=== PATIENT | female | born 1975 | race Caucasian/White ===

== ENCOUNTER 2024-01-26 15:46 | Emergency (ER) | payer SELFPAY ==
[2024-01-26 15:49] VITALS: BP 121/74; PULSE 97; RESP 16; O2SAT 100
--- NOTE | 2024-01-26 15:52 | ECG_ITS ---
Test Date: 2024-01-26 16:02:14 Measurements Intervals [place] Rate: 94 P: 58 MA: 160 QRS: 0 QRSD: 81 T: 58 QT: 331 QTc: 416 Interpretive Statements SINUS RHYTHM DELAYED PRECORDIAL R/S TRANSITION LOW QRS VOLTAGE IN PRECORDIAL LEADS BASELINE ARTIFACT- I, II, III, AVR, AVL, AVF, V1-V2 BORDERLINE ECG No previous ECG available for comparison Electronically Signed On 01-26-2024 18:39:07 MYSQL DATABASE ADMINISTRATOR by Iker Ramirez D.O.
== END 2024-01-26 18:56 | disposition left against medical advice (07) ==
LOC: ANHED 18:55
PROVIDERS: Emergency Provider Emergency Medicine
DX: M54.2 Cervicalgia (principal)
CPT/HCPCS: 93005; 99199

== ENCOUNTER 2024-09-03 21:12 | Emergency (ER) | payer MEDICAID, SELFPAY ==
[2024-09-03] VITALS (9 sets, daily range): BP systolic 121–142; BP diastolic 72–97; PULSE 82–90; RESP 14–23; TEMP 36.8; O2SAT 94–100
--- NOTE | ~2024-09-03 | CT_ITS ---
CT of the Abdomen and Pelvis: Indication: Abdominal pain Technique: 2.5 mm axial scans were obtained through the abdomen and pelvis following intravenous adm inistration of 100 cc of Omnipaque 350. Dose reduction technique was used on this scan by utilizing a utomated exposure control and iterative reconstruction technique. The dose-length product (DLP) was 1 455.21 mGy-cm. Findings: Scans through the lung bases are unremarkable. There is diffuse hepatic steatosis, with hepatomegaly, with liver measuring 27.4 cm in length. Cholec ystectomy clips are present. The spleen, pancreas, adrenals and kidneys are within normal limits. No evidence of aortic aneurysm. No lymphadenopathy. No bowel obstruction or bowel wall thickening. There is no evidence to suggest acute appendicitis. Images through the pelvis were performed. Urinary bladder unremarkable. No adnexal mass seen. No asci daniel. Impression: Diffuse hepatic steatosis with associated hepatomegaly. Reviewed, dictated and finalized at [facility]. Impression: Diffuse hepatic steatosis with associated hepatomegaly.
[2024-09-03 21:25] LABS: BEDSIDEPREGUCG Negative (Negative)
[2024-09-03 21:31] LABS: Basophils Percent Auto 0.4 % (0.2-1.2); Eosinophils Absolute Auto 0.3 K/mm3 (0-0.3); Eosinophils Percent Auto 3.5 % (0-4.4); Hematocrit 35.9 % (37.0-47.0); Hemoglobin 12.4 g/dL (12.0-15.0); Immature Granulocyte Absolute 0.04 K/mm3 (0.00-0.031); Immature Granulocyte Percent A 0.5 % (0-0.5); Lymphocytes Absolute Auto 1.79 K/mm3 (0.9-3.2); Lymphocytes Percent Auto 23.3 % (18.3-44.2); Mean Corpuscular HGB Conc 34.5 g/dl (32-36); Mean Corpuscular Hemoglobin 29.3 pg (26-34); Mean Corpuscular Volume 84.9 fl (80-100); Mean Platelet Volume 8.3 fl (7.4-10.4); Monocytes Absolute Auto 0.6 K/mm3 (0.1-0.6); Monocytes Percent Auto 7.3 % (2.6-8.5); Platelet Count Result 275 k/mm3 (150-375); Red Blood Count 4.23 M/mm3 (4.2-5.4); Red Cell Distribution Width 13.6 % (11.5-14.5); White Blood Count 7.7 K/mm3 (4.5-10.0)
[2024-09-03 21:39] LABS: Add Urine Microscopic? YES; Appearance Urine Clear (Clear); Bacteria Urine Rare /hpf; Bilirubin Urine Negative (Negative); Blood Urine Negative (Negative); Color Urine Yellow (Yellow); Glucose Urine UA Trace mg/dL (Negative); Ketones Urine Trace mg/dL (Negative); Leukocyte Esterase Ur 1+ LEU/UL (Negative); Need Manual Microscopic Reviewed; Nitrate Urine Negative (Negative); Non Pathogenic Casts 0-2; Protein Urine Negative (Negative); RBC Urine 0-2 /hpf (0-2); Specific Grav Ur 1.026 (1.001-1.035); Squamous Epithelial Cell Urine Occasional /hpf (Few); Urobilinogen Urine 0.2 mg/dL (<2.0); WBC Urine 0-5 /hpf (0-3); pH Urine 5.5 (5.0-9.0)
[2024-09-03 21:40] LABS: Alanine Aminotransferase 21 U/L (6-35); Albumin Level 4.1 g/dL (3.5-5.1); Alkaline Phosphatase 50 U/L (38-126); Anion Gap 10 mmol/L (4-12); Aspartate Amino Transferase 21 U/L (14-36); Bilirubin,Total 0.5 mg/dL (0.2-1.3); Blood Urea Nitrogen 10 mg/dL (7-17); Calcium 9.3 mg/dL (8.4-10.2); Carbon Dioxide 24 mmol/L (22-30); Chloride 105 mmol/L (98-107); Estimated CRCL calculation 145 ml/min; Estimated Glomerular Filt Rate > 60; Glucose 244 mg/dL (65-110); Lipase 187 U/L (23-300); Potassium 3.8 mmol/L (3.4-5.0); Sodium 139 mmol/L (137-145); Total Protein 7.4 g/dL (6.3-8.2)
[2024-09-03] MEDS: MORPHINE SULFATE (*CRX) 4 MG/ML INJ IV PUSH ×2 (21:57→22:41)
[2024-09-03] MEDS: ONDANSETRON INJ 4 MG/2 ML VIAL IV PUSH ×2 (21:57→23:11)
[2024-09-03 22:11] LABS: INR 1.1; Partial Thromboplastin Time 25.8 Seconds (22.3-36.8); Prothrombin Time 13.7 Seconds (11.1-14.7)
[2024-09-03 22:27] LABS: NT Pro B Type Natriuretic Pept 120 pg/mL (19.9-100)
--- NOTE | 2024-09-03 22:38 | ED_ITS ---
HPI - Abdominal Pain General Chief Complaint: Abdominal Pain <JOSIE Zuniga Last Filed: 09/04/24 01:48> Stated Complaint: ABD PAIN XTD <JOSIE Zuniga Last Filed: 09/04/24 01:48> Time Seen by Provider: 09/03/24 21:13 <JOSIE Zuniga Last Filed: 09/04/24 01:48> Source: patient <JOSIE Zuniga Last Filed: 09/04/24 01:48> Mode of arrival: ambulatory <JOSIE Zuniga Filed: 09/04/24 01:48> Limitations: no limitations <JOSIE Zuniga Last Filed: 09/04/24 01:48> History of Present Illness HPI narrative: Patient is a 49-year-old female, with PMH of fibromyalgia, HTN, DM, hypothyroidism, who presents the ED with report of right lower quadrant abdominal pain. Patient reports pain began earlier today and has been constant throughout the day today. Worse with certain positions. Has not taken anything for pain. Reports nausea, diarrhea, decreased appetite. Denies vomiting, fevers, urinary complaints. Denies history of ovarian cyst. History of previous cholecystectomy. Patient was noted to have swelling throughout bilateral lower extremities. She reports this has been ongoing for the past 1 week. Denies pain. <JOSIE Zuniga Last Filed: 09/04/24 01:48> Related Data Home Medications: Home Medications ?Medication ?Instructions ?Recorded ?Confirmed ?Last Taken ?Type pregabalin 150 mg capsule (Lyrica) 150 mg PO TID 05/11/19 03/28/24 03/28/24 History aspirin 325 mg tablet 325 mg PO DAILY 10/25/19 03/28/24 03/28/24 History atorvastatin 80 mg tablet 80 mg PO DAILY 10/25/19 03/28/24 03/27/24 History empagliflozin 10 mg tablet 10 mg PO DAILY 10/25/19 03/28/24 03/28/24 History (Jardiance) levothyroxine 125 mcg tablet 125 mcg PO BID 08/03/28/24 03/28/24 History metformin 500 mg tablet,extended 500 mg PO BID 10/25/19 03/28/24 Unknown History release 24 hr topiramate 50 mg tablet 50 mg PO BID 10/25/19 03/28/24 Unknown History trazodone 100 mg tablet 100 mg PO HS 10/25/19 03/28/24 03/27/24 History venlafaxine 75 mg tablet 75 mg PO TID 10/25/19 04/07/24 Unknown History mzemecxsiz-gprkpbrzokyrq-buzcduxz 1 tablet PO PRN headache 03/28/24 03/28/24 Unknown History 50 mg-325 mg-40 mg tablet flecainide 100 mg tablet 100 mg PO Q12H 03/28/24 03/28/24 03/28/24 History levothyroxine 75 mcg tablet 75 mcg PO DAILY 03/28/24 03/28/24 03/28/24 History <Rosetta White PA-C - Last Filed: 09/04/24 01:48> Allergies/Adverse Reactions: Allergies Allergy/AdvReac Type Severity Reaction Status Date / Time hydroxyzine Allergy Intermediate SWELLS Verified 09/03/24 21:13 buspirone AdvReac Intermediate Nausea and Verified 09/03/24 21:13 Vomiting <Rosetta White PA-C - Last Filed: 09/04/24 01:48> Review of Systems 2 Review of Systems: All systems reviewed & are unremarkable except as noted in HPI. <Rosetta White PA-C - Last Filed: 09/04/24 01:48> All systems reviewed & are unremarkable except as noted in HPI and below < Rosetta White PA-C - Last Filed: 09/04/24 01:48> [facility] Past Medical History Medical History: Medical History Hypothyroid Diabetes Fibromyalgia Anxiety and depression Migraines <Rosetta White PA-C - Last Filed: 09/04/24 01:48> Surgical History Surgical History: Surgical History Hx of cholecystectomy H/O cervical spine surgery <Rosetta White PA-C - Last Filed: 09/04/24 01:48> Social History Social History: Social History Smoking status: Former smoker Tobacco type: cigarettes Alcohol intake: current Alcohol use details: rarely Substance use: never Substance use type: does not use Living arrangements: with family Gender identity (if verbalized by the patient): Female Spiritual care concerns: No <Rosetta White PA-C - Last Filed: 09/04/24 01:48> Exam 2 Narrative: GENERAL: Well appearing, obese with BMI of 35.1, non-toxic, in no acute distress. HEAD: Normocephalic, atraumatic. RESPIRATORY: Airway patent, respirations nonlabored. Clear to auscultation bilaterally, no rales, rhonchi, wheezing. CARDIOVASCULAR: Regular rate and rhythm without murmurs, rubs, or gallops. ABDOMINAL: Soft, mild diffuse tenderness throughout lower abdomen, worse in right quadrant, nondistended. Normoactive BS. MUSCULOSKELETAL: Moves all extremities. No gross deformities. Diffuse nonpitting edema throughout bilateral lower extremities, appears symmetric. No warmth or erythema. No calf tenderness. SKIN: Warm, dry, normal color. NEURO: A&O X3. Speech clear. No ataxic movements. PSYCHIATRIC: Appropriate mood and affect. Normal interaction. <Rosetta White PA-C - Last Filed: 09/04/24 01:48> Course Course Emergency Course: Patient signed out to me pending interpretation of CT study. RENU discussed patient with me including the presence of lower extremity swelling that had been noted though with a normal dimer and a BNP that was not elevated to a degree to suggest acute heart failure. RENU had discussed with patient dependent edema and the need to follow-up. Given the significant delay in interpretation of her CT scan, I had called safety relief valve technician and was informed they were aware of the delay. I was notified that patient was desiring to leave. I indicated that I would come to speak to her after evaluating a new arrival in the ED but patient decided to leave. I did not have the opportunity to discuss with her in regards to her work up so far and the AMA process. She also did not have the opportunity to receive discharge paperwork/instructions. Shortly after patient left, her CT abdomen pelvis with contrast resulted from stat rad with the following interpretation: Nonspecific marked hepatomegaly. The remaining solid organs are within normal limits. No bowel obstruction. Normal appendix. No fracture. Moderate pelvic floor prolapse. <Krysten Powell MD - Last Filed: 09/04/24 02:39> Vital Signs Vital signs: Vital Signs Temperature 98.3 F 09/03/24 21:18 Pulse Rate 90 09/03/24 21:18 Respiratory Rate 16 09/03/24 21:18 Blood Pressure 142/91 H 09/03/24 21:18 Pulse Oximetry 96 09/03/24 21:18 Oxygen Delivery Room Air 09/03/24 21:18 Temperature 98.3 F 09/03/24 21:18 Pulse Rate 79 09/04/24 02:00 Respiratory Rate 12 09/04/24 02:00 Blood Pressure 123/78 09/04/24 02:00 Pulse Oximetry 96 09/04/24 02:00 Oxygen Delivery Room Air 09/03/24 21:18 <Rosetta White PA-C - Last Filed: 09/04/24 01:48> Vital Signs Temperature 98.3 F 09/03/24 21:18 Pulse Rate 90 09/03/24 21:18 Respiratory Rate 16 09/03/24 21:18 Blood Pressure 142/91 H 09/03/24 21:18 Pulse Oximetry 96 09/03/24 21:18 Oxygen Delivery Room Air 09/03/24 21:18 Temperature 98.3 F 09/03/24 21:18 Pulse Rate 79 09/04/24 02:00 Respiratory Rate 12 09/04/24 02:00 Blood Pressure 123/78 09/04/24 02:00 Pulse Oximetry 96 09/04/24 02:00 Oxygen Delivery Room Air 09/03/24 21:18 <Krysten Powell MD - Last Filed: 09/04/24 02:39> MDM - Abdominal Pain MDM Narrative Medical decision making narrative: Patient presented to ED with right lower quadrant abdominal pain that began today. Associated with nausea, diarrhea. Vital signs are stable upon arrival. Patient is afebrile. Mildly uncomfortable appearing. Laboratory studies are fairly unremarkable. No leukocytosis or anemia. Stable electrolytes. Stable kidney function. Blood sugar is elevated to 44. No evidence of DKA. Normal LFTs and lipase. UA with trace ketones, no signs of infection. Urine is negative. CT abd/pelvis ordered. Patient did have swelling throughout bilateral lower extremities which she reports has been ongoing for the last 1 week. She is not very forthcoming with information regarding the swelling. D-dimer was obtained and within normal limits. BNP also within normal limits. Suspect lymphedema/dependent edema picture. Care signed out to Dr. Powell at shift change pending STAT RAD imaging. <Rosetta White PA-C - Last Filed: 09/04/24 01:48> Medical Records Attestation: I reviewed the patient's medical records. <Rosetta White PA-C - Last Filed: 09/04/24 01:48> Lab Data Attestation: I reviewed the patient's lab results. <Rosetta White PA-C - Last Filed: 09/04/24 01:48> Result diagrams: 09/03/24 21:23 09/03/24 21:23 <Rosetta White PA-C - Last Filed: 09/04/24 01:48> Labs: Lab Results 09/03/24 Range/Units 21:23 WBC 7.7 (4.5-10.0) K/mm3 RBC 4.23 (4.2-5.4) M/mm3 Hgb 12.4 (12.0-15.0) g/dL Hct 35.9 L (37.0-47.0) % MCV 84.9 (80-100) fl MCH 29.3 (26-34) pg MCHC 34.5 (32-36) g/dl RDW 13.6 (11.5-14.5) % Plt Count 275 (150-375) k/mm3 MPV 8.3 (7.4-10.4) fl Immature Gran % (Auto) 0.5 (0-0.5) % Neut % (Auto) 65.0 (45.5-73.1) % Lymph % (Auto) 23.3 (18.3-44.2) % Sabine % (Auto) 7.3 (2.6-8.5) % Eos % (Auto) 3.5 (0-4.4) % Baso % (Auto) 0.4 (0.2-1.2) % Lymph # (Auto) 1.79 (0.9-3.2) K/mm3 Sabine # (Auto) 0.6 (0.1-0.6) K/mm3 Eos # (Auto) 0.3 (0-0.3) K/mm3 Baso # (Auto) 0.0 (0.0-0.1) K/mm3 Abs Immat Gran (auto) 0.04 H (0.00-0.031) K/mm3 Absolute Neuts (auto) 5.0 (1.3-6.7) K/mm3 Absolute Nucleated RBC 0.000 (0.0-0.012) K/mm3 Nucleated RBC % 0.0 (0.0-0.2) % PT 13.7 (11.1-14.7) Seconds INR 1.1 APTT 25.8 (22.3-36.8) Seconds D-Dimer 0.30 (<0.48) ug/mL Sodium 139 (137-145) mmol/L Potassium 3.8 (3.4-5.0) mmol/L Chloride 105 (98-107) mmol/L Carbon Dioxide 24 (22-30) mmol/L Anion Gap 10 (4-12) mmol/L BUN 10 (7-17) mg/dL Creatinine 0.62 L (0.7-1.0) mg/dL Estim Creat Clear Calc 145 ml/min Estimated GFR > 60 (59 - ) Glucose 244 H (65-110) mg/dL Calcium 9.3 (8.4-10.2) mg/dL Total Bilirubin 0.5 (0.2-1.3) mg/dL AST 21 (14-36) U/L ALT 21 (6-35) U/L Alkaline Phosphatase 50 (38-126) U/L NT-Pro-B Natriuret Pep 120 H (19.9-100) pg/mL Total Protein 7.4 (6.3-8.2) g/dL Albumin 4.1 (3.5-5.1) g/dL Lipase 187 (23-300) U/L Urine Color Yellow (Yellow) Urine Appearance Clear (Clear) Urine pH 5.5 (5.0-9.0) Ur Specific Floral 1.026 (1.001-1.035) Urine Protein Negative (Negative) mg/dL Urine Glucose (UA) Trace H (Negative) mg/dL Urine Ketones Trace H (Negative) mg/dL Ur Blood (Man) Negative (Negative) Urine Nitrate Negative (Negative) Urine Bilirubin Negative (Negative) Urine Urobilinogen 0.2 (<2.0) mg/dL Add Ur Microanalysis Reviewed Leukocyte Esterase Rfl 1+ H (Negative) ANAID/UL Urine RBC 0-2 (0-2) /hpf Urine WBC 0-5 (0-3) /hpf Ur Squamous Epith Cells Occasional (Few) /hpf Urine Bacteria Rare /hpf Urine Casts 0-2 POC Urine HCG, Qual Negative (Negative) <Rosetta White PA-C - Last Filed: 09/04/24 01:48> Lab Results 09/03/24 Range/Units 21:23 WBC 7.7 (4.5-10.0) K/mm3 RBC 4.23 (4.2-5.4) M/mm3 Hgb 12.4 (12.0-15.0) g/dL Hct 35.9 L (37.0-47.0) % MCV 84.9 (80-100) fl MCH 29.3 (26-34) pg MCHC 34.5 (32-36) g/dl RDW 13.6 (11.5-14.5) % Plt Count 275 (150-375) k/mm3 MPV 8.3 (7.4-10.4) fl Immature Gran % (Auto) 0.5 (0-0.5) % Neut % (Auto) 65.0 (45.5-73.1) % Lymph % (Auto) 23.3 (18.3-44.2) % Sabine % (Auto) 7.3 (2.6-8.5) % Eos % (Auto) 3.5 (0-4.4) % Baso % (Auto) 0.4 (0.2-1.2) % Lymph # (Auto) 1.79 (0.9-3.2) K/mm3 Sab[place] # (Auto) 0.6 (0.1-0.6) K/mm3 Eos # (Auto) 0.3 (0-0.3) K/mm3 Baso # (Auto) 0.0 (0.0-0.1) K/mm3 Abs Immat Gran (auto) 0.04 H (0.00-0.031) K/mm3 Absolute Neuts (auto) 5.0 (1.3-6.7) K/mm3 Absolute Nucleated RBC 0.000 (0.0-0.012) K/mm3 Nucleated RBC % 0.0 (0.0-0.2) % PT 13.7 (11.1-14.7) Seconds INR 1.1 APTT 25.8 (22.3-36.8) Seconds D-Dimer 0.30 (<0.48) ug/mL Sodium 139 (137-145) mmol/L Potassium 3.8 (3.4-5.0) mmol/L Chloride 105 (98-107) mmol/L Carbon Dioxide 24 (22-30) mmol/L Anion Gap 10 (4-12) mmol/L BUN 10 (7-17) mg/dL Creatinine 0.62 L (0.7-1.0) mg/dL Estim Creat Clear Calc 145 ml/min Estimated GFR > 60 (59 - ) Glucose 244 H (65-110) mg/dL Calcium 9.3 (8.4-10.2) mg/dL Total Bilirubin 0.5 (0.2-1.3) mg/dL AST 21 (14-36) U/L ALT 21 (6-35) U/L Alkaline Phosphatase 50 (38-126) U/L NT-Pro-B Natriuret Pep 120 H (19.9-100) pg/mL Total Protein 7.4 (6.3-8.2) g/dL Albumin 4.1 (3.5-5.1) g/dL Lipase 187 (23-300) U/L Urine Color Yellow (Yellow) Urine Appearance Clear (Clear) Urine pH 5.5 (5.0-9.0) Ur Specific Floral 1.026 (1.001-1.035) Urine Protein Negative (Negative) mg/dL Urine Glucose (UA) Trace H (Negative) mg/dL Urine Ketones Trace H (Negative) mg/dL Ur Blood (Man) Negative (Negative) Urine Nitrate Negative (Negative) Urine Bilirubin Negative (Negative) Urine Urobilinogen 0.2 (<2.0) mg/dL Add Ur Microanalysis Reviewed Leukocyte Esterase Rfl 1+ H (Negative) ANAID/UL Urine RBC 0-2 (0-2) /hpf Urine WBC 0-5 (0-3) /hpf Ur Squamous Epith Cells Occasional (Few) /hpf Urine Bacteria Rare /hpf Urine Casts 0-2 POC Urine HCG, Qual Negative (Negative) <Krysten Powell MD - Last Filed: 09/04/24 02:39> Imaging Data Attestation: I personally reviewed and interpreted this imaging study as follows: < Rosetta White PA-C - Last Filed: 09/04/24 01:48> Discharge Plan Discharge Clinical Impression: Right lower quadrant abdominal pain, Nausea, Swelling of both lower extremities, Hepatomegaly, Pelvic prolapse <JOSIE Zuniga Last Filed: 09/04/24 01:48> Patient Disposition: Elopement After Seen by Prov <JOSIE Zuniga Last Filed: 09/04/24 01:48> Condition: Stable <Rosetta White PA-C - Last Filed: 09/04/24 01:48> Instructions: Antibiotic Form, Gastroenteritis (ED), Abdominal Pain (ED), Edema (ED) <JOSIE Zuniga Last Filed: 09/04/24 01:48> Additional Instructions: Recommend elevation of legs whenever able. You may try compression stockings to assist with swelling. Limit salt intake. Follow up with your primary care doctor for this. <Rosetta White PA-C - Last Filed: 09/04/24 01:48> Patient Language: Belizean <JOSIE Zuniga Last Filed: 09/04/24 01:48> Prescriptions: No Action atorvastatin 80 mg Tablet 80 mg PO DAILY aspirin 325 mg Tablet 325 mg PO DAILY levothyroxine 125 mcg Tablet 125 mcg PO BID metformin 500 mg Tablet Extended Release 24 Hr 500 mg PO BID Jardiance 10 mg Tablet 10 mg PO DAILY topiramate 50 mg Tablet 50 mg PO BID trazodone 100 mg Tablet 100 mg PO HS venlafaxine 75 mg Tablet 75 mg PO TID pregabalin [Lyrica] 150 mg Capsule 150 mg PO TID arsfdhpgoi-ojygluxxkxnfy-nias 50-325-40 mg tablet 1 tablet PO PRN levothyroxine 75 mcg tablet 75 mcg PO DAILY flecainide 100 mg tablet 100 mg PO Q12H peg 3350-electrolytes [Golytely] 236-22.74-6.74 -5.86 gram recon soln 240 ml PO .Q15MIN Qty: 4000 0RF Rx Instructions: FOLLOW INSTRUCTIONS FROM PROVIDER <Rosetta White PA-C - Last Filed: 09/04/24 01:48> Follow-up/Referrals: Dotty Charles RN [Primary Care Provider] - <Rosetta White PA-C - Last Filed: 09/04/24 01:48>
[2024-09-04 00:01] VITALS: BP 120/83; PULSE 77; RESP 19; O2SAT 95
[2024-09-04] MEDS: diphenhydrAMINE HCl INJ 50 MG/ML VIAL 25 MG IV PUSH (00:32)
[2024-09-04] MEDS: METOCLOPRAMIDE HCL INJ 10 MG/2 ML VIAL IV PUSH (00:36)
[2024-09-04 01:01] VITALS: BP 117/75; PULSE 77; RESP 12; O2SAT 96
[2024-09-04 01:31] VITALS: BP 136/75; PULSE 76; RESP 12; O2SAT 96
[2024-09-04 02:00] VITALS: BP 123/78; PULSE 79; RESP 12; O2SAT 96
== END 2024-09-04 02:10 | disposition left against medical advice (07) ==
PROVIDERS: Physician Assistant; Emergency Provider Student in an Organized Health Care Education/Training Program
DX: N81.89 Other female genital prolapse (principal); R10.31 Right lower quadrant pain; R11.0 Nausea; R22.43 Localized swelling, mass and lump, lower limb, bilateral; R16.0 Hepatomegaly, not elsewhere classified; I10 Essential (primary) hypertension; E03.9 Hypothyroidism, unspecified; E11.9 Type 2 diabetes mellitus without complications; M79.7 Fibromyalgia; F41.9 Anxiety disorder, unspecified; F32.A Depression, unspecified; Z87.891 Personal history of nicotine dependence; Z90.49 Acquired absence of other specified parts of digestive tract; Z79.899 Other long term (current) drug therapy; Z79.84 Long term (current) use of oral hypoglycemic drugs
CPT/HCPCS: 36415; 74177; 80053; 81001; 81025; 83690; 83880; 85025; 85380; 85610; 85730; 87086; 96374; 96375; 96376; 99284; J1200; J2270; J2405; J2765; Q9967

== ENCOUNTER 2024-09-24 13:11 | Emergency (ER) | payer MEDICAID, SELFPAY ==
--- NOTE | ~2024-09-24 | CT_ITS ---
EXAMINATION: CTA chest PE protocol DATE: 09/24/2024 17:02 INDICATION: recent surg R shoulder surg; cp/sob; dimer elev TECHNIQUE: Computed tomography angiography (CTA) of the chest was performed with 100 mL Omnipaque-350 intravenous contrast timed to evaluate the pulmonary arteries. Coronal maximum intensity projection 3D-reconstructions were created by the technologist. The dose-length product (DLP) was 754.81 mGy-cm. Automated exposure control and iterative reconstruction technique were employed. COMPARISON: X-ray chest, same date. FINDINGS: Lung parenchyma and airways: Patchy areas of groundglass opacities throughout the lungs. Minimal biba silar scar/atelectasis. Patent airways. Pleura: Unremarkable. Thoracic inlet, axillae and chest wall: Unremarkable. Thoracic aorta: No significant dilation. No dissection. Mediastinum: Dilated central pulmonary arteries as can be seen with pulmonary hypertension. Heart and pericardium: Cardiomegaly. Coronary artery calcifications: Mild. Upper abdomen: No significant finding. Bones: No acute osseous finding. Uncomplicated ACDF hardware. Fluid collections in the glenohumeral j oint, adjacent to the subscapularis muscle, and running anteriorly along the proximal biceps muscle. Pulmonary arteries: Study quality: Adequate. No pulmonary emboli detected. IMPRESSION: No CT evidence of acute pulmonary embolus. Patchy bilateral ground glass opacities may represent edema, atelectasis, or infection. Right glenohumeral joint and adjacent subscapularis and biceps fluid collections, in the absence of s igns of infection these likely represent normal postoperative fluid collections. Reviewed, dictated and finalized at location K. IMPRESSION: No CT evidence of acute pulmonary embolus. Patchy bilateral ground glass opacities may represent edema, atelectasis, or in fection. Right glenohumeral joint and adjacent subscapularis and biceps fluid collection s, in the absence of signs of infection these likely represent normal postopera tive fluid collections.
--- NOTE | ~2024-09-24 | XR_ITS ---
EXAMINATION: XR chest 2V Exam Date/Time: 09/24/2024 14:10 CDT HISTORY: CHEST PAIN Comparison: 04/15/2021. RESULT: Lines, tubes, and devices: ACDF hardware, interbody device in good position. Loop recorder. Lungs and pleura: Clear. Cardiomediastinal silhouette: Stable. Other: No acute osseous or upper abdominal finding. IMPRESSION: No acute cardiopulmonary process. Reviewed, dictated and finalized at location K.
--- NOTE | 2024-09-24 13:14 | ECG_ITS ---
Test Date: 2024-09-24 13:19:29 Measurements Intervals [place] Rate: 92 P: 55 GA: 176 QRS: 2 QRSD: 87 T: 58 QT: 350 QTc: 435 Interpretive Statements SINUS RHYTHM WITH FREQUENT SUPRAVENTRICULAR PREMATURE COMPLEXES LOW QRS VOLTAGE IN PRECORDIAL LEADS [QRS DEFLECTION < 1.0 mV IN CHEST LEADS] POSSIBLE ANTERIOR MYOCARDIAL INFARCTION , OF INDETERMINATE AGE [30 ms Q WAVE IN V3/V4, OR R < 0.2 mV IN V4] Compared to ECG 01/26/2024 16:02:14 Myocardial infarct finding now present Electronically Signed On 09-25-2024 10:45:48 CDT by Noble Hubbard M.D.
--- OUTSIDE RECORDS SUMMARY | 2024-09-24 13:14 | XMS_ITS | Encounter Summary ---
Author Organization [facility] Healthcare Address [address] [place] [address] Care Team Providers Care Data Report Analyst Name Role Phone Gio Asif MD Primary Care Provider No, Physician Primary Care Provider Alvin Franco MD Primary Care Provider No, Physician Primary Care Provider Alvin Franco MD Unavailable [phone] Miscellaneous, Not In File Unavailable Unava ilable Coco Bernal BRICK CARRIER Unavailable Silvino Lopez MD Primary Care Provider + Daryn Bui MD Unavailable Trevon Benson MD Unavailable [phone] Shauna Hicks MD Primary Care Provider Dotty Charles BRICK CARRIER Primary Care Provider Encounter Details Date Type Department Care Team (Latest Contact Info) Description 09/09/2019 Ophth Exam Ophthalmology Priscila Yarbrough MD [address] [place] [address] Social History Tobacco Use Types Packs/Day Years Used Date Smoking Tobacco: Former Smokeless Tobacco: Current Alcohol Use Standard Drinks/Week Comments No 0 (1 standard drink = 0.6 oz pur e alcohol) PHQ-2 Answer Date Recorded PHQ-2 Total Score (If total score is 3 or more points, staff should administer the PHQ-9) 0 09/09/2019 Comments No Sex and Gender Information Value Date Recorded Sex Assigned at Not on file Legal Sex Female 8:03 AM CAKE FROSTER Gender Identity Not on file Sexual Orientation Straight 05/01/2021 9: 39 PM CAKE FROSTER documented as of this encounter Plan of Treatment Upcoming Encounters Date Type Department Care Team (Late st Contact Info) Description 01/23/2025 11:00 AM CAKE FROSTER Hospital Encounter [address] [address] Shannon Mccarty MD [address] [place] [address] DR JOHANSEN [address] [place] [id number] 01/23/2025 11:00 AM CAKE FROSTER - 01/23/2025 11:30 AM CAKE FROSTER Surgery [address] [address] Shannon Mccarty MD [address] [facility] [address] JOHANSEN [address] [place] [id number] COLONOSCOPY Scheduled Procedures Name Priority Associated Diagnoses Date/Ti nj COLONOSCOPY Screening for colon cancer 01/23/2025 11:00 AM CAKE FROSTER documented as of this encounter Visit Diagnoses Not on filedocumented in this encounter Additional Health Concerns Infection Onset Date Last Indicated Resolved Time COVID: Suspected 10/26/2019 10/26/2019 10/27/2019 5:51 AM CDT Respiratory Infection (TRISTA), contact + droplet Comment:Automatically added due to negative COVID-19 result. 10/27/2019 10/27/2019 11/10/2019 3:0 6 AM CDT COVID: Suspected 12/14/2021 12/14/2021 12/14/2021 1:31 AM CDT COVID: Suspected 06/01/2022 06/01/2022 06/01/2022 10:34 AM CDT COVID: Suspected 05/31/2023 05/31/2023 06/01/2023 12:27 AM CDT COVID: Suspected 06/13/2023 06/13/2023 06/13/2023 1:32 PM CDT COVID: Suspected 06/20/2023 06/20/2023 06/20/2023 9:58 AM CDT COVID: Suspected 01/16/2024 01/16/2024 01/16/2024 5:20 PM CAKE FROSTER COVID: Suspected 04/21/2024 04/21/2024 04/21/2024 4:15 PM CAKE FROSTER documented as of this encounter Eye Exam Visual Acuity Right eye Left eye Near sc 20/20 20/25 Tonometry (Tonopen, 3:33 AM) Right eye Left eye Pressure 20 17 Pupils Dark Light Shape React APD Right eye 4 2 Round Brisk None Left eye 4 2 Round Brisk None Visual Grubbs Right eye Left eye Full Full Extraocular Movement Right eye Left eye Full, Ortho Full, Ortho Neuro/Psych Oriented x3: Yes Mood/Affect: Normal Dilation Both eyes: 1% Tropicamide, 2 .5% Phenylephrine @ 3:34 AM External Exam Right eye Left eye External Normal Normal Slit Lamp Exam Right eye Left eye Lids/Lashes Normal Normal Conjunctiva/Sclera White and quiet White and shannan et Cornea Clear Clear Anterior Chamber Deep and quiet Deep and quiet Iris Round and reactive Round and sophie ctive Lens Clear Clear Vitreous Normal Normal Fundus Exam Right eye Left eye Disc crisp margins, no pa llor, healthy rim, no edema crisp margins, no pallor, healthy rim, no edema C/D Ratio 0.3 0.3 Macula flat, no edema flat, no edema Vessels Normal Normal Periphery Normal, no plaques Normal, no pl aques Care Teams Data Report Analyst Relationship Specialty Start Date End Date Gio Asif MD [address] [place] [address] PCP - General 11/24/16 07/23/20 No, Physician PCP - General 07/24/20 12/10/20 [place] [address] [address] [facility] [address] [place] [address] PCP - General 12/11/20 02/07/21 No, Physician PCP - General 02/08/21 03/11/21 Silvino Lopez MD [address] [place] [address] DR [address] [facility] [place] [address] PCP - General Family Medicine 03/12/21 12/19/22 Shauna Hicks MD [address] [place] [id number] PCP - General Family Medicine 01/03/23 04/20/24 Dotty Charles, ODNG [address] [place] [address] DR ANDREW Tao [facility] [address] [place] [address] PCP - General Nurse Practitioner 04/21/24 [place] [id number] [address] Consulting Physician Internal Medicine 02/09/21 Miscellaneous, Not In File 02/21/21 Coco Bernal NP [address] [place] [address] DR JOH[address]EN [address] [place] [id number] Nurse Practitioner Cardiovascular Disease 02/21/21 Daryn Bui MD [address] [address] Consulting Physician Cardiology 05/21/21 Trevon Benson MD [address] [address] Surgeon Orthopedic Surgery 11/05/21 documented as of this encounter
--- OUTSIDE RECORDS SUMMARY | 2024-09-24 13:14 | XMS_ITS | Clinical Summary ---
Author Organization [facility] [employer] Address [address] [place] [address] Care Team Providers Care Substation Wireman Name Role Phone Gio Asif MD Primary Care Provider [phone] Source Comments [facility],non-owned Affiliates and Associated Physician Practices is amultiple site organization consisting of ambulatory clinics and hospital sitesin [place], [place], [place]. This disclosure is being madepursuant to the Care Everywhere program and may not contain all information available regarding this patient. Last updated 17.[facility] Allergies Active Allergy Reactions Criticality Noted Date Comments Bee Venom Swelling Medium 11/20/2016 Buspirone Other High 11/20/2016 Hydroxyzine Other Hydroxyzine Hcl Swelling High 11/20/2016 Hydroxyzine Pamoate Other Medications * Be aware that medications may not be up to date on this document. Alwaysverify current medications with the patient. levothyroxine (SYNTHROID) 25 MCG tablet Active levothyroxine (SYNTHROID) 200 MCG tablet Take 200 mcg by mouth once daily Active mirtazapine (REMERON) 30 MG tablet Take 45 mg by mouth at bedtime 8 Active pregabalin (LYRICA) 150 MG capsule Take 150 mg by mouth 3 times daily Active raNITIdine (ZANTAC) 300 MG tablet 300 mg 2 times daily 9 Active sodium chloride (OCEAN; BABY AYR) 0.65 % nasal spray 3 sprays in each nostril at least four times a day and if needed increase to every 1-2 hours while awake 9 Active topiramate (TOPAMAX) 50 MG tablet Take 50 mg by mouth 2 times daily 9 Active venlafaxine XR 24hr (EFFEXOR XR) 150 MG capsule venlafaxine ER 150 mg capsule,extended release 24 hr Active traZODone (DESYREL) 100 MG tablet Take 100 mg by mouth at bedtime Active metFORMIN (GLUCOPHAGE) 500 MG tablet Take 500 mg by mouth 2 times daily with morning and evening meal Active propranolol (INDERAL) 20 MG tablet Take 20 mg by mouth 2 times daily Active furosemide (LASIX) 40 MG tablet Take 40 mg by mouth once daily Active potassium chloride ER (KLOR-CON) 20 MEQ tablet Take 20 mEq by mouth once daily Active pravastatin (PRAVACHOL) 20 MG tablet Take 20 mg by mouth at bedtime Active diphenhydrAMINE (BENADRYL) 25 MG capsule Take 25 mg by mouth at bedtime Active ascorbic acid (VITAMIN C) 500 MG tablet Take 500 mg by mouth once daily Active Melatonin 10 MG Take 10 mg by mouth at bedtime Active Garlic Oil 1000 MG Take by mouth once daily Active Biotin 74914 MCG TBDP Take by mouth once daily Active oxyCODONE-aceta minophen (PERCOCET) 5-325 MG tabletIndicatio ns:Pre-op evaluation Take 1-2 tablets by mouth every 8 hours as needed for Pain 40 tablet 9 Active cyclobenzaprine (FLEXERIL) 10 MG tabletIndicatio ns:Pre-op evaluation Take 1 tablet by mouth 3 times daily as needed for Muscle Spasms 30 tablet 9 Active Active Problems Problem Noted Date Diagnosed Date Pre-op evaluation 08/12/2018 Cervical spinal stenosis Social History Tobacco Use Types Packs/Day Years Used Date Smoking Tobacco: Former Smokeless Tobacco: Current Comments:vapes Alcohol Use Standard Drinks/Week Comments No 0 (1 standard drink = 0.6 oz pur e alcohol) Comments No Sex and Gender Information Value Date Recorded Sex Assigned at Not on file Legal Sex Female 10:31 AM CDT Gender Identity Not on file Sexual Orientation Not on file Last Filed Vital Signs Vital Sign Reading Time Taken Comments Blood Pressure 111/66 08/24/2018 2:37 PM CDT Pulse 74 08/24/2018 2:37 PM CDT Temperature 36.5 C (97.7 F) 08/24/2018 2:37 PM CDT Respiratory Rate 20 08/15/2018 12:04 PM CDT Oxygen Saturation 96% 08/24/2018 2:37 PM CDT Inhaled Oxygen Concentration - - Weight 135.2 kg (298 lb) 08/24/2018 2:37 PM CDT Height 182.9 cm (6') 08/24/2018 2:37 PM CDT Body Mass Index 40.42 08/24/2018 2:37 PM CDT Plan of Treatment Health Maintenance Due Date Last Done Comments COLOGUARD (AGES 45-75) - COLON CA SCREENING 1977 COLON MONITORING 1977 COLONOSCOPY - COLON CA SCREENING 1977 CT COLONOGRAPHY - COLON CA SCREENING 1977 Colorectal Cancer Screening 1977 FIT - COLON CA SCREENING 1977 FLEX SIG - COLON CA SCREENING 1977 MAMMOGRAM 1977 HIV SCREENING 1992 HEPATITIS C SCREENING 06/14/1995 DTAP/TDAP/TD VACCINES (1 - Tdap) 1996 HEPATITIS B VACCINE (1 of 3 - 19+ 3-dose series) 1996 SCREENING FOR DIABETES 08/15/2021 9, 08/15/2018, 08/15/2018, Additional history exists COVID-19 VACCINE ( - 2023- season) 2023 DEPRESSION SCREENING 03/08/2024 INFLUENZA VACCINE (#1) 2024 11/19/2016, 2014 ZOSTER VACCINE (1 of 2) 06/19/2027 HIB VACCINE Aged Out No longer eligi ble based on patient's age to complete this topic HPV VACCINE Aged Out No longer eligi ble based on patient's age to complete this topic MENINGOCOCCAL (Group B) VACCINE SHARED DECISION-MAKING Aged Out No longer eligible based on patient's age to complete this topic MENINGOCOCCAL GROUPS A/C/Y/W VACCINE Aged Out No longer eligible based on patient's age to complete this topic PNEUMOCOCCAL VACCINE Aged Out No long er eligible based on patient's age to complete this topic Medical Devices Implanted Type Area Porcelain Enamel Laborer Device Identifier Shelf Expiration Date Model / Serial / Lot Graft Bone Grftn Dbm Aspt 5x2.5cm Post Implanted:Qty: 1 on 08/12/2018 by Celso Guerra MD at [facility] N/A: Spine Cervical [employer] 07/30/2019 [id number] / / [id number] [place] Pin Implanted:Qty: 2 on 08/12/2018 by Celso Guerra MD at [facility] N/A: Spine Cervical [employer] [id number] / / 4.2 Variable Screws Implanted:Qty: 4 on 08/12/2018 by Celso Guerra MD at [facility] N/A: Spine Cervical [employer] 161.014 / / Xtend Plate Implanted:Qty: 1 on 08/12/2018 by Celso Guerra MD at [facility] N/A: Spine Cervical [employer] 161.230 / / Fortify 12mm Core 19-25mm Implanted:Qty: 1 on 08/12/2018 by Celso Guerra MD at [facility] N/A: Spine Cervical [employer] 151.051 / / Fortify 12mm Upper Endplate Implanted:Qty: 1 on 08/12/2018 by Celso Guerra MD at [facility] N/A: Spine Cervical [employer] 151.321 / / Fortify 12mm Lower Endplate Implanted:Qty: 1 on 08/12/2018 by Celso Guerra MD at [facility] N/A: Spine Cervical [employer] 151.371 / / Procedures Procedure Name Priority Date/Time Associated Diagnosis Comments BASIC METABOLIC PANEL (CALCIUM TOTAL) Routine 08/15/2018 4:17 AM CDT Pre-op evaluation from Last 3 Months or Most Recently Relevant to Health Maintenance Results * (ABNORMAL) BASIC METABOLIC PANEL (CALCIUM TOTAL) (08/15/2018 4:17 AM CDT) [facility] BUN 7 7 - 26 mg/dL 08/15/2018 4:51 AM CDT [facility] Creatinine 0.8 0.6 - 1.2 mg/dL 08/15/2018 4:51 AM [facility] Sodium 138 136 - 145 mmol/L 08/15/2018 4:51 AM [facility] Potassium 3.4(L) 3.5 - 4.5 mmol/L 08/15/2018 4:51 AM [facility] Chloride 101 98 - 107 mmol/L 08/15/2018 4:51 AM [facility] CO2 29 22 - 29 mmol/L 08/15/2018 4:51 AM [facility] Glucose 146(H) 70 - 115 mg/dL 08/15/2018 4:51 AM [facility] Calcium 8.5 8.4 - 10.2 mg/dL 08/15/2018 4:51 AM [facility] Anion Gap 11 8 - 18 08/15/2018 4:51 AM [facility] BUN/Creatinine Ratio 9 7 - 23 08/15/2018 4:51 AM [facility] Osmolality Calculated 287 270 - 300 mOsm/kg 08/15/2018 4:51 AM [facility] eGFR >60 >60 mL/min/1.7 3 m2 08/15/2018 4:51 AM [facility] Blood BLOOD SPECIMEN / Unknown Lab Venipuncture / Unknown 08/15/2018 4:17 AM CDT 08/15/2018 4:28 AM [facility] Marlo Corea MD LAB - CHEMISTRY ORDERABLES Final Result [facility] [address] [phone] from Last 3 Months or Most Recently Relevant to Health Maintenance Insurance [facility] ANTH MEDICAID - OUT OF STATE [facility] Advance Directives * Full Code (Latest Code Status on File) Date Activated Date Inactivated Comments 08/12/2018 8:00 PM 08/15/2018 4:03 PM Care Teams Substation Wireman Relationship Specialty Start Date End Date Gio Asif MD [address] [place] [address] PCP - General Internal Medicine 08/12/18
--- OUTSIDE RECORDS SUMMARY | 2024-09-24 13:14 | XMS_ITS | Referral Summary ---
Author Organization [facility] al Address [address] [place] [address] Care Team Providers Care Machine Rebuilder Name Role Phone Alvin Franco MD Unavailable [phone] Miscellaneous, Not In File Unavailable Unava ilable Coco Bernal NP Unavailable [phone] Daryn Bui MD Unavailable [phone] Trevon Benson MD Unavailable [phone] Dotty Charles COOK HELPER PASTRY Primary Care Provider Encounters Date Type Department Care Team Description 08/24/2024 Telephone [facility] [address] [address] Khushi Serrano PA Dexcom G7 Sensors PA Request 08/08/2024 Telephone [facility] [address] [address] Khushi Serrano PA 07/17/2024 Telephone [facility] [address] [place] [id number] Khushi Serrano PA Prior Auth ([facility] [place]) 06/29/2024 2:31 PM CDT - 06/29/2024 11:59 PM CDT Hospital Encounter [facility] Emergency, Room R Discharge Disposition: Discharge to home or self care 06/29/2024 2:55 PM CDT - 06/29/2024 4:54 PM CDT Emergency [facility] Emergency Department [address] [place] [address] Cherri Cleveland MD Discharge Disposition: Left Against Medical Advice from Last 3 Months Allergies Active Allergy Reactions Criticality Noted Date Comments Buspirone Hallucinations High 11/20/2016 Cinnamon Other (See comments) Low 12/22/2022 Nose bleed Metformin Stomach upset Medium 12/29/2023 Pumpkin Diarrhea Low 06/09/2023 Shellfish Rash Medium 11/25/2023 Venom-Honey Bee Swelling Medium 11/20/2016 Hydroxyzine Swelling,Other (See comments) High 11/20/2016 Swelling at injeciton site Medications acetaminophen (TYLENOL) 325 mg tabletIndications:Pa in Take 2 tablets (650 mg total) by mouth every 4 (four) hours as needed for pain, headaches or fever 30 tablet 12/18/19 22 Active metoprolol tartrate (LOPRESSOR) 50 mg immediate release tabletIndications:Ve ntricular Arrhythmias Take 1 tablet (50 mg total) by mouth 2 (two) times a day Active flecainide (TAMBOCOR) 100 mg tabletIndications:Pa roxysmal Supraventricular Tachycardia Take 1 tablet (100 mg total) by mouth 2 (two) times a day Active aspirin 81 mg chewable tabletIndications:pr evention of thrombosis Take 1 tablet (81 mg total) by mouth daily 30 tablet 03/23/19 23 Active venlafaxine XR (EFFEXOR-XR) 75 mg 24 hr capsule Take 1 capsule (75 mg total) by mouth daily 01/08/20 23 Active ramelteon (ROZEREM) 8 mg tablet Take 1 tablet (8 mg total) by mouth daily 01/08/20 23 Active diphenhydrAMINE 25 mg capsule Take 1 tablet/capsule (25 mg total) by mouth every 6 (six) hours as needed for itching 20 capsule 08/07/19 24 Active EPINEPHrine 0.3 mg/0.3 mL auto-injection syringeIndications:A naphylaxis Inject 0.3 mL (0.3 mg total) into the muscle as instructed as needed for anaphylaxis 1 each 08/07/19 24 Active hydroCHLOROthiazide (HYDRODIURIL) 25 mg tablet Take 1 tablet (25 mg total) by mouth daily 12/10/19 23 Active ergocalciferol (VITAMIN D) 50,000 unit capsule Take 1.25 mg by mouth once a week 06/11/19 24 Active dicyclomine (BENTYL) 20 mg tablet Take 1 tablet (20 mg total) by mouth every 6 (six) hours 02/10/20 23 Active cholecalciferol (VITAMIN D-3) 25 mcg (1,000 unit) tablet Take 1 tablet (1,000 Units total) by mouth daily 09/27/19 24 Active cyanocobalamin (Vitamin B-12) 500 mcg tablet Take 1 tablet (500 mcg total) by mouth daily 09/27/19 24 Active HYDROcodone-acetamin ophen (NORCO) 5-325 mg per tabletIndications:Pa in Take 1 tablet by mouth every 6 (six) hours as needed for pain 20 tablet 11/21/19 24 Active ibuprofen (ADVIL,MOTRIN) 600 mg tabletIndications:Pa in Take 1 tablet (600 mg total) by mouth 3 (three) times a day Take with food. 30 tablet 11/21/19 24 Active promethazine (PHENERGAN) 25 mg tablet Take 1 tablet (25 mg total) by mouth every 6 (six) hours as needed for nausea or vomiting 30 tablet 11/21/19 24 Active glimepiride (AMARYL) 2 mg tabletIndications:ty pe 2 diabetes mellitus Take 1 tablet (2 mg total) by mouth daily before breakfast 90 tablet 2 12/29/19 24 025 Active empagliflozin (JARDIANCE) 25 mg tablet Take 1 tablet (25 mg total) by mouth daily 30 tablet 6 12/29/19 24 Active butalbital-acetamino phen-caffeine (ESGIC) 50-325-40 mg per tabletIndications:Te nsion-Type Headache Take 1 tablet by mouth every 6 (six) hours as needed for headaches for up to 10 days 20 tablet 01/16/20 24 Active ondansetron ODT (ZOFRAN-ODT) 4 mg disintegrating tablet Take 1 tablet (4 mg total) by mouth every 8 (eight) hours as needed for nausea or vomiting 20 tablet 04/21/19 25 Active insulin lispro (HumaLOG) 100 unit/mL pen for injection Inject up to 20 units 3 times a day 18 mL 5 05/03/19 25 Active insulin glargine 100 unit/mL (3 mL) pen for injection Inject 30 Units under the skin daily 15 mL 5 05/03/19 25 Active blood-glucose sensor (Dexcom G7 Sensor) device Use for BG monitoring 3 each 05/03/19 25 Active pen needle, diabetic (TRUEplus Pen Needle) 32 gauge x 5/32 needleIndications:Ty pe 2 diabetes mellitus with hyperglycemia, with long-term current use of insulin (HCC) Use to inject insulin 4x/day 400 each 3 07/19/19 25 Active atorvastatin (LIPITOR) 40 mg tabletIndications:Ty pe 2 diabetes mellitus with hyperglycemia, with long-term current use of insulin (HCC) Take 1 tablet by mouth once daily 90 tablet 07/27/19 25 Active levothyroxine (SYNTHROID) 100 mcg tabletIndications:Ty pe 2 diabetes mellitus with hyperglycemia, with long-term current use of insulin (HCC) TAKE 7 TABLETS BY MOUTH ALL AT ONE TIME ON MONDAYS OR ANY CHOSEN DAY OF THE WEEK 90 tablet 07/27/19 25 Active Hospital, Clinic, or Other Facility Administered Medication Ordered Dose Route Frequency Start Date End Date Status artificial tears (ISOPTO TEARS) 0.5 % ophthalmic solution 2 drop 2 drop each eye 4 times daily PRN 02/27/2024 Active Active Problems Problem Noted Date Diagnosed Date Screening for colon cancer 05/05/2024 Mouth pain 10/13/2023 Anxiety and depression 10/12/2023 Urinary tract infection in female 06/21/2023 Acute febrile illness 06/20/2023 Cerebrovascular accident (CVA), unspecified mech anism 12/20/2022 Acute chest pain 10/26/2022 Assessment & Plan (10/26/2022 11:00 PM CDT): - Prior multiple presentations for similar complaint of chest pain radiating to left arm and neck, was admitted on March 2022 for evaluation of chest pain and syncope, echo and stress testing at that time revealed left normal left ejection fraction with no evidence of ischemia, mild tricuspid regurg and moderate pulmonary hypertension. - currently with chest pain for 2 days, with lower extremity swelling - ECG X 2 and trop negative in ED - admitted for observation multiple risk factors for CAD - follow-up repeat troponin - telemetry - aspirin load then aspirin 81 mg daily. Monitor for epistaxis. - obtain echocardiogram - if chest pain persist, consider discussing repeat stress testing with cardiology. - lipid panel, TSH, A1c ordered. - Tylenol 1 g q.6 hours for pain. Patient would like to avoid any opioids (family history of substance abuse). - Nitroglycerin p.r.n. for severe chest pain. A-fib 10/26/2022 Assessment & Plan (10/26/2022 11:05 PM CDT): History of AFib s/p loop recorder, history of previous PT On flecainide, metoprolol ECG normal sinus rhythm this admission Not on anticoagulation for concerns of previous epistaxis Follows up with Cardiology Moderate pulmonary hypertension 03/23/2022 Elevated troponin 03/22/2022 Mixed hyperlipidemia 03/21/2022 Assessment & Plan (05/03/2024 2:44 PM EXERCISER HORSE): Chronic problem. On statin therapy, she misses atorvastatin often. Will work on taking this consistently. Assessment & Plan (10/26/2022 11:06 PM CDT): Resume home atorvastatin high dose in the setting of hyperlipidemia, DM, history of TIA Not compliant with atorvastatin at home Follow-up lipid panel Chest pain, unspecified type 03/20/2022 Cervical radiculopathy 01/01/2022 Gastrointestinal hemorrhage with melena 12/15/19 22 Assessment & Plan (12/16/2021 9:36 AM CDT): Pt presented for blood in the stool and black stool. No h/o colon cancer, UC, IBD, or IBS. She is currently stable, no fluctuations in her VS or in her labs. - GI consulted, will take pt for colonoscopy today at 1500 - daily CBC, BMP, and mag - transfuse if Hb <7 Essential hypertension 12/14/2021 Assessment & Plan (05/03/2024 1:36 PM EXERCISER HORSE): Chronic problem, Controlled on HCTZ, metoprolol. No changes. Assessment & Plan (10/26/2022 11:02 PM CDT): Metoprolol 50 mg twice daily Assessment & Plan (12/14/2021 4:29 PM CDT): Has been elevated here. - continue home metoprolol tartrate Hyponatremia 12/14/2021 Assessment & Plan (12/14/2021 4:31 PM CDT): Present on admission. Likely dilutional. Will stop IV fluids and bolus if necessary for unstable VS, or s/s of shock. - continue to monitor Other specified anemias 12/14/2021 Assessment & Plan (12/14/2021 4:31 PM CDT): Could very well be from blood loss vrs chronic disease. Will continue to monitor. Seasonal allergic rhinitis due to pollen 022 Assessment & Plan (09/10/2021 10:31 AM CDT): Hearing test Start Cetirizine 10 mg daily Stop Flonase Nasal saline spray (Simply saline, Little Remedies, Estelline, Hurricane) 2 second sprays or 2 squeezes into each nostril while looking down over the sink, do not need to sniff in 2-3 times per day Humidifier at bedtime Aquaphor apply pea-size amount into each nostril with a cotton tipped applicator, being carefully just to tuck it into each nostril, then massage soft portion of the outer nose to massage the ointment around inside the nose. Sensorineural hearing loss (SNHL) of both ears 0 09/10/2021 Assessment & Plan (09/10/2021 10:32 AM CDT): Hearing test Consider referred otalgia contributing the fullness in the left ear today Epistaxis 09/10/2021 Assessment & Plan (09/10/2021 10:31 AM CDT): Start Cetirizine 10 mg daily Stop Flonase Nasal saline spray (Simply saline, Little Remedies, Estelline, Hurricane) 2 second sprays or 2 squeezes into each nostril while looking down over the sink, do not need to sniff in 2-3 times per day Humidifier at bedtime Aquaphor apply pea-size amount into each nostril with a cotton tipped applicator, being carefully just to tuck it into each nostril, then massage soft portion of the outer nose to massage the ointment around inside the nose. Obstructive sleep apnea syndrome 05/23/2021 Transient ischemic attack 05/23/2021 History of medication noncompliance 05/02/2021 Assessment & Plan (05/02/2021 11:53 AM EXERCISER HORSE): Patient reports to discontinuing her home medication. She had concern that she was over medicated. She also had concern that her medications can cause side effect. -Counseled patient about the importance of medication compliance to treat her chronic conditions. Patient states she will restart her home medications if it can keep her out of the hospital. SVT (supraventricular tachycardia) 05/01/2021 Assessment & Plan (12/14/2021 4:29 PM CDT): Controlled. Will continue home flecainide Assessment & Plan (05/02/2021 6:23 AM EXERCISER HORSE): Noted on Holter monitor. Cardiology has been consulted. Continue beta-mary grace. Syncope and collapse 02/20/2021 Assessment & Plan (02/20/2021 6:35 PM EXERCISER HORSE): Patient with syncopal episode today. CT head negative. Concern related to possible cardiac issues. No neurological deficit present time. Will continue to monitor. Primary hypertension 02/20/2021 Assessment & Plan (05/02/2021 6:23 AM EXERCISER HORSE): Continue metoprolol with hold parameters Assessment & Plan (02/20/2021 6:37 PM EXERCISER HORSE): Blood pressure with some mild elevation on presentation. Metoprolol currently on hold for stress test in a.m.. IV hydralazine as needed. Will monitor. Type 2 diabetes mellitus wit h hyperglycemia, with long-term current use of insulin 02/09/2021 Assessment & Plan (05/03/2024 2:51 PM EXERCISER HORSE): Chronic problem, not at goal. We discussed her medications. She needs to get back to work per pt, but unable to until she has shoulder surgery. And her A1c needs to be <7.5% for surgery so she asks about bring blood sugars down quickly. She had significant constipation on Ozempic and at this time does not want to try another GLP1a. She also was unable to get CGM since not on MDI and this was very helpful for her. Will continue glimepiride and Jardiance. Increase Lantus to 30 units daily. Start HL sliding scale at meals: If blood sugar is under 150, take 8 units. If blood sugar is between 150-200, take 9 units. If blood sugar is between 200-250, take 10 units. If blood sugar is between 250-300, take 11 units. If blood sugar is between 300-350, take 12 units. If blood sugar is >350, take 14 units. If you are not going to eat but your blood sugar is over 200, take 4 units of Humalog to bring it down. I also resent dexcom G7 to see if now covered since she's on MDI. She'll let me know if any issues getting it. I connected her dexcom estephania to the office so we can view reports between visits and try to normalize her sugars quickly for surgery. Update MA/cr. Assessment & Plan (12/29/2023 10:31 AM CDT): Chronic, uncontrolled Hemoglobin A1c target under 7 and glucoses in the 120 to 160 range were discussed. Advised the patient on making better choices with her meals, going for salads instead of sandwiches. Also to drink water instead of soft, sweetened drinks. Start blood glucose monitoring with Dexcom G7. Lantus, 20 units in the morning. Jardiance 25 mg daily Add glimepiride 2 mg daily Assessment & Plan (10/26/2022 11:02 PM CDT): Home medications include Jardiance and Ozempic. Patient reports only taking Ozempic. A1c 7.7 09/02/2022. Insulin sliding scale Assessment & Plan (12/15/2021 5:05 PM CDT): Last HbA1c: 8.7; BG 194 - Pt placed on SSI - Lantus dose: none - DM educator consulted - diet and nutrition discused w/ pt. Stressed importance of exercise - DM complications present on admission: neuropathy Assessment & Plan (05/02/2021 12:03 PM EXERCISER HORSE): Sugars uncontrolled on presentation to 470. Patient prescribed glimepiride 2mg but has not been compliant. She was previously taking metformin but was concerned for medication side effects and discontinued. -Placed on Lantus 20 units every day meal time bolus lispro 7 units and sliding scale lispro. -Plan to D/C on metformin 500 mg bid and GLP1 Assessment & Plan (05/02/2021 6:22 AM EXERCISER HORSE): Sugars uncontrolled on presentation. She is on Amaryl. She was given insulin. Sugars are improving. Monitor on sliding scale. Assessment & Plan (02/20/2021 6:36 PM EXERCISER HORSE): Patient reports glucose levels were still not as well controlled as she would like at home. Has been taking her glimepiride. Will place on sliding scale insulin here but may need adjustment in medication depending on her levels. Consistent carbohydrate diet. Assessment & Plan (02/09/2021 6:22 AM EXERCISER HORSE): Patient stop taking her p.o. pills over a year ago. Will monitor on sliding scale and adjust as needed. Had a long discussion with patient regarding the importance of taking her medications to prevent future complications such as retinopathy, nephropathy and neuropathy. Patient also advised with diabetes she is at increased risk for heart attacks and strokes. Obesity (BMI 30-39.9) 02/09/2021 Assessment & Plan (12/14/2021 4:28 PM CDT): BMI:38 - discussed risks of obesity and association with chronic medical problems including HTN, DM, and CRISTIAN - advised patient on importance of maintaining a diet and exercise regimen including cardiovascular and weight-bearing exercises - nutrition consultation Assessment & Plan (02/20/2021 6:38 PM EXERCISER HORSE): Healthy lifestyle encouraged. Personal history of transien t ischemic attack (TIA), and cerebral infarction without residual deficits 02/08/2021 Assessment & Plan (05/02/2021 6:23 AM EXERCISER HORSE): Continue aspirin and statin Assessment & Plan (02/20/2021 6:38 PM EXERCISER HORSE): Previous history. Patient will continue ASA and atorvastatin. Assessment & Plan (02/09/2021 6:32 AM EXERCISER HORSE): Continue aspirin and Lipitor Supraventricular tachycardia 02/08/2021 Chest pain 02/08/2021 Assessment & Plan (02/20/2021 6:35 PM EXERCISER HORSE): Patient presented with episode of chest pain along with syncope. Had chest pain approximately 2 weeks ago and ruled out for [place] but did not wish to stay for cardiac evaluation with plan to do as outpatient. Patient with more symptoms on this occasion. Has already been seen by Cardiology with plan for Lexiscan stress test tomorrow. Patient is agreeable to evaluation at this time. Troponin levels are negative. Does have history of possible [place] in the past but not confirmed. Assessment & Plan (02/09/2021 6:26 AM EXERCISER HORSE): Patient was at work doing heavy lifting when her chest pain occurred. Patient only had 2 troponins. Will check a troponin this morning. Chest pain has since resolved. Patient denies ever having any stents placed. She states it occurred at [facility] when she was 37 years old. EKG shows no ST changes. Will continue with metoprolol with hold parameters. Mey patient is on aspirin 325 mg daily due to CVA in September 2019. Continue Lipitor 80 mg daily. Cardiology was consulted by the ED. Patient states she needs to be discharged today so that she can go to work on Wednesday and Wednesday so she does not get fired from her job. She states she will follow up on Wednesday for outpatient stress test if ordered as she has the day off. She states in Medical note will not save her from being fired. Hypothyroidism 11/06/2020 Assessment & Plan (05/03/2024 2:48 PM EXERCISER HORSE): Chronic problem, not at goal. Lately missing her levothyroxine, does feel the once weekly dosing works better for her. She'll resume taking it weekly and can update labs with next bloodwork. Assessment & Plan (12/29/2023 10:33 AM CDT): Chronic, uncontrolled I explained to the patient that she can take the levothyroxine, 7 tablets altogether once a week, in any choose day the week Assessment & Plan (10/26/2022 11:03 PM CDT): Noncompliant with levothyroxine 75 mcg daily TSH 07/31/2022 49.02 Free T4 03/21/2022 0.44 Will resume levothyroxine 75 daily Obtain TSH repeat. Assessment & Plan (12/14/2021 4:29 PM CDT): Controlled as an OP. Will continue home levothyroxine Assessment & Plan (05/02/2021 12:03 PM EXERCISER HORSE): Restart levothyroxine. TSH was over 323 months ago. Will check now. -levothyroxine 25 mg every day Assessment & Plan (05/02/2021 6:23 AM EXERCISER HORSE): Continue levothyroxine. TSH was over 323 months ago. Will check now. Assessment & Plan (02/20/2021 6:37 PM EXERCISER HORSE): TSH was elevated on 02/08/2021. Patient reports has faithfully been taking levothyroxine. Per patient request, will recheck current TSH. Adjust levothyroxine as needed. Assessment & Plan (02/09/2021 6:31 AM EXERCISER HORSE): Patient stop taking her medications over a year ago. As patient may have CAD, will start patient on levothyroxine 25 mcg and have patient follow-up with PCP for adjustments in medications. Patient counseled on the importance of taking her medications as she is at risk for myxedema coma for untreated hypothyroidism. Patient also counseled on not taking any dairy or calcium products within 3 hours of taking this medicine as it can affect absorption. Patient already aware that she is supposed to take this medication on empty stomach and wait prior to eating. Cervical strain, acute, initial encounter 2020 Acute right otitis media 07/24/2020 Acute infective otitis externa of right ear 07/06 Sacroiliac joint dysfunction of both sides 04/28 Laryngopharyngeal reflux 03/22/2018 Lane's reflex positive 01/19/2018 Pyogenic granuloma 07/27/2017 Bilateral carpal tunnel syndrome 05/31/2017 Neuropathy 04/05/2017 Assessment & Plan (02/20/2021 6:38 PM EXERCISER HORSE): No complaint at this time. Will monitor. Lumbar facet arthropathy 04/05/2017 Medically noncompliant Bloody stools Colon polyps Ventricular tachycardia Resolved Problems Problem Noted Date Diagnosed Date Resolved Date Type 2 diabetes mellitus wit hout complication, with long-term current use of insulin 06/21/2023 08/17/2024 Immunizations Immunization Administration Dates Next Due Influenza, Quadrivalent, Spl it, Intramuscular 11/15/2018,11/19/2016,12/18/2014 Influenza, Quadrivalent, Spl it, Preservative Free, Intramuscular 12/17/2021(Deferred: Other),11/07/2019,12/10/2017 Tdap 04/16/2022,11/02/2014,03/08/2014 Social History Tobacco Use Types Packs/Day Years Used Date Smoking Tobacco: Former Cigarettes 2 32 1 990 - 03/08/2018 Smokeless Tobacco: Never Tobacco Cessation:Counseling Given: Not Answered Alcohol Use Standard Drinks/Week Comments No 0 (1 standard drink = 0.6 oz pur e alcohol) [facility] Utilities Answer Date Recorded In the past 12 months has [employer], gas, oil, or water [employer] threatened to shut off services in your home? Yes 10/13/2023 Social Connection and Isolat ion Panel [NHANES] Answer Date Recorded In a typical week, how many times do you talk on the phone with family, friends, or neighbors? More than three times a week 10/13/2023 How often do you get togethe r with friends or relatives? More than three times a week 10/13/2023 How often do you attend chur ch or latter day services? More than 4 times per year 10/13/2023 Do you belong to any clubs o r organizations such as amish groups, unions, fraternal or athletic groups, or school groups? No 10/13/2023 How often do you attend meet ings of the clubs or organizations you belong to? Never 10/13/2023 Are you , , di vorced, , never , or living with a partner? 10/13/2023 AUDIT-C Answer Date Recorded Q1: How often do you have a drink containing alcohol? Never 12/29/2023 Q2: How many drinks containi ng alcohol do you have on a typical day when you are drinking? Patient does not drink Q3: How often do you have si x or more drinks on one occasion? Never 12/29/2023 Overall Financial Resource Strain (CARDIA) Answe r Date Recorded How hard is it for you to pa y for the very basics like food, housing, medical care, and heating? Very hard 10/13/2023 PHQ-2 Answer Date Recorded PHQ-2 Total Score (If total score is 3 or more points, staff should administer the PHQ-9) 0 12/29/2023 Hunger Vital Sign Answer Date Recorded Within the past 12 months, y ou worried that your food would run out before you got the money to buy more. Never true 10/13/19 24 Within the past 12 months, t he food you bought just didn't last and you didn't have money to get more. Never true 10/13/2023 PRAPARE - Transportation Answer Date Re corded In the past 12 months, has l ack of transportation kept you from medical appointments or from getting medications? No 09/2023 In the past 12 months, has l ack of transportation kept you from meetings, work, or from getting things needed for daily living? No 10/13/2023 Housing Stability Vital Sign Answer Sergey e Recorded In the last 12 months, was t here a time when you were not able to pay the mortgage or rent on time? No 12/22/2022 In the last 12 months, how many places have you lived? 1 12/22/2022 In the last 12 months, was t here a time when you did not have a steady place to sleep or slept in a chcf (including now)? No 12/22/2022 PHQ-9 Answer Date Recorded PHQ-9 Total Score 0 12/29/2023 Housing Stability Vital Sign Answer Sergey e Recorded In the last 12 months, was t here a time when you were not able to pay the mortgage or rent on time? No 10/13/2023 In the past 12 months, how m any times have you moved where you were living? 1 10/13/2023 At any time in the past 12 m [place], were you homeless or living in a chcf (including now)? No 10/13/2023 Personal Safety Answer Date Recorded Have you ever been in or are you currently in a harmful physical or emotional relationship or is someone making you feel afraid or unsafe? Denies 06/29/2024 Education Answer Date Recorded What is the highest level of school you have completed or the highest degree you have received? Some college, no degree 10/13/2023 Comments No Sex and Gender Information Value Date Recorded Sex Assigned at Not on file Legal Sex Female 8:03 AM EXERCISER HORSE Gender Identity Not on file Sexual Orientation Straight 05/01/2021 9: 39 PM EXERCISER HORSE Last Filed Vital Signs Vital Sign Reading Time Taken Comments Blood Pressure 129/102 06/29/2024 4:35 PM CDT Pulse 92 06/29/2024 4:35 PM CDT Temperature 36.8 C (98.3 F) 06/29/2024 3:06 PM CDT Respiratory Rate 17 06/29/2024 4:35 PM CDT Oxygen Saturation 93% 06/29/2024 4:35 PM CDT Inhaled Oxygen Concentration - - Weight 117.9 kg (260 lb) 06/29/2024 3:06 PM CDT Height 188 cm (6' 2) 06/29/2024 3:06 PM CDT Body Mass Index 33.38 06/29/2024 3:06 PM CDT Plan of Treatment Upcoming Encounters Date Type Department Care Team (Late st Contact Info) Description 01/23/2025 11:00 AM EXERCISER HORSE Hospital Encounter [facility] [address] [place] [id number] Shannon Mccarty MD [address] [facility] [address] [place] [address] 01/23/2025 11:00 AM EXERCISER HORSE - 01/23/2025 11:30 AM EXERCISER HORSE Surgery [facility] [address] [place] [address] Shannon Mccarty MD [address] [facility] [address] [place] [address] COLONOSCOPY Scheduled Procedures Name Priority Associated Diagnoses Date/Ti me COLONOSCOPY Screening for colon cancer 01/23/2025 11:00 AM EXERCISER HORSE Medical Devices Implanted Type Area Rrt Device Identifier Shelf Expiration Date Model / Serial / Lot Tapit Angio-Seal Vip 6fr Closere Device [id number] - [id number] Implanted:Qty : 1 on 10/13/2023 by Yifan Kunz MD at [facility] Vascular Closure Device Tapit 06/20/2024 [id number] / / [id number] Loop Recorder N/A: Chest Wall Loop Recorder Left: Chest Procedures Procedure Name Priority Date/Time Associated Diagnosis Comments XR CHEST 1 VIEW ED 06/29/2024 3:24 PM CDT EGFR STAT 06/29/2024 3:15 PM CDT DIFFERENTIAL AUTO STAT 06/29/2024 3:1 5 PM CDT PRO B-TYPE NATRIURETIC PEPTIDE STAT 06/29/2024 3:15 PM CDT TROPONIN T HIGH-SENSITIVITY SERIES (BASELINE, 2HR, 4HR, 6HR) STAT 06/29/2024 3:15 PM CDT CBC WITH AUTO DIFFERENTIAL STAT 06/29/2024 3:15 PM CDT COMPREHENSIVE METABOLIC PANEL STAT 06/29/2024 3:15 PM CDT ECG 12-LEAD STAT 06/29/2024 3:07 PM CDT ALBUMIN CREATININE RATIO, URINE Routine 05/03/2024 1:57 PM EXERCISER HORSE Type 2 diabetes mellitus with hyperglycemia, with long-term current use of insulin (HCC) POCT HEMOGLOBIN A1C Routine 05/03/2024 1 :07 PM EXERCISER HORSE Type 2 diabetes mellitus with hyperglycemia, with long-term current use of insulin (HCC) POCT LIPID PANEL Routine 05/03/2024 1:07 AM EXERCISER HORSE Type 2 diabetes mellitus with hyperglycemia, with long-term current use of insulin (HCC) DIAGNOSTIC MAMMOGRAM BILATERAL W ARJUN Schedule Routine, Read Routine (OP Routine) 10/29/2022 10:59 AM CDT Breast nodule COLONOSCOPY 12/16/2021 2:26 PM CDT from Last 3 Months or Most Recently Relevant to Health Maintenance Results * XR Chest 1 Vw Portable (if patient condition/safety warrant portable) (06/29/2024 3:24 PM CDT) Anatomical Region Laterality Modality Body, Chest N/A Computed Radiogr aphy 06/29/2024 3:41 PM CDT Impressions 06/29/2024 3:41 PM CDT No active disease. Electronically signed by: Ravin Medellin M.D. Narrative 06/29/2024 3:41 PM CDT EXAMINATION: XR CHEST 1 VIEW HISTORY: The patient is a 49-year-old female who presents with shortness of breath. Comparison made with the previous study dated 12/25/2024. TECHNIQUE: AP portable view of the chest. FINDINGS: Lungs clear. Cardiovascular structures unremarkable. Procedure Note Ravin Medellin MD - 06/29/2024 EXAMINATION: XR CHEST 1 VIEW HISTORY: The patient is a 49-year-old female who presents with shortness of breath. Comparison made with the previous study dated 12/25/2024. TECHNIQUE: AP portable view of the chest. FINDINGS: Lungs clear. Cardiovascular structures unremarkable. IMPRESSION: No active disease. Electronically signed by: Ravin Medellin M.D. Miller Yan MD IMG XR PROCEDURES Final Result * Troponin T high-sensitivity series (baseline, 2hr, 4hr, 6hr) (06/29/2024 3:15 PM CDT) Trop T hs 13 <=14 ng/L Comment: Interpretive Data For further hscTnT resources including the diagnostic algorithm and an aid in interpretation, copy and paste this link: [email or web address].testcatalog.org/show/[email or web address] Current Interpretive Data last revised 2020. Blood 06/29/2024 3:15 PM CDT 06/29/2024 3:15 PM CDT Miller Yan MD LAB BLOOD ORDERABLES Fi nal Result [facility] [address] Department [place] [address] * eGFR (06/29/2024 3:15 PM CDT) eGFR >90 >=60 mL/min/1. 73 m2 Comment: Interpretive Data Reference Interval Normal >/= 90 mL/min/1.73m2 Mildly decreased* 60 - 89 mL/min/1.73m2 Mildly to moderately decreased 45 - 59 mL/min/1.73m2 Moderately to severely decreased 30 - 44 mL/min/1.73m2 Severely decreased 15 - 29 mL/min/1.73m2 Kidney Failure < 15 mL/min/1.73m2 *Relative to young adult level Estimated glomerular filtration rate is determined by the 2020 CKD-EPI equation recommended by the National Kidney Foundation (A Unifying Approach to GFR Estimation: Recommendations of the NKF-ASK Task Force on Reassessing the Inclusion of Race in Diagnosing Kidney Disease, JASN 2020). The CKD-EPI equation should not be used for patients with unstable renal function and has not been validated in children and those over 70. Current interpretive data was last reviewed 2021. Blood 06/29/2024 3:15 PM CDT 06/29/2024 3:15 PM CDT Miller Yan MD LAB BLOOD ORDERABLES Fi nal Result [facility] [address] Department [place] [address] * Differential, auto (06/29/2024 3:15 PM CDT) Neutrophil abs 4.12 1.50 - 6.50 K/cumm Imm gran abs 0.03 0.00 - 0.10 K/cumm [facility] Lymphocyte abs 1.30 0.80 - 3.30 K/cumm [facility] Monocyte abs 0.50 0.20 - 0.80 K/cumm [facility] Eosinophil abs 0.22 0.00 - 0.50 K/cumm [facility] Basophil abs 0.03 0.00 - 0.10 K/cumm [facility] Neutrophil pct 66.4 % [facility] Comment: Interpretive Data Percent cell count reference ranges are not reported, since discordance with absolute values may lead to misinterpretation of CBC data. Current Interpretive Data was last revised on 2017. Imm gran pct 0.5 % [facility] Comment: Interpretive Data Percent cell count reference ranges are not reported, since discordance with absolute values may lead to misinterpretation of CBC data. Current Interpretive Data was last revised on 2017. Lymphocyte pct 21.0 % [facility] Comment: Interpretive Data Percent cell count reference ranges are not reported, since discordance with absolute values may lead to misinterpretation of CBC data. Current Interpretive Data was last revised on 2017. Monocyte pct 8.1 % [facility] Comment: Interpretive Data Percent cell count reference ranges are not reported, since discordance with absolute values may lead to misinterpretation of CBC data. Current Interpretive Data was last revised on 2017. Eosinophil pct 3.5 % [facility] Comment: Interpretive Data Percent cell count reference ranges are not reported, since discordance with absolute values may lead to misinterpretation of CBC data. Current Interpretive Data was last revised on 2017. Basophil pct 0.5 % [facility] Comment: Interpretive Data Percent cell count reference ranges are not reported, since discordance with absolute values may lead to misinterpretation of CBC data. Current Interpretive Data was last revised on 2017. Blood 06/29/2024 3:15 PM CDT 06/29/2024 3:15 PM CDT us Miller Yan MD LAB BLOOD ORDERABLES Fi nal Result [facility] [address] Department [place] [address] * Pro B-type natriuretic peptide (06/29/2024 3:15 PM CDT) NT-proBNP 118 <=300 pg/mL Comment: Interpretive Comments: A. Dyspnea in Acute Care Setting All Ages: < 300 pg/ml, acute heart failure unlikely. < 50 yrs: 300 - 450 pg/ml, further investigation warranted. > 450 pg/ml, acute heart failure likely. 50 - 74 yrs: 300 - 900 pg/ml, further investigation warranted. > 900 pg/ml, acute heart failure likely . > or = 75 yrs: 450 - 1800 pg/ml, further investigation warranted. > 1800 pg/ml, acute heart failure likely. B. Non-acute Setting < 75 yrs < 125 pg/ml, rules out heart failure. > or = 125 pg/ml, further investigation warranted. > or = 75 yrs < 450 pg/ml, rules out heart failure. > or = 450 pg/ml, further investigation warranted. - Knowledge of each individual patient's NT-proBNP range may be more useful than using similar cut-points for every patient. Please note that marked elevations in NT-proBNP levels may be observed in state other than Left Ventricular Congestive Failure, including: acute coronary syndromes, right heart strain/failure (including pulmonary embolism and cor pulmonale), critical illness, renal failure, as well as advanced age. - References: 1. Renetta PIERSON et.al. Eur Heart J. 2006:27:330-337. 2. Yessenia RW, Arcenio AM. J. AM Moiz Cardiol: Cardiovasc Imag. 2009;2: 216- 225. Interpretive Data Last Revised Date: 2017. Blood 06/29/2024 3:15 PM CDT 06/29/2024 3:15 PM CDT Miller Yan MD LAB BLOOD ORDERABLES Fi nal Result Performing Organization Address City/[facility]/ZIP Co de Phone Number [facility] [address] [place] [address] * (ABNORMAL) CBC with auto differential (06/29/2024 3:15 PM CDT) WBC 6.20 3.80 - 9.90 K/cumm Hgb 12.9 11.9 - 15.5 g/dL [facility] Hct 39.6 35.6 - 45.5 % [facility] Plt 277 150 - 400 K/cumm [facility] MPV 8.3(L) 9.1 - 12.3 fL [facility] RBC 4.51 3.90 - 5.20 M/cumm [facility] MCV 87.8 81.3 - 96.4 fL [facility] MCH 28.6 27.1 - 33.3 pg [facility] MCHC 32.6 32.3 - 35.7 g/dL [facility] RDW CV 13.0 11.1 - 14.9 % [facility] RDW SD 41.2 35.7 - 48.1 fL [facility] NRBC abs 0.00 0.00 - 0.01 K/cumm [facility] Blood 06/29/2024 3:15 PM CDT 06/29/2024 3:15 PM CDT Miller Yan MD LAB BLOOD ORDERABLES Fi nal Result Performing Organization Address City/[facility]/ZIP Co de Phone Number [facility] [address] Department [employer] [address] * (ABNORMAL) Comprehensive metabolic panel (06/29/2024 3:15 PM CDT) Sodium 139 135 - 145 mmol/L Potassium, pl 3.4 3.3 - 4.9 mmol/L [facility] Chloride 104 97 - 110 mmol/L [facility] CO2 23 22 - 32 mmol/L [facility] Anion gap 12 2 - 15 mmol/L [facility] BUN 9 6 - 25 mg/dL [facility] Creatinine 0.68 0.60 - 1.10 mg/dL [facility] Glucose 204(H) 70 - 199 mg/dL [facility] Comment: Interpretive Data Fasting glucose >/= 126 mg/dl is diagnostic for diabetes. Fasting is defined as no caloric intake for at least 8 hours. Fasting glucose between 100 mg/dl to 125 mg/dl is diagnostic of prediabetes. In a patient with classic symptoms of hyperglycemia or hyperglycemic crisis, a random glucose >/= 200 mg/dl is diagnostic for diabetes. In the absence of unequivocal hyperglycemia, results should be confirmed by repeat testing. The classification and Diagnosis of Diabetes Diabetes Care 2021; 46: S19-S40. Current interpretive data was last revised 2022. Calcium 9.0 8.5 - 10.3 mg/dL [facility] Bilirubin, total 0.4 0.1 - 1.2 mg/dL [facility] Protein, pl 7.1 6.5 - 8.5 g/dL [facility] Albumin 3.9 3.5 - 5.0 g/dL [facility] Alk phos 55 40 - 130 Units/L [facility] ALT 17 7 - 45 Units/L [facility] AST 13 10 - 45 Units/L [facility] Blood 06/29/2024 3:15 PM CDT 06/29/2024 3:15 PM CDT us Miller Yan MD LAB BLOOD ORDERABLES Fi nal Result [facility] [address] Department [place] [address] * ECG 12 lead (06/29/2024 3:07 PM CDT) 06/29/2024 3:07 PM CDT Narrative [facility] - 06/30/2024 8:08 AM CDT Vent Rate: 109 bpm RR Interval: 550 msec NH Interval: 157 msec QRS Duration: 88 msec QT Interval: 336 msec QTC Interval: 400 msec P-R-T Ray: 46 - 18 - 55 degrees IMPRESSION: SINUS TACHYCARDIA Electronically Signed By: Rigoberto Stewart MD, [facility] Miller Yan MD ECG ORDERABLES Final R esult Performing Organization Address City/[facility]/ZIP Co de Phone Number [facility] * Albumin Creatinine Ratio, Urine (05/03/2024 1:57 PM EXERCISER HORSE) Albumin Ur <12.0 mg/L Comment: Interpretive Data No reference range established. Current interpretive data was last revised 2018. Creatinine Ur 147.1 mg/dL [facility] Comment: Interpretive Data No reference range established. Current interpretive data was last revised 2018. Albumin Creatinine Ratio, Ur <8 1 - 29 mg/g [facility] Urine 05/03/2024 1:57 PM EXERCISER HORSE 05/03/2024 5:42 PM EXERCISER HORSE Khushi SEARS LAB URINE ORDERABLES Fi nal Result Performing Organization Address [facility] Co de Phone Number [facility] [address] Department [place] [address] * (ABNORMAL) POCT hemoglobin A1c (05/03/2024 1:07 PM EXERCISER HORSE) Hemoglobin A1C, POC 8.4 4.0 - 5.6 % Capillary blood 05/03/2024 1 :07 PM EXERCISER HORSE Khushi SEARS POINT OF CARE TEST ORDE RABLES Final Result * (ABNORMAL) POCT lipid panel (05/03/2024 1:07 AM EXERCISER HORSE) Cholesterol, POC 197 mg/dL HDL, POC 41 mg/dL Triglycerides, POC 167 mg/dL LDL Cholesterol POC 123 mg/dL Chol/HDL Ratio, POC 4.8 Non-HDL Cholesterol, POC 156 mg/dL Cholesterol Total, POC 197 mg/dL Capillary blood 05/03/2024 1 :07 AM EXERCISER HORSE Khushi SEARS POINT OF CARE TEST ORDLeslee RAMOS Final Result * Diagnostic Mammogram Bilateral W Arjun (10/29/2022 10:59 AM CDT) Anatomical Region Laterality Modality Breast Bilateral Mammography 10/29/2022 12:0 1 PM CDT Impressions 10/29/2022 12:01 PM CDT 1. No mammographic or sonographic suspicious finding in the outer left breast are correlate with the questioned left breast mass on the CT. Dense fibroglandular breast tissue is noted within this region and likely represents the questioned CT finding. 2. No mammographic evidence of malignancy within either breast. OVERALL FINAL ASSESSMENT: BI-RADS Category 2: Benign. RECOMMENDATION: 1. Annual screening mammography is recommended. 2. Clinical follow-up is recommended. Electronically signed by: Eveline Cedillo M.D. Narrative 10/29/2022 12:01 PM CDT EXAMINATION: BILATERAL DIGITAL DIAGNOSTIC MAMMOGRAM INCLUDING CAD AND BILATERAL DIGITAL BREAST TOMOSYNTHESIS; LEFT BREAST SONOGRAM HISTORY: 47-year-old woman with CT abdomen and pelvis completed at outside facility on 09/27/2022 which demonstrated a questionable 1.7 cm mass in the outer left breast. COMPARISON: 12/11/2020 and 11/20/2020 TECHNIQUE: Full field digital mammographic views of BOTH breasts were performed, including computer aided detection (CAD) and BILATERAL digital breast tomosynthesis (DBT). Directed ultrasound evaluation of the LEFT breast was performed. BREAST PARENCHYMAL COMPOSITION: The breasts are heterogenously dense, which may obscure small masses. MAMMOGRAM FINDINGS: There is no new suspicious abnormality within EITHER breast; the appearance of BOTH breasts is stable compared to prior exams. There is an island of dense fibroglandular breast tissue noted within the upper outer left breast without obvious underlying suspicious mass. SONOGRAM FINDINGS: Targeted sonographic images in the left breast the 2 o'clock position 6 cm from the nipple demonstrates dense fibroglandular breast tissue without suspicious cystic or solid mass identified. There is an incidental cluster of simple anechoic cysts noted within the left breast at the 1 o'clock position 3 cm from the nipple measuring 0.5 x 0.4 x 0.4 cm. Procedure Note Eveline Cedillo MD - 10/29/2022 EXAMINATION: BILATERAL DIGITAL DIAGNOSTIC MAMMOGRAM INCLUDING CAD AND BILATERAL DIGITAL BREAST TOMOSYNTHESIS; LEFT BREAST SONOGRAM HISTORY: 47-year-old woman with CT abdomen and pelvis completed at outside facility on 09/27/2022 which demonstrated a questionable 1.7 cm mass in the outer left breast. COMPARISON: 12/11/2020 and 11/20/2020 TECHNIQUE: Full field digital mammographic views of BOTH breasts were performed, including computer aided detection (CAD) and BILATERAL digital breast tomosynthesis (DBT). Directed ultrasound evaluation of the LEFT breast was performed. BREAST PARENCHYMAL COMPOSITION: The breasts are heterogenously dense, which may obscure small masses. MAMMOGRAM FINDINGS: There is no new suspicious abnormality within EITHER breast; the appearance of BOTH breasts is stable compared to prior exams. There is an island of dense fibroglandular breast tissue noted within the upper outer left breast without obvious underlying suspicious mass. SONOGRAM FINDINGS: Targeted sonographic images in the left breast the 2 o'clock position 6 cm from the nipple demonstrates dense fibroglandular breast tissue without suspicious cystic or solid mass identified. There is an incidental cluster of simple anechoic cysts noted within the left breast at the 1 o'clock position 3 cm from the nipple measuring 0.5 x 0.4 x 0.4 cm. IMPRESSION: 1. No mammographic or sonographic suspicious finding in the outer left breast are correlate with the questioned left breast mass on the CT. Dense fibroglandular breast tissue is noted within this region and likely represents the questioned CT finding. 2. No mammographic evidence of malignancy within either breast. OVERALL FINAL ASSESSMENT: BI-RADS Category 2: Benign. RECOMMENDATION: 1. Annual screening mammography is recommended. 2. Clinical follow-up is recommended. Electronically signed by: Eveline Cedillo M.D. Shauna Hicks MD IMG MAMMO PROCEDURES F inal Result * COLONOSCOPY (12/16/2021 2:26 PM CDT) Anatomical Region Laterality Modality Other Narrative Procedure Note Shannon Mccarty MD - 12/16/2021 2:26 PM CDT [facility] Patient Name: Josseline Main Procedure Date: 12/16/2021 2:26 PM Date of : 1975 Admit Type: Inpatient Age: 46 Gender: Female Attending MD: Shannon Mccarty M.D. Room: [facility] ENDOSCOPY ROOM 1 Note Status: Finalized Patient Profile: This is a 46 year old female. Patient admitted with hematochezia. Colonoscopy for evaluation. Procedure: Colonoscopy Indications: This is the patient's first colonoscopy,Hematochezia, Heme positive stool Referring MD: Silvino Lopez M.D. Providers: Shannon Mccarty M.D. Impression: - Three 6 to 7 mm polyps in the proximal ascending colon, removed with a cold snare. Resected and retrieved. - Two 15 to 18 mm polyps in the distal ascending colon, removed using injection-lift and a hotsnare. Resected and retrieved. - One 5 mm polyp in the proximal descending colon, removed with a jumbo cold forceps. Resected and retrieved. - Two 8 to 9 mm polyps in the mid descending colon, removed with a cold snare. Resected andretrieved. - One 18 mm polyp in the proximal sigmoid colon, removed with a hot snare. Resected and retrieved.Clip (MR conditional) was placed. 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 - Internal and external hemorrhoids. Recommendation: - Await pathology results. - Advance diet. Likely home tomorrow. No further GI workup at this time. - Repeat colonoscopy in 1 year for surveillance. - No aspirin, ibuprofen, naproxen, or other non-steroidal anti-inflammatory drugs for 1 weekafter polyp removal. - No blood thinners for 1 week. Medicines: Monitored Anesthesia Care Complications: No immediate complications. Estimated Blood Loss: Estimated blood loss: none. Procedure: Pre-Anesthesia Assessment: - Prior to the procedure, a History and Physicalwas performed, and patient medications and allergieswere reviewed. The patient's tolerance of previous anesthesia was also reviewed. The risks andbenefits of the procedure and the sedation options and risks were discussed with the patient. All questions were answered, and informed consent was obtained. Prior Anticoagulants: The patient has taken noanticoagulant or antiplatelet agents. ASA Grade Assessment: III -A patient with severe systemic disease. Afterreviewing the risks and benefits, the patient was deemed in satisfactory condition to undergo the procedure. The benefits, risks and alternatives of theprocedure and sedation were discussed and informed consentwas obtained. All questions were answered. Please referto the signed informed consent document in the medical record. The bowel preparation used was Miralax and bisacodyl tablets via split dose instruction. The scope was passed under direct vision. The Pediatric Colonoscope PCF-H190L [id number] was introducedthrough the anus and advanced to the the cecum, identifiedby appendiceal orifice and ileocecal valve. Thequality of the bowel preparation was good. Bowel prep was administered using a split dose. Findings: Hemorrhoids were found on perianal exam. The cecum appeared normal. Three sessile polyps were found in the proximal ascending colon. The polyps were 6 to 7 mm in size. These polyps were removed with a cold snare. Resection and retrieval were complete. Two sessile polyps were found in the distal ascending colon. Thepolyps were 15 to 18 mm in size. These polyps were removed with a saline injection-lift technique using a hot snare. Resection and retrievalwere complete. A 5 mm polyp was found in the proximal descending colon. The polypwas sessile. The polyp was removed with a jumbo cold forceps. Resectionand retrieval were complete. Two sessile polyps were found in the mid descending colon. The polyps were 8 to 9 mm in size. These polyps were removed with a cold snare. Resection and retrieval were complete. An 18 mm polyp was found in the proximal sigmoid colon. The polyp was semi-pedunculated. The polyp was removed with a hot snare. Resectionand retrieval were complete. To prevent bleeding after the polypectomy,one hemostatic clip was successfully placed (MR conditional). 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 There was no bleeding at the end ofthe procedure. Internal hemorrhoids were found during retroflexion. The hemorrhoids were medium-sized. Electronically signed by Shannon Mccarty M.D. Shannon Mccarty M.D. 12/16/2021 4:29:06 PM Number of Addenda: 0 Note Initiated On: 12/16/2021 2:26 PM Procedure Code(s): --- Professional --- 09329, Colonoscopy, flexible; with removal of tumor(s), polyp(s), or other lesion(s) by snare technique 47788, Colonoscopy, flexible; with directed submucosal injection(s),any substance 85153, 59, Colonoscopy, flexible; with biopsy, single or multiple Diagnosis Code(s): --- Professional --- K64.8, Other hemorrhoids D12.2, Benign neoplasm of ascending colon D12.4, Benign neoplasm of descending colon D12.5, Benign neoplasm of sigmoid colon K92.1, Melena (includes Hematochezia) R19.5, Other fecal abnormalities CPT copyright 2020 [employer]. All rights reserved. The codes documented in this report are preliminary and upon research aide reviewmay be revised to meet current compliance requirements. Recognized by the [employer] for promoting quality in endoscopy us Shannon Mccarty MD ENDOSCOPY PROCEDURES Final Result from Last 3 Months or Most Recently Relevant to Health Maintenance Insurance [employer] [facility] IDPA [employer] GENERIC * Guarantor: OTHER Account Type Relation to Patient Date of Phone Billing Address Workers Comp Employer Advance Directives For more information, please contact: [phone] * Full Code (Latest Code Status on File) Date Activated Date Inactivated Comments 10/12/2023 5:56 PM 10/13/2023 10:07 PM * Full Code Date Activated Date Inactivated Comments 06/20/2023 10:22 PM 06/21/2023 7:46 PM * Full Code Date Activated Date Inactivated Comments 12/21/2022 10:48 AM 12/22/2022 10:05 PM * Full Code Date Activated Date Inactivated Comments 03/20/2022 11:42 PM 03/23/2022 9:44 PM * Full Code Date Activated Date Inactivated Comments 12/16/2021 2:19 PM 12/17/2021 6:28 PM Healthcare Agents on File Name Relationship Healthcare Agent [facility] Care Agent Care Teams Machine Rebuilder Relationship Specialty Start Date End Date Dotty Charles NP [address] [facility] [address] [facility] [address] [place] [address] PCP - General Nurse Practitioner 04/21/24 Alvin [place] [address] [facility] [address] [place] [address] Consulting Physician Internal Medicine 02/09/21 Miscellaneous, Not In File 02/21/21 Coco Bernal NP [address] [facility] [address] [place] [address] Nurse Practitioner Cardiovascular Disease 02/21/21 Daryn Bui MD [address] [place] [address] Consulting Physician Cardiology 05/21/21 Trevon Benson MD [address] [place] [address] Surgeon Orthopedic Surgery 11/05/21
--- OUTSIDE RECORDS SUMMARY | 2024-09-24 13:14 | XMS_ITS ---
Author Organization [facility] Address [address] [place] [address] Phone Care Team Providers Care Supervisor Particleboard Name Role Phone Dotty Charles APRN, [employer] Primary Care Provider OnCall Chronic Condition Monitoring Status:Enrolled (Active) Start date:04/05/2024 Enrollment date:04/05/2024 Related social drivers of health:Intimate Partner Violence, Social Connections, Alcohol Use, Tobacco Use, Depression, Stress Continued Care and Services Coordination
--- OUTSIDE RECORDS SUMMARY | 2024-09-24 13:14 | XMS_ITS | Clinical Summary ---
Author Organization [facility] Address [address] [place] [address] Phone Care Team Providers Care Lube Man Name Role Phone Dotty Charles APRN, TELECOMMUNICATION TOWER TECHNICIAN Primary Care Provider Allergies Active Allergy Reactions Criticality Noted Date Comments Bee Venom Swelling Medium 11/20/2016 Buspirone Hallucinations High 11/20/2016 Cinnamon Other (see Comments) 02/09/2023 Pumpkin Flavoring Agent (Non-Screening) Swelling 02/09/2023 Shellfish Allergy Rash 11/25/2023 Hydroxyzine Hcl Swelling High 11/20/2016 Medications sodium chloride (OCEAN) 0.65 % SolutionIndicat ions:Epistaxis 3 sprays in each nostril at least four times a day and if needed increase to every 1-2 hours while awake 60 mL 03/22/19 19 Active Additional Information Patient not taking.Reported on 07/08/2023 aspirin 81 MG Chewable Tablet Take 81 mg by mouth. 02/10/20 21 Active atorvastatin (LIPITOR) 80 MG Tablet atorvastatin 80 mg tablet TAKE 1 TABLET BY MOUTH ONCE DAILY 02/10/20 21 Active levothyroxine (SYNTHROID) 75 MCG Tablet Take 75 mcg by mouth daily. 03/23/19 23 Active Ozempic, 1 MG/DOSE, 4 MG/3ML Solution Pen-injector INJECT 1 MG SUBCUTANEOUSLY ONCE A WEEK 03/23/19 23 Active flecainide (TAMBOCOR) 100 MG Tablet Take 100 mg by mouth. 03/08/18 70 Active cetirizine (ZyrTEC) 10 MG Tablet Take 10 mg by mouth daily. 02/25/20 22 Active albuterol (ProAir HFA) 108 (90 Base) MCG/ACT Aerosol SolutionIndicat ions:Dyspnea on exertion take 2 Puffs by inhalation every 4 hours as needed for Wheezing or Cough. 18 g 03/31/19 23 Active metoprolol tartrate (LOPRESSOR) 50 MG Tablet Take 50 mg by mouth 2 times daily. 05/17/19 23 Active dicyclomine (BENTYL) 20 MG Tablet Take 1 Tablet by mouth every 6 hours. 30 Tablet 02/10/20 23 Active Additional Information Patient not taking.Reported on 05/22/2023 ondansetron (ZOFRAN) 4 MG Tablet Take 1 Tablet by mouth every 8 hours as needed for Nausea - 1st line. 10 Tablet 02/10/20 23 Active EPINEPHrine (EPIPEN) 0.3 MG/0.3ML Solution Auto-injector 0.3 mg by Intramuscular route. 12/12/19 23 Active insulin glargine (LANTUS, BASAGLAR) 100 UNIT/ML Solution Pen-injector 20 Units by Subcutaneous route. 06/02/19 24 Active cyclobenzaprine (FLEXERIL) 10 MG Tablet Take 1 Tablet by mouth 3 times daily as needed. 08/16/19 19 Active diphenhydrAMINE (BENADRYL) 25 MG Capsule Take 25 mg by mouth every 6 hours as needed for Itching. 08/07/19 24 Active ergocalciferol (VITAMIN D) 47712 UNIT Capsule Take 1.25 mg by mouth once a week. 06/11/19 24 Active furosemide (LASIX) 40 MG Tablet Take 40 mg by mouth daily. For 5 days 06/23/19 24 Active hydroCHLOROthia zide 25 MG Tablet Take 25 mg by mouth daily. 12/10/19 23 Active HYDROcodone-nicki taminophen (NORCO) 5-325 MG Tablet Take 1 Tablet by mouth every 6 hours as needed for Moderate or more severe pain. 06/20/19 24 Active metoprolol Succinate (TOPROL-XL) 50 MG TABLET SR 24 HR Take 50 mg by mouth daily. Active ondansetron (ZOFRAN-ODT) 4 MG TABLET DISPERSIBLE Take 4 mg by mouth every 4 hours as needed for Nausea - 1st line. 06/20/19 24 Active nitrofurantoin, monohydrate-mac rocrystal, (MACROBID) 100 MG Capsule Take 100 mg by mouth 2 times daily. 06/13/19 24 Active ramelteon (ROZEREM) 8 MG Tablet Take 8 mg by mouth daily. 01/08/20 Active venlafaxine (EFFEXOR-XR) 75 MG CAPSULE SR 24 HR Take 75 mg by mouth daily. 01/08/20 23 Active albuterol 108 (90 Base) MCG/ACT Aerosol Solution take 2 Puffs by inhalation every 6 hours as needed for Wheezing (shortness of breath). 09/03/19 23 Active EPINEPHrine (EPIPEN) 0.3 MG/0.3ML Solution Auto-injector 0.3 mg by Intramuscular route once as needed for Anaphylaxis. 08/07/19 24 Active flecainide (TAMBOCOR) 100 MG Tablet Take 100 mg by mouth 2 times daily. 10/18/19 23 Active flecainide (TAMBOCOR) 100 MG Tablet Take 100 mg by mouth 2 times daily. Active metoprolol tartrate (LOPRESSOR) 25 MG Tablet Take 25 mg by mouth 2 times daily. Active Ozempic, 1 MG/DOSE, 4 MG/3ML Solution Pen-injector Apply 1 mg once a week. 06/15/19 22 Active Jardiance 10 MG Tablet TAKE 1 TABLET BY MOUTH ONCE DAILY FOR 30 DAYS 10/29/19 24 Active vitamin b-12 (CYANOCOBALAMIN ) 500 MCG Tablet 500 mcg. 09/27/19 24 Active naproxen (NAPROSYN) 500 MG Tablet Take 1 Tablet by mouth 2 times daily as needed for Moderate or more severe pain. 20 Tablet 08/13/19 25 Active cyclobenzaprine (FLEXERIL) 10 MG Tablet Take 1 Tablet by mouth 3 times daily as needed (pain) for up to 14 days. 30 Tablet 08/13/19 25 025 Active Problems Problem Noted Date Diagnosed Date Low back pain potentially associated with spinal stenosis 03/01/2023 Hypothyroid 03/01/2023 H/O breast biopsy 03/01/2023 Fibromyalgia 03/01/2023 Depression 03/01/2023 Anxiety 03/01/2023 Acid reflux disease 03/01/2023 DM type 2 (diabetes mellitus, type 2) 03/01/2023 Spinal stenosis 03/01/2023 History of loop recorder 03/01/2023 TIA (transient ischemic attack) 03/01/2023 CAD (coronary artery disease) 03/01/2023 A-fib 03/01/2023 Essential tremor 04/28/2018 Sacroiliac joint dysfunction of both sides 04/28 Epistaxis 03/22/2018 PNAR (perennial non-allergic rhinitis) 9 Laryngopharyngeal reflux 03/22/2018 Balance problems 01/19/2018 Lane's reflex positive 01/19/2018 Overflow incontinence of urine 01/19/2018 Pain, radicular, lumbar 05/31/2017 Bilateral lower extremity edema 05/31/2017 Bilateral carpal tunnel syndrome 05/31/2017 Cervicalgia 04/05/2017 Neuropathy 04/05/2017 Lumbar facet arthropathy 04/05/2017 Resolved Problems Problem Noted Date Diagnosed Date Resolved Date NSTEMI (non-ST elevated myoc ardial infarction) 03/01/2023 03/02/2023 Encounters Date Type Department Care Team Description 08/12/2024 6:33 AM CDT - 08/12/2024 11:39 AM CDT Emergency [facility] Emergency [address] [place] [address] Zhao Joseph, Other chest pain Discharge Disposition: Discharged to home or Selfcare 08/12/2024 Travel from Last 3 Months Immunizations Immunization Administration Dates Next Due Influenza Vaccine, Quadrivalent, PF 11/07/2019,1 Influenza, Injectable, Quadrivalent 11/15/2018,0 11/19/2016,12/18/2014 TDAP Vaccine 04/16/2022,11/02/2014,03/08/2014 Family History Medical History Relation Name Comments Cirrhosis Mother Diabetes Mother Hypertension Mother Relation Name Status Comments Brother Alive Father Maternal Grandfather Maternal Grandmother Mother Alive Social History Tobacco Use Types Packs/Day Years Used Date Smoking Tobacco: Former Cigarettes Q uit: 06/23/1989 Smokeless Tobacco: Never Tobacco Cessation:Counseling Given: Not Answered Alcohol Use Standard Drinks/Week Comments No 0 (1 standard drink = 0.6 oz pur e alcohol) [facility] Utilities Answer Date Recorded In the past 12 months has th e electric, gas, oil, or water company threatened to shut off services in your home? No 03/01/2023 Overall Financial Resource Strain (CARDIA) Answe r Date Recorded How hard is it for you to pa y for the very basics like food, housing, medical care, and heating? Not very hard 03/01/2023 Exercise Vital Sign Answer Date Recorde d On average, how many days pe r week do you engage in moderate to strenuous exercise (like a brisk walk)? 7 days 03/01/2023 On average, how many minutes do you engage in exercise at this level? 30 min 03/01/2023 Hunger Vital Sign Answer Date Recorded Within the past 12 months, y ou worried that your food would run out before you got the money to buy more. Never true 03/01/20 23 Within the past 12 months, t he food you bought just didn't last and you didn't have money to get more. Never true 03/01/2023 PRAPARE - Transportation Answer Date Re corded In the past 12 months, has l ack of transportation kept you from medical appointments or from getting medications? No 02/06 In the past 12 months, has l ack of transportation kept you from meetings, work, or from getting things needed for daily living? No 03/01/2023 Housing Stability Vital Sign Answer Sergey e Recorded In the last 12 months, was t here a time when you were not able to pay the mortgage or rent on time? No 03/01/2023 In the last 12 months, how many places have you lived? 1 03/01/2023 In the last 12 months, was t here a time when you did not have a steady place to sleep or slept in a skilled nursing (including now)? No 03/01/2023 Sexually Active Control Partners Comments Not Currently Comments No Sex and Gender Information Value Date Recorded Sex Assigned at Not on file Legal Sex Female 10:30 PM CDT Gender Identity Not on file Sexual Orientation Not on file Occupation Industry Job Start Date Job End Date unemployed Not on file Not on file Not on file Last Filed Vital Signs Vital Sign Reading Time Taken Comments Blood Pressure 94/56 08/12/2024 11:30 AM CDT Pulse 65 08/12/2024 11:30 AM CDT Temperature 36.3 C (97.4 F) 08/12/2024 6:57 AM CDT Respiratory Rate 13 08/12/2024 11:3 0 AM CDT Oxygen Saturation 94% 08/12/2024 11: 30 AM CDT Inhaled Oxygen Concentration - - Weight 124.1 kg (273 lb 9.5 oz) 08/12/2024 6:57 AM CDT Height 188 cm (6' 2) 08/12/2024 6:57 AM CDT Body Mass Index 35.13 08/12/2024 6:57 AM CDT Plan of Treatment Health Maintenance Due Date Last Done Comments Diabetes: Eye Exam 1977 Diabetes: Foot Exam 1977 Hepatitis C Virus (HCV) Screening 1977 Hepatitis B Immunization (1 of 3 - 19+ 3-dose series) 1996 Pneumococcal Immunization Combined (1 of 2 - PCV) 1996 Pap Smear 1998 Cervical Cancer Screening (CCS) 06/19/2007 HPV/Cotest 06/19/2007 Cologuard 2022 Immunochemical Fecal Occult Blood 2022 Mammogram 10/30/2023 10/29/2022, 10/07, 12/11/2020, Additional history exists SARS-COV-2 Immunization ( - season) 2023 Diabetes: Hemoglobin A1c 10/31/2024 025, 03/01/2023, 03/21/2022, Additional history exists Influenza Immunization (#1) 2024 09/0 03/2019, 11/15/2018, 12/10/2017, Additional history exists Diabetes: Nephropathy Screening 08/12/2025 08/12/2024, 03/01/2023, 02/09/2023, Additional history exists Colonoscopy 12/17/2031 12/16/2021 Colorectal Cancer Screening 12/17/2031 Td Immunization Every 10 Years (Adults With 1 Tdap) 04/16/2032 04/16/2022, 11/02/2014, 03/08/2014 Respiratory Syncytial Virus (RSV) Immunization (Adult) (1 - 1-dose 75+ series) 2052 DTaP/Tdap/Td Immunization Discontinued 2022, 11/02/2014, 03/08/2014 Discussion re Starting/Frequency of Mammograms Completed 10/29/2022, 11/20/2020 Human Papillomavirus (HPV) Immunization Aged Out No longer eligible based on patient's age to complete this topic Meningococcal Immunization (ACWY) Aged Out No longer eligible based on patient's age to complete this topic Rotavirus Immunization Aged Out No lo nger eligible based on patient's age to complete this topic Procedures Procedure Name Priority Date/Time Associated Diagnosis Comments TROPONIN I, HIGH SENSITIVITY (HSTRP) STAT 08/12/2024 10:42 AM CDT TROPONIN I, HIGH SENSITIVITY (HSTRP) STAT 08/12/2024 9:[address] ANGIO CHEST ABDOMEN W/WO WITH PP (POST PROCESSING) Stat with Interpretation 08/12/2024 8:30 AM CDT CBC WITH AUTO DIFFERENTIAL STAT 08/12/2024 7:21 AM CDT TROPONIN I, HIGH SENSITIVITY (HSTRP) STAT 08/12/2024 7:21 AM CDT COMPLETE BLOOD COUNT (CBC) WITH DIFF STAT 08/12/2024 7:21 AM CDT CMP (COMPREHENSIVE METABOLIC PANEL) STAT 08/12/2024 7:21 AM CDT XR CHEST SINGLE VIEW PORTABLE STAT 08/12/2024 7:09 AM CDT EKG 12 LEAD STAT 08/12/2024 6:35 AM CDT EKG SCAN 08/12/2024 12:00 AM CDT HEMOGLOBIN A1C W/ ESTIMATED GLUCOSE STAT 03/01/2023 1:58 PM CONTRACT COORDINATOR from Last 3 Months or Most Recently Relevant to Health Maintenance Results * (ABNORMAL) TROPONIN I, HIGH SENSITIVITY (HSTRP) (08/12/2024 10:42 AM CDT) Only the most recent of3 resultswithin the time period is included. TROPONIN I, HIGH SENSITIVITY- GARCIA 39(H) <=14 ng/L 08/12/2024 11:26 AM CDT [facility] Comment: High-sensitivity troponin I results are reported in ng/L making the result appear to be 1,000 times higher than the contemporary troponin I value which is reported in ng/ml. Results from Garcia. Blood Venipuncture / Unknown 08/12/2024 10:42 AM CDT 08/12/2024 10:47 AM CDT us Zhao Joseph DO CHEMISTRY ORDERABLES Fi nal Result [facility] [address] [place] [address] * CT ANGIO CHEST ABDOMEN W/WO WITH PP (POST PROCESSING) (08/12/2024 8:30 AM CDT) Anatomical Region Laterality Modality vascular, BODY, Chest N/A Computed T omography 08/12/2024 9:18 AM CDT Impressions 08/12/2024 9:21 AM CDT IMPRESSION: Streak artifact from patient's arms alongside trunk compromises evaluation. No evidence of aortic aneurysm or dissection. Left mosaic pulmonary parenchymal attenuation pattern as can be seen with air trapping and/or small airways disease; no pleural effusion. No acute process of the visualized portions of the abdomen through upper pelvis. Cholecystectomy. Narrative 08/12/2024 9:21 AM CDT EXAM DESCRIPTION: CTA OF THE AORTA WITHOUT AND WITH CONTRAST REASON FOR STUDY: Acute chest pain radiating into the back with mild shortness of breath this morning. Provided history of trauma or inciting and/or aggravating events. History of diabetes, CAD, atrial fibrillation, and TIA. No provided surgical history. Technique: CTA of the aorta to include CT imaging of the chest and abdomen through the upper most portion of the pelvis was performed without and with intravenous and without oral contrast using helical scanning technique with dynamic intravenous contrast injection. Reconstructed coronal and sagittal MPR images reviewed. All images stored on PACS. 3D MIP images rendered on scanning unit and reviewed at time of interpretation. Automated exposure control was used as a dose optimization technique for this examination. CONTRAST TYPE/DOSE: 100 mL Isovue 370 injected via left AC without reported incident. COMPARISON: Chest radiograph performed shortly prior to this study; CT abdomen pelvis with contrast 02/09/2023 and 09/27/2022. FINDINGS: Streak artifact from patient's arms alongside trunk compromises evaluation. VASCULATURE NON-CONTRASTED IMAGING: No atherosclerotic disease seen. ABDOMINAL AORTA: No aortic dissection, aneurysm, intramural hematoma, rupture, or penetrating atherosclerotic ulcer. 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 Single bilateral renal arteries. No anatomic variation of the mesenteric vessels. PELVIC VASCULATURE: Takeoff of the common iliac arteries unremarkable. CHEST LUNGS: Left mosaic pulmonary parenchymal attenuation pattern as can be seen with air trapping and/or small airways disease. PLEURA: No pleural effusion. No pneumothorax. MEDIASTINUM/ACE: No CT evidence of discrete mass. No lymphadenopathy by size criteria. HEART: Heart size is normal with no pericardial effusion. AXILLA: No lymphadenopathy. CHEST WALL: No CT evidence of discrete mass. No subcutaneous emphysema. HARDWARE/LINES/TUBES: None. MUSCULOSKELETAL CHEST: Spondylosis and degenerative disc disease of the visualized spine. ABDOMEN/PELVIS LIVER: Unchanged in size. No CT evidence of discrete hepatic lesion. GALLBLADDER: Cholecystectomy. BILE DUCTS: No intrahepatic or extrahepatic ductal dilatation. SPLEEN: Normal in size. No CT evidence of discrete splenic lesion. PANCREAS: No identified cystic or solid masses. No significant calcifications. No adjacent inflammation or peripancreatic fluid collections. Pancreatic duct not dilated. ADRENALS: Unremarkable. KIDNEYS/URINARY TRACT: Symmetric enhancement. No CT evidence of discrete renal lesion. No nephrolithiasis. No ureterolithiasis of the visualized portions of the ureters. No hydronephrosis. No hydroureter of the visualized portions of the ureters. Bladder excluded from [id number]. GI: No dilated loops of small bowel of the visualized alimentary canal. No wall thickening of the visualized alimentary canal. Expected location of the appendix excluded from [id number]. PERITONEUM: No pneumoperitoneum or abdominopelvic free fluid of the visualized portions of the abdomen pelvis. RETROPERITONEUM: No mass or adenopathy of the visualized retroperitoneum. REPRODUCTIVE: Excluded from [id number]. MUSCULOSKELETAL: Spondylosis and degenerative disc disease of the visualized spine. OTHER: No other abnormality. THIS IS AN ELECTRONICALLY VERIFIED FINAL REPORT 08/12/2024 9:18 AM - Electronically signed by Ken Rolle M.D. JEMMA: JEMMA Report ID: [id number] Reading Location: [id number] Procedure Note Ken Rolle MD - 08/12/2024 EXAM DESCRIPTION: CTA OF THE AORTA WITHOUT AND WITH CONTRAST REASON FOR STUDY: Acute chest pain radiating into the back with mild shortness of breath this morning. Provided history of trauma or inciting and/or aggravating events. History of diabetes, CAD, atrial fibrillation, and TIA. No provided surgical history. Technique: CTA of the aorta to include CT imaging of the chest and abdomen through the upper most portion of the pelvis was performed without and with intravenous and without oral contrast using helical scanning technique with dynamic intravenous contrast injection. Reconstructed coronal and sagittal MPR images reviewed. All images stored on PACS. 3D MIP images rendered on scanning unit and reviewed at time of interpretation. Automated exposure control was used as a dose optimization technique for this examination. CONTRAST TYPE/DOSE: 100 mL Isovue 370 injected via left AC without reported incident. COMPARISON: Chest radiograph performed shortly prior to this study; CT abdomen pelvis with contrast 02/09/2023 and 09/27/2022. FINDINGS: Streak artifact from patient's arms alongside trunk compromises evaluation. VASCULATURE NON-CONTRASTED IMAGING: No atherosclerotic disease seen. ABDOMINAL AORTA: No aortic dissection, aneurysm, intramural hematoma, rupture, or penetrating atherosclerotic ulcer. 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 Single bilateral renal arteries. No anatomic variation of the mesenteric vessels. PELVIC VASCULATURE: Takeoff of the common iliac arteries unremarkable. CHEST LUNGS: Left mosaic pulmonary parenchymal attenuation pattern as can be seen with air trapping and/or small airways disease. PLEURA: No pleural effusion. No pneumothorax. MEDIASTINUM/ACE: No CT evidence of discrete mass. No lymphadenopathy by size criteria. HEART: Heart size is normal with no pericardial effusion. AXILLA: No lymphadenopathy. CHEST WALL: No CT evidence of discrete mass. No subcutaneous emphysema. HARDWARE/LINES/TUBES: None. MUSCULOSKELETAL CHEST: Spondylosis and degenerative disc disease of the visualized spine. ABDOMEN/PELVIS LIVER: Unchanged in size. No CT evidence of discrete hepatic lesion. GALLBLADDER: Cholecystectomy. BILE DUCTS: No intrahepatic or extrahepatic ductal dilatation. SPLEEN: Normal in size. No CT evidence of discrete splenic lesion. PANCREAS: No identified cystic or solid masses. No significant calcifications. No adjacent inflammation or peripancreatic fluid collections. Pancreatic duct not dilated. ADRENALS: Unremarkable. KIDNEYS/URINARY TRACT: Symmetric enhancement. No CT evidence of discrete renal lesion. No nephrolithiasis. No ureterolithiasis of the visualized portions of the ureters. No hydronephrosis. No hydroureter of the visualized portions of the ureters. Bladder excluded from [id number]. GI: No dilated loops of small bowel of the visualized alimentary canal. No wall thickening of the visualized alimentary canal. Expected location of the appendix excluded from [id number]. PERITONEUM: No pneumoperitoneum or abdominopelvic free fluid of the visualized portions of the abdomen pelvis. RETROPERITONEUM: No mass or adenopathy of the visualized retroperitoneum. REPRODUCTIVE: Excluded from [id number]-si-[id number]. MUSCULOSKELETAL: Spondylosis and degenerative disc disease of the visualized spine. OTHER: No other abnormality. THIS IS AN ELECTRONICALLY VERIFIED FINAL REPORT 08/12/2024 9:18 AM - Electronically signed by Ken Rolle M.D. JEMMA: JEMMA Report ID: [id number] Reading Location: [id number] IMPRESSION: Streak artifact from patient's arms alongside trunk compromises evaluation. No evidence of aortic aneurysm or dissection. Left mosaic pulmonary parenchymal attenuation pattern as can be seen with air trapping and/or small airways disease; no pleural effusion. No acute process of the visualized portions of the abdomen through upper pelvis. Cholecystectomy. us Zhao Joseph DO IMG CT ORDERABLES Final Result * (ABNORMAL) CBC with Auto Differential (08/12/2024 7:21 AM CDT) WBC 7.58 4.00 - 12.00 10(3)/mcL 08/12/2024 7:57 AM CDT [facility] RBC 4.08 3.80 - 5.30 10(6)/mcL 08/12/2024 7:57 AM CDT [facility] HEMOGLOBIN (HGB) 12.0 12.0 - 15.8 g/dL 08/12/2024 7:57 AM CDT [facility] HEMATOCRIT (HCT) 34.7(L) 36.0 - 47.0 % 08/12/2024 7:57 AM CDT [facility] MCV 85.0 82.0 - 96.0 fL 08/12/2024 7:57 AM CDT [facility] MCH 29.4 26.0 - 34.0 pg 08/12/2024 7:57 AM CDT [facility] MCHC 34.6 31.0 - 36.0 g/dL 08/12/2024 7:57 AM CDT [facility] PLATELET COUNT 259 140 - 440 10(3)/mcL 08/12/2024 7:57 AM CDT [facility] RDW 12.9 11.8 - 15.5 % 08/12/2024 7:57 AM CDT [facility] MPV 8.4(L) 9.7 - 12.4 fL 08/12/2024 7:57 AM CDT [facility] NEUTROPHILS 62.6 47.0 - 73.0 % 08/12/2024 7:57 AM CDT [facility] LYMPHOCYTES 24.5 18.0 - 42.0 % 08/12/2024 7:57 AM CDT [facility] MONOCYTES 8.6 4.0 - 12.0 % 08/12/2024 7:57 AM CDT [facility] EOSINOPHILS 3.8 0.0 - 5.0 % 08/12/2024 7:57 AM CDT [facility] BASOPHILS 0.5 0.0 - 1.0 % 08/12/2024 7:57 AM CDT [facility] ABSOLUTE NEUTROPHILS 4.74 1.60 - 7.70 10(3)/[facility] 08/12/2024 7:57 AM CDT [facility] ABSOLUTE LYMPHOCYTES 1.86 1.30 - 3.20 10(3)/[facility] 08/12/2024 7:57 AM CDT [facility] ABSOLUTE MONOCYTES 0.65 0.20 - 1.00 10(3)/[facility] 08/12/2024 7:57 AM CDT [facility] ABSOLUTE EOSINOPHIL 0.29 0.00 - 0.40 10(3)/[facility] 08/12/2024 7:57 AM CDT [facility] ABSOLUTE BASOPHILS 0.04 0.00 - 0.10 10(3)/[facility] 08/12/2024 7:57 AM CDT [facility] NRBC PER 100 WBC 0 08/13/19 7:57 AM CDT [facility] Blood Venipuncture / Unknown 08/12/2024 7:21 AM CDT 08/12/2024 7:32 AM CDT us Zhao Joseph DO HEMATOLOGY ORDERABLES F inal Result [facility] [address] [place] [address] * (ABNORMAL) CMP (Comprehensive Metabolic Panel) (08/12/2024 7:21 AM CDT) SODIUM 139 136 - 145 mmol/L 08/12/2024 7:54 AM CDT [facility] POTASSIUM 3.2(L) 3.5 - 5.1 mmol/L 08/12/2024 7:54 AM CDT [facility] CHLORIDE 106 98 - 107 mmol/L 08/12/2024 7:54 AM CDT [facility] CO2, VENOUS 20(L) 22 - 30 mmol/L 08/12/2024 7:54 AM CDT [facility] ANION GAP 16.2 <18.0 mmol/L 08/12/2024 7:54 AM T [facility] GLUCOSE 208(H) 70 - 99 mg/dL 08/12/2024 7:54 AM T [facility] BUN 13 5 - 18 mg/dL 08/12/2024 7:54 AM [facility] CREATININE, BLOOD 0.59(L) 0.60 - 1.00 mg/dL 08/12/2024 7:54 AM [facility] BUN/CREATININE RATIO 22(H) 12 - 20 ratio 08/12/2024 7:54 AM [facility] TOTAL PROTEIN 7.0 6.0 - 8.0 g/dL 08/12/2024 7:54 AM [facility] ALBUMIN 4.0 3.5 - 5.0 g/dL 08/12/2024 7:54 AM [facility] A/G RATIO 1.3 1.0 - 2.2 08/12/2024 7:54 AM [facility] CALCIUM 8.9 8.7 - 10.5 mg/dL 08/12/2024 7:54 AM [facility] T BILI 0.5 0.2 - 1.2 mg/dL 08/12/2024 7:54 AM [facility] SGOT (AST) 15 <43 U/L 08/12/2024 7:54 AM [facility] SGPT (ALT) 11 <56 U/L 08/12/2024 7:54 AM [facility] ALKALINE PHOSPHATASE 52 40 - 150 U/L 08/12/2024 7:54 AM [facility] GFR, ESTIMATED >60 >=60 08/12/2024 7:54 AM [facility] Comment: Creatinine Clearance is the preferred criteria for selecting drug dose adjustments in renally impaired patients. The GFR is provided as additional pertinent clinical information. GFR is reported in mL/min/1.73 sq m. Calculation based on the Chronic Kidney Disease Epidemiology Collaboration (CKD- EPI) equation refit without adjustment for race. GFR, EST. >60 >=60 025 7:54 AM CDT [facility] GFR, EST. NONAFRICAN >60 >=60 08/12/2024 7:54 AM CDT [facility] Blood Venipuncture / Unknown 08/12/2024 7:21 AM CDT 08/12/2024 7:32 AM CDT us Zhao Vences Jake DO CHEMISTRY ORDERABLES Fi nal Result [facility] [place] [address] * XR CHEST SINGLE VIEW PORTABLE (08/12/2024 7:09 AM CDT) Anatomical Region Laterality Modality Chest N/A Computed Radiogr aphy 08/12/2024 7:13 AM CDT Impressions 08/12/2024 7:16 AM CDT IMPRESSION: No acute cardiopulmonary process. Narrative 08/12/2024 7:16 AM CDT EXAM DESCRIPTION: XR CHEST SINGLE VIEW PORTABLE REASON FOR STUDY: Acute chest pain radiating into the back and mild shortness of breath this morning. History of type 2 diabetes, CAD, atrial fibrillation, and TIA. TECHNIQUE: Single frontal radiographic view(s) of the chest. COMPARISON: Chest radiograph 03/01/2023. FINDINGS: LUNGS: No focal consolidation. No pleural effusion. No pneumothorax. HEART/MEDIASTINUM: Trachea midline. Heart normal in size and contour. Hilar and mediastinal structures unremarkable. LINES/TUBES: None. BONES: No acute osseous abnormality. ACDF hardware with appearance of a corpectomy spacer device of the lower cervical spine. Correlate with surgical history/operative details. THIS IS AN ELECTRONICALLY VERIFIED FINAL REPORT 08/12/2024 7:13 AM - Electronically signed by Ken Rolle M.D. JEMMA: [email or web address] Report ID: [id number] Reading Location: [id number] Procedure Note Ken Rolle MD - 08/12/2024 EXAM DESCRIPTION: XR CHEST SINGLE VIEW PORTABLE REASON FOR STUDY: Acute chest pain radiating into the back and mild shortness of breath this morning. History of type 2 diabetes, CAD, atrial fibrillation, and TIA. TECHNIQUE: Single frontal radiographic view(s) of the chest. COMPARISON: Chest radiograph 03/01/2023. FINDINGS: LUNGS: No focal consolidation. No pleural effusion. No pneumothorax. HEART/MEDIASTINUM: Trachea midline. Heart normal in size and contour. Hilar and mediastinal structures unremarkable. LINES/TUBES: None. BONES: No acute osseous abnormality. ACDF hardware with appearance of a corpectomy spacer device of the lower cervical spine. Correlate with surgical history/operative details. THIS IS AN ELECTRONICALLY VERIFIED FINAL REPORT 08/12/2024 7:13 AM - Electronically signed by Ken Rolle M.D. JEMMA: [email or web address] Report ID: [id number] Reading Location: [id number] IMPRESSION: No acute cardiopulmonary process. us Zhao Joseph DO IMG DIAGNOSTIC ORDERABL ES Final Result * EKG 12 LEAD (08/12/2024 6:35 AM CDT) Ventricular Rate 83 BPM EXTERNAL EKG Atrial Rate 83 BPM EXTERNAL EKG P-R Interval 166 ms EXTERNAL EKG QRS Duration 84 ms EXTERNAL EKG Q-T Duration 386 ms EXTERNAL EKG QTC CALCULATION 453 ms EXTERNAL EKG P Independence 58 degrees EXTERNAL EKG R Independence 14 degrees EXTERNAL EKG T Independence 49 degrees EXTERNAL EKG 08/12/2024 6:35 AM CDT Impressions EXTERNAL EKG - 08/14/2024 9:19 AM CDT Normal sinus rhythm Normal ECG When compared with ECG of 01-MAR-2023 13:46, No significant change was found Confirmed by Sebastien Peacock ([id number]) on 08/14/2024 9:18:58 AM Narrative Procedure Note Sebastien Peacock MD - 08/14/2024 IMPRESSION: Normal sinus rhythm Normal ECG When compared with ECG of 01-MAR-2023 13:46, No significant change was found Confirmed by Sebastien Peacock ([id number]) on 08/14/2024 9:18:58 AM us Zhaoskylar Vences Jake DO IMG ECG ORDERABLES Johnna l Result Performing Organization Address [facility] Co de Phone Number EXTERNAL EKG * EKG SCAN (08/12/2024 12:00 AM CDT) 08/12/2024 us Provider Scan IMG ECG ORDERABLES Final Result Performing Organization Address [facility] de Phone Number RESULTING AGENCY * (ABNORMAL) Hemoglobin A1C w/ Estimated Glucose (03/01/2023 1:58 PM CONTRACT COORDINATOR) HGB-A1C 7.4(H) 4.0 - 6.0 % 03/01/2023 4:10 PM CONTRACT COORDINATOR [facility] Est Average Glucose 165.7 mg/dL 03/01/2023 4:10 PM CONTRACT COORDINATOR [facility] Blood Venipuncture / Unknown 03/01/2023 1:58 PM CONTRACT COORDINATOR 03/01/2023 2:10 PM CONTRACT COORDINATOR Narrative [facility] - 03/01/2023 4:10 PM CONTRACT COORDINATOR HEMOGLOBIN A1C: DIABETIC PATIENTS: WELL-CONTROLLED: 6.2 - 7.0 INTERMEDIATE WELL-CONTROLLED: 7.0 - 9.0 POORLY-CONTROLLED: >9.0 us Mayuri Lacy MD CHEMISTRY ORDERABLES Final Re sult Performing Organization Address [facility] Co de Phone Number [facility] [place] [address] from Last 3 Months or Most Recently Relevant to Health Maintenance [place] [address] Advance Directives * Full Code (Latest Code Status on File) Date Activated Date Inactivated Comments 03/02/2023 6:16 PM 03/02/2023 10:15 PM CPR-Full Treatment: FULL ARREST: Attempt Resuscitation/CPR wit intubation and mechanical ventilation. PRE-ARREST: Use entire range of life support measures to stabilize the patient. Care Teams Lube Man Relationship Specialty Start Date End Date Dotty Charles, RECREATION SUPERINTENDENT, TELECOMMUNICATION TOWER TECHNICIAN [address] [place] [address] PCP - General Advanced Practice Nurse 08/12/24
--- OUTSIDE RECORDS SUMMARY | 2024-09-24 13:14 | XMS_ITS | Clinical Summary ---
Author Organization [facility] [employer] Address [address] [place] [id number] Care Team Providers Care Jewel Bearing Broacher Name Role Phone Keira Herrera MD Primary Care Provider [phone] Allergies Active Allergy Reactions Criticality Noted Date Comments Buspirone Confusion,Hallucination High 11/20/2016 Cinnamon Unknown,Other (See Comments) Low 12/22/2022 Nose bleed Pumpkin Diarrhea Low 06/09/2023 Vistaril Im (Hcl Salt) Swelling Low 09/02/2022 Medications metoprolol succinate ER 50 mg tablet,extende d release 24 hr Take 50 mg by mouth daily. Active flecainide 100 mg tablet Take 100 mg by mouth 2 times daily. Active albuterol sulfate HFA 90 mcg/actuation aerosol inhaler Take 2 Puffs by inhalation every 6 hours as needed for Shortness of Breath or Wheezing. 18 Gram 3 Active EPINEPHrine (EPIPEN) 0.3 mg/0.3 mL Auto-Injector Inject 0.3 mg by intramuscular injection. 3 Active ergocalciferol (VITAMIN D2) 50,000 unit capsuleIndicat ions:Vitamin D deficiency Take 1 Capsule (50,000 Units) by mouth every 7 days. 12 Capsule 4 Active levothyroxine 75 mcg tablet Take 1 Tablet (75 mcg) by mouth daily. 30 Tablet 1 4 Active HYDROcodone-ac etaminophen (NORCO) 5-325 mg tablet Take 1 Tablet by mouth every 6 hours as needed. 4 Active ondansetron (ZOFRAN ODT) 4 mg Tablet, Rapid Dissolve Take 4 mg by mouth every 4 hours as needed for Nausea. 4 Active empagliflozin (Jardiance) 25 mg tablet Take 1 Tablet by mouth daily. 4 Active glimepiride (AMARYL) 4 mg tablet 4 mg. 4 Active insulin glargine (LANTUS) 100 unit/mL pen syringe Inject 30 Units by subcutaneous injection daily. 4 Active insulin glargine-yfgn (Semglee,insul in glarg-yfgn,Pen ) 100 unit/mL pen syringe INJECT 25 UNITS SUBCUTANEOUSLY ONCE DAILY FOR 90 DAYS Active Active Problems Problem Noted Date Diagnosed Date Hepatic steatosis 11/22/2023 Overview (11/22/2023): Noted on CT 11/21/23 [facility] ER visit Coronary atherosclerosis 03/01/2023 Bilateral leg edema 11/08/2022 Type 2 diabetes mellitus wit h hyperosmolarity without coma, without long-term current use of insulin 09/02/2022 Mixed hyperlipidemia 09/02/2022 Hypothyroidism 09/02/2022 Atrial fibrillation 09/02/2022 CRISTIAN (obstructive sleep apnea) 09/02/2022 Anxiety and depression 09/02/2022 Benign hypertension 09/02/2022 Colon polyps 09/02/2022 Cervical spinal stenosis 01/01/2022 Bilateral carpal tunnel syndrome 05/31/2017 Neuropathy 04/05/2017 Overview (09/02/2022): Last Assessment & Plan: No complaint at this time. Will monitor. Resolved Problems Problem Noted Date Diagnosed Date Resolved Date Chest pain 11/08/2022 01/17/2024 Acute right-sided low back p ain without sciatica 09/02/2022 01/17/2024 Encounters Date Type Department Care Team Description 09/20/2024 External Device Data [facility] Provider, Abstract 09/20/2024 External Device Data [facility] Provider, Abstract 09/19/2024 External Device Data [facility] Provider, Abstract 08/15/2024 External Device Data [facility] Provider, Abstract 08/15/2024 External Device Data [facility] Provider, Abstract 08/08/2024 External Device Data [facility] Provider, Abstract 07/28/2024 External Device Data Initial Department [address] [place]: [place] [address] [facility], 07/11/2024 External Device Data [facility] Provider, Abstract from Last 3 Months Family History Medical History Relation Name Comments Heart Disease Father Ruel Bradford Respiratory Disease Father Ruel Bradford Anemia Mother Tonya Bradford Diabetes Mother Tonya Bradford Heart Disease Mother Tnoya Bradford High Cholesterol Mother Tonya Bradford Hypertension Mother Tonya Bradford Liver Disease Mother Tonya Bradford Respiratory Disease Mother Tonya Bradford Thyroid Disease Mother Tonya Bradford Relation Name Status Comments Father Ruel Bradford Mother Tonya Bradford Social History Tobacco Use Types Packs/Day Years Used Date Smoking Tobacco: Former Cigarettes 2 13 0 08/11/2005 - 08/11/2018 Smokeless Tobacco: Never Tobacco Cessation:Counseling Given: Not Answered Alcohol Use Standard Drinks/Week Comments Never 0 (1 standard drink = 0.6 oz pur e alcohol) Comments No Sex and Gender Information Value Date Recorded Sex Assigned at Not on file Legal Sex Female 3:40 PM CDT Gender Identity Not on file Sexual Orientation Not on file Last Filed Vital Signs Vital Sign Reading Time Taken Comments Blood Pressure 116/66 05/16/2024 1:05 PM CDT Pulse 82 05/16/2024 9:28 AM CDT Temperature 36.8 C (98.3 F) 05/16/2024 9:28 AM CDT Respiratory Rate 18 05/16/2024 1:05 PM CDT Oxygen Saturation 94% 05/16/2024 1:05 PM CDT Inhaled Oxygen Concentration - - Weight 113.4 kg (250 lb) 05/16/2024 9:28 AM CDT Height 188 cm (6' 2) 05/16/2024 9:28 AM CDT Body Mass Index 32.1 05/16/2024 9:28 AM CDT Plan of Treatment Health Maintenance Due Date Last Done Comments DIABETES ANNUAL RETINAL EXAM 06/19/1995 HEPATITIS B VACCINES (1 of 3 - 19+ 3-dose series) 1996 HPV/Cotest (21-29) 1998 CERVICAL CANCER SCREENING 06/19/2007 HPV/Cotest (30-65) 06/19/2007 PAP SMEAR 06/19/2007 Preventative Visit-Managed Medicaid 01/04/2016 01/02/2015 FIT-DNA Q 3 years 2022 FIT/FOBT Q 1 year 2022 Flex Sig/CT Colonography Q 5 years 2022 BREAST CANCER SCREENING 10/30/2023 10/29/2022, 11/20 DIABETES MICROALBUMIN ANNUAL SCREEN 06/08/2024 06/09/2023 LDL CHOLESTEROL ANNUAL 06/08/2024 06/09/2023, 2022 INFLUENZA VACCINE (#1) 2024 , 11/15/2018, 12/10/2017, Additional history exists DIABETES HBA1C Q 6 MONTHS 10/31/20242024, 04/28/2024, 12/29/2023, Additional history exists DIABETES ANNUAL FOOT EXAM 05/03/2025 05/03/2024 COLORECTAL SCREENING 12/17/2031 12/16/2021, 12/17/19 Colorectal Cancer Screening 12/17/2031 DTAP/TDAP/TD VACCINES (4 - T d or Tdap) 04/16/2032 04/16/2022, 11/02/2014, 03/08/2014 Procedures Procedure Name Priority Date/Time Associated Diagnosis Comments MICROALBUMIN/CREAT ININE RATIO, RANDOM UR Routine 06/09/2023 11:51 AM CDT Type 2 diabetes mellitus with hyperosmolarity without coma, without long-term current use of insulin ([facility]/HCC) Leukocytosis, unspecified type Abnormal laboratory test LIPID PANEL Routine 06/09/2023 11:51 AM CDT Type 2 diabetes mellitus with hyperosmolarity without coma, without long-term current use of insulin (CMS/HCC) Leukocytosis, unspecified type Abnormal laboratory test HEMOGLOBIN A1C Routine 06/09/2023 11:51 AM CDT Type 2 diabetes mellitus with hyperosmolarity without coma, without long-term current use of insulin (CMS/HCC) Leukocytosis, unspecified type Abnormal laboratory test from Last 3 Months or Most Recently Relevant to Health Maintenance Results * MICROALBUMIN/CREATININE RATIO, RANDOM UR (06/09/2023 11:51 AM CDT) Creatinine, Urine 133 20 - 275 mg/dL [facility] MICROALBUMIN, URINE 0.4 See Note: mg/dL [facility] Comment: Reference Range: Reference Range Not established MICROALBUMIN/CREAT RATIO, UR 3 <30 mg/g creat [facility] Comment: The ADA defines abnormalities in albumin excretion as follows: Albuminuria Category Result (mg/g creatinine) Normal to Mildly increased <30 Moderately increased 30-299 Severely increased > OR = 300 The ADA recommends that at least two of three specimens collected within a 3-6 month period be abnormal before considering a patient to be within a diagnostic category. Test Performed at: [facility] [address] [facility] [place] [address] Yossi Zuñiga MD Urine URINE SPECIMEN OBTAINED BY CLEAN CATCH PROCEDURE / Unknown 06/09/2023 11:51 AM CDT 06/09/2023 11:30 PM CDT Shauna Hicks MD URINE ORDERABLES Final Result [facility] [phone] [address] * (ABNORMAL) HEMOGLOBIN A1C (06/09/2023 11:51 AM CDT) HEMOGLOBIN A1C 9.3(H) <5.7 % of total Hgb [id number] genia Quigley Comment: For someone without known diabetes, a hemoglobin A1c value of 6.5% or greater indicates that they may have diabetes and this should be confirmed with a follow-up test. For someone with known diabetes, a value <7% indicates that their diabetes is well controlled and a value greater than or equal to 7% indicates suboptimal control. A1c targets should be individualized based on duration of diabetes, age, comorbid conditions, and other considerations. Currently, no consensus exists regarding use of hemoglobin A1c for diagnosis of diabetes for children. ESTIMATED AVERAGE GLUCOSE (MG/DL) 220 mg/dL [facility] ESTIMATED AVERAGE GLUCOSE (MMOL/L) 12.2 mmol/L [facility] Dann Comment: This test was performed on the Madyson víctor c503 platform. Effective 05/24/23, a change in test platforms from the Nielson Tarper to the Madyson víctor c503 may have shifted HbA1c results compared to historical results. Based on laboratory validation testing conducted at [facility], the Madyson platform relative to the Nielson platform had an average increase in HbA1c value of < or = 0.3%. This difference is within accepted variability established by the National Glycohemoglobin Standardization Program. Note that not all individuals will have had a shift in their results and direct comparisons between historical and current results for testing conducted on different platforms is not recommended. Test Performed at: [place] [address] [address] [phone] Yossi Zuñiga Blood 06/09/2023 11:5 1 AM CDT 06/09/2023 11:51 PM CDT us Shauna Hicks MD CHEMISTRY ORDERABLES Final Re sult [facility] [phone] [place] [address] [address] [place] [phone] * (ABNORMAL) LIPID PANEL (06/09/2023 11:51 AM CDT) CHOLESTEROL 202(H) <200 mg/dL [facility][1][facility]em[facility] genia [facility]ig[facility] HDL 45(L) > OR = 50 mg/dL [facility][1][facility] TRIGLYCERIDE 130 <150 mg/dL [facility][1]Jemima [facility] LDL CALCULATED 132(H) mg/dL (calc) [facility] Comment: Reference range: <100 Desirable range <100 mg/dL for primary prevention; <70 mg/dL for patients with CHD or diabetic patients with > or = 2 CHD risk factors. LDL-C is now calculated using the Arben calculation, which is a validated novel method providing better accuracy than the Friedewald equation in the estimation of LDL-C. Daniel AYON et al. OMAR. 2013;310(19): 8391-7200 (http://education.Nuvola.Usersnap/faq/AOF338) CHOL/HDL RATIO 4.5 <5.0 (calc) [facility] TOTAL NON-HDL CHOL(LDL+VLDL) 157(H) <130 mg/dL (calc) [facility] Comment: For patients with diabetes plus 1 major ASCVD risk factor, treating to a non-HDL-C goal of <100 mg/dL (LDL-C of <70 mg/dL) is considered a therapeutic option. Test Performed at: [place] [address] [place] [address] Yossi Zuñiga Blood 06/09/2023 11:5 1 AM CDT 06/09/2023 11:51 PM CDT us Shauna Hicks MD CHEMISTRY ORDERABLES Final Re sult [facility] [phone] [place] [address] [place] [address] from Last 3 Months or Most Recently Relevant to Health Maintenance Insurance [address] [place] [id number] [place]ID [place] Advance Directives For more information, please contact: [phone] * Default Full Code - Needs Discussion (Latest Code Status on File) Date Activated Date Inactivated Comments 11/08/2022 9:50 AM 11/08/2022 12:01 PM Care Teams Jewel Bearing Broacher Relationship Specialty Start Date End Date Keira Herrera MD [address] [place] [address] [employer] [phone] PCP - General Internal Medicine 10/14/23
--- OUTSIDE RECORDS SUMMARY | 2024-09-24 13:14 | XMS_ITS | Clinical Summary ---
Author Organization [facility] Address [address] [place] [address] Care Team Providers Care Controls Designer Name Role Phone Alvin Franco MD Unavailable [phone] Miscellaneous, Not In File Unavailable Unava ilable Coco Bernal NP Unavailable [phone] Daryn Bui MD Unavailable [phone] Trevon Benson MD Unavailable [phone] Dotty Charles EMR ANALYST Primary Care Provider Allergies Active Allergy Reactions [...] mL 5 05/03/19 25 Active blood-glucose sensor (Hometappercom G7 Sensor) device Use for BG monitoring [...] 03/21/2022 Assessment & Plan (05/03/2024 2:44 PM MAGNETO SPECIALIST): Chronic problem. On statin therapy, she misses [...] 12/14/2021 Assessment & Plan (05/03/2024 1:36 PM MAGNETO SPECIALIST): Chronic problem, Controlled on HCTZ, metoprolol. No [...] Nasal saline spray (Simply saline, Little Remedies, [place], [place]) 2 second sprays or 2 squeezes into [...] Nasal saline spray (Simply saline, [place] Remedies, [place], [place]) 2 second sprays or 2 squeezes into [...] 05/02/2021 Assessment & Plan (05/02/2021 11:53 AM MAGNETO SPECIALIST): Patient reports to discontinuing her home medication. [...] flecainide Assessment & Plan (05/02/2021 6:23 AM MAGNETO SPECIALIST): Noted on Holter monitor. Cardiology has been consulted. Continue beta-mary grace. Syncope and collapse 02/20/2021 Assessment & Plan (02/20/2021 6:35 PM MAGNETO SPECIALIST): Patient with syncopal episode today. CT head negative. Concern related to possible cardiac issues. No neurological deficit present time. Will continue to monitor. Primary hypertension 02/20/2021 Assessment & Plan (05/02/2021 6:23 AM MAGNETO SPECIALIST): Continue metoprolol with hold parameters Assessment & Plan (02/20/2021 6:37 PM MAGNETO SPECIALIST): Blood pressure with some mild elevation on presentation. Metoprolol currently on hold for stress test in a.m.. IV hydralazine as needed. Will monitor. Type 2 diabetes mellitus wit h hyperglycemia, with long-term current use of insulin 02/09/2021 Assessment & Plan (05/03/2024 2:51 PM MAGNETO SPECIALIST): Chronic problem, not at goal. We discussed [...] neuropathy Assessment & Plan (05/02/2021 12:03 PM MAGNETO SPECIALIST): Sugars uncontrolled on presentation to 470. Patient prescribed glimepiride 2mg but has not been compliant. She was previously taking metformin but was concerned for medication side effects and discontinued. -Placed on Lantus 20 units every day meal time bolus lispro 7 units and sliding scale lispro. -Plan to D/C on metformin 500 mg bid and GLP1 Assessment & Plan (05/02/2021 6:22 AM MAGNETO SPECIALIST): Sugars uncontrolled on presentation. She is on Amaryl. She was given insulin. Sugars are improving. Monitor on sliding scale. Assessment & Plan (02/20/2021 6:36 PM MAGNETO SPECIALIST): Patient reports glucose levels were still not as well controlled as she would like at home. Has been taking her glimepiride. Will place on sliding scale insulin here but may need adjustment in medication depending on her levels. Consistent carbohydrate diet. Assessment & Plan (02/09/2021 6:22 AM MAGNETO SPECIALIST): Patient stop taking her p.o. pills over [...] consultation Assessment & Plan (02/20/2021 6:38 PM MAGNETO SPECIALIST): Healthy lifestyle encouraged. Personal history of transien t ischemic attack (TIA), and cerebral infarction without residual deficits 02/08/2021 Assessment & Plan (05/02/2021 6:23 AM MAGNETO SPECIALIST): Continue aspirin and statin Assessment & Plan (02/20/2021 6:38 PM MAGNETO SPECIALIST): Previous history. Patient will continue ASA and atorvastatin. Assessment & Plan (02/09/2021 6:32 AM MAGNETO SPECIALIST): Continue aspirin and Lipitor Supraventricular tachycardia 02/08/2021 Chest pain 02/08/2021 Assessment & Plan (02/20/2021 6:35 PM MAGNETO SPECIALIST): Patient presented with episode of chest pain along with syncope. Had chest pain approximately 2 weeks ago and ruled out for OR but did not wish to stay for cardiac evaluation with plan to do as outpatient. Patient with more symptoms on this occasion. Has already been seen by Cardiology with plan for Lexiscan stress test tomorrow. Patient is agreeable to evaluation at this time. Troponin levels are negative. Does have history of possible OR in the past but not confirmed. Assessment & Plan (02/09/2021 6:26 AM MAGNETO SPECIALIST): Patient was at work doing heavy lifting when her chest pain occurred. Patient only had 2 troponins. Will check a troponin this morning. Chest pain has since resolved. Patient denies ever having any stents placed. She states it occurred at [facility] when she was 37 years old. EKG [...] 11/06/2020 Assessment & Plan (05/03/2024 2:48 PM MAGNETO SPECIALIST): Chronic problem, not at goal. Lately missing [...] levothyroxine Assessment & Plan (05/02/2021 12:03 PM MAGNETO SPECIALIST): Restart levothyroxine. TSH was over 323 months ago. Will check now. -levothyroxine 25 mg every day Assessment & Plan (05/02/2021 6:23 AM MAGNETO SPECIALIST): Continue levothyroxine. TSH was over 323 months ago. Will check now. Assessment & Plan (02/20/2021 6:37 PM MAGNETO SPECIALIST): TSH was elevated on 02/08/2021. Patient reports has faithfully been taking levothyroxine. Per patient request, will recheck current TSH. Adjust levothyroxine as needed. Assessment & Plan (02/09/2021 6:31 AM MAGNETO SPECIALIST): Patient stop taking her medications over a [...] 04/05/2017 Assessment & Plan (02/20/2021 6:38 PM MAGNETO SPECIALIST): No complaint at this time. Will monitor. Lumbar facet arthropathy 04/05/2017 Medically noncompliant Bloody stools Colon polyps Ventricular tachycardia Resolved Problems Problem Noted Date Diagnosed Date Resolved Date Type 2 diabetes mellitus wit hout complication, with long-term current use of insulin 06/21/2023 08/17/2024 Encounters Date Type Department Care Team Description 08/24/2024 Telephone [facility] [address] [address] Khushi Serrano PA Dexcom G7 Sensors PA Request 08/08/2024 Telephone [facility] [address] [address] Khushi Serrano PA 07/17/2024 Telephone [facility] [address] [address] Khushi Serrano PA Prior Auth (BD-[place]) 06/29/2024 2:55 PM CDT - 06/29/2024 4:54 PM CDT Emergency [facility] Emergency Department [address] [place] [address] Cherri Cleveland MD Discharge Disposition: Left Against Medical Advice 06/29/2024 2:31 PM CDT - 06/29/2024 11:59 PM CDT Hospital Encounter [facility] Emergency, Room R Discharge Disposition: Discharge to home or self care from Last 3 Months Immunizations Immunization Administration Dates Next Due Influenza, Quadrivalent, Spl it, Intramuscular 11/15/2018,11/19/2016,12/18/2014 Influenza, Quadrivalent, Spl it, Preservative Free, Intramuscular 12/17/2021(Deferred: Other),11/07/2019,12/10/2017 Tdap 04/16/2022,11/02/2014,03/08/2014 Surgical History Surgery Date Site/Laterality Comments BREAST BIOPSY 12/11/2020 Right benign ESSURE TUBAL LIGATION 03/08/2014 - 03/07/2015 CARPAL TUNNEL RELEASE 03/08/2014 - 03/07/2015 Right ESOPHAGOGASTRODUODENOSCOPY 03/08/1998 - 03/07/1999 CHOLECYSTECTOMY 03/08/1998 - 03/07/1999 CYST REMOVAL 06/06/2017 - 07/05/2017 from scalp CERVICAL FUSION 08/12/2018 C4-C6. hardware in place OTHER SURGICAL HISTORY 05/06/2021 - 06/05/2021 loop recorder CARPAL TUNNEL RELEASE 11/05/2021 Right COLONOSCOPY Medical History Medical History Date Comments Fibromyalgia Anxiety Arthritis Depression SVT (supraventricular tachycardia) Type 2 diabetes mellitus (HCC) r eports last A1C ~9.0 in ~08/2021, reports was not taking meds regularly at that time Hypothyroidism on Synthroid Primary hypertension Syncope and collapse 03/2021 reports w/u with no findings. currently has loop recorder in place Neuropathy TIA (transient ischemic attack) 09/08/2019 reports visual disturbance left eye and weakness, reports some residual eye blurriness Personal history of COVID-19 03/2021 Obstructive sleep apnea syndrome 05/23/2021 No CPAP yet, waiting on machine. Atrial fibrillation (HCC) not ta [employer] 2/2 nosebleeds, reports no known clotting/bleeding disorders. Follows with cardiology. loop recorder in place Mixed hyperlipidemia 03/21/2022 Family History Medical History Relation Name Comments Heart attack Father Heart attack Father's Sister Atrial fibrillation Mother Heart failure Mother Relation Name Status Comments Father Father's Sister Mother Son Alive Social History Tobacco Use Types Packs/Day Years Used Date Smoking Tobacco: Former Cigarettes 2 32 1 990 - 03/08/2018 Smokeless Tobacco: Never Tobacco Cessation:Counseling Given: Not Answered Alcohol Use Standard Drinks/Week Comments No 0 (1 standard drink = 0.6 oz pur e alcohol) [facility] Botanical Tansities Answer Date Recorded In the past 12 months has [employer], gas, oil, or water [employer] threatened to shut off services in your [...] often do you attend chur ch or cheondoism services? More than 4 times per year [...] place to sleep or slept in a longterm (including now)? No 12/22/2022 PHQ-9 Answer Date [...] any time in the past 12 m [facility], were you homeless or living in a longterm (including now)? No 10/13/2023 Personal Safety Answer [...] on file Legal Sex Female 8:03 AM MAGNETO SPECIALIST Gender Identity Not on file Sexual Orientation Straight 05/01/2021 9: 39 PM MAGNETO SPECIALIST Obstetrics History Last Filed Vital Signs Vital Sign Reading [...] st Contact Info) Description 01/23/2025 11:00 AM MAGNETO SPECIALIST Hospital Encounter [address] [address] Shannon Mccarty MD [address] [facility] [address] [place] [address] 01/23/2025 11:00 AM MAGNETO SPECIALIST - 01/23/2025 11:30 AM MAGNETO SPECIALIST Surgery [address] [address] Shannon Mccarty MD [address] [facility] [place] [address] COLONOSCOPY Scheduled Procedures Name Priority Associated Diagnoses Date/Ti me COLONOSCOPY Screening for colon cancer 01/23/2025 11:00 AM MAGNETO SPECIALIST Health Maintenance Due Date Last Done Comments Cervical Cancer Screening 1975 Hepatitis C Screening 1975 Hepatitis B Screening 06/19/1995 Regular Well Visit/Exam 18-64 06/19/1995 Pneumococcal vaccine <65 (1 of 2 - PCV) 1996 Dilated Eye Exam 09/08/2020 09/09/2019 Breast Cancer Screening-Mammogram 10/30/2023 10/29/2022, 10/29/2022, 11/20/2020 Hemoglobin A1C 10/31/2024 05/03/2024, 12/07, 06/09/2023, Additional history exists Influenza Vaccine (#1) 2024 , 11/15/2018, 12/10/2017, Additional history exists Depression Screening 12/28/2024 12/29/2023, 12/29/2023, 02/08/2021, Additional history exists Albumin Creatinine Ratio, Urine 05/03/2025 Foot Exam 05/03/2025 05/03/2024 Lipid Panel 05/03/2025 05/03/2024, 02/06, 12/21/2022, Additional history exists eGFR 06/29/2025 06/29/2024, 04/08, 01/25/2024, Additional history exists Colon Cancer Screening-Colonoscopy 12/17/20312021 DTaP/Tdap/Td Vaccine (4 - Td or Tdap) 04/16/2032 04/16/2022, 11/02/2014, 03/08/2014 Medical Devices Implanted Type Area Cafe Assistant Device Identifier Shelf Expiration Date Model / Serial / Lot Teachernow Ildefonso Angio-Seal Vip 6fr Closere Device [id number] - [id number] Implanted:Qty : 1 on 10/13/2023 by Yifan Kunz MD at [facility] Vascular Closure Device [employer] 06/20/2024 [id number] / / [id number] Loop Recorder N/A: Chest Wall Loop [...] CREATININE RATIO, URINE Routine 05/03/2024 1:57 PM MAGNETO SPECIALIST Type 2 diabetes mellitus with hyperglycemia, with long-term current use of insulin (HCC) POCT HEMOGLOBIN A1C Routine 05/03/2024 1 :07 PM MAGNETO SPECIALIST Type 2 diabetes mellitus with hyperglycemia, with long-term current use of insulin (HCC) POCT LIPID PANEL Routine 05/03/2024 1:07 AM MAGNETO SPECIALIST Type 2 diabetes mellitus with hyperglycemia, with [...] disease. Electronically signed by: Ravin Medellin M.D. us Miller Yan MD IMG XR PROCEDURES Final [...] LAB BLOOD ORDERABLES Fi nal Result [facility] [address] Department [place] [address] * eGFR (06/29/2024 3:15 PM CDT) Pathologist [facility] eGFR >90 >=60 mL/min/1. 73 m2 Comment: [...] us Miller Yan MD LAB BLOOD ORDERABLES [facility] Result [facility] [address] Department [place] [address] * Differential, auto (06/29/2024 3:15 PM CDT) Pathologist [facility] Neutrophil abs 4.12 1.50 - 6.50 K/cumm Imm gran abs 0.03 0.00 - 0.10 K/cumm [facility] Lymphocyte abs 1.30 0.80 - 3.30 K/cumm [facility] Monocyte abs 0.50 0.20 - 0.80 K/cumm [facility] Eosinophil abs 0.22 0.00 - 0.50 K/cumm [facility] Basophil abs 0.03 0.00 - 0.10 K/cumm [facility] Neutrophil pct 66.4 % [facility] Comment: Interpretive Data Percent cell count reference ranges are not reported, since discordance with absolute values may lead to misinterpretation of CBC data. Current Interpretive Data was last revised on 2017. Imm gran pct 0.5 % [facility] Comment: Interpretive Data Percent cell count reference ranges are not reported, since discordance with absolute values may lead to misinterpretation of CBC data. Current Interpretive Data was last revised on 2017. Lymphocyte pct 21.0 % [facility] Comment: Interpretive Data Percent cell count reference ranges are not reported, since discordance with absolute values may lead to misinterpretation of CBC data. Current Interpretive Data was last revised on 2017. Monocyte pct 8.1 % [facility] Comment: Interpretive Data Percent cell count reference ranges are not reported, since discordance with absolute values may lead to misinterpretation of CBC data. Current Interpretive Data was last revised on 2017. Eosinophil pct 3.5 % [facility] Comment: Interpretive Data Percent cell count reference ranges are not reported, since discordance with absolute values may lead to misinterpretation of CBC data. Current Interpretive Data was last revised on 2017. Basophil pct 0.5 % [facility] Comment: Interpretive Data Percent cell count reference ranges are not reported, since discordance with absolute values may lead to misinterpretation of CBC data. Current Interpretive Data was last revised on 2017. Blood 06/29/2024 3:15 PM CDT 06/29/2024 3:15 PM CDT Miller Yan MD LAB BLOOD ORDERABLES nal Result [facility] [address] Department [place] [address] * Pro B-type natriuretic peptide (06/29/2024 3:15 [...] Heart J. 2006:27:330-337. 2. Yessenia RW, Arcenio RATLIFF. J. AM Moiz Cardiol: Cardiovasc Imag. 2009;2: 216- 225. Interpretive Data Last Revised Date: 2017. Blood 06/29/2024 3:15 PM CDT 06/29/2024 3:15 PM CDT Miller Yan MD LAB BLOOD ORDERABLES nal Result [facility] [address] Department [place] [address] * (ABNORMAL) CBC with auto differential (06/29/2024 3:15 PM CDT) Pathologist [facility] WBC 6.20 3.80 - 9.90 K/cumm Hgb 12.9 11.9 - 15.5 g/dL [facility] Hct 39.6 35.6 - 45.5 % [facility] Plt 277 150 - 400 K/cumm [facility] MPV 8.3(L) 9.1 - 12.3 fL [facility] RBC 4.51 3.90 - 5.20 M/cumm [facility] MCV 87.8 81.3 - 96.4 fL [facility] MCH 28.6 27.1 - 33.3 pg [facility] CH MCHC 32.6 32.3 - 35.7 g/dL [facility] CH RDW CV 13.0 11.1 - 14.9 % [facility] CH RDW SD 41.2 35.7 - 48.1 fL [facility] CH NRBC abs 0.00 0.00 - 0.01 K/cumm [facility] CH Blood 06/29/2024 3:15 PM CDT 06/29/2024 3:15 PM CDT us Miller Yan MD LAB [place]LOOD [place] [address] [address] Department [place] [address] * (ABNORMAL) Comprehensive metabolic panel [...] ORDERABLES Fi nal Result Performing Organization Address City/[facility] Co de Phone Number [facility] [address] Department [place] [address] * ECG 12 lead (06/29/2024 3:07 PM CDT) 06/29/2024 3:07 PM CDT Narrative [facility] - 06/30/2024 8:08 AM CDT Vent Rate: 109 bpm RR Interval: 550 msec IA Interval: 157 msec QRS Duration: 88 msec QT Interval: 336 msec QTC Interval: 400 msec P-R-T Stanton: 46 - 18 - 55 degrees IMPRESSION: SINUS TACHYCARDIA Electronically Signed By: Rigoberto Stewart MD, [facility] Miller Yan MD ECG ORDERABLES Final R esult Performing Organization Address [facility] de Phone Number [facility] * Albumin Creatinine Ratio, Urine (05/03/2024 1:57 PM MAGNETO SPECIALIST) Albumin Ur <12.0 mg/L Comment: Interpretive Data No reference range established. Current interpretive data was last revised 2018. Creatinine Ur 147.1 mg/dL [facility] Comment: Interpretive Data No reference range established. Current interpretive data was last revised 2018. Albumin Creatinine Ratio, Ur <8 1 - 29 mg/g [facility] Urine 05/03/2024 1:57 PM MAGNETO SPECIALIST 05/03/2024 5:42 PM MAGNETO SPECIALIST Khushi SEARS LAB URINE ORDERABLES Fi nal Result [facility] [address] Department [place] [address] * (ABNORMAL) POCT hemoglobin A1c (05/03/2024 1:07 PM MAGNETO SPECIALIST) Hemoglobin A1C, POC 8.4 4.0 - 5.6 % Capillary blood 05/03/2024 1 :07 PM MAGNETO SPECIALIST Khushi SEARS POINT OF CARE TEST ORDE RABRAYSA Final Result * (ABNORMAL) POCT lipid panel (05/03/2024 1:07 AM MAGNETO SPECIALIST) Cholesterol, POC 197 mg/dL HDL, POC 41 mg/dL Triglycerides, POC 167 mg/dL LDL Cholesterol POC 123 mg/dL Chol/HDL Ratio, POC 4.8 Non-HDL Cholesterol, POC 156 mg/dL Cholesterol Total, POC 197 mg/dL Capillary blood 05/03/2024 1 :07 AM MAGNETO SPECIALIST Khushi SEARS POINT OF CARE TEST ORDE RABRAYSA Final Result * Diagnostic Mammogram Bilateral W [...] recommended. Electronically signed by: Eveline Cedillo M.D. us Shauna Hicks MD IMG MAMMO PROCEDURES F inal Result * COLONOSCOPY (12/16/2021 2:26 PM CDT) Anatomical Region Laterality Modality Other Narrative Procedure Note Shannon Mccarty MD - 12/16/2021 2:26 PM CDT [facility] Patient Name: Josseline Main Procedure Date: 12/16/2021 2:26 PM Date of : 1975 Admit Type: Inpatient Age: 46 Gender: Female Attending MD: Shannon Mccarty M.D. Room: [facility] ENDOSCOPY ROOM 1 Note Status: Finalized Patient [...] and retrieved.Clip (MR conditional) was placed. Clip oven drier tender:Colppy. - Internal and external hemorrhoids. Recommendation: - [...] under direct vision. The Pediatric Colonoscope PCF-H190L [id number] was introducedthrough the anus and advanced to [...] clip was successfully placed (MR conditional). Clip oven drier tender: Colppy. There was no bleeding at the end ofthe procedure. Internal hemorrhoids were found during retroflexion. The hemorrhoids were medium-sized. Electronically signed by Shannon Mccarty M.D. Shannon Mccarty M.D. 12/16/2021 4:29:06 PM Number of Addenda: 0 Note Initiated On: 12/16/2021 2:26 PM Procedure Code(s): --- Professional --- 46145, Colonoscopy, flexible; with removal of tumor(s), polyp(s), or other lesion(s) by snare technique 14681, Colonoscopy, flexible; with directed submucosal injection(s),any substance 30772, 59, Colonoscopy, flexible; with biopsy, single or multiple Diagnosis Code(s): --- Professional --- K64.8, Other hemorrhoids D12.2, Benign neoplasm of ascending colon D12.4, Benign neoplasm of descending colon D12.5, Benign neoplasm of sigmoid colon K92.1, Melena (includes Hematochezia) R19.5, Other fecal abnormalities CPT copyright 2020 [employer]. All rights reserved. The codes documented in this report are preliminary and upon dairy nutrition consultant reviewmay be revised to meet current compliance requirements. Recognized by the [employer] for promoting quality in endoscopy Shannon Mccarty MD ENDOSCOPY PROCEDURES Final Result from Last 3 Months or Most Recently Relevant to Health Maintenance Insurance IDPA [facility] IDPA Member Subscriber Plan / Payer (Ef fective 2020-Present) Name:Kana Josseline L Relation to Subscriber:Self Name:Josseline Roger Bart Payer ID:[id number] Group ID:Not on file Type:[place] Address: [address] IDPA Member Subscriber Plan / Payer (Ef fective 2024-Present) Name:Panchito Rogerobdulio Arriaga Relation to Subscriber:Self Name:Josseline Roger Bart Payer ID:[id number] Group ID:Not on file Type:[place]ICAID [place] Address: [address] IDPA [employer] COMPENSATION GENERIC * Guarantor: OTHER Account Type Relation to Patient Date of Phone Billing Address Workers Comp Employer Advance Directives For more information, please contact: [phone] * Full Code (Latest Code Status on [...] Agents on File Name Relationship Healthcare Agent Relationshi p Communication Ruel Bradford [facility] Care Agent Care Teams Controls Designer Relationship Specialty Start Date End Date Dotty Charles NP [address] [facility] [address] [facility] [address] [place] [address] PCP - General Nurse Practitioner 04/21/24 [place] [address] [facility] [address] [place] [address] Consulting Physician Internal Medicine 02/09/21 Miscellaneous, Not In File 02/21/21 Coco Bernal NP [address] [facility] [address] [place] [address] Nurse Practitioner Cardiovascular Disease 02/21/21 Daryn Bui MD [address] [place] [address] Consulting Physician Cardiology 05/21/21 Trevon Benson MD [address] [place] [address] Surgeon Orthopedic Surgery 11/05/21
--- OUTSIDE RECORDS SUMMARY | 2024-09-24 13:14 | XMS_ITS | Encounter Summary ---
Author Organization [facility] Address [address] [place] [address] Care Team Providers Care Business Continuity Management Director Name Role Phone Keira Herrera MD Primary Care Provider [phone] Encounter Details Date Type Department Care Team (Late st Contact Info) Description 09/20/2024 External Device Data [facility] ABSTRACTION Provider, Abstract NO ADDRESS ON FILE Social History Tobacco Use Types Packs/Day Years Used Date Smoking Tobacco: Former Cigarettes 2 13 0 08/11/2005 - 08/11/2018 Smokeless Tobacco: Never Alcohol Use Standard Drinks/Week Comments Never 0 (1 standard drink = 0.6 oz pur e alcohol) Comments No Sex and Gender Information Value Date Recorded Sex Assigned at Not on file Legal Sex Female 3:40 PM CDT Gender Identity Not on file Sexual Orientation Not on file documented as of this encounter Plan of Treatment Not on file documented as of this encounter Visit Diagnoses Not on filedocumented in this encounter Additional Health Concerns Assessment Noted Time PHQ-9 Depression Total Score: 1 06/23/19 24 10:00 AM CDT documented as of this encounter Care Teams Business Continuity Management Director Relationship Specialty Start Date End Date Keira Herrera MD [address] [place] [address] [place] [address] PCP - General Internal Medicine 10/14/23 documented as of this encounter
--- OUTSIDE RECORDS SUMMARY | 2024-09-24 13:14 | XMS_ITS | Clinical Summary ---
Author Organization [facility] Address [address] [place] [id number] Care Team Providers Care Chemical Equipment Sales Engineer Name Role Phone Unavailable Primary Care Provider Unavailabl e Social History Tobacco Use Types Packs/Day Years Used Date Smoking Tobacco: Never Assessed Comments Unknown Sex and Gender Information Value Date Recorded Sex Assigned at Not on file Legal Sex Female 7:16 PM CDT Gender Identity Not on file Sexual Orientation Not on file Plan of Treatment Health Maintenance Due Date Last Done Comments Cervical Cancer Screening Pa p Smear (Age 30 to 64) Every 3 Years 1977 Colorectal Cancer Screening Colonoscopy (10 Years) 1977 Annual Physical 1980 Hepatitis C 06/19/1995 DTaP, Tdap and Td Vaccines ( 1 - Tdap) 1996 Hepatitis B Vaccines (1 of 3 - 19+ 3-dose series) 1996 Cervical Cancer Screening Pa p with HPV Testing (Age 30 to 64) Every 5 Years 06/19/2007 Cervical Cancer Screening with HPV 06/19/2007 Mammogram Screening 2017 COVID-19 Vaccine (2023-2 5 season) 2023 Meningococcal B Vaccine Aged Out No l onger eligible based on patient's age to complete this topic Meningococcal Vaccine Aged Out No paco patricia eligible based on patient's age to complete this topic Pneumococcal Vaccine: Pediat rics (0 to 5 Years) and At-Risk Patients (6 to 49 Years) Aged Out No longer eligible b ased on patient's age to complete this topic RSV Immunizations Under 20 Months Aged Out No longer eligible based on patient's age to complete this topic
--- OUTSIDE RECORDS SUMMARY | 2024-09-24 13:15 | XMS_ITS | Data Portability ---
Author Organization [facility] Rajesh [facility] Address [address] [place] [address] Care Team Providers Care Ticket Taker Name Role Phone DOTTY CHARLES Primary Care Provider Unavailabl e Assessment No assessment recorded. Plan of Treatment Reminders Order Date Submit Date Provider Last Modified By Organization Details Last Modified Time Details Appointments NEW PATIE NT 10 2024 08:50A Sarah Barajas MD Not available Not available Not available ANY 15 2024 01:30P Sarah White MD Not available Not available Not available Lab HbA1c (hemo globi n A1c), blood 2024 025 BETH In-Office Order, Internal Use Only DO Not Attach Compendium DO Not Attach Compendium, Do Not Delete/merge, [id number] 08/01/2024 16:47:44 TSH + free T4, serum 2024 025 [email or web address] [facility], [address], [address], 09/21/2024 10:37:39 BMP, serum or plasm a 2024 025 [facility], [address] [facility] [address], [place], [address], 07/26/2024 15:24:50 HbA1c (hemo globi n A1c), blood 2024 025 In-Office Order, Internal Use Only DO Not Attach Compendium DO Not Attach Compendium, Do Not Delete/merge, [id number] 04/29/2024 13:15:06 Referral inter venti onal cardi ology refer ral - Plz sched ule OV with Dr. Rommel banegas to evalu ate for Watch man. Thank you! 2024 025 [email or web address] [facility], [address] [facility] , [address], [place], [address], 08/29/2024 09:58:41 sleep medic ine refer ral - Pleas e nicolas t in optim izing CRISTIAN 2024 025 [email or web address] Neel Barajas MD, [address], [place], [address], 08/31/2024 12:42:[address] refer ral 2024 025 linda White MD, [address] , [place], [address], 08/02/2024 17:05:23 diabe tic ophth almol ogy refer ral - blurr ing visio n, DMII scree jonathan. 2024 025 [facility], [address], [place], [address], 08/28/2024 17:02:45 obste trici an and gynec ologi st refer ral 2024 025 gaston Rivera APN, [address] [facility] [address], [address], 09/21/2024 10:31:43 otola ryngo logis t refer ral - chron ic ear infec tion and blood noses 2024 025 gaston Mcpherson MD, [address] , [place], [address], 09/22/2024 11:22:43 gastr oente rolog ist refer ral 2024 025 zen Mccarty, [address] [facility] , [address], [place], [address], 05/17/2024 09:17:58 pain manag ement refer ral - no physi edward thera py notes 2024 025 [facility], [address], [place], [address], 08/28/2024 17:02:45 Procedures None recor ded. Surgeries None recor ded. Imaging elect marcia diogr am 2024 025 [email or web address] In-Office Order, Internal Use Only DO Not Attach Compendium DO Not Attach Compendium, Do Not Delete/merge, [id number] 08/15/2024 15:27:38 US, lower extre mity, nonva scula r 2024 025 [facility], [address] [place] [address], [id number], 07/26/2024 18:25:27 CT, head + neck, w/ contr ast 2023 024 [facility], [address] [facility] , [place], [address], 05/10/2024 12:17:25 Medication Orders aspir in 81 mg chewa ble table t 2024 025 [facility], [address] [place], [address], 08/15/2024 15:27:44 fleca inide 100 mg table t 2024 025 [facility], [address] [place], [address], 08/01/2024 16:27:53 metop rolol tartr ate 50 mg table t 2024 025 [facility], [address] [place], [address], 08/01/2024 16:27:50 hydro chlor othia zide 25 mg table t 2024 025 [facility], [address] [place] [address], [id number], 08/01/2024 16:27:51 levot hyrox ine 100 mcg table t 2024 025 [facility], [address] [place] [address], [id number], 08/15/2024 15:05:39 escit alopr am 10 mg table t 2024 025 [facility], [address] [place] [address], [id number], 08/01/2024 16:29:50 BD Alcoh ol Swabs [address] [facility], [address] [place] [address], [id number], 04/28/2024 11:05:40 Jardi ance 25 mg table t [address] [facility], [address] [place] [address], [id number], 04/28/2024 11:10:33 glime pirid e 4 mg table t 2024 025 [facility], [address] [place] [address], [id number], 04/28/2024 11:10:21 escit alopr am 10 mg table t [address] [facility], [address] [place] [address], [id number], 04/28/2024 11:05:40 oflox acin 0.3 % ear drops 2024 025 [facility], [address] [place] [address], [id number], 08/15/2024 15:05:42 judy calci ferol (mitzi min D3) 25 mcg (1,00 0 unit) table t 2024 025 [facility], [address] [place] [address], [id number], 04/28/2024 11:13:40 metop rolol tartr ate 50 mg table t 2024 025 [facility], [address] [place] [address], [id number], 04/28/2024 11:13:41 oflox acin 0.3 % ear drops [facility] [address] [place] [address], [id number], 08/15/2024 15:05:32 Jardi ance 25 mg table t 2023 024 [facility], [address] [place] [address], [id number], 01/21/2024 09:57:09 glime pirid e 4 mg table t 2023 024 [facility], [address] [place] [address], [id number], 01/21/2024 10:00:25 melox icam 7.5 mg table t 2023 025 [facility], [address] [place] [address], [id number], 04/28/2024 11:10:20 Patient TargetsNo targets recorded. Patient Instructions Encounter Date Encounter Id Patient Instructions Last Modified By Organization Details Last Modified Time 01/21/2024 [id number] Plan of care has been discussed with patient including expected therapeutic benefits and potential side effects of prescribed medication and treatments. Patient verbalizes understanding and is in agreement with the plan of care. Patient was instructed to keep all scheduled appointments and contact the clinic for any additional problems. Health Maintenance: - CRC screening (45-75): Ordered - Osteoporosis screening: Due at 65. - Lipid screening (>45 unless additional risk factors): 09/23/23 - HIV : negative 09/23/23 - HepC: negative 09/23/23 -Eye exam: 2022 -Dental Exam: endentulous - Immunizations: - Influenza: Due fall. - Prevnar 20: Due at 65. - Tdap/Td ([id number]): 11/02/14 - Zoster (>60):Due at 60. - COVID-19: Declined -Labs ordered this visit: N/A Females: Pap smear: FINANCIAL SYSTEMS MANAGER referral placed Mammogram: ordered DEXA: N/A [email or web address] Not available 01/21/2024 11:46:37 01/26/2024 [id number] Plan of care has been discussed with patient including expected therapeutic benefits and potential side effects of prescribed medication and treatments. Patient verbalizes understanding and is in agreement with the plan of care. Patient was instructed to keep all scheduled appointments and contact the clinic for any additional problems. [email or web address] Not available 01/26/2024 17:17:03 04/28/2024 [id number] shoulder stretches: exercises [email or web address] Not available 04/28/2024 11:05:40 shoulder pain: care instructions [email or web address] Not available 04/28/2024 11:05:40 Plan of care has been discussed with patient including expected therapeutic benefits and potential side effects of prescribed medication and treatments. Patient verbalizes understanding and is in agreement with the plan of care. Patient was instructed to keep all scheduled appointments and contact the clinic for any additional problems. Health Maintenance: - CRC screening (45-75): Ordered - Osteoporosis screening: Due at 65. - Lipid screening (>45 unless additional risk factors): 09/23/23 - HIV : negative 09/23/23 - HepC: negative 09/23/23 -Eye exam: 2022 -Dental Exam: endentulous - Immunizations: - Influenza: Due fall. - Prevnar 20: Due at 65. - Tdap/Td ([id number]): 11/02/14 - Zoster (>60):Due at 60. - COVID-19: Declined -Labs ordered this visit: N/A Females: Pap smear: FINANCIAL SYSTEMS MANAGER referral placed Mammogram: ordered DEXA: N/A [email or web address] Not available 04/28/2024 10:47:20 08/01/2024 [id number] Plan of care has been discussed with patient including expected therapeutic benefits and potential side effects of prescribed medication and treatments. Patient verbalizes understanding and is in agreement with the plan of care. Patient was instructed to keep all scheduled appointments and contact the clinic for any additional problems. Health Maintenance: - CRC screening (45-75): Ordered - Osteoporosis screening: Due at 65. - Lipid screening (>45 unless additional risk factors): 09/23/23 - HIV : negative 09/23/23 - HepC: negative 09/23/23 -Eye exam: 2022 -Dental Exam: endentulous - Immunizations: - Influenza: Due fall. - Prevnar 20: Due at 65. - Tdap/Td ([id number]): 11/02/14 - Zoster (>60):Due at 60. - COVID-19: Declined -Labs ordered this visit: N/A Females: Pap smear: FINANCIAL SYSTEMS MANAGER referral placed Mammogram: ordered DEXA: N/A Not available 08/01/2024 16:25:53 08/15/2024 [id number] A healthy lifestyle: care instructions Not available 08/15/2024 15:27:38 Reason for Referral Diabetic Ophthalmology Refer ral for Type 2 diabetes mellitus blurring vision, DMII screening. Referring Physician: Family Kelly Delarosa, Encounter Date: 04/28/2024 Pain Management Referral for Pain of right shoulder joint no physical therapy notes Referring Physician: Family Kelly Delarosa, Encounter Date: 04/28/2024 Warehouse Distribution Manager And Gynecologis t Referral for Screening for malignant neoplasm of cervix Referring Physician: Family Kelly Delarosa, Encounter Date: 04/28/[address] Sql Developer Referral for Screening for malignant neoplasm of colon Referring Physician: Family Kelly Delarosa, Encounter Date: 04/28/2024 Patient Appointment Coordinator Referral fo r Acute otitis externa of right ear chronic ear infection and blood noses Referring Physician: Dotty [facility], Encounter Date: 04/28/2024 Pharmaceutical Worker Referral for At rial fibrillation Referring Physician: Dotty [facility], Encounter Date: 08/01/2024 Sleep Medicine Referral for Obstructive sleep apnea syndrome Please assist in optimizing CRISTIAN Referring Physician: Roger White, Cardiology, Encounter Date: 08/15/2024 Interventional Cardiology Re ferral for Anticoagulant drug monitoring Plz schedule OV with Dr. Neumann to evaluate for Watchman. Thank you! Referring Physician: Roger White Cardiology, Encounter Date: 08/15/2024 Results Created Date Observation Date Name Description Value Unit Range Abnormal Flag Note LastModifiedBy Organization Detail LastModifiedTime 12/29/19 24 12/29/2023 Hemog lobin A1c/H emogl obin. total in Blood hemoglobin A1C, POC 8.4 % low: 4%high : 5.6% Hemog lobin A1C, POC 8.4 4.0 - 5.6 % Not Available Not Available 04/20/2024 09:32:06 12/29/19 24 12/29/2023 Hemog lobin A1c/H emogl obin. total in Blood interpretati on and review of laboratory results Abnorm al Not Available Not Available 09:32:06 04/28/19 25 04/28/2024 HbA1c (hemo globi n A1c), blood HbA1c 8.3 Not Available In-Office Order Internal Use Only DO Not Attach Compendium DO Not Attach Compendium, Do Not Delete/merge, [id number] 04/28/2024 11:19:39 04/28/19 25 04/28/2024 Hemog lobin A1c/H emogl obin. total in Blood HbA1C 8.3 HbA1c Not Available Not Availa ble 05/02/2024 11:31:55 05/03/19 25 05/03/2024 Hemog lobin A1c/H emogl obin. total in Blood hemoglobin A1C, POC 8.4 % low: 4%high : 5.6% Hemog lobin A1C, POC 8.4 4.0 - 5.6 % Not Available Not Available 05/05/2024 15:21:59 05/03/19 25 05/03/2024 Hemog lobin A1c/H emogl obin. total in Blood interpretati on and review of laboratory results Abnorm al Not Available Not Available 15:21:59 08/02/19 25 08/01/2024 HbA1c (hemo globi n A1c), blood HbA1c 7.1 Not Available In-Office Order Internal Use Only DO Not Attach Compendium DO Not Attach Compendium, Do Not Delete/merge, [id number] 08/01/2024 16:27:34 08/13/19 25 08/12/2024 CBC W Auto Diffe renti al panel - Blood leukocytes [#/volume] in blood by automated count 7.58 text: 4.00 - 12.00 10(3)/ mcL Not Available Not Available 08/21/2024 17:23:32 08/13/19 25 08/12/2024 CBC W Auto Diffe renti al panel - Blood erythrocytes [#/volume] in blood by automated count 4.08 text: 3.80 - 5.30 10(6)/ mcL Not Available Not Available 08/21/2024 17:23:32 08/13/19 25 08/12/2024 CBC W Auto Diffe renti al panel - Blood hemoglobin [mass/volume ] in blood 12 g/dL low: 12g/dL high: 15.8g/ dL Not Available Not Available 08/21/2024 17:23:32 08/13/19 25 08/12/2024 CBC W Auto Diffe renti al panel - Blood hematocrit [volume fraction] of blood by automated count 34.7 % low: 36%hig h: 47% low Not Available Not Available 08/21/2024 17:23:32 08/13/19 25 08/12/2024 CBC W Auto Diffe renti al panel - Blood MCV [entitic mean volume] in red blood cells by automated count 85 fL low: 82fLhi gh: 96fL Not Available Not Available 08/21/2024 17:23:32 08/13/19 25 08/12/2024 CBC W Auto Diffe renti al panel - Blood MCH [entitic mass] by automated count 29.4 pg low: 26pghi gh: 34pg Not Available Not Available 08/21/2024 17:23:32 08/13/19 25 08/12/2024 CBC W Auto Diffe renti al panel - Blood MCHC [entitic mass/volume] in red blood cells by automated count 34.6 g/dL low: 31g/dL high: 36g/dL Not Available Not Available 08/21/2024 17:23:32 08/13/19 25 08/12/2024 CBC W Auto Diffe renti al panel - Blood platelets [#/volume] in blood 259 text: 140 - 440 10(3)/ mcL Not Available Not Available 08/21/2024 17:23:32 08/13/19 25 08/12/2024 CBC W Auto Diffe renti al panel - Blood erythrocyte [distwidth] in red blood cells by automated count 12.9 % low: 11.8%h igh: 15.5% Not Available Not Available 08/21/2024 17:23:32 08/13/19 25 08/12/2024 CBC W Auto Diffe renti al panel - Blood platelet [entitic mean volume] in blood by automated count 8.4 fL low: 9.7fLh igh: 12.4fL low Not Available Not Available 08/21/2024 17:23:32 08/13/19 25 08/12/2024 CBC W Auto Diffe renti al panel - Blood neutrophils/ leukocytes in blood by automated count 62.6 % low: 47%hig h: 73% Not Available Not Available 08/21/2024 17:23:32 08/13/19 25 08/12/2024 CBC W Auto Diffe renti al panel - Blood lymphocytes/ leukocytes in blood by automated count 24.5 % low: 18%hig h: 42% Not Available Not Available 08/21/2024 17:23:32 08/13/19 25 08/12/2024 CBC W Auto Diffe renti al panel - Blood monocytes/le ukocytes in blood by automated count 8.6 % low: 4%high : 12% Not Available Not Available 08/21/2024 17:23:32 08/13/19 25 08/12/2024 CBC W Auto Diffe renti al panel - Blood eosinophils/ leukocytes in blood by automated count 3.8 % low: 0%high : 5% Not Available Not Available 08/21/2024 17:23:32 08/13/19 25 08/12/2024 CBC W Auto Diffe renti al panel - Blood basophils/le ukocytes in blood by automated count 0.5 % low: 0%high : 1% Not Available Not Available 08/21/2024 17:23:32 08/13/19 25 08/12/2024 CBC W Auto Diffe renti al panel - Blood neutrophils [#/volume] in blood by automated count 4.74 text: 1.60 - 7.70 10(3)/ mcL Not Available Not Available 08/21/2024 17:23:32 08/13/19 25 08/12/2024 CBC W Auto Diffe renti al panel - Blood lymphocytes [#/volume] in blood by automated count 1.86 text: 1.30 - 3.20 10(3)/ mcL Not Available Not Available 08/21/2024 17:23:32 08/13/19 25 08/12/2024 CBC W Auto Diffe renti al panel - Blood monocytes [#/volume] in blood by automated count 0.65 text: 0.20 - 1.00 10(3)/ mcL Not Available Not Available 08/21/2024 17:23:32 08/13/19 25 08/12/2024 CBC W Auto Diffe renti al panel - Blood eosinophils [#/volume] in blood by automated count 0.29 text: 0.00 - 0.40 10(3)/ mcL Not Available Not Available 08/21/2024 17:23:32 08/13/19 25 08/12/2024 CBC W Auto Diffe renti al panel - Blood basophils [#/volume] in blood by automated count 0.04 text: 0.00 - 0.10 10(3)/ mcL Not Available Not Available 08/21/2024 17:23:32 08/13/19 25 08/12/2024 CBC W Auto Diffe renti al panel - Blood nucleated erythrocytes /leukocytes [ratio] in blood 0 Not Available Not Available 08/06 17:23:32 08/13/19 25 08/12/2024 CBC W Auto Diffe renti al panel - Blood interpretati on and review of laboratory results Abnorm al Not Available Not Available 17:23:32 08/13/19 25 08/12/2024 [facility] [employer] petra metab olic 1999 panel - Serum or Plasm a sodium [moles/volum e] in serum or plasma 139 mmol/ L low: 136mmo l/Lhig h: 145mmo l/L Not Available Not Available 08/21/2024 17:23:32 08/13/19 25 08/12/2024 Compr ens petra metab olic 1999 panel - Serum or Plasm a potassium [moles/volum e] in serum or plasma 3.2 mmol/ L low: 3.5mmo l/Lhig h: 5.1mmo l/L low Not Available Not Available 08/21/2024 17:23:32 08/13/19 25 08/12/[facility]24 [facility] - Serum or Plasm a chloride [moles/volum e] in serum or plasma 106 mmol/ L low: 98mmol /Lhigh : 107mmo l/L Not Available Not Available 08/21/2024 17:23:32 08/13/19 25 08/12/2024 [facility] 1999 panel - Serum or Plasm a carbon dioxide, total [moles/volum e] in serum or plasma 20 mmol/ L low: 22mmol /Lhigh : 30mmol /L low Not Available Not Available 08/21/2024 17:23:32 08/13/19 25 08/12/2024 [facility] 1999 panel - Serum or Plasm a anion gap in serum or plasma by calculation 16.2 mmol/ L high: 18mmol /L Not Available Not Available 08/21/2024 17:23:32 08/13/19 25 08/12/2024 [facility] 1999 panel - Serum or Plasm a glucose [mass/volume ] in serum or plasma 208 mg/dL low: 70mg/d Lhigh: 99mg/d L high Not Available Not Available 08/21/2024 17:23:32 08/13/19 25 08/12/2024 [facility] 1999 panel - Serum or Plasm a urea nitrogen [mass/volume ] in serum or plasma 13 mg/dL low: 5mg/dL high: 18mg/d L Not Available Not Available 08/21/2024 17:23:32 08/13/19 25 08/12/2024 [facility] [employer] 1999 panel - Serum or Plasm a creatinine [mass/volume ] in serum or plasma 0.59 mg/dL low: 0.6mg/ dLhigh : 1mg/dL low Not Available Not Available 08/21/2024 17:23:32 08/13/19 25 08/12/2024 [facility] [employer] [facility] 1999 panel - Serum or Plasm a urea nitrogen/cre atinine [mass ratio] in serum or plasma 22 text: 12 - 20 ratio high Not Available Not Available 08/21/2024 17:23:32 08/13/19 25 08/12/2024 [facility] [employer] 1999 panel - Serum or Plasm a protein [mass/volume ] in serum or plasma 7 g/dL low: 6g/dLh igh: 8g/dL Not Available Not Available 08/21/2024 17:23:32 08/13/19 25 08/12/2024 [facility] [employer] [facility] 1999 panel - Serum or Plasm a albumin [mass/volume ] in serum or plasma 4 g/dL low: 3.5g/d Lhigh: 5g/dL Not Available Not Available 08/21/2024 17:23:32 08/13/19 25 08/12/2024 [facility] [employer] panel - Serum or Plasm a albumin/glob ulin [mass ratio] in serum or plasma 1.3 low: 1high: 2.2 Not Available Not Available 08/21/2024 17:23:32 08/13/19 25 08/12/2024 [facility] [employer] [facility] 1999 panel - Serum or Plasm a calcium [mass/volume ] in serum or plasma 8.9 mg/dL low: 8.7mg/ dLhigh : 10.5mg /dL Not Available Not Available 08/21/2024 17:23:32 08/13/19 25 08/12/2024 [facility] [employer] panel - Serum or Plasm a bilirubin.to stoney [mass/volume ] in serum or plasma 0.5 mg/dL low: 0.2mg/ dLhigh : 1.2mg/ dL Not Available Not Available 08/21/2024 17:23:32 08/13/19 25 08/12/2024 Compr ehens petra metab olic 1999 panel - Serum or Plasm a aspartate aminotransfe rase [enzymatic activity/vol ume] in serum or plasma 15 U/L high: 43U/L Not Available Not Available 08/21/2024 17:23:32 08/13/19 25 08/12/2024 Compr ehens petra metab olic 1999 panel - Serum or Plasm a alanine aminotransfe rase [enzymatic activity/vol ume] in serum or plasma 11 U/L high: 56U/L Not Available Not Available 08/21/2024 17:23:32 08/13/19 25 08/12/2024 Compr ehens petra metab olic 1999 panel - Serum or Plasm a alkaline phosphatase [enzymatic activity/vol ume] in serum or plasma 52 U/L low: 40U/Lh igh: 150U/L Not Available Not Available 08/21/2024 17:23:32 08/13/19 25 08/12/2024 Compr ehens petra metab olic 1999 panel - Serum or Plasm a glomerular filtration rate [volume rate/area] in serum, plasma or blood by creatinine-b ased formula (CKD-epi 2020)/1.73 sq M low: 60 Creat inine Clear ance is the prefe rred crite jan for selec ting drug dose adjus tment s in renal ly impai red patie nts. The GFR is provi ded as addit ional perti nent clini edward infor matio n. GFR is repor mo in mL/mi n/1.7 3 sq m. Calcu latio n based on the Chron ic Kidne y Disea se Epide miolo gy Colla borat ion (CKD- EPI) equat ion refit witho ut adjus tment for race. Not Available Not Available 08/21/2024 17:23:32 08/13/19 25 08/12/2024 Compr ehens petra metab olic 1999 panel - Serum or Plasm a glomerular filtration rate [volume rate/area] in serum, plasma or blood by creatinine-b ased formula (MDRD)/1.73 sq M among black population low: 60 Not Available Not Available 08/21/2024 17:23:32 08/13/19 25 08/12/2024 Compr ehens petra metab olic 2000 panel - Serum or Plasm a glomerular filtration rate [volume rate/area] in serum, plasma or blood by creatinine-b ased formula (MDRD)/1.73 sq M among non black population low: 60 Not Available Not Available 08/21/2024 17:23:32 08/13/19 25 08/12/2024 Compr ehens petra metab olic 2000 panel - Serum or Plasm a interpretati on and review of laboratory results Abnorm al Not Available Not Available 17:23:32 08/16/19 25 08/15/2024 elect roczina diogr am No observ ation record ed. BETH In-Office Order Internal Use Only DO Not Attach Compendium DO Not Attach Compendium, Do Not Delete/merge, [id number] 08/16/2024 09:28:39 08/16/19 elect marcia diogr am No observ ation record ed. [email or web address] Not Available 2024 09:28:39 Result Notes None recorded. 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 Not Available [facility] 3 22:09:01 Primary fibromya lgia syndrome 69143720 Active Not Available [facility] 3 22:09:01 Pain of wrist region 97033650 Completed 01/06/2016 Gio Asif MD Attn: Accounting ,[address] [place], [address] , [facility] 6 16:23:27 Mixed anxiety and depressi ve disorder 290507623 Active psych Not Available [facility] 3 22:09:01 Abdomina l pain 82415641 Completed 01/06/2016 Gio Asif MD Attn: Accounting ,[address] [place], [address] , [facility] 6 16:23:11 Dysfunct ional uterine bleeding Active Not Available [facility] 3 22:09:01 Bacteria l vaginosi s 001291789 Completed 06/29/2018 Gio Asif MD Attn: Accounting ,[address] [place], [address] , [place] [facility] 9 10:22:23 Candidal vulvovag initis 40876771 Completed 06/29/2018 Gio Asif MD Attn: Accounting ,[address] [place], [address] , [place] [facility] 9 10:22:28 Supraven tricular tachycar mariajose 2539742 Active Not Available [facility] 3 22:09:01 Migraine 38519485 Active Not Available [facility] 3 22:09:01 Overweig ht 890352311 Active Not Available [facility] 3 22:09:01 Burn of mouth 69790609 Completed 05/14/2016 Gio Asif MD Attn: Accounting ,[address] [place], [address] , [place] [facility] 7 12:04:13 Morbid obesity 468373784 Completed 05/14/2016 Gio Asif MD Attn: Accounting ,[address] [place], [address] , [place] [facility] 7 12:04:25 Acute pharyngi tis 696668712 Completed 01/06/2016 Gio Asif MD Attn: Accounting ,[address] [place], [address] , [place] [facility] 6 16:23:21 Backache 196256223 Completed 11/19/2016 Gio Asif MD Attn: Accounting ,[address] [place], [address] , [place] [facility] 7 09:47:10 Carpal tunnel syndrome 87922583 Active Not Available [facility] 3 22:09:01 Cat scratch Completed 01/06/2016 Gio Asif MD Attn: Accounting ,[address] [place], [address] , [facility] 6 16:23:15 Hypergly cemia [id number] Completed 201609/29/2018 A1c-6.7- new onset DM Goi Asif MD Attn: Accounting ,[address] [place], [address] , [facility] 9 10:12:06 Degenera tion of lumbar interver tebral disc 42668030 Active 2016 MRI 02/22-mo derate foramina l stenosis with disc bulging- seeing pain mx Not Available [facility] 3 22:09:01 Pyogenic granulom a [id number] Completed 201709/29/2018 Gio Asif MD Attn: Accounting ,[address] [place], [address] , [facility] 9 10:11:54 Edema of lower extremit y 155759627 Active 2018 Not Available [facility] 3 22:09:01 Type 2 diabetes mellitus 21554956 Active 2018 need to add an IVONNE/ARB Not Available [facility] 3 22:09:01 Noncompl iance with medicati on regimen 773714686 Active 2020 Not Available [facility] 3 22:09:01 Acute chest pain 518801240 Active 2021 Not Available [facility] 3 22:09:01 Bleeding from nose 887806005 Active 2021 Not Available [facility] 3 22:09:01 Notes:Some problems listed i n Documents: #[id number], #[id number] could not be added to this patient's chart. Please review these documents and add these problems to the patient's chart manually as needed. Problem Notes None recorded. Procedures Surgical History Date Name Laterality Status Provider Name and Address Organization Details Recorded Time 3 Date of Last Mammogram completed Kusum Garnica RN [facility] 08/23/2023 16:07:29 2 Diabetic Foot Exam completed Silvino Lopez MD Attn: Accounting,[address] , [place], [address], [place] [facility] 12/22/2021 16:25:31 5 Other completed Ping Sanon [place] [facility] 01/24/2015 09:56:01 5 Date of Last Pap Smear [place] Ping [place] [facility] 01/24/2015 09:56:01 Carpal tunnel surgery completed Keira [place] [facility] 09/23/2023 10:10:57 Other completed Brenda Fong [place] [facility] 06/20/2014 14:36:35 Imaging Results None recorded. Procedure Notes None recorded. Medical Equipment None Reported. Allergies Allergen ID Allergen Name Allergen Category Reaction Reaction Severity Criticality Documentation Date Start Date Code Code System Note Provider Name and Address Organization Details Recorded Time 996518 metformin medicatio n Not available Not available high 08/15/20242023 6809 RxNorm unrec ogniz ed react ion (text : Stoma ch upset , code: 58308 9005) (from exter nal sour e) Rain Anderson RN null, [place] [facility] 5 15:05:05 179730 pumpkin seed extract food,medi cation diarrhea Not available low 08/15/20242023 24238 1 RxNorm Rain [place] RN [place], [place] [facility] 5 15:05:06 289272 cinnamon preparati on food,medi cation Not available Not available low 08/15/20242022 24625 5 RxNorm Nose bleed Rain [place], [place] [facility] 5 15:05:08 93878 Vistaril medicatio n Not available Not available Not available 06/20/2014 66316 9 RxNorm Brenda Fong [place], [place] [facility] 5 14:36:35 4573 hydroxyzi ne Not available Not available Not available Not available 02/06/2014 5553 RxNorm Macrina Batista RN [place], [place] [facility] 4 14:51:50 4574 buspirone medicatio n Not available Not available Not available 02/06/2014 1827 RxNorm Macrina Batista [place], [place] [facility] 4 14:51:50 Medications Name Sig Start Date Stop Date Status Note LastModified by Organization Details LastModified Time OneTouch Ultra Blue Test Strips USE 1 STRIP TO CHECK GLUCOSE TWICE DAILY DIRECTED 2024 active Not Available Not Available Not Avai lable cyclobenza olivia 10 mg tablet TAKE 1 TABLET BY MOUTH THREE TIMES DAILY NEEDED FOR PAIN FOR UP TO 14 DAYS active Not Available Not Available No t Available amoxicilli n 500 mg capsule TAKE 1 CAPSULE BY MOUTH TWICE DAILY FOR 10 DAYS 12/15 completed Not Available Not Available Not Available furosemide 40 mg tablet TAKE 1 TABLET BY MOUTH ONCE DAILY FOR 5 DAYS 09/22 completed Not Available Not Available Not Available atorvastat in 40 mg tablet TAKE 1 TABLET BY MOUTH ONCE DAILY active Not Available Not Available No t Available methocarba mol 500 mg tablet TAKE 1 TABLET BY MOUTH THREE TIMES DAILY 10/15 completed Not Available Not Available Not Available metformin 500 mg tablet Take 1 tablet by mouth twice daily 09/22 completed Not Available Not Available Not Available levothyrox ine 175 mcg tablet Take 1 tablet every day by oral route. 03/25 completed Not Available Not Available Not Available levothyrox ine 137 mcg tablet TAKE ONE TABLET BY MOUTH ONCE DAILY 11/19 completed Not Available Not Available Not Available atorvastat in 80 mg tablet TAKE 1 TABLET BY MOUTH ONCE DAILY 09/22 completed Not Available Not Available Not Available potassium chloride ER 10 mEq capsule,ex tended release not taking 06/29 completed Not Available Not Available Not Available venlafaxin e ER 75 mg capsule,ex tended release 24 hr TAKE 1 CAPSULE BY MOUTH ONCE DAILY 09/22 completed Not Available Not Available Not Available naproxen 375 mg tablet 01/21 completed Not Available Not Available Not Available venlafaxin e 75 mg tablet psych 03/11 completed Not Available Not Available Not Available clindamyci n HCl 300 mg capsule 07/27 completed Not Available Not Available Not Available trazodone 50 mg tablet TAKE ONE & ONE-HALF TABLETS BY MOUTH ONCE DAILY AT BEDTIME NEEDED active Not Available Not Available No t Available cetirizine 10 mg tablet TAKE 1 TABLET BY MOUTH ONCE DAILY 09/22 completed Not Available Not Available Not Available lisinopril 20 mg-hydroch lorothiazi de 12.5 mg tablet 1 {tbl} by oral route. 03/11 completed Not Available Not Available Not Available azithromyc in 250 mg tablet TAKE 2 TABLETS (500 MG) BY ORAL ROUTE ONCE DAILY FOR 1 DAY THEN 1 TABLET (250 MG) BY ORAL ROUTE ONCE DAILY FOR 4 DAYS 03/14 completed Not Available Not Available Not Available aspirin 325 mg tablet 03/10 completed Not Available Not Available Not Available ibuprofen 800 mg tablet 02/18 completed OTC Not Available Not Available Not Available tizanidine 4 mg tablet TAKE 1 TABLET BY MOUTH EVERY 6 HOURS NEEDED. TAKE DIRECTED WHILE AT HOME TO RELAX MUSCLES. 09/22 completed Not Available Not Available Not Available fluconazol e 150 mg tablet Take 1 tablet by oral route. active Not Available Not Available No t Available ranitidine 300 mg tablet 02/03 completed Not Available Not Available Not Available hydrocodon e 5 mg-acetami nophen 325 mg tablet TAKE 1 TABLET BY MOUTH EVERY 6 HOURS NEEDED FOR PAIN 07/18 completed Not Available Not Available Not Available Nystop 100,000 unit/gram topical powder APPLY POWDER LIBERALL Y TO AFFECTED AREA TWICE DAILY NEEDED 09/09 completed Not Available Not Available Not Available meloxicam 15 mg tablet 02/18 completed Not Available Not Available Not Available ondansetro n HCl 4 mg tablet TAKE 1 TABLET BY MOUTH EVERY 8 HOURS NEEDED FOR NAUSEA 09/22 completed Not Available Not Available Not Available prednisone 20 mg tablet TAKE 1 TABLET BY MOUTH DAILY FOR 2 DAYS 09/22 completed Not Available Not Available Not Available metformin 850 mg tablet Take 1 tablet twice a day by oral route. 09/22 completed Not Available Not Available Not Available clindamyci n HCl 150 mg capsule 09/09 completed Not Available Not Available Not Available venlafaxin e ER 150 mg capsule,ex tended release 24 hr TAKE ONE CAPSULE BY MOUTH ONCE DAILY 06/29 completed Not Available Not Available Not Available bacitracin 500 unit/gram topical ointment 06/29 completed Not Available Not Available Not Available penicillin V potassium 500 mg tablet dentist active Not Available Not Available Not Available metronidaz ole 500 mg tablet Take 1 tablet twice a day by oral route for 5 days. active Not Available Not Available No t Available ciprofloxa erich 500 mg tablet TAKE 1 TABLET BY MOUTH TWICE DAILY FOR 10 DAYS 09/22 completed Not Available Not Available Not Available sulfametho xazole 800 mg-trimeth oprim 160 mg tablet TAKE 1 TABLET BY MOUTH TWICE DAILY FOR 10 DAYS 09/22 completed Not Available Not Available Not Available omeprazole 40 mg capsule,de layed release Take 1 capsule every day by oral route. 2014 active Not Available Not Available Not Avai lable tramadol 50 mg tablet TAKE 1 TABLET BY MOUTH EVERY 8 HOURS NEEDED FOR SEVERE PAIN UP TO 3 DAYS 09/22 completed Not Available Not Available Not Available amitriptyl ine 50 mg tablet TAKE ONE TABLET BY MOUTH ONCE DAILY AT BEDTIME active Not Available Not Available No t Available butalbital -acetamino phen-caffe ine 50 mg-325 mg-40 mg tablet 04/28 completed Not Available Not Available Not Available amoxicilli n 500 mg tablet Take 1 tablet 3 times a day by oral route for 7 days. 03/16 completed Not Available Not Available Not Available glimepirid e 2 mg tablet Take 1 tablet by mouth once daily 2024 active Not Available Not Available Not Avai lable ketorolac 10 mg tablet Take 1 tablet every day by oral route as needed. active Not Available Not Available No t Available levothyrox ine 75 mcg tablet TAKE 1 TABLET BY MOUTH ONCE DAILY 09/22 completed Not Available Not Available Not Available meloxicam 7.5 mg tablet TAKE 1 TABLET BY MOUTH ONCE DAILY NEEDED 04/28 completed Not Available Not Available Not Available levothyrox ine 100 mcg tablet TAKE ONE TABLET BY MOUTH ONCE DAILY 08/15 completed Not Available Not Available Not Available oxycodone- acetaminop hen 5 mg-325 mg tablet 09/09 completed Not Available Not Available Not Available Euthyrox 25 mcg tablet TAKE 1 TABLET BY MOUTH ONCE DAILY WITH 200 MCG FOR A TOTAL OF 225 MCG 09/09 completed Not Available Not Available Not Available levothyrox ine 88 mcg tablet Take 1 tablet every day by oral route. active Not Available Not Available No t Available ofloxacin 0.3 % ear drops INSTILL 10 DROPS (1.5 MG) INTO AFFECTED EAR(S) BY OTIC ROUTE 2 TIMES PER DAY for 7 days 08/15 completed Not Available Not Available Not Available amoxicilli n 875 mg tablet TAKE 1 TABLET BY MOUTH TWICE DAILY 09/09 completed Not Available Not Available Not Available Deep Sea Nasal 0.65 % spray aerosol 12/25 completed Not Available Not Available Not Available famotidine 20 mg tablet TAKE 1 TABLET BY MOUTH TWICE DAILY 08/01 completed Not Available Not Available Not Available magnesium oxide 400 mg (241.3 mg magnesium) tablet TAKE 1 TABLET BY MOUTH TWICE DAILY 09/22 completed Not Available Not Available Not Available lorazepam 0.5 mg tablet 1 tab po prior to procedur e 03/24 completed Not Available Not Available Not Available methocarba mol 750 mg tablet TAKE 1 TABLET BY MOUTH THREE TIMES DAILY 02/18 completed Not Available Not Available Not Available cyanocobal franco (vit B-12) 500 mcg tablet TAKE 1 TABLET BY MOUTH ONCE DAILY active Not Available Not Available No t Available trazodone 100 mg tablet TAKE 1 TABLET BY MOUTH AT BEDTIME 03/11 completed psych Not Available Not Available Not Available dicyclomin e 20 mg tablet TAKE 1 TABLET BY MOUTH EVERY 6 HOURS 09/22 completed Not Available Not Available Not Available OneTouch Ultra Test strips USE 1 STRIP TO CHECK GLUCOSE TWICE DAILY DIRECTED active Not Available Not Available No t Available Xanax 0.25 mg tablet Take 1 tablet every day by oral route as needed, for acute anxiety attack. 01/20 completed Not Available Not Available Not Available hydrocodon e 7.5 mg-acetami nophen 325 mg tablet 05/14 completed Not Available Not Available Not Available cephalexin 500 mg capsule TAKE 1 CAPSULE BY MOUTH THREE TIMES DAILY FOR 10 DAYS 09/22 completed Not Available Not Available Not Available mirtazapin e 30 mg tablet psych 02/18 completed Not Available Not Available Not Available levothyrox ine 125 mcg tablet TAKE ONE TABLET BY MOUTH ONCE DAILY 01/20 completed Not Available Not Available Not Available ranitidine 150 mg tablet TAKE 1 TABLET BY MOUTH TWICE DAILY 06/29 completed taking 300mg Not Available Not Available Not Available glimepirid e 4 mg tablet Take 1 tablet by mouth once daily 2024 active Not Available Not Available Not Avai lable prednisone 50 mg tablet 05/14 completed Not Available Not Available Not Available naproxen 500 mg tablet,del ayed release TAKE 1 TABLET BY MOUTH TWICE DAILY NEEDED 09/22 completed Not Available Not Available Not Available promethazi ne 25 mg tablet TAKE 1 TABLET BY MOUTH EVERY 6 HOURS NEEDED FOR NAUSEA FOR VOMITING 07/18 completed Not Available Not Available Not Available levothyrox ine 150 mcg tablet 1 tablet daily by mouth 01/21 completed Not Available Not Available Not Available flecainide 100 mg tablet Take 1 tablet every 12 hours by oral route for 30 days. 2024 active Not Available Not Available Not Avai lable metoprolol tartrate 50 mg tablet Take 1 tablet by mouth twice daily 2024 active Not Available Not Available Not Avai lable nystatin-t riamcinolo ne 100,000 unit/g-0.1 % topical cream 03/11 completed Not Available Not Available Not Available lidocaine HCl 2 % mucosal solution active Not Available Not Available Not Available omeprazole 20 mg capsule,de layed release TAKE TWO CAPSULES BY MOUTH ONCE DAILY active Not Available Not Available No t Available Banophen 25 mg capsule TAKE 1 CAPSULE BY MOUTH EVERY 6 HOURS NEEDED FOR ITCHING 09/22 completed Not Available Not Available Not Available mirtazapin e 45 mg tablet TAKE 1 TABLET BY MOUTH AT BEDTIME 03/11 completed Not Available Not Available Not Available aspirin 81 mg chewable tablet Chew 1 tablet every day by oral route. 2024 active Not Available Not Available Not Avai lable Euthyrox 50 mcg tablet TAKE 1 TABLET BY MOUTH ONCE DAILY WITH 200 MCG (TOTAL OF 250 MCG) 09/09 completed Not Available Not Available Not Available levothyrox ine 200 mcg tablet TAKE 1 TABLET BY MOUTH ONCE DAILY 03/10 completed with 50 mcg ( total 250mcg) Not Available Not Available Not Available pravastati n 20 mg tablet TAKE 1 TABLET BY MOUTH ONCE DAILY 03/14 completed pt not taking Not Available Not Available Not Available hydrochlor othiazide 25 mg tablet TAKE 1 TABLET BY MOUTH ONCE DAILY FOR 90 DAYS active Not Available Not Available No t Available mupirocin 2 % topical ointment APPLY A SMALL AMOUNT TO THE AFFECTED AREA BY TOPICAL ROUTE 2 TIMES PER DAY 07/27 completed Not Available Not Available Not Available diclofenac sodium 50 mg tablet,del ayed release pain mx 12/25 completed Not Available Not Available Not Available furosemide 20 mg tablet 06/29 completed Not Available Not Available Not Available mirtazapin e 15 mg tablet psych active Not Available Not Available Not Available ergocalcif dany (vitamin D2) 1,250 mcg (50,000 unit) capsule TAKE 1 CAPSULE BT MOUTH ONCE WEEKLY 09/22 completed Not Available Not Available Not Available lorazepam 1 mg tablet 09/22 completed Not Available Not Available Not Available epinephrin e 0.3 mg/0.3 mL injection, auto-injec tor INJECT 0.3 ML INTO THE MUSCLE INSTRUCT ED NEEDED FOR ANAPHYLA XIS active Not Available Not Available No t Available ibuprofen 600 mg tablet TAKE 1 TABLET BY MOUTH THREE TIMES DAILY WITH FOOD 07/18 completed Not Available Not Available Not Available albuterol sulfate HFA 90 mcg/actuat ion aerosol inhaler INHALE 2 PUFFS BY MOUTH EVERY 4 HOURS NEEDED FOR WHEEZING OR COUGH active Not Available Not Available No t Available norethindr one (contracep tive) 0.35 mg tablet TAKE ONE TABLET BY MOUTH ONCE DAILY active Not Available Not Available No t Available propranolo l 20 mg tablet for tremors per pain mx 03/11 completed Not Available Not Available Not Available ondansetro n 4 mg disintegra ting tablet DISSOLVE 1 TABLET IN MOUTH EVERY 8 HOURS NEEDED FOR NAUSEA FOR VOMITING active Not Available Not Available No t Available fluticason e propionate 50 mcg/actuat ion nasal spray,susp ension USE 2 SPRAY(S) IN EACH NOSTRIL ONCE DAILY 09/09 completed Not Available Not Available Not Available metformin ER 500 mg tablet,ext ended release 24 hr 12/25 completed Not Available Not Available Not Available doxycyclin e hyclate 100 mg tablet TAKE 1 TABLET BY MOUTH TWICE DAILY FOR 10 DAYS 09/22 completed Not Available Not Available Not Available naproxen 500 mg tablet TAKE 1 TABLET BY MOUTH TWICE DAILY NEEDED FOR MILD TO MORE SEVERE PAIN 09/22 completed Not Available Not Available Not Available diazepam 5 mg tablet ER 06/29 completed Not Available Not Available Not Available amoxicilli n 875 mg-potassi um clavulanat e 125 mg tablet TAKE 1 TABLET BY MOUTH TWICE DAILY FOR 10 DAYS 09/22 completed Not Available Not Available Not Available neomycin-p olymyxin-h ydrocort 3.5 mg-10,000 unit/mL-1 % ear drops,susp 03/11 completed Not Available Not Available Not Available insulin lispro (U-100) 100 unit/mL subcutaneo us pen INJECT UP TO 20 UNITS THREE TIMES DAILY active Not Available Not Available No t Available escitalopr am 10 mg tablet TAKE 1 TABLET BY MOUTH ONCE DAILY active Not Available Not Available No t Available OraMagicRx mouthwash Benadryl / Maalox / Xylocain e at equal proporti ons -Take 10ml bid by mucous route. 2014 active Not Available Not Available Not Avai lable ciprofloxa erich 0.3 %-dexameth asone 0.1 % ear drops,susp ension INSTILL 4 DROPS INTO RIGHT EAR TWICE DAILY FOR 7 DAYS 08/15 completed Not Available Not Available Not Available Alcohol Prep Pads APPLY 1 PAD TWICE A DAY BY TOPICAL ROUTE active Not Available Not Available No t Available escitalopr am 5 mg tablet TAKE 1 TABLET BY MOUTH ONCE DAILY FOR 30 DAYS 04/28 completed Not Available Not Available Not Available metoprolol tartrate 25 mg tablet TAKE 1 TABLET BY MOUTH TWICE DAILY 09/22 completed Not Available Not Available Not Available topiramate 50 mg tablet TAKE 1 TABLET BY MOUTH TWICE DAILY 03/15 completed Not Available Not Available Not Available nitrofuran toin monohydrat e/macrocry stals 100 mg capsule TAKE 1 CAPSULE BY MOUTH TWICE DAILY 09/22 completed Not Available Not Available Not Available tizanidine 6 mg capsule Take 1 capsule twice a day by oral route. 2017 active Not Available Not Available Not Avai lable pregabalin 150 mg capsule TAKE 1 CAPSULE BY MOUTH THREE TIMES A DAY 03/11 completed Not Available Not Available Not Available ramelteon 8 mg tablet TAKE 1 TABLET BY MOUTH ONCE DAILY AT BEDTIME 09/22 completed Not Available Not Available Not Available Lyrica 75 mg capsule TAKE ONE CAPSULE BY MOUTH TWICE DAILY active Not Available Not Available No t Available Lyrica 100 mg capsule TAKE ONE CAPSULE BY MOUTH TWICE DAILY 05/14 completed Not Available Not Available Not Available cholecalci ferol (vitamin D3) 25 mcg (1,000 unit) tablet TAKE 1 TABLET BY MOUTH ONCE DAILY active Not Available Not Available No t Available peg 3350-elect rolytes 236 gram-22.74 gram-6.74 gram-5.86 gram solution DRINK 240ML EVERY 15 MINUTES. ..FOLLOW INSTRUCT IONS FROM PROVIDER 04/28 completed Not Available Not Available Not Available Lantus Solostar U-100 Insulin 100 unit/mL (3 mL) subcutaneo us pen INJECT 30 UNITS SUBCUTAN EOUSLY ONCE DAILY active Not Available Not Available No t Available Eliquis 5 mg tablet TAKE 1 TABLET BY MOUTH TWICE DAILY 09/09 completed Not Available Not Available Not Available potassium chloride ER 20 mEq tablet,ext ended release Take 1 tablet by mouth once daily 03/11 completed Not Available Not Available Not Available Jardiance 10 mg tablet Take 1 tablet by mouth once daily for 30 days 08/01 completed Not Available Not Available Not Available Jardiance 25 mg tablet TAKE 1 TABLET BY MOUTH ONCE DAILY active Not Available Not Available No t Available TRUEplus Pen Needle 32 gauge x 5/32 USE 1 PEN NEEDLE 4 TIMES DAILY active Not Available Not Available No t Available OneTouch Ultra Blue Test Strip USE 1 STRIP TO CHECK GLUCOSE TWICE DAILY DIRECTED 09/22 completed Not Available Not Available Not Available Fluarix Quad 7387-6949 (PF) 60 mcg (15 mcg x 4)/0.5 mL IM syringe 02/18 completed Not Available Not Available Not Available OneTouch Ultra2 Meter USE DIRECTED active Not Available Not Available No t Available OneTouch Delica Plus Lancet 33 gauge USE DIRECTED TWICE DAILY active Not Available Not Available No t Available OneTouch Delica Plus Lancing Device kit USE DIRECTED active Not Available Not Available No t Available OneTouch Delica Plus Lancet 30 gauge 09/22 completed Not Available Not Available Not Available Ozempic 1 mg/dose (4 mg/3 mL) subcutaneo us pen injector INJECT 1 MG SUBCUTAN EOUSLY ONCE A WEEK 09/22 completed Not Available Not Available Not Available Semglee (insulin glargine-y fgn) Pen 100 unit/mL (3 mL) subcutaneo us INJECT 30 UNITS SUBCUTAN EOUSLY ONCE DAILY active Not Available Not Available No t Available Ozempic 2 mg/dose (8 mg/3 mL) subcutaneo us pen injector 09/22 completed Not Available Not Available Not Available Dexcom G7 Sensor device USE FOR BLOOD GLUCOSE MONITORI NG active Not Available Not Available No t Available Vitals Date Recorded Body height Body mass index (BMI) Body weight Body temperature Respiratory rate Heart rate Oxygen saturation Oxygen saturation in Arterial blood by Pulse oximetry Systolic And Diastolic Provider Name and Address Organization Details Last Updated DateTime 5 187.96 cm 34 kg/m2 689855. 34 g 97 [degF] 16 /min 83 /min 97 % 97 % 115/79 mm[Hg] Kesha Tobar MA [facility] 5 10:37:24 Date Recorded Body height Body mass index (BMI) Body weight Oxygen saturation Oxygen saturation in Arterial blood by Pulse oximetry Heart rate Respiratory rate Body temperature Systolic And Diastolic Provider Name and Address Organization Details Last Updated DateTime 5 187.96 cm 35.6 kg/m2 251035. 88 g 99 % 99 % 87 /min 16 /min 97.5 [degF] 118/82 mm[Hg] Eboni Harrison MA [facility] 5 16:08:34 Date Recorded Body height Body mass index (BMI) Body weight Heart rate Oxygen saturation Oxygen saturation in Arterial blood by Pulse oximetry Systolic And Diastolic Provider Name and Address Organization Details Last Updated DateTime 5 187.96 cm 34.9 kg/m2 055623. 12 g 66 /min 97 % 97 % 110/68 mm[Hg] Rain Anderson RN [facility] 5 15:04:52 Date Recorded Body height Body mass index (BMI) Body weight Body temperature Oxygen saturation Oxygen saturation in Arterial blood by Pulse oximetry Heart rate Respiratory rate Systolic And Diastolic Provider Name and Address Organization Details Last Updated DateTime 4 187.96 cm 34.1 kg/m2 501886. 49 g 96.8 [degF] 97 % 97 % 87 /min 16 /min 115/79 mm[Hg] Kesha Tobar MA [facility] 4 09:37:41 Date Recorded Body height Body mass index (BMI) Body weight Respiratory rate Body temperature Heart rate Systolic And Diastolic Provider Name and Address Organization Details Last Updated DateTime 4 187.96 cm 34.2 kg/m2 086164. 37 g 16 /min 97.8 [degF] 102 /min 115/76 mm[Hg] Maria Ines Corrales MA [facility] 4 15:02:05 Social History Question Answer Notes LastModified by Organizat ion Details LastModified Time Tobacco Smoking Status Former Smoker Quit - 2017 Eboni kern, [facility] 09/29/2018 09:56:11 Do You Have An Advance Directive? No [email or web address] Information not available 03/10/2021 Are You Blind Or Do You Have Difficulty Seeing? Yes Bifocles Information not available 09/23/2023 Is Blood Transfusion Acceptable In An Emergency? Yes Information not available 11/02/2014 What Is Your Level Of Caffeine Consumption? Heavy Information not available 03/14/2020 How Much Tobacco Do You Chew? None Information not available 11/02/2014 In The 14 Days Before Symptom Onset, Have You Had Close Contact With A Laboratory-confir med COVID-19 While That Case Was Ill? No Information not available 06/26/2019 In The 14 Days Before Symptom Onset, Have You Had Close Contact With A Person Who Is Under Investigation For COVID-19 While That Person Was Ill? No Information not available 06/26/2019 Have You Been To An Area Known To Be High Risk For COVID-19? No Information not available 06/26/2019 Are You Deaf Or Do You Have Serious Difficulty Hearing? Yes Does Have Hearing Aids Information not available 09/23/2023 What Type Of Diet Are You Following? REGULAR Information not available 11/02/2014 Which Illicit Or Recreational Drugs Have You Used? No Information not available 11/02/2014 Education 12 Some College Information not available 11/02/2014 Are There Any Guns Present In Your Home? No Information not available 07/14/2018 Live Alone Or With Others? With Others Information not available 11/02/2014 Marital Status Informatio n not available 03/24/2017 What Was The Date Of Your Most Recent Tobacco Screening? 08/15/2024 [email or web address] Information not available 08/15/2024 How Many Children Do You Have? 1 Information not available 11/02/2014 Performs Monthly Self-breast Exam? No Information no t available 11/02/2014 What Is Your Relationship Status? Information not available 11/02/2014 Do You Use Your Seat Belt Or Car Seat Routinely? Yes Information not available 09/23/2023 Seat Belts Used Routinely Yes Information not available 11/02/2014 Are You Sexually Active? No Information not available 11/02/2014 Smoke Alarm In Home Yes Information not available 02/14/2019 Do You Have Smoke And Carbon Monoxide Detectors In Your Home? Yes Information not available 09/23/2023 At What Age Did You Start Smoking Tobacco? 15 Information not available 11/02/2014 Are You Passively Exposed To Smoke? No Information no t available 09/23/2023 How Much Tobacco Do You Smoke? 1 PPD [email or web address] Information not available 06/20/2014 General Stress Level Medium Mother Passed August 2019 [email or web address] Information not available 12/26/2019 Do You Use Sunscreen Routinely? No Information not available 11/02/2014 Has Tobacco Cessation Counseling Been Provided? No Information not available 12/16/2023 On What Date Was Tobacco Cessation Counseling Provided? 08/01/2024 Information not available 08/01/2024 How Many Years Have You Smoked Tobacco? 24 Information not available 11/02/2014 Sex: Female Functional Status Question Answer Note LastModified by Organizat ion Details LastModified Time Do you use any illicit or recreational drugs? No Information not available 09/23/2023 Do you or have you ever used any other forms of tobacco or nicotine? No [email or web address] Information not available 10/21/2023 What is your level of alcohol consumption? Occasional Information not available 04/28/2024 Do you or have you ever used smokeless tobacco? 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 Former user of electronic cigarettes Quit 08/12/18 Information not available 09/29/2018 What is your exercise level? None some Information not available 08/01/2024 Mental Status Question Answer Note LastModified by Organization D etails LastModified Time Do you feel stressed (tense, restless, nervous, or anxious, or unable to sleep at night)? [id number] Information not available 04/28/2024 Family History Relationship Description Onset Age of this Age Resolved Age Notes LastModified by Organization Details LastModified Time Mother Hypercholest erolemia [place] Not available 2014 09:56:01 Mother Diabetes mellitus [email or web address] Not available 2014 09:56:01 Mother Hypothyroidi sm [place] Not available 2014 09:56:01 Mother Atrial fibrillation [place] Not available 09:56:01 Maternal Grandmother Amyotrophic lateral sclerosis [place] Not available 2014 09:56:01 Medical History Condition Response Coronary Artery Disease N Other N Atrial Fibrillation N High Blood Pressure N Depression N COPD N Blood Clots N Anxiety Disorder N Muscle, Joint, or Bone Problems N Acid Reflux (GERD) N Cancer N Stroke N High Cholesterol N Liver Disease N Headaches N Kidney or Bladder Problems N Thyroid Problems N GI Problems N Skin Problems N Anemia N Heart Attack ([place]) N Diabetes Y Seizures/Epilepsy N Asthma N Allergies N Hepatitis N Heart Failure N Osteoporosis N Gynecological History Statement/Question Response Abnormal Pap N Date of Last Mammogram 10/29/2022 Flow Heavy On BCP's at Conception? N STIs/STDs N HPV Vaccine N Duration of Flow (days) Age at Menarche 15 Current Control Method Sterilizati on Age at First Child 28 Sexually Active? N Menses Monthly Y Date of Last Pap Smear 01/03/2015 Sexual Problems? N LMP Approximate Desired Control Method Sterilizati on Obstetrics History GPAL:G 2 P 1 0 1 1 Type Value Multiple Births 0 Full Term 1 Induced 0 Spontaneous 1 Premature 0 Living 1 Ectopics 0 Total 2 Immunizations Vaccine Type Date Status Note Provider Nam e and Address Organization Details Recorded Time Influenza, split virus, quadrivalent, preservative 9 completed Not Available [facility] 08/18/2022 22:09:02 Influenza, split virus, quadrivalent, preservative 0 completed Keira Had[place], [place] [facility] 12/27/2023 16:47:44 Tdap 5 completed Keira Had[place], [place] [facility] 12/27/2023 16:47:44 Influenza, split virus, quadrivalent, PF 0 completed Keira Had[place], [place] [facility] 12/27/2023 16:47:44 Influenza, split virus, quadrivalent, PF 8 completed Keira Had[place], [place] [facility] 12/27/2023 16:47:44 Tdap 3 completed Not Available [facility] 08/15/2024 14:55:42 Influenza, split virus, quadrivalent, preservative 7 completed Not Available [facility] 03/25/2019 02:49:54 Tdap 5 completed Not Available [facility] 03/25/2019 02:29:59 Influenza, split virus, quadrivalent, preservative 5 completed Not Available [facility] 03/25/2019 02:39:50 Past Encounters Encounter ID Performer Location Encounter Start Date Encounter Closed Date Diagnosis/Indication Diagnosis SNOMED-CT Code Diagnosis ICD10 Code Diagnosis Note [id number] MD Letitia Kimble (Adult Med) [address] [place] [address] 06/20/2014 13:16:30 06/20/2014 16:01:11 Hypothyroidism 81653477 continue same Primary fi bromyalgia syndrome [id number] pt is on Amitriptyl line/ Venlafaxin e Pain of wrist region 62435885 wrist splint consider nerve conduction if problem continues Mixed anxi ety and depressive disorder [id number] pt has apt to see counselor at [facility] and planning to see psychiatri st as well Will refill meds until then [id number] [facility] [address] [address] 09/04/2014 10:58:14 09/04/2014 13:03:36 Abdominal pain [id number] unclear etiology Possible gastritis- rx with Ranitidine bid labs to be done -ordered on last visit pt to return to clinic or ER if problem worsen or persists Primary fi bromyalgia syndrome 40312202 pt is on Amitriptyl line/ Venlafaxin e Add Lyrica Hypothyroidism 15656632 continue same Mixed anxi ety and depressive disorder 230382443 fair control pt is seeing counselor at [facility] and planning to see psychiatrvickey pelayo on 10/09 as well Will refill meds until then [id number] MD [facility] (FIN[facility]CIAL SYSTEMS MANAGER[facility] [address] [place] [address] 11/02/2014 08:29:58 11/02/2014 11:23:34 Female sterilization 40619755 Benefits, risks, and alternativ es to Essure d/w pt. Pt. expressed understand ing. All pt. questions answered. Fed papers signed. Will schedule. Pt. due for AE. Pt. to schedule. Dysfunctio nal uterine bleeding 95279104 Will plan D&C with Essure. HTA p tubal occlusion Bacterial vaginosis 217290721 Diagnosis d/w pt. Rx sent to pharmacy. Instructio ns discussed. [id number] [facility] [address] [address] 11/02/2014 10:23:43 11/02/2014 12:05:02 Abdominal pain 84456348 Possible gastritis- rxed with Ranitidine bid pt to take PPI for 1-2 months Avoid NSAID Hypothyroidism 80260708 increase Levothyrox in to 100 mcg ( had labs with psych which showed elevated TSH) Mixed anxi ety and depressive disorder 495892366 fair control pt is seeing counselor at [facility] and seen by psychiatrvickey pelayo/ pt started on Remeron with increase dose on Trazodone to 100mg per pt Primary fi bromyalgia syndrome 99315915 pt is on Amitriptyl line/ Venlafaxin e Increase Lyrica Administra tion of diphtheria, pertussis, and tetanus vaccine 334925828 [id number] MD Jazmyne Kimblehalto (Adult Med) [address] [place] [address] 12/18/2014 08:27:02 12/18/2014 09:54:56 Supraventricular tachycardia 9832156 I47.1 Resolved spontaneou sly pt supposed to start Metoprolol which pt did not start yet Will taper and discontinu e Amitriptyl line check K level( ER lab showed 3.5) Migraine 94447813 G43.00 9 May try Topamax in future ( helps with weight loss as well) Hypothyroidism 56475764 E03.8 increased Levothyrox in to 100 mcg ( had labs with psych which showed elevated TSH) Overweight 862534686 E66 .3 diet and exercise discussed with pt Burn of mouth 95104613 T 28.0XXA following accidental ingestion of hot coffee Magic mouth wash Avoid spicy food Administra tion of influenza vaccine 09232658 Z23 [id number] MD [facility]S MANA[facility] [address] [place] [address] 01/02/2015 08:51:22 01/02/2015 10:54:09 Gynecologic examination 40727117 Z01.419 Female sterilization 608 34362 Z30.2 Benefits, risks, and alternativ es to Essure d/w pt. again today. Pt. expressed understand ing. All pt. questions answered. She is scheduled for Essure placement along with endometria l sampling on 01/10/15. Question of abnormal heart rhythm in pt's chart. Will get ECG preoperati vely. Dysfunctio nal uterine bleeding 18750219 N93.8 Pt. did not tolerate the last EMB done 08/2013. Will do endometria l sampling while under anesthesia for Essure placement. Will plan HTA p tubal occlusion Morbid obesity 103359562 E66.01 Pt. encouraged to decrease her weight. Nutrition and exercise discussed. [id number] MD Jazmyne Waltonhalto (FINANCIAL SYSTEMS MANAGER) [address] [place] [address] 01/24/2015 09:33:40 01/24/2015 12:23:36 Female sterilization 56127277 Z30.2 Need for HSG 3 mo. after procedure d/w pt. Importance of not getting d/w pt. Risks of ectopic discussed. Pt. is not sexually active and will remain abstinent until tubal occlusion is confirmed by HSG in / Dysfunctio nal uterine bleeding 51704444 N93.8 Pt. did not tolerate the last EMB done 08/2013. Endometria l sampling while under anesthesia for Essure placement was done 01/10/15. Pathology report reviewed, benign, dwp. Will plan HTA p tubal occlusion, dwp. [id number] MD Jazmyne Kimblehalto (Adult Med) [address] [place] [address] 01/25/2015 10:21:02 01/28/2015 13:05:32 Hypothyroidism 29556441 E03.8 continue Levothyrox in to 100 mcg Primary fi bromyalgia syndrome 72715775 M79.7 Increase Lyrica Migraine 07473791 G43.00 9 taper and d/c amitriptyl line try Topamax ( helps with weight loss as well) [id number] MD Letitia Kimble (Adult Med) [address] [place] [address] 04/18/2015 08:32:49 04/18/2015 12:31:25 Hypothyroidism 39002396 E03.8 continue Levothyrox in to 100 mcg Primary fi bromyalgia syndrome 37835201 M79.7 continue Lyrica Migraine 54941332 G43.00 9 d/c amitriptyl line continue Topamax ( helps with weight loss as well) Acute pharyngitis 873160 003 J02.8 salt water gargle increase fluid [id number] [facility] [address] [place] [address] 05/02/2015 11:17:02 05/02/2015 14:20:17 Backache 609979264 M54.[address] abdomen reviewed - did not show any evidence of pyelonephr itis urine dipstick here at the office showed blood due to her menstrual period pt to complete cipro for now back pain possibly due to muscle spasm [id number] MD Letitia Kimble (Adult Med) [address] [place] [address] 07/18/2015 08:16:24 07/18/2015 11:16:16 Hypothyroidism 59988868 E03.8 continue Levothyrox in to 100 mcg Primary fi bromyalgia syndrome 45257606 M79.7 fair control continue Lyrica Migraine 32136718 G43.00 9 d/c amitriptyl line continue Topamax ( helps with weight loss as well) will give Toradol prn use for VASQUEZ ( toradol helped in the past )-instruct ed pt to avoid Naprosyn or any other nSAID) [id number] MD Letitia Kimble (Adult Med) [address] [place] [address] 10/21/2015 09:49:09 10/21/2015 10:59:58 Hypothyroidism 54245399 E03.8 continue Levothyrox in to 100 mcg Primary fi bromyalgia syndrome 98067354 M79.7 fair control continue Lyrica Mixed anxi ety and depressive disorder 373287022 F41.8 fair control pt is seeing counselor at [facility] and seeing psychiatri st/ Carpal kay sheila syndrome 27898331 G56.01 pt to wear wrist splint check NCS- pt drops things Cat scratch 525872752 W5 5.03XA pt is uptodate with Tetanus keep area clean and avoid scratch by cat Migraine 84030670 G43.00 9 d/jonathan amitriptyl line continue Topamax ( helps with weight loss as well) [id number] MD Letitia Kimble (Adult Med) [address] [place] [address] 05/14/2016 10:04:14 05/14/2016 14:13:58 Primary fibromyalgia syndrome 34599550 M79.7 continue Lyrica Hypothyroidism 20610156 E03.8 continue Levothyrox in to 125 mcg Migraine 14669452 G43.00 9 d/jonathan amitriptyl linecontin ue Topamax ( helps with weight loss as well) Hyperglycemia 38362348 R 73.9 diet and exercise Backache 543558014 M54.5 back pain possibly due to muscle spasm Mixed anxi ety and depressive disorder 439375039 F41.8 fair control pt is seeing counselor at [facility] and seeing psychiatri st/Dr.Baig Swan 57641757 H92.01 [id number] MD Letitia Kimble (Adult Med) [address] [place] [address] 08/18/2016 14:08:08 08/18/2016 16:29:43 Hypothyroidism 23213539 E03.8 continue Levothyrox in to 137 mcg Primary fi bromyalgia syndrome 75390499 M79.7 Increase Lyrica tid Degenerati on of lumbar intervertebral disc 47381975 M51.36 check MRI Migraine 01839740 G43.00 9 d/jonathan amitriptyl linecontin ue Topamax ( helps with weight loss as well) Overweight 712899717 E66 .3 diet and exercise discussed with pt [id number] MD Jazmyne Kimblehalto (Adult Med) [address] [place] [address] 11/19/2016 08:49:24 11/19/2016 15:20:58 Administration of influenza vaccine 09523401 Z23 Primary fi bromyalgia syndrome 24068729 M79.7 continue Lyrica tid Hypothyroidism 30180413 E03.8 continue Levothyrox in to 150 mcg Mixed anxi ety and depressive disorder 856414883 F41.8 fair controlpt is seeing counselor [facility] and seeing psychiatri st/Dr.Baig Lim on of lumbar intervertebral disc 47843935 M51.36 Insurance did not approve for MRIpt to go for PT Hyperglycemia 03913104 R 73.9 diet and exercise Overweight 775603552 E66 .3 diet and exercise discussed with pt [id number] MD Letitia Kimble (Adult Med) [address] [place] [address] 01/21/2017 11:33:15 01/27/2017 11:08:40 Degeneration of lumbar intervertebral disc 91769613 M51.36 Insurance did not approve for MRI in the pastxray showed DDD pt went for PT which helped some , but pain is backwill order MRI again and will short term use of tramadol for pain [id number] MD Letitia Kimble (Adult Med) [address] [place] [address] 03/24/2017 08:35:43 03/26/2017 11:22:29 Hypothyroidism 13191540 E03.8 continue Levothyrox in to 175 mcg Primary fi bromyalgia syndrome 28818398 M79.7 continue Lyrica tid Mixed anxi ety and depressive disorder 640032401 F41.8 fair controlpt is seeing counselor at [facility] and seeing psychiatri st/Dr.Baig Lim on of lumbar intervertebral disc 10043789 M51.36 MRI showed foraminal stenosis with disc bulgingxra y showed DDD pt went for PT which helped somePt has apt with pain mx on 04/05/17wil l short term use of tramadol for pain Migraine 57664210 G43.00 9 d/jonathan amitriptyl linecontin ue Topamax ( helps with weight loss as well) MD Jazmyne Kimblehalto (Adult Med) [address] [place] [address] 05/11/2017 14:17:46 05/13/2017 10:10:15 Pyogenic granuloma L98.0 on back of scalppt to see surgeon [id number] MD Jazmyne Kimblehalto (Adult Med) [address] [place] [address] 07/27/2017 08:02:06 07/28/2017 08:46:46 Hypothyroidism 38631276 E03.8 continue Levothyrox in to 200 mcg Primary fi bromyalgia syndrome 61305386 M79.7 continue Lyrica tid Mixed anxi ety and depressive disorder 202903226 F41.8 with berjason t ( dad)fair controlpt is seeing counselor at [facility] and seeing psychiatri st/ Pyogenic granuloma 2002 L98.0 on back of scalps/p excison x2 -sutures in place -pt needs to see surgeon for suture removalpt to see surgeon [id number] MD Jazmyne Kimblehalto (Adult Med) [address] [place] [address] 10/15/2017 10:31:53 10/18/2017 10:24:51 Hypothyroidism 85662059 E03.8 noncomplia nt with thyroid pill-couns elled to take dailyconti nue Levothyrox in to 225mcg daiy Primary fi bromyalgia syndrome 75877114 M79.7 continue Lyrica tid Mixed anxi ety and depressive disorder 835284412 F41.8 with bereavemen t ( dad)fair controlpt is seeing counselor at [facility] and seeing psychiatrvickey pelayo/ Pyogenic granuloma 2002 L98.0 on back of scalps/p excison x2 -sutures removedhea led well. Hyperglycemia 32898678 R 73.9 diet and exercise Overweight 474707143 E66 .3 diet and exercise discussed with pt [id number] MD Letitia Kimble (Adult Med) [address] [place] [address] 02/18/2018 08:50:45 02/22/2018 12:10:51 Hypothyroidism 52548425 E03.8 noncomplia nt with thyroid pill-couns elled to take dailyconti nue Levothyrox in 225mcg daiy Primary fi bromyalgia syndrome 27749453 M79.7 continue Lyrica tidAdd Tizanidine Mixed anxi ety and depressive disorder 541071359 F41.8 with bereavemen t ( dad)fair controlpt is seeing counselor at [facility] and seeing psychiatri / MRI of head abnormal 680 7587445 02916 R93.0 patchy enhancemen t on medulla on MRI.pt is going for different MRI per pain mx and planning to see neurosx at [facility] Migraine 70153566 G43.00 9 d/jonathan amitriptyl linecontin ue Topamax ( helps with weight loss as well) [id number] MD Letitia Kimble (Adult Med) [address] [place] [address] 06/29/2018 09:57:35 06/30/2018 09:08:13 Hypothyroidism 49787512 E03.8 noncomplia nt with thyroid pill-couns elled to take dailyconti nue Levothyrox in 225mcg daiy Primary fi bromyalgia syndrome 04761702 M79.7 continue Lyrica tid Mixed anxi ety and depressive disorder 690886756 F41.8 with bereavemen t ( dad)fair controlpt is seeing counselor at [facility] and seeing psychiatri st/ - pt to discuss about mirtazapin e due to recent wt gain. Hyperglycemia 49072814 R 73.9 diet and exercise Degenerati on of lumbar intervertebral disc 94961007 M51.36 MRI showed foraminal stenosis with disc bulgingxra y showed DDD pt went for PT which helped somePt is seeing pain mx and seeing neuro sx who is going to see sx on cervical spine on 08/05/18 Edema of l ower extremity 032347252 R60.0 wth weight gain-recen t dose of mirtazapin e increased per ptdoppler -neg pt to increase furosemide 40 mg Smoker 60263843 F17.359 [id number] MD Jazmyne Kimblehalto (Adult Med) [address] [place] [address] 07/14/2018 11:55:44 07/15/2018 10:25:08 Hypothyroidism 42998247 E03.8 fair control-no ncompliant with thyroid pill-couns elled to take dailyconti nue Levothyrox in 225mcg daiy Edema of l ower extremity 934961820 R60.0 wth weight gain-recen t dose of mirtazapin e increased per pt -pt to discuss with psych about psych med especially mirtazapin e.doppler -neg pt to continue furosemide 40 mg Primary fi bromyalgia syndrome 40091084 M79.7 continue Lyrica tid Type 2 mariajose betes mellitus 24007611 E11.9 new onsetpt declined DM teaching -(pt lives with her mom who has DM)Add statin as well Smoker 20815626 F17.739 [id number] MD Letitia Kimble (Adult Med) [address] [place] [address] 09/29/2018 09:16:54 09/30/2018 14:23:42 Type 2 diabetes mellitus 65676308 E11.9 new onsetpt declined DM teaching -(pt lives with her mom who has DM)continu e metformin and statin as wellpt to see eye doctor Hypothyroidism 14190723 E03.8 continue Levothyrox in 225mcg daiy Primary fi bromyalgia syndrome 42339876 M79.7 continue Lyrica tid Mixed anxi ety and depressive disorder 571430084 F41.8 pt is seeing counselor at [facility] and seeing psychiatri st/ - pt is on mirtazapin e Edema of l ower extremity 087172844 R60.0 doppler -negpt to continue furosemide 40 mg Degenerati on of lumbar intervertebral disc 77432377 M51.36 MRI showed foraminal stenosis with disc bulgingxra y showed DDD pt went for PT which helped somePt is seeing pain mx and seeing neuro sx -had sx on cervical spine on 08/12/18 [id number] MD Letitia Kimble (Adult Med) [address] [place] [address] 02/14/2019 08:33:13 02/15/2019 09:22:11 Type 2 diabetes mellitus 16132491 E11.9 new onsetpt declined DM teaching -(pt lives with her mom who has DM)continu e metformin and statin as wellpt to see eye doctor Hypothyroidism 87271254 E03.8 continue Levothyrox in 250mcg daiy Primary fi bromyalgia syndrome 93860792 M79.7 continue Lyrica tid Mixed anxi ety and depressive disorder 279437497 F41.8 pt is seeing counselor at [facility] and seeing psychiatri st/ - pt is on mirtazapin e Acute sinusitis 66267968 J01.90 keep hydration Chokes whe n swallowing 976437446 R09.89 pt is having problem since her neck sx per ptcheck barium swallowcon hand patcher gI referral if needed [id number] MD Jazmnye Kimblehalto (Adult Med) [address] [place] [address] 03/16/2019 10:46:05 03/17/2019 15:34:56 Hypothyroidism 47875838 E03.8 not well controlled due to noncomplia nt -counselle d.continue Levothyrox in 250mcg daiy Type 2 mariajose betes mellitus 50587711 E11.9 new onsetpt declined DM teaching -(pt lives with her mom who has DM)continu e metformin -increased to 850mg bid and statin as wellpt to see eye doctor Noncomplia nce with medication regimen 212487518 Z91.14 pt is extensivel y counselled Allergic rhinitis 648039 04 J30.9 keep hydration Mixed anxi ety and depressive disorder 691673948 F41.8 pt is seeing counselor at [facility] and seeing psychiatri / - pt is on mirtazapin ept has apt with therapist tomorrow [id number] MD Jazmyne Kimblehalto (Adult Med) [address] [place] [address] 06/26/2019 08:06:54 06/27/2019 14:11:52 Type 2 diabetes mellitus 05115276 E11.9 Recently diagnosedp t declined DM teaching -(pt lives with her mom who has DM)continu e metformin 850mg bid and statin as wellpt to see eye doctor Hypothyroidism 65860189 E03.8 continue levothyrox ine 250mcg daily Primary fi bromyalgia syndrome 38971097 M79.7 continue Lyrica tid Mixed anxi ety and depressive disorder 770856550 F41.8 pt is seeing counselor every [facility] at [facility] and seeing psychiatri / - pt is on mirtazapin ept denied SI -pt is aware about crisis number Intermitte nt dysphagia 58830247 R13.19 normal barium swallowref er to GI Renewal of prescription 046375321 Z76.0 Migraine 37575066 G43.00 9 d/jonathan amitriptyl linecontin ue Topamax ( helps with weight loss as well) [id number] MD Manjula Rodriguez [address] [place] [address] 12/22/2019 09:26:32 12/25/2019 09:27:01 Viral screening 205938319 Z11.59 D/w pt the current pandemic of COVID-19 and call for social isolation in order to blunt the curve and minimize risk and spread. Encouraged patient and family to take restrictio ns seriously. They have verbalized understand ing of such. Viral syndrome 229634258 B34.9 [id number] MD Letitia Kimble (Adult Med) [address] [place] [address] 12/26/2019 10:12:13 12/27/2019 10:25:55 Upper respiratory infection 21479411 J06.9 covid-negk eep good hydration [id number] MD [facility] (Adult Med) [address] [place] [address] 03/14/2020 08:32:44 03/18/2020 13:28:01 Type 2 diabetes mellitus 49964990 E11.9 noncomplia nt with medpt declined DM teaching -(pt lives with her mom who has DM)continu e metformin 850 mg bid and statin as wellpt to see eye doctor Hypothyroidism 26526047 E03.8 noncomplia nt with med .continue levothyrox ine 250mcg daily Primary fi bromyalgia syndrome 31626744 M79.7 continue Lyrica tid Mixed anxi ety and depressive disorder 124798284 F41.8 pt is seeing counselor [facility] and seeing psychiatri / - pt is on mirtazapin ept denied SI -pt is aware about crisis number Noncomplia nce with medication regimen 088292600 Z91.14 pt is extensivel y counselled [id number] MD [facility] [address] [facility] [address] [place] [address] 03/10/2021 15:34:29 03/11/2021 12:33:14 Hypothyroidism [id number] E03.8 Patient states that because she previously was not taking her medication her dosage was increased. She is only taking levothyrox ine 25 mcg currently. patient has been non compliant with meds it is in the best interest to get baseline levels to titrate to correct dosage.-Sh e is running out of medication so will refill at the current low dosage until results return. Type 2 mariajose betes mellitus [id number] E11.9 -Patient is reluctant to take metformin (500mg), she states she is terrified of metformin because her mom has liver disease, heart disease, diabetes. She states she did not take her medication s but she was also prescribed metformin that may have cause these problems.- Will get patients A1C and prescribe meds after results. She is open to GLP1 in addition to glimepride if indicated. -No lipid panel ordered -patient already on statin.Pat ient counselled extensivel y on importance of glucose control and complicati ons related to poor control.Gl ucose 220 on 01/26/21 during ER visit Noncomplia nce with medication regimen [id number] Z91.14 -patient was counseled on the importance of medication s to treat hem medical conditions . She states she understand s and is willing to meet with a pharmacist .-Patient has poor health literacy-P atient has not been compliant with previously prescribed medication s for over a year. She is currently only taking the medication s prescribed after her recent hospitaliz ation. Since she has not been taking other medication s I will hold/not reorder other medication s until labs results return. Obesity [id number] E66.9 -BMI 37.8-not interested in nutritioni st referral at this time Acute chest pain [id number] 01 R07.9 -Pain resolved when patient came to the clinic-EKG in office showed normal sinus rhythm-ojan reagan instructed to go to the ER if pain persist, pain worsens, she becomes SOB.-She has lost contact with cardiology and did not go to [facility] t. Also did not follow up for holter monitor will reorder Supraventr icular tachycardia [id number] I47.1 - states she did not follow up for holter monitor will reorder-Al so did not follow up for holter monitor will reorder-co ntinue current medication [id number] Julienne Younger MD [place] [facility] IM [address] [facility] [address] [place] [id number] 09/09/2021 14:52:10 09/12/2021 13:49:49 Carpal tunnel syndrome [id number] G56.01 H.o carpal tunnel. Patient has a wrist brace. Per patient she was denied workers comp for decompress ion sx because she had a prior h/o of carpal tunnel. Unsure what insurance will cover and/or is she can afford sx.-Advise d she can start with PT ; patient would like a referral to ortho.-Adv ised that both uncontroll ed hypothyroi dism and diabetes could can negatively effect/cau se carpal tunnel .-advised that she should wear wrist brace while sleep as she states she has pain while trying to sleep. Hypothyroidism [id number] E03.8 Levothyrox ine increase while patient was in the hospital. Patient continues to not take meds as prescribed .-Stated she will take her medication s this time.-TSH at next visit. Type 2 mariajose betes mellitus 66999937 E11.9 -restarted on metformin 500mg; patient reports that she has not been taking. Will plan on increasing the dose at next visit.-A1C 9.4 in officePati ent counselled extensivel y on importance of glucose control and complicati ons related to poor control. Bleeding from nose [id number] [id number] R04.0 Patient has a history of nosebleeds .-Patient states she was not taking eliquis prior to nose bleed-cons ider familial bleeding disorder but will need testing after patient has stopped taking apixaban.- has not had anymore episodes after ER visit. Noncomplia nce with medication regimen [id number] Z91.14 -Patient has poor health literacy; attempts to educate have not been very successful .-Patient has not been compliant with previously prescribed medication s and stops taking medication s on her without informing medical staff-Disc ussed importance of taking eliquis and the risk of stroke, OH, PE among other clotting complicati ons.-revie wed patients medication s and went over which meds she should be taking. refilled as needed. Vaccine de clined by patient [id number] 02 Z28.21 Patient refused covid and Tdap. She is very skeptical of any vaccines at this time. [id number] Ross Blake MD [place] [facility] IM [address] [facility] [address] [place] [id number] 12/22/2021 15:20:31 12/26/2021 13:27:26 Type 2 diabetes mellitus [id number] E11.9 - Metformin increased to 850- Patient has a history of not taking medication s as prescribed but stated she has been taking since her last visit.-A1C pendingPat ient counselled extensivel y on importance of glucose control and complicati ons related to poor control. Body mass index 30+ - obesity 382299479 Z68.37 -patient weight has been steady, no weight loss despite medical management . Acute lowe r gastrointestinal hemorrhage 90763897 K92.2 no current bleeding. s/p colonoscop y and polyp removal.- patient denies straining on deificatio n-continue preparatio n H for hemorrhoid s-recheck cbc after blood loss Hypothyroidism 72071394 E03.8 Patient continues to not take meds as prescribed .-TSH pending Noncomplia nce with medication regimen [id number] Z91.14 - Patient has poor health literacy; attempts to educate continue to be unsuccessf ul- Discussed importance of taking eliquis and the risk of stroke, OH, PE among other clotting complicati ons.- [id number] MD [facility] [address] [facility] [address] [place] [address] 09/23/2023 09:48:27 09/27/2023 09:25:47 Type 2 diabetes mellitus 53033681 E11.9 -Patient reports family history of complicati ons with metformin therapy-Diony lombardo reports she tried ozempic before and it caused severe nausea and constipati on.-Rechec k A1c today: 7.4%-Incre ase long acting insulin to 20 units daily and start Jardiance therapy 10mg daily-Keyshawn mmended diabetic diet-Educa mo to check feet daily.-Rec heck BMP within 2 weeks of starting jardiance, orders placed.-Diony lombardo agreeable to endocrinol ogist referral.- CATHODE RAY TU[employer] ASSEMBLER placing referral for diabetic eye exam-Micro albumin level ordered.-N P ordering blood glucose monitoring supplies for the patient.-D MII care instructio ns provided. Diabetic f oot examination declined [id number] Z53.20 Screening for malignant neoplasm of colon 938267056 Z12.11 -Patient agreeable to GI referral for screening colonoscop y Adult heal th examination 151721692 Z00.01 The patient was counseled regarding the appropriat e use ofalcohol, screening procedures and recommende d schedule for colonoscop y, cholestero l, thyroid and diabetes screening, prevention of dental and periodonta l disease, diet, regular sustained exercise for at least 30 minutes 3-4 times per week, regular use of seat belts.Keyshawn mmend dilated eye exam and glaucoma screening every 2 years or as indicated by ophthalmol [facility] Maintenanc e:- CRC screening (45-75): Ordered- Osteoporos is screening: Due at 65.- Lipid screening (>45 unless additional risk factors): ordered- HIV : ordered- HepC: ordered-Ey e exam: 2022-Denta l Exam: endentulou s- Immunizati ons:- Influenza: Due fall.- Prevnar 20: Due at 65.- Tdap/Td ([id number]) : 8/28/15- Zoster (>60):Due at 60.- COVID-19: Declined 09/23/23-Lakshmi elias ordered this visit:Fema les:Pap smear: FINANCIAL SYSTEMS MANAGER referral placedMamm ogram: orderedDEX A: N/A Venereal d isease screening [id number] Z11.3 -Patient reports having 2 new sexual partners-P atient denies having any known exposures to STDs-Patie nt reports she was not using protection -Patient reports having oral and vaginal intercours e.-Patient agreeable to vaginal and oral swbs for STD screening, HIV, hepatitis B an dC, and syphilis testing.-P atient denies having any vaginal symptoms.- CATH[employer]DE [employer] ASSEMBLER discussed importance of safe sex practices including condom use to prevent STDs and unplanned and to limit number of sexual partners to reduce exposure to STDs.-CATHODE R[employer] TUBE ASSEMBLER provided safer sex care instructio ns. Hyperlipidemia 28717422 E78.5 -No medication therapy-Re check lipid panel-Tiny wright LFTs-Hema nt educated on the importance of diet, exercise and medication in the management of this condition. Screening mammography 777584 Z12.31 Patient agreeable to screening mammogram Screening for malignant neoplasm of cervix 426250566 Z12.4 -Patient requesting FINANCIAL SYSTEMS MANAGER referral for screening pap smear Essential hypertension 85339681 I10 -BP today in clinic: 120/77mmHg (Goal <130/80)-C ontinue current therapy: Metoprolol 50mg BID-Trend renal function-R ecommended DASH diet-Discu ssed importance of regular exercise and/or physical activity inthe control of blood pressure.- Discussed low sodium diet w/ <2 g daily, avoidance of caffeine, appropriat e sleep hygiene and quality with >6 hours of uninterrup mo sleep.-Pat ient to call with BP >140/90mmH g or <110/70mmH g Bilateral lower leg edema [id number] R60.0 -Patient reports she has noticed developmen t of bilateral lower extremity edema-Bharti ent denies experienci ng increased dyspnea or history of heart failure.-N P encouraged patient to utilize mo hose and elevated lower extremitie s to help with swelling-C heck BNP level Smoker [id number] F17.200 -Patient reports she started smoking at age 14. Patient reports she was a 2PPD smoker. Patient quit smoking at age 43.-CATHODE [employer] TU[employer] ASSEMBLER encouraged continued cessation from tobacco [id number] Ross Blake MD [place] [facility] IM [address] [facility] [address] [place] [address] 10/21/2023 10:35:30 11/15/2023 13:43:05 Type 2 diabetes mellitus 53432845 E11.9 -Patient reports family history of complicati ons with metformin therapy-Diony lombardo reports she tried ozempic before and it caused severe nausea and constipati on.-Rechec k A1c today: 7.4%-Incre ase long acting insulin to 20 units daily and start Jardiance therapy 10mg daily-DM Maintenanc eEye exam: Referral placedFoot exam: Patient declined 10/21/23Mic roal: 7.9 (09/23/23)- Denies hypo/hyper glycemia episodes.- Recommende d diabetic diet-Educa mo to check feet daily.-Rec heck BMP within 2 weeks of starting jardiance, orders placed.-Diony lombardo agreeable to endocrinol ogist referral.- DMII care instructio ns provided.- Patient agreeable to increasing Semglee to 25 units daily-Bharti ent agreeable to waiting on prior authorizat ion for jardiance. Patient agreeable, if drug is not approved by Wednesday, plan to start glipizide therapy in place of jardiance. -Ordering blood glucose testing supplies-F /u in 1 month Diabetic f oot examination declined [id number] Z53.20 -Patient declined foot exam Screening for malignant neoplasm of colon 805305084 Z12.11 -Patient agreeable to GI referral for screening colonoscop y Hyperlipidemia 68606248 E78.5 -Uncontrol led-Lipid panel (09/23/23): cholestero l 204, triglyceri geovanny 145, HDL 41, LDL 137-LDL goal <100-No medication therapy- CVD risk: 10.6%-inte rmediate-D enies myalgia/ar thralgia-R echeck lipid panel in March-Tr end LFTs-Patie nt educated on the importance of diet, exercise and medication in the management of this condition. Essential hypertension 61204488 I10 -Controlle d-BP today in clinic: 112/81mmHg (Goal <130/80)-C ontinue current therapy: Metoprolol 50mg BID-Trend renal function-R ecommended DASH diet-Discu ssed importance of regular exercise and/or physical activity inthe control of blood pressure.- Discussed low sodium diet w/ <2 g daily, avoidance of caffeine, appropriat e sleep hygiene and quality with >6 hours of uninterrup mo sleep.-Pat ient to call with BP >140/90mmH g or <110/70mmH g Smoker 11379547 F17.200 -Patient reports she started smoking at age 14. Patient reports she was a 2PPD smoker. Patient quit smoking at age 43.-CATHODE R[employer] TU[employer] ASSEMBLER encouraged continued cessation from tobacco Depression screening [id number] 207003 Z13.31 -Patient reports her mood is stable at this time.-Bharti odonnell is concerned for diabetes management at this time. Body mass index 30+ - obesity 981805324 Z68.34 [id number] MD [facility] [address] [facility] [address] [facility] [address] [place] [address] 11/29/2023 09:51:53 12/07/2023 13:36:18 Type 2 diabetes mellitus 01880121 E11.9 -Patient reports family history of complicati ons with metformin therapy-Diony cuetoevelyn reports she tried ozempic before and it caused severe nausea and constipati on.-Rechec k A1c today: 7.4%-Incre ase long acting insulin to 20 units daily and start Jardiance therapy 10mg daily-Keyshawn mmended diabetic diet-Educa mo to check feet daily.-Rec heck BMP within 2 weeks of starting jardiance, orders placed.-Diony lombardo agreeable to endocrinol ogist referral.- CATHODE RAY TUBE ASSEMBLER placing referral for diabetic eye exam-Micro albumin level ordered.-N P ordering blood glucose monitoring supplies for the patient.-D MII care instructio ns provided. 11/30/23-Diony munira has just started Jardiance therapy two weeks ago-Suraj cormier just received her glucometer and plans to start monitoring blood glucose-Diony cuetoevelyn has been taking semglee 25 units HS-Patient agreeable to call Wednesday to discuss blood glucose levels. Log provided for patient to fill out.-Check BMP-Referr al placed for diabetic eye exam Anxiety [id number] F41.9 -Patient reports she is stressed. Patient reports stressors include not being able to work due to shoulder injury, and increased stress from her son since she is relying on him for income.-Diony lombardo reports history of allergy to hydroxyzin e and experienci ng hallucinat ions with buspar-Joan reagan would like to try very low dose xanax for acute attacks. Controlled substance agreement provided.U DS documented in chart from ED visit on 10/20/23DR UGS OF ABUSE SCREEN, URINE WITHOUT CONFIRMATI ONAmphetam ine, ur Not DetectedBa rbiturates , ur Not DetectedBe nzodiazepi en, ur Not DetectedCa nnabinoids , ur Not DetectedCo damián, ur Not DetectedFe ntanyl, Ur Not DetectedMe thadone, ur Not DetectedOp iates, ur Not DetectedOx ycodone, ur Not DetectedPh encyclidin e, ur Not DetectedUr ine Creatinine 129Narrati ve:Drug of Abuse screening is performed by edilberto mak for medical purposes only. -Repeat UDS-Denies active suicidal or homicidal thoughts. Denies history of suicidal or homicidal thoughts.- Patient reports increased anxiety related to stress.-PH Q9 score: 0-GAD7 score: 21-Patient declined psychiatry and counseling referrals at this time.-Bharti ent was educated on her prescribed medication s, rationale for medication s, dosing indication s, adverse reactions, black box warning, dosing indication s, SE (e.g., decreased libido, weight gain, gynecomast ia, and galactorrh ea) and the risks and benefits.- Patient instructed to go to ER or call 911 or 988 for crisis (e.g., suicidal behaviors, suicidal ideations, intent or plan emerge). Additional ly, patient has suicide hotline #.-Start ed therapy: escitalopr am 5mg daily. Patient agreeable to xanax 30 tablets per year for acute anxiety attacks pending UDS. If patient requires additional xanax medication therapy, patient is agreeable to seeing psychiatry .-f/u one month-Advi sed patient to call clinic with questions Nausea [id number] R11.0 -Patient reports increased nausea and GERD due to the foods she is eating. Patient reports she has been relying on food from the local food pantries and the 'food isn't good for her'.-Bharti ent agreeable to treatment with famotidine 20mg BID to help with GERD symptoms.- Consider GI referral if symptoms do not improve. [id number] MD [facility] [address] IM [address] [facility] [address] [place] [address] 12/16/2023 09:45:11 12/16/2023 12:47:47 Type 2 diabetes mellitus 93940917 E11.9 -Patient reports family history of complicati ons with metformin therapy-Diony munira reports she tried ozempic before and it caused severe nausea and constipati on.-Rechec k A1c today: 7.4%-Incre ase long acting insulin to 20 units daily and start Jardiance therapy 10mg daily-Keyshawn mmended diabetic diet-Educa mo to check feet daily.-Rec heck BMP within 2 weeks of starting jardiance, orders placed.-Diony lombardo agreeable to endocrinol ogist referral.- CATHODE RAY TUBE ASSEMBLER placing referral for diabetic eye exam-Micro albumin level ordered.-N P ordering blood glucose monitoring supplies for the patient.-D MII care instructio ns provided. 11/30/23-Diony munira has just started Jardiance therapy two weeks ago-Suraj genia just received her glucometer and plans to start monitoring blood glucose-Diony munira has been taking semglee 25 units HS-Patient agreeable to call Wednesday to discuss blood glucose levels. Log provided for patient to fill out.-Check BMP-Referr al placed for diabetic eye exam 12/16/23-P atient agreeable to increasing jardiance 25mg daily-Chec k BMP-Suraj cormier to f/u 01/21/24 for repeat [id number] provided for patient's work as requested by the patient-Diony lombardo to continue monitoring blood glucose levels. Anxiety [id number] F41.9 -Patient reports she is stressed. Patient reports stressors include not being able to work due to shoulder injury, and increased stress from her son since she is relying on him for income.-Diony lombardo reports history of allergy to hydroxyzin e and experienci ng hallucinat ions with buspar-Pat ient would like to try very low dose xanax for acute attacks. Controlled substance agreement provided.U DS documented in chart from ED visit on 10/20/23DR UGS OF ABUSE SCREEN, URINE WITHOUT CONFIRMATI ONAmphetam ine, ur Not DetectedBa rbiturates , ur Not DetectedBe nzodiazepi en, ur Not DetectedCa nnabinoids , ur Not DetectedCo damián, ur Not DetectedFe ntanyl, Ur Not DetectedMe thadone, ur Not DetectedOp iates, ur Not DetectedOx ycodone, ur Not DetectedPh encyclidin e, ur Not DetectedUr ine Creatinine 129Narrati ve:Drug of Abuse screening is performed by immunoassa y for medical purposes only. -Repeat UDS-Denies active suicidal or homicidal thoughts. Denies history of suicidal or homicidal thoughts.- Patient reports increased anxiety related to stress.-PH Q9 score: 0-GAD7 score: 21-Patient declined psychiatry and counseling referrals at this time.-Bharti ent was educated on her prescribed medication s, rationale for medication s, dosing indication s, adverse reactions, black box warning, dosing indication s, SE (e.g., decreased libido, weight gain, gynecomast ia, and galactorrh ea) and the risks and benefits.- Patient instructed to go to ER or call 911 or 988 for crisis (e.g., suicidal behaviors, suicidal ideations, intent or plan emerge). Additional ly, patient has suicide hotline #.-Start ed therapy: escitalopr am 5mg daily. Patient agreeable to xanax 30 tablets per year for acute anxiety attacks pending UDS. If patient requires additional xanax medication therapy, patient is agreeable to seeing psychiatry .-f/u one month-Advi sed patient to call clinic with questions 12/16/23-P atient reports she took escitalopr am 5mg daily for 1 week and then stopped because she didn't feel the effects.-P atient to restart escitalopr am 5mg daily and f/u in 1 month. [id number] Ross Blake MD [facility] [address] [place] [address] 01/21/2024 09:24:36 01/24/2024 14:51:33 Type 2 diabetes mellitus 41285044 E11.9 -Patient reports family history of complicati ons with metformin therapy-Diony lombardo reports she tried ozempic before and it caused severe nausea and constipati on.-Rechec k A1c today: 7.4%-Incre ase long acting insulin to 20 units daily and start Jardiance therapy 10mg daily-Keyshawn mmended diabetic diet-Educa mo to check feet daily.-Rec heck BMP within 2 weeks of starting jardiance, orders placed.-Diony lombardo agreeable to endocrinol ogist referral.- CATHODE RAY TUBE ASSEMBLER placing referral for diabetic eye exam-Micro albumin level ordered.-N P ordering blood glucose monitoring supplies for the patient.-D MII care instructio ns provided. 11/30/23-Diony lombardo has just started Jardiance therapy two weeks ago-Suraj cormier just received her glucometer and plans to start monitoring blood glucose-Diony cuetoevelyn has been taking semglee 25 units HS-Patient agreeable to call Wednesday to discuss blood glucose levels. Log provided for patient to fill out.-Check BMP-Referr al placed for diabetic eye exam 12/16/23-P atient agreeable to increasing jardiance 25mg daily-Chec k BMP-Suraj cormier to f/u 01/21/24 for repeat [id number] provided for patient's work as requested by the patient-Diony lombardo to continue monitoring blood glucose levels. 01/21/24-P atient is supposed to f/u with endocrinol ogy this month, but his schedule is booked 3-4 months out-Averag e blood glucose is in low 200's.-Joan reagan agreeable to increasing glimepirid e 4mg daily-Cont inue: jardiance 25mg daily, lantus 20units HS-Plan for follow up call in 2 weeks. If blood glucose level is not improving, consider increasing lantus to 25 units HS.-Letter provided for patient's work as requested by the patient Anxiety 16470304 F41.9 -Patient reports she is stressed. Patient reports stressors include not being able to work due to shoulder injury, and increased stress from her son since she is relying on him for income.-Diony lombardo reports history of allergy to hydroxyzin e and experienci ng hallucinat ions with buspar-Joan reagan would like to try very low dose xanax for acute attacks. Controlled substance agreement provided.U DS documented in chart from ED visit on 10/20/23DR UGS OF ABUSE SCREEN, URINE WITHOUT CONFIRMATI ONAmphetam ine, ur Not DetectedBa rbiturates , ur Not DetectedBe nzodiazepi en, ur Not DetectedCa nnabinoids , ur Not DetectedCo damián, ur Not DetectedFe ntanyl, Ur Not DetectedMe thadone, ur Not DetectedOp iates, ur Not DetectedOx ycodone, ur Not DetectedPh encyclidin e, ur Not DetectedUr ine Creatinine 129Narrati ve:Drug of Abuse screening is performed by immunoassa y for medical purposes only. -Repeat UDS-Denies active suicidal or homicidal thoughts. Denies history of suicidal or homicidal thoughts.- Patient reports increased anxiety related to stress.-PH Q9 score: 0-GAD7 score: 21-Patient declined psychiatry and counseling referrals at this time.-Bharti ent was educated on her prescribed medication s, rationale for medication s, dosing indication s, adverse reactions, black box warning, dosing indication s, SE (e.g., decreased libido, weight gain, gynecomast ia, and galactorrh ea) and the risks and benefits.- Patient instructed to go to ER or call 911 or 988 for crisis (e.g., suicidal behaviors, suicidal ideations, intent or plan emerge). Additional ly, patient has suicide hotline #.-Start ed therapy: escitalopr am 5mg daily. Patient agreeable to xanax 30 tablets per year for acute anxiety attacks pending UDS. If patient requires additional xanax medication therapy, patient is agreeable to seeing psychiatry .-f/u one month-Advi sed patient to call clinic with questions 12/16/23-P atient reports she took escitalopr am 5mg daily for 1 week and then stopped because she didn't feel the effects.-P atient to restart escitalopr am 5mg daily and f/u in 1 month. 01/21/24-P atient reports she is unable to consistent ly take her medication s for depression .-Patient reports feeling depressed, but wants to focus on diabetes medication s for now.-Patie nt declined psychiatri st referral at this time.-ER precaution s advised Pain of ri ght shoulder joint [id number] M25.511 -Patient reports intermitte nt severe right shoulder pain 1-2 times per week.-Bharti ent reports orthopedic provider will not allow her to schedule an appointmen t to discuss pain management until her surgery.-P atient agreeable to a trial of meloxicam 7.5mg daily PRN Acute otit is externa of right ear [id number] H60.501 -Presentat ion concerning for otitis externa.-P atient agreeable to treatment with ofloxacin for 7 days.-Bharti ent to return to clinic if symptoms do not improve Spasm [id number] R25.2 -Patient reports she has random 'nick horses' to her right thigh and muscle spams to her left eye-Recent BMP check showed electrolyt es within normal limits-Pat ient recently compliant with thyroid and diabetes medication s.-Plan to recheck BMP and thyroid levels at follow up. [id number] Ross Blake MD [place] [facility] IM [address] [facility] [address] [place] [id number] 01/26/2024 14:50:09 02/01/2024 11:16:35 Blurring of visual image [id number] H53.8 -Patient reports worsening symptoms.- Patient is agreeable to seeking care in [place] ED. CATHODE RAY TUBE ASSEMBLER has called report. Patient declined EMS transport. -Patient agreeable to stat head/neck CT with contrast in case she is unable to seek care in ED-Request ing records from [facility] as well. [id number] Ross Blake MD [facility] HC [address] [place] [address] 04/28/2024 10:23:33 05/01/2024 11:29:32 Type 2 diabetes mellitus [id number] E11.9 -Patient reports family history of complicati ons with metformin therapy-Diony cuetoevelyn reports she tried ozempic before and it caused severe nausea and constipati on.-Rechec k A1c today: 7.4%-Incre ase long acting insulin to 20 units daily and start Jardiance therapy 10mg daily-Keyshawn mmended diabetic diet-Educa mo to check feet daily.-Rec heck BMP within 2 weeks of starting jardiance, orders placed.-Diony lombardo agreeable to endocrinol ogist referral.- C[employer] placing referral for diabetic eye exam-Micro albumin level ordered.-N P ordering blood glucose monitoring supplies for the patient.-D MII care instructio ns provided. 11/30/23-Diony munira has just started Jardiance therapy two weeks ago-Patien t just received her glucometer and plans to start monitoring blood glucose-Diony lombardo has been taking semglee 25 units HS-Patient agreeable to call Wednesday to discuss blood glucose levels. Log provided for patient to fill out.-Check BMP-Referr al placed for diabetic eye exam 12/16/23-Nickie rivera agreeable to increasing jardiance 25mg daily-Chec k BMP-Patien t to f/u 01/21/24 for repeat [id number] provided for patient's work as requested by the patient-Diony lombardo to continue monitoring blood glucose levels. 01/21/24-P atient is supposed to f/u with endocrinol ogy this month, but his schedule is booked 3-4 months out-Shanika townsend blood glucose is in low 200's.-Joan reagan agreeable to increasing glimepirid e 4mg daily-Cont inue: jardiance 25mg daily, lantus 20units HS-Plan for follow up call in 2 weeks. If blood glucose level is not improving, consider increasing lantus to 25 units HS.-Letter provided for patient's work as requested by the patient 04/28/24-Re check A1c-8.3% today-Bharti odonnell reports she has been off of her glimepirid e 4mg and jardiance 25mg daily for 2 weeks.-Joan reagan has not been monitoring her blood glucose.-Nickie rivera has appointmen t with endocrinol ogist on 05/03/24.-Nickie shelton to restart glimepirid e and jardiance therapy and patient to see endo next week.-[facility] k CMP-Ophtha mlmologist referral placed. Anxiety [id number] F41.9 -Patient reports she is stressed. Patient reports stressors include not being able to work due to shoulder injury, and increased stress from her son since she is relying on him for income.-Diony lombardo reports history of allergy to hydroxyzin e and experienci ng hallucinat ions with buspar-Joan reagan would like to try very low dose xanax for acute attacks. Controlled substance agreement provided.U DS documented in chart from ED visit on 10/20/23DR UGS OF ABUSE SCREEN, URINE WITHOUT CONFIRMATI ONAmphetam ine, ur Not DetectedBa rbiturates , ur Not DetectedBe nzodiazepi en, ur Not DetectedCa nnabinoids , ur Not DetectedCo damián, ur Not DetectedFe ntanyl, Ur Not DetectedMe thadone, ur Not DetectedOp iates, ur Not DetectedOx ycodone, ur Not DetectedPh encyclidin e, ur Not DetectedUr ine Creatinine 129Narrati ve:Drug of Abuse screening is performed by [facility] for medical purposes only. -Repeat UDS-Denies active suicidal or homicidal thoughts. Denies history of suicidal or homicidal thoughts.- Patient reports increased anxiety related to stress.-PH Q9 score: 0-GAD7 score: 21-Patient declined psychiatry and counseling referrals at this time.-Bharti ent was educated on her prescribed medication s, rationale for medication s, dosing indication s, adverse reactions, black box warning, dosing indication s, SE (e.g., decreased libido, weight gain, gynecomast ia, and galactorrh ea) and the risks and benefits.- Patient instructed to go to ER or call 911 or 988 for crisis (e.g., suicidal behaviors, suicidal ideations, intent or plan emerge). Additional ly, patient has suicide hotline #.-Start ed therapy: escitalopr am 5mg daily. Patient agreeable to xanax 30 tablets per year for acute anxiety attacks pending UDS. If patient requires additional xanax medication therapy, patient is agreeable to seeing psychiatry .-f/u one month-Advi sed patient to call clinic with questions 12/16/23-P atient reports she took escitalopr am 5mg daily for 1 week and then stopped because she didn't feel the effects.-P atient to restart escitalopr am 5mg daily and f/u in 1 month. 01/21/24-P atient reports she is unable to consistent ly take her medication s for depression .-Patient reports feeling depressed, but wants to focus on diabetes medication s for now.-Patie nt declined psychiatri st referral at this time.-ER precaution s advised 04/28/24-Diony lombardo reports she is not taking anything for mood.-Bharti ent reports having depressed mood.-Roman es active suicidal or homicidal thoughts. Denies history of suicidal or homicidal thoughts.- PHQ9 score:-Adv ised counseling , psychologi st referral placed-Joan reagan was educated on her prescribed medication s, rationale for medication s, dosing indication s, adverse reactions, black box warning, dosing indication s, SE (e.g., decreased libido, weight gain, gynecomast ia, and galactorrh ea) and the risks and benefits.- Patient instructed to go to ER or call 911 or 988 for crisis (e.g., suicidal behaviors, suicidal ideations, intent or plan emerge). Additional ly, patient has suicide hotline #[phone].-Start ed therapy: escitalopr am 10mg daily-f/u one month-Advi sed patient to call clinic with questions Pain of ri ght shoulder joint [id number] M25.511 -Patient reports intermitte nt severe right shoulder pain 1-2 times per week.-Bharti ent reports orthopedic provider will not allow her to schedule an appointmen t to discuss pain management until her surgery.-P atient agreeable to a trial of meloxicam 7.5mg daily PR04/28/24 -Patient reports she has a 'back up stash' of pain medication -hydrocodo ne for severe pain.-Bharti ent reports meloxicam did not help her pain.-Bharti ent agreeable to pain management referral. Acute otit is externa of right ear [id number] 975005 H60.501 -Presentat ion concerning for otitis externa.-P atient agreeable to treatment with ofloxacin for 7 days.-Bharti ent to return to clinic if symptoms do not improve04/09 04/01-Persi stent otitis externa. Patient agreeable to ENT referral for further evaluation . Blurring o f visual image [id number] H53.8 -Patient reports worsening symptoms.- Patient is agreeable to seeking care in [place] ED. C[employer] ASSEMBLER has called report. Patient declined EMS transport. -Patient agreeable to stat head/neck CT with contrast in case she is unable to seek care in ED-Request ing records from [facility] as well.-Patient to see ophthalmol ogists for eye evaluation . Screening for malignant neoplasm of cervix [id number] Z12.4 -Patient requesting [employer]CIAL [employer] MANAGER referral for screening pap smear Screening for malignant neoplasm of colon [id number] Z12.11 -Patient agreeable to GI referral for screening colonoscop y Essential hypertension [id number] I10 -Controlle d-Manageme nt per Cardiology -BP today in clinic: 115/79mmHg (Goal <130/80)-C ontinue current therapy: Metoprolol 50mg BID, hydrochlor othiazide 25mg daily, flecainide 100mg BID-Trend renal function-R ecommended DASH diet-Discu ssed importance of regular exercise and/or physical activity inthe control of blood pressure.- Discussed low sodium diet w/ <2 g daily, avoidance of caffeine, appropriat e sleep hygiene and quality with >6 hours of uninterrup mo sleep.-Pat ient to call with BP >140/90mmH g or <110/70mmH g Vitamin D deficiency [phone] E55.9 -Recommend taking vitamin D supplement cholecalci ferol 1000 internatio nal units by mouth daily-Keyshawn mmended foods high in vitamin D including: Milk, fortified orange juice, yogurt, salmon, canned tuna, cod liver oil and cereals with vitamin D added-Kaley tor vitamin d levels Mass of skin [id number] R 22.9 -Mass noted to right LE aguero. Patient reports tenderness with palpation. -Patient agreeable to US of mass. [id number] Ross Blake MD [facility] (Adult Med[facility] [address] [place] [address] 08/01/2024 15:26:04 08/07/2024 11:56:32 Uncontrolled type 2 diabetes mellitus [id number] E11.65 -Patient reports family history of complicati ons with metformin therapy-Diony cuetoevelyn reports she tried ozempic before and it caused severe nausea and constipati on.-Rechec k A1c today: 7.4%-Incre ase long acting insulin to 20 units daily and start Jardiance therapy 10mg daily-Keyshawn mmended diabetic diet-Educa mo to check feet daily.-Rec heck BMP within 2 weeks of starting jardiance, orders placed.-Diony lombardo agreeable to endocrinol ogist referral.- C[employer] ASSEMBLER placing referral for diabetic eye exam-Micro albumin level ordered.-N P ordering blood glucose monitoring supplies for the patient.-D MII care instructio ns provided. 11/30/23-Diony munira has just started Jardiance therapy two weeks ago-Patien t just received her glucometer and plans to start monitoring blood glucose-Diony cuetoevelyn has been taking semglee 25 units HS-Patient agreeable to call Antonio to discuss blood glucose levels. Log provided for patient to fill out.-Check BMP-Referr al placed for diabetic eye exam 12/16/23-Nickie rivera agreeable to increasing jardiance 25mg daily-Chec k BMP-Patiheber t to f/u 01/21/24 for repeat [id number]-Qirhle provided for patient's work as requested by the patient-Diony lombardo to continue monitoring blood glucose levels. 01/21/24-Nickie rivrea is supposed to f/u with endocrinol ogy this month, but his schedule is booked 3-4 months out-Averag e blood glucose is in low 200's.-Joan reagan agreeable to increasing glimepirid e 4mg daily-Cont inue: jardiance 25mg daily, lantus 20units HS-Plan for follow up call in 2 weeks. If blood glucose level is not improving, consider increasing lantus to 25 units HS.-Letter provided for patient's work as requested by the patient 04/28/24-Re check A1c-8.3% today-Bharti odonnell reports she has been off of her glimepirid e 4mg and jardiance 25mg daily for 2 weeks.-Joan reagan has not been monitoring her blood glucose.-Nickie rivera has appointmen t with endocrinol ogist on 05/03/24.-Nickie hselton to restart glimepirid e and jardiance therapy and patient to see endo next week.-[facility] k CMP-Ophtha mlmologist referral placed. 08/01/24-Diony lombardo has not been taking any medication s for diabetes currently. -A1c today: 7.1%-Hema rivas failed metformin therapy previously .-Patient would like to restart therapies after she obtains insurance. Patient to notify provider when she can order medication s.-Patient has not seen endocrinol ogy yet.-Recom mended diabetic diet-Educa mo to check feet daily.-fol low-up in 3 months Essential hypertension [id number] I10 -Controlle d-Manageme nt per Cardiology -BP today in clinic: 118/82mmHg (Goal <130/80)-C ontinue current therapy: Metoprolol 50mg BID, hydrochlor othiazide 25mg daily, flecainide 100mg BID-C[employer]SEMBLER renewing patient's hypertensi on medication s.-Trend renal function-R ecommended DASH diet-Discu ssed importance of regular exercise and/or physical activity inthe control of blood pressure.- Discussed low sodium diet w/ <2 g daily, avoidance of caffeine, appropriat e sleep hygiene and quality with >6 hours of uninterrup mo sleep.-Pat ient to call with BP >140/90mmH g or <110/70mmH g Hypothyroidism [id number] E03.9 -High TSH, low T4-Patient agreeable to starting levothyrox ine 100mcg daily-Rech edilia thyroid levels in 6 weeks 12/20/23-P atient still has elevated TSH and low T4.-Increa sing levothyrox ine to 125mcg daily-Rech edilia levels in 8 weeks. 08/01/24-re check thyroid panel-cont inue current therapy at this time: Levothyrox ine 100 mcg daily-bharti ent should make an appointmen t with the endocrinol ogist Atrial fibrillation [phone] I48.91 -patient agreeable to cardiologi st referral for further management -C[employer]DE [employer] ASSEMBLER providing short refill of flecainide therapy to help prevent and atrial fibrillati on exacerbati on-ER precaution s advised Mixed anxi ety and depressive disorder [id number] F41.8 F41.9 F32.A -Patient reports she is stressed. Patient reports stressors include not being able to work due to shoulder injury, and increased stress from her son since she is relying on him for income.-Diony lombardo reports history of allergy to hydroxyzin e and experienci ng hallucinat ions with buspar-Pat ient would like to try very low dose xanax for acute attacks. Controlled substance agreement provided.U DS documented in chart from ED visit on 10/20/23DR UGS OF ABUSE SCREEN, URINE WITHOUT CONFIRMATI ONAmphetam ine, ur Not DetectedBa rbiturates , ur Not DetectedBe nzodiazepi en, ur Not DetectedCa nnabinoids , ur Not DetectedCo damián, ur Not DetectedFe ntanyl, Ur Not DetectedMe thadone, ur Not DetectedOp iates, ur Not DetectedOx ycodone, ur Not DetectedPh encyclidin e, ur Not DetectedUr ine Creatinine 129Narrati ve:Drug of Abuse screening is performed by [facility] for medical purposes only. -Repeat UDS-Denies active suicidal or homicidal thoughts. Denies history of suicidal or homicidal thoughts.- Patient reports increased anxiety related to stress.-PH Q9 score: 0-GAD7 score: 21-Patient declined psychiatry and counseling referrals at this time.-Bharti ent was educated on her prescribed medication s, rationale for medication s, dosing indication s, adverse reactions, black box warning, dosing indication s, SE (e.g., decreased libido, weight gain, gynecomast ia, and galactorrh ea) and the risks and benefits.- Patient instructed to go to ER or call 911 or 988 for crisis (e.g., suicidal behaviors, suicidal ideations, intent or plan emerge). Additional ly, patient has suicide hotline #[phone].-Start ed therapy: escitalopr am 5mg daily. Patient agreeable to xanax 30 tablets per year for acute anxiety attacks pending UDS. If patient requires additional xanax medication therapy, patient is agreeable to seeing psychiatry .-f/u one month-Advi sed patient to call clinic with questions 12/16/23-P atient reports she took escitalopr am 5mg daily for 1 week and then stopped because she didn't feel the effects.-P atient to restart escitalopr am 5mg daily and f/u in 1 month. 01/21/24-P atient reports she is unable to consistent ly take her medication s for depression .-Patient reports feeling depressed, but wants to focus on diabetes medication s for now.-Hema nt declined psychiatri st referral at this time.-ER precaution s advised 04/28/24-Diony lombardo reports she is not taking anything for mood.-Bharti ent reports having depressed mood.-Roman es active suicidal or homicidal thoughts. Denies history of suicidal or homicidal thoughts.- PHQ9 score:-Adv ised counseling , psychologi st referral placed-Joan reagan was educated on her prescribed medication s, rationale for medication s, dosing indication s, adverse reactions, black box warning, dosing indication s, SE (e.g., decreased libido, weight gain, gynecomast ia, and galactorrh ea) and the risks and benefits.- Patient instructed to go to ER or call 911 or 988 for crisis (e.g., suicidal behaviors, suicidal ideations, intent or plan emerge). Additional ly, patient has suicide hotline #.-Start ed therapy: escitalopr am 10mg daily-f/u one month-Advi sed patient to call clinic with questions 08/01/24-Diony lombardo reports the escitalopr am helped her mood.-She ran out of medication and failed to f/u. Patient would like to restart her medication therapy.-r estart escitalopr am 10 mg daily-foll ow up in 1 month [id number] Roger White MD [facility] [place] [address] [place] [address] 08/15/2024 14:53:02 08/16/2024 12:55:13 Obese class I [id number] 21541 E66.811 Ongoing efforts at diet/exerc ise reinforced . Paroxysmal atrial fibrillation 526231034 I48.0 Well-maint ained on flecainide . Continue flecainide 100 b.i.d. along with metoprolol tartrate 50 b.i.d.. We will consider repeat EP evaluation in case of breakthrou gh episodes of AFib or PSVT. Preoperati ve procedure [id number] Z01.810 Based on well-contr olled arrhythmia s, functional status greater than 4 Mets, no CAD with no signs of heart failure, may proceed at acceptable cardiac risk for the planned orthopedic surgical procedure. Can hold aspirin for 5-7 days prior and resume as soon as possible postproced ure. Obstructiv e sleep apnea syndrome 11188040 G47.33 Refer to Sleep Medicine within [facility] system for further optimizati on of CRISTIAN History of transient ischemic attack 784896942 Z86.73 Last TIA in 2019 per patient report. CTA done at [facility] reviewed which does not show any high-grade vascular stenosis. Suspect related to AFib as outlined below. Continue aspirin 81 mg daily along with atorvastat in in the interim. Anticoagul ant drug monitoring [id number] Z51.81 Z79.01 CHADS2 Vasc score elevated in the setting of gender, hypertensi on, type 2 diabetes and previous TIA at 5. Unable to tolerate anticoagul ation per her account due to upper airway bleeding along with epistaxis which has been previously attended by her treating cardiology team. We discussed options of left atrial appendage occlusion and we will refer her locally for evaluation of the same. Red flag symptoms in the interim discussed. Continue aspirin 81 mg daily for now. Health Concerns Section Related Observation LastModified by Organization Detai ls LastModified Time None Recorded Concern Status LastModified by Organization Details LastModified Time None Recorded Advance Directives Directive N: Payers Insurance Date Sequence Insurance Name Policy Number Policy Campoverde Covered Member ID Campoverde Member ID Guarantor Name 12/21/2019 2 *SELF PAY* Natan Arriaga Main 08/15/2024 1 [place] [facility] Josseline Roger [id number] Josseline Roger 12/21/2019 SLIDING FEE SCHEDULE - DISCOUNT Josseline Roger 08/15/2024 3 [employer] (PPO) Josseline Roger [id number] Josseline Roger 09/11/2024 2 [facility]-[employer]IG[employer] - [employer] - CIGNA [id number] Josseline Roger [id number] Josseline Roger 08/15/2024 1 [employer] Josseline Roger [id number] Josseline Arriaga Main 09/22/2023 1 *SELF PAY* Natan Arriaga Main 08/15/2024 1 [facility] [id number] Josseline Roger [id number] Josseline Arriaga Main 04/29/2021 3 *SELF PAY* Natan Arriaga Main 03/10/2021 SLIDING FEE SCHEDULE - DISCOUNT oJsseline Arriaga Main 08/15/2024 1 [facility] (EPO) [id number] Josseline Roger [id number] Josseline Arriaga Main 09/04/2024 1 [employer] - [facility] [employer] (PPO) [id number] Josseline Roger [id number] Josseline Arriaga Main 08/15/2024 1 [employer] [place] (MEDICAID HMO) [id number] Josseline Roger [id number] Josseline Roger 08/25/2024 1 [facility]-[employer] - [employer] - CIGNA Josseline Roger [id number] Josseline Roger 08/21/2024 2 [facility] BENEFIT PLAN MANAGEMENT (PPO) Josseline Roger [id number] Josseline Roger 09/19/2024 1 [place] [facility] [place] PUBLIC [employer] Josseline Roger [id number] Josseline Roger Notes Date Note Type Note Provider Name and Address Organization Details Recorded Time 4 text/html Patient presents to the clinic for diabetes and anxiety follow up. Patient's past medical history includes: hypothyroidism, migraines, anxiety, depression, fibromyalgia, DMII, SVT, atrial fibrillation, carpal tunnel syndrome-with surgical repair x2, chronic lower back pain, cholecystectomy, essure tubal implant, cervical fusion, 2 pregnancies-1miscarriage- 1 vaginal delivery-1 living childOther Providers:Dr. CollazoTwlafqtk-KqbmxohctcDN[facility] H[facility]-Medication therapy: Lantus 20units in the morning, Jardiance 25mg daily, glimepiride 2mg daily-Last A1c: 8.4% on 12/29/23 at ladle puller's office KANE DELAROSA Attn: Accounting,[address] [place], [address], [facility] 01/21/2024 11:47:07 4 text/html Patient presents to the clinic for ED follow up. Patient's past medical history includes: hypothyroidism, migraines, anxiety, depression, fibromyalgia, DMII, SVT, atrial fibrillation, carpal tunnel syndrome-with surgical repair x2, chronic lower back pain, cholecystectomy, essure tubal implant, cervical fusion, 2 pregnancies-1miscarriage- 1 vaginal delivery-1 living childOther Providers:Dr. Collazo-CardiologyED Follow Up-Patient went to the ED on 01/22/24. Patient reports she went to [facility], an ECG and labs were performed.-Patient reports symptoms of blurring vision, chest pain, neck pain, nausea, abdominal pain, increased forget fullness, and headache.-Patient reports symptoms started on Wednesday. She has had no improvement in symptoms.-Patient reports the ED did not treat her pain. She left out of fear that the provider would yell at her.-Patient refused to go to the ED locally. Patient states the providers here are cruel. KANE DELAROSA Attn: Accounting,[address] , [place], [address], [facility] 01/26/2024 17:19:08 5 text/html Patient presents to the clinic for 3 month follow up. Patient's past medical history includes: hypothyroidism, migraines, anxiety, depression, fibromyalgia, DMII, SVT, atrial fibrillation, carpal tunnel syndrome-with surgical repair x2, chronic lower back pain, cholecystectomy, essure tubal implant, cervical fusion, 2 pregnancies-1miscarriage- 1 vaginal delivery-1 living childOther Providers:Dr. Terra Horne-Endocrinology -Patient reports in January, she drove to [place], [place] and stayed with a friend for a few weeks while feeling depressed. Patient reports she is doing better now.-Patient reports she no longer has her work insurance and will be using medicaid for insurance now. KANE DELAROSA Attn: Accounting,[address] [facility], [place], [address], [facility] 04/29/2024 13:28:41 5 text/html Patient presents to the clinic for a 3-month follow-up. Patient's past medical history includes: hypothyroidism, migraines, anxiety, depression, fibromyalgia, DMII, SVT, atrial fibrillation, carpal tunnel syndrome-with surgical repair x2, chronic lower back pain, cholecystectomy, essure tubal implant, cervical fusion, 2 pregnancies-1miscarriage- 1 vaginal delivery-1 living childOther Providers:Dr. Terra Horne-Endocrinology -patient reports she has stopped most of her medications-patient is trying to obtain clearance to go back to work KANE DELAROSA Attn: Accounting,[address] [facility], [place], [address], [facility] 08/06/2024 20:04:17 5 text/html I had the pleasure of seeing this patient as a new consultation from Dotty Charles DNP for recommendations regarding evaluation and management of atrial fibrillation, SVT and preoperative cardiac risk stratification prior to planned shoulder surgery. Patient denies any chest pain or pressure. Sporadic palpitations which are well-controlled on current dose of flecainide and metoprolol. Reports lifestyle limiting upper airway and epistaxis bleeding on anticoagulation which has been attempted previously per her account. Functional status greater than 4 Mets. Reports intolerance to CPAP due to mask and cost concerns. Working on diet/exercise for weight management. 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 Maintained on flecainide- Paroxysmal atrial fibrillation With anticoagulation intolerance due to recurrent nose and upper airway bleeding- Hypertension- Obesity- CRISTIAN with CPAP intolerance- History of TIA Roger White MD Attn: Accounting,[address] [place], [address], [facility] 08/15/2024 15:44:44 OBGyn Episode Ob Episode Information Episode Created Date Number of Fetuses Patient Bloodtype Patient rh Status Prepregnancy Weight lbs Domestic Partner Domestic Partner Phone Father Name Rubber Goods Inspector Tester Status 11/03/19 15 1 CLOSED Fetus Data First Name Last Name Admitted to NICU Weight (g) Sex Living Outcome Pediatric Complications Fetus ID Race Codes Race Delivery Type 3486.98 85 M Full Term [id number] Vaginal Abelardo Calculation Initial Abelardo Date Initial Exam Date Initial Exam Provider Initial Ultrasound Date Last Menstrual Period Date Ultra Sound Weeks Gestation 0 Eighteen To Twenty Week Abelardo Update Ultra Sound Date Fundal Height At Umbil Quickening Date Ultra Sound Latest Weeks Gestation Final Abelardo Confirmed By Final Abelardo Confirmed Date Final Abelardo Date Ultra Sound Latest Days Gestation 0 0 Menstrual History Last Menstrual Date Menses Monthly On Bcp Conception Prior Menses Frequency Hcg Plus Date Menarche Onset Age Delivery Information Delivery Date Delivery Type Labor Anesthesia Weeks Gestation Incision Type Labor Labor Length Hrs Delivered By Post Complications Tubal Sterilization Discharge Date Comments 4 Discharge Information Feeding Method Contraceptive Method Maternal HG B and HCT Levels
[2024-09-24 13:38] VITALS: BP 134/86; PULSE 88; RESP 18; TEMP 36.9; O2SAT 98
[2024-09-24 13:54] LABS: Alanine Aminotransferase 19 U/L (6-35); Albumin Level 4.1 g/dL (3.5-5.1); Alkaline Phosphatase 59 U/L (38-126); Anion Gap 10 mmol/L (4-12); Aspartate Amino Transferase 25 U/L (14-36); Bilirubin,Total 0.9 mg/dL (0.2-1.3); Blood Urea Nitrogen 8 mg/dL (7-17); Calcium 9.2 mg/dL (8.4-10.2); Carbon Dioxide 24 mmol/L (22-30); Chloride 103 mmol/L (98-107); Estimated CRCL calculation 154 ml/min; Estimated Glomerular Filt Rate > 60; Glucose 217 mg/dL (65-110); INR 1.0; Lipase 140 U/L (23-300); Potassium 3.8 mmol/L (3.4-5.0); Prothrombin Time 13.6 Seconds (11.1-14.7); Sodium 137 mmol/L (137-145); Total Protein 7.6 g/dL (6.3-8.2)
[2024-09-24 13:55] LABS: Partial Thromboplastin Time 21.4 Seconds (22.3-36.8)
[2024-09-24 14:04] LABS: Troponin I < 0.012 ng/mL (0.000-0.034)
--- OUTSIDE RECORDS SUMMARY | 2024-09-24 14:50 | XMS_ITS | Clinical Summary ---
Author Organization [facility] Address [address] [place] [address] Care Team Providers Care Journalism Internship Name Role Phone Alvni Franco MD Unavailable [phone] Miscellaneous, Not In File Unavailable Unava ilable Coco Bernal NP Unavailable [phone] Daryn Bui MD Unavailable [phone] Trevon Benson MD Unavailable Dotty Charles MANAGER PAPER Primary Care Provider Allergies Active Allergy Reactions [...] mL 5 05/03/19 25 Active blood-glucose sensor (Swoopcom G7 Sensor) device Use for BG monitoring [...] 03/21/2022 Assessment & Plan (05/03/2024 2:44 PM DIRECTOR OF GROUP SALES): Chronic problem. On statin therapy, she misses [...] 12/14/2021 Assessment & Plan (05/03/2024 1:36 PM DIRECTOR OF GROUP SALES): Chronic problem, Controlled on HCTZ, metoprolol. No [...] Nasal saline spray (Simply saline, Little Remedies, [place], [place]) 2 second sprays or 2 squeezes into [...] Nasal saline spray (Simply saline, Little Remedies, [place], [place]) 2 second sprays or 2 squeezes into [...] 05/02/2021 Assessment & Plan (05/02/2021 11:53 AM DIRECTOR OF GROUP SALES): Patient reports to discontinuing her home medication. [...] flecainide Assessment & Plan (05/02/2021 6:23 AM DIRECTOR OF GROUP SALES): Noted on Holter monitor. Cardiology has been consulted. Continue beta-mary grace. Syncope and collapse 02/20/2021 Assessment & Plan (02/20/2021 6:35 PM DIRECTOR OF GROUP SALES): Patient with syncopal episode today. CT head negative. Concern related to possible cardiac issues. No neurological deficit present time. Will continue to monitor. Primary hypertension 02/20/2021 Assessment & Plan (05/02/2021 6:23 AM DIRECTOR OF GROUP SALES): Continue metoprolol with hold parameters Assessment & Plan (02/20/2021 6:37 PM DIRECTOR OF GROUP SALES): Blood pressure with some mild elevation on presentation. Metoprolol currently on hold for stress test in a.m.. IV hydralazine as needed. Will monitor. Type 2 diabetes mellitus wit h hyperglycemia, with long-term current use of insulin 02/09/2021 Assessment & Plan (05/03/2024 2:51 PM DIRECTOR OF GROUP SALES): Chronic problem, not at goal. We discussed [...] neuropathy Assessment & Plan (05/02/2021 12:03 PM DIRECTOR OF GROUP SALES): Sugars uncontrolled on presentation to 470. Patient prescribed glimepiride 2mg but has not been compliant. She was previously taking metformin but was concerned for medication side effects and discontinued. -Placed on Lantus 20 units every day meal time bolus lispro 7 units and sliding scale lispro. -Plan to D/C on metformin 500 mg bid and GLP1 Assessment & Plan (05/02/2021 6:22 AM DIRECTOR OF GROUP SALES): Sugars uncontrolled on presentation. She is on Amaryl. She was given insulin. Sugars are improving. Monitor on sliding scale. Assessment & Plan (02/20/2021 6:36 PM DIRECTOR OF GROUP SALES): Patient reports glucose levels were still not as well controlled as she would like at home. Has been taking her glimepiride. Will place on sliding scale insulin here but may need adjustment in medication depending on her levels. Consistent carbohydrate diet. Assessment & Plan (02/09/2021 6:22 AM DIRECTOR OF GROUP SALES): Patient stop taking her p.o. pills over [...] consultation Assessment & Plan (02/20/2021 6:38 PM DIRECTOR OF GROUP SALES): Healthy lifestyle encouraged. Personal history of transien t ischemic attack (TIA), and cerebral infarction without residual deficits 02/08/2021 Assessment & Plan (05/02/2021 6:23 AM DIRECTOR OF GROUP SALES): Continue aspirin and statin Assessment & Plan (02/20/2021 6:38 PM DIRECTOR OF GROUP SALES): Previous history. Patient will continue ASA and atorvastatin. Assessment & Plan (02/09/2021 6:32 AM DIRECTOR OF GROUP SALES): Continue aspirin and Lipitor Supraventricular tachycardia 02/08/2021 Chest pain 02/08/2021 Assessment & Plan (02/20/2021 6:35 PM DIRECTOR OF GROUP SALES): Patient presented with episode of chest pain along with syncope. Had chest pain approximately 2 weeks ago and ruled out for MA but did not wish to stay for cardiac evaluation with plan to do as outpatient. Patient with more symptoms on this occasion. Has already been seen by Cardiology with plan for Lexiscan stress test tomorrow. Patient is agreeable to evaluation at this time. Troponin levels are negative. Does have history of possible MA in the past but not confirmed. Assessment & Plan (02/09/2021 6:26 AM DIRECTOR OF GROUP SALES): Patient was at work doing heavy lifting when her chest pain occurred. Patient only had 2 troponins. Will check a troponin this morning. Chest pain has since resolved. Patient denies ever having any stents placed. She states it occurred at [facility] when she was 37 years old. EKG [...] 11/06/2020 Assessment & Plan (05/03/2024 2:48 PM DIRECTOR OF GROUP SALES): Chronic problem, not at goal. Lately missing [...] levothyroxine Assessment & Plan (05/02/2021 12:03 PM DIRECTOR OF GROUP SALES): Restart levothyroxine. TSH was over 323 months ago. Will check now. -levothyroxine 25 mg every day Assessment & Plan (05/02/2021 6:23 AM DIRECTOR OF GROUP SALES): Continue levothyroxine. TSH was over 323 months ago. Will check now. Assessment & Plan (02/20/2021 6:37 PM DIRECTOR OF GROUP SALES): TSH was elevated on 02/08/2021. Patient reports has faithfully been taking levothyroxine. Per patient request, will recheck current TSH. Adjust levothyroxine as needed. Assessment & Plan (02/09/2021 6:31 AM DIRECTOR OF GROUP SALES): Patient stop taking her medications over a [...] 04/05/2017 Assessment & Plan (02/20/2021 6:38 PM DIRECTOR OF GROUP SALES): No complaint at this time. Will monitor. Lumbar facet arthropathy 04/05/2017 Medically noncompliant Bloody stools Colon polyps Ventricular tachycardia Resolved Problems Problem Noted Date Diagnosed Date Resolved Date Type 2 diabetes mellitus wit hout complication, with long-term current use of insulin 06/21/2023 08/17/2024 Encounters Date Type Department Care Team Description 08/24/2024 Telephone [facility] [address], [place] [address] Khushi Serrano PA Dexcom G7 Sensors PA Request 08/08/2024 Telephone [facility] [address] [address] Khushi Serrano PA 07/17/2024 Telephone [facility] [address], [place] [address] Khushi Serrano PA Prior Auth ([facility] [place]) 06/29/2024 2:55 PM CDT - 06/29/2024 4:54 PM CDT Emergency [facility] Emergency Department [id number] [place] [address] Cherri Cleveland MD Discharge Disposition: Left Against [...] on machine. Atrial fibrillation (HCC) not ta [employer] 2/2 nosebleeds, reports no known clotting/bleeding disorders. [...] drink = 0.6 oz pur e alcohol) [facility] [employer] Answer Date Recorded In the past 12 months has [employer], gas, oil, or water [employer] threatened to shut off services in your [...] often do you attend chur ch or oriental orthodox services? More than 4 times per year 10/13/2023 Do you belong to any clubs o r organizations such as baptist groups, unions, fraternal or athletic groups, or [...] place to sleep or slept in a custodial (including now)? No 12/22/2022 PHQ-9 Answer Date [...] any time in the past 12 m [facility], were you homeless or living in a custodial (including now)? No 10/13/2023 Personal Safety Answer [...] on file Legal Sex Female 8:03 AM DIRECTOR OF GROUP SALES Gender Identity Not on file Sexual Orientation Straight 05/01/2021 9: 39 PM DIRECTOR OF GROUP SALES Obstetrics History Last Filed Vital Signs Vital [...] st Contact Info) Description 01/23/2025 11:00 AM DIRECTOR OF GROUP SALES Hospital Encounter [address] [address] Shannon Mccarty MD 4 [facility] [address]EN [address] [place] [id number] 01/23/2025 11:00 AM DIRECTOR OF GROUP SALES - 01/23/2025 11:30 AM DIRECTOR OF GROUP SALES Surgery [address] [address] Shannon Mccarty MD 4 [facility] [place] [address] COLONOSCOPY Scheduled Procedures Name Priority Associated Diagnoses Date/Ti me COLONOSCOPY Screening for colon cancer 01/23/2025 11:00 AM DIRECTOR OF GROUP SALES Health Maintenance Due Date Last Done Comments [...] 11/02/2014, 03/08/2014 Medical Devices Implanted Type Area Field Enumerator Device Identifier Shelf Expiration Date Model / Serial / Lot Keep Your Pharm[facility] Open Ildefonso Angio-Seal Vip 6fr Closere Device [id number] - [id number] Implanted:Qty : 1 on 10/13/2023 by Yifan Kunz MD at [facility] Closure Device [employer] Ildefonso 06/20/2024 [id number] / / [id number] Loop Recorder N/A: Chest Wall Loop [...] CREATININE RATIO, URINE Routine 05/03/2024 1:57 PM DIRECTOR OF GROUP SALES Type 2 diabetes mellitus with hyperglycemia, with long-term current use of insulin (HCC) POCT HEMOGLOBIN A1C Routine 05/03/2024 1 :07 PM DIRECTOR OF GROUP SALES Type 2 diabetes mellitus with hyperglycemia, with long-term current use of insulin (HCC) POCT LIPID PANEL Routine 05/03/2024 1:07 AM DIRECTOR OF GROUP SALES Type 2 diabetes mellitus with hyperglycemia, with [...] PM CDT 06/29/2024 3:15 PM CDT us iMller Yan MD LAB BLOOD ORDERABLES Fi nal Result [facility] [address] [facility] [place] [address] * eGFR (06/29/2024 3:15 PM CDT) Pathologist [facility] eGFR >90 >=60 mL/min/1. 73 m2 Comment: [...] us Miller Yan MD LAB BLOOD ORDERABLES [facility] Result [facility] [address] Department [place] [address] * Differential, auto (06/29/2024 3:15 PM CDT) Pathologist [facility] Neutrophil abs 4.12 1.50 - 6.50 K/cumm Imm gran abs 0.03 0.00 - 0.10 K/cumm [facility] Lymphocyte abs 1.30 0.80 - 3.30 K/cumm [facility] Monocyte abs 0.50 0.20 - 0.80 K/cumm [facility] Eosinophil abs 0.22 0.00 - 0.50 K/cumm [facility] Basophil abs 0.03 0.00 - 0.10 K/cumm [facility] Neutrophil pct 66.4 % [facility] Comment: Interpretive Data Percent cell count reference ranges are not reported, since discordance with absolute values may lead to misinterpretation of CBC data. Current Interpretive Data was last revised on 2017. Imm gran pct 0.5 % [facility] Comment: Interpretive Data Percent cell count reference [...] MD LAB BLOOD ORDERABLES nal Result [facility] [address] Department [place] [address] * Pro B-type natriuretic peptide (06/29/2024 3:15 [...] Yan MD LAB BLOOD ORDERABLES nal Result [facility] [address] Department [place] [address] * (ABNORMAL) CBC with auto differential (06/29/2024 3:15 PM CDT) Pathologist [facility] WBC 6.20 3.80 - 9.90 K/cumm Hgb 12.9 11.9 - 15.5 g/dL [facility] Hct 39.6 35.6 - 45.5 % [facility] Plt 277 150 - 400 K/cumm [facility] MPV 8.3(L) 9.1 - 12.3 fL [facility] RBC 4.51 3.90 - 5.20 M/cumm [facility] MCV 87.8 81.3 - 96.4 fL [facility] [...] [place]LO[place] [address] [address] Department [place] [address] * (ABNORMAL) Comprehensive metabolic panel [...] ORDERABLES Fi nal Result Performing Organization Address City/[facility] Co de Phone Number [facility] [address] Department [place] [address] * ECG 12 lead (06/29/2024 3:07 PM CDT) 06/29/2024 3:07 PM CDT Narrative [facility] - 06/30/2024 8:08 AM CDT Vent Rate: 109 bpm RR Interval: 550 msec UT Interval: 157 msec QRS Duration: 88 msec QT Interval: 336 msec QTC Interval: 400 msec P-R-T Prichard: 46 - 18 - 55 degrees IMPRESSION: SINUS TACHYCARDIA Electronically Signed By: Rigobreto Stewart MD, [facility] Miller Yan MD ECG ORDERABLES Final R esult Performing Organization Address [facility] de Phone Number [facility] * Albumin Creatinine Ratio, Urine (05/03/2024 1:57 PM DIRECTOR OF GROUP SALES) Albumin Ur <12.0 mg/L Comment: Interpretive Data No reference range established. Current interpretive data was last revised 2018. Creatinine Ur 147.1 mg/dL [facility] Comment: Interpretive Data No reference range established. Current interpretive data was last revised 2018. Albumin Creatinine Ratio, Ur <8 1 - 29 mg/g [facility] Urine 05/03/2024 1:57 PM DIRECTOR OF GROUP SALES 05/03/2024 5:42 PM DIRECTOR OF GROUP SALES Khushi SEARS LAB URINE ORDERABLES Fi nal Result [facility] [address] [address] Department [place] [address] * (ABNORMAL) POCT hemoglobin A1c (05/03/2024 1:07 PM DIRECTOR OF GROUP SALES) Hemoglobin A1C, POC 8.4 4.0 - 5.6 % Capillary blood 05/03/2024 1 :07 PM DIRECTOR OF GROUP SALES Khushi SEARS POINT OF CARE TEST ORDE RABRAYSA Final Result * (ABNORMAL) POCT lipid panel (05/03/2024 1:07 AM DIRECTOR OF GROUP SALES) Cholesterol, POC 197 mg/dL HDL, POC 41 mg/dL Triglycerides, POC 167 mg/dL LDL Cholesterol POC 123 mg/dL Chol/HDL Ratio, POC 4.8 Non-HDL Cholesterol, POC 156 mg/dL Cholesterol Total, POC 197 mg/dL Capillary blood 05/03/2024 1 :07 AM DIRECTOR OF GROUP SALES Khushi SEARS POINT OF CARE TEST ORDE [...] Mccarty MD - 12/16/2021 2:26 PM CDT [facility] Patient Name: Josseline Main Procedure Date: 12/16/2021 2:26 PM Date of : 1975 Admit Type: Inpatient Age: 46 Gender: Female Attending MD: Shannon Mccarty M.D. Room: [facility] ENDOSCOPY ROOM 1 Note Status: Finalized [...] and retrieved.Clip (MR conditional) was placed. Clip project development leader:SpiceCSM. - Internal and external hemorrhoids. Recommendation: - [...] under direct vision. The Pediatric Colonoscope [id number]-[id number] was introducedthrough the anus and advanced to [...] clip was successfully placed (MR conditional). Clip project development leader: SpiceCSM. There was no bleeding at the end ofthe procedure. Internal hemorrhoids were found during retroflexion. The hemorrhoids were medium-sized. Electronically signed by Shannon Mccarty M.D. Shannon Mccarty M.D. 12/16/2021 4:29:06 PM Number of Addenda: 0 Note Initiated On: 12/16/2021 2:26 PM Procedure Code(s): --- Professional --- 06211, Colonoscopy, flexible; with removal of tumor(s), polyp(s), or other lesion(s) by snare technique 43343, Colonoscopy, flexible; with directed submucosal injection(s),any substance 60217, 59, Colonoscopy, flexible; with biopsy, single or multiple Diagnosis Code(s): --- Professional --- K64.8, Other hemorrhoids D12.2, Benign neoplasm of ascending colon D12.4, Benign neoplasm of descending colon D12.5, Benign neoplasm of sigmoid colon K92.1, Melena (includes Hematochezia) R19.5, Other fecal abnormalities CPT copyright 2020 [employer]. All rights reserved. The codes documented in this report are preliminary and upon strip presser reviewmay be revised to meet current compliance requirements. Recognized by the [employer] for promoting quality in endoscopy Shannon Mccarty MD ENDOSCOPY PROCEDURES Final Result from Last 3 Months or Most Recently Relevant to Health Maintenance Insurance IDPA [facility] IDPA Member Subscriber Plan / Payer (Ef fective 2020-Present) Name:Kana Josseline L Relation to Subscriber:Self Name:Josseline Roger Bart Payer ID:[id number] Group ID:Not on file Type:[place] Address: [address] IDPA Member Subscriber Plan / Payer (Ef fective 2024-Present) Name:Panchito Rogerobdulio Arriaga Relation to Subscriber:Self Name:Josseline Roger Bart Payer ID:[id number] Group ID:Not on file Type:[place] Address: [address] IDPA [employer] COMPENSATION GENERIC * Guarantor: OTHER Account Type Relation to Patient Date of Phone Billing Address Workers Comp Employer Advance Directives For more information, please contact: [phone] * Full Code (Latest Code Status on [...] Healthcare Agent Relationshi p Communication Ruel [facility] Care Agent Care Teams Journalism Internship Relationship Specialty Start Date End Date Dotty Charles NP 4 [facility] [address] MORALES B [facility] [address] [place] [address] PCP - General Nurse Practitioner 04/21/24 [place] [address] [facility] [address] [place] [address] Consulting Physician Internal Medicine 02/09/21 Miscellaneous, Not In File 02/21/21 Coco Bernal NP 2 [facility] [address] [place] [address] Nurse Practitioner Cardiovascular Disease 02/21/21 Daryn Bui MD [address] [place] [address] Consulting Physician Cardiology 05/21/21 Trevon Benson MD [address] [place] [address] Surgeon Orthopedic Surgery 11/05/21
--- OUTSIDE RECORDS SUMMARY | 2024-09-24 14:50 | XMS_ITS | Clinical Summary ---
Author Organization [facility] [employer] [place] Address [address] [place] [id number] Care Team Providers Care Outside Operator Name Role Phone Keira Herrera MD Primary Care Provider [phone] Allergies Active Allergy Reactions Criticality Noted Date [...] 11/22/2023 Overview (11/22/2023): Noted on CT 11/21/23 [facility] ER visit Coronary atherosclerosis 03/01/2023 [...] 07/28/2024 External Device Data Initial Department [address] [place]: [place] [address] [facility], 07/11/2024 External Device Data [facility] ABSTRACTION Provider, Abstract from Last 3 Months Family History Medical History Relation Name Comments Heart Disease Father Ruel Bradford Respiratory Disease Father Ruel Bradford Anemia Mother Tonya Bradford Diabetes Mother Tonya Bradford Heart Disease Mother Tonya Bradford High Cholesterol Mother Tonya Bradford Hypertension Mother Tonya Bradford Liver Disease Mother Tonya Bradford Respiratory Disease Mother oTnya Bradford Thyroid Disease Mother Tonya Bradford Relation [...] coma, without long-term current use of insulin ([facility]/HCC) Leukocytosis, unspecified type Abnormal laboratory test [...] Creatinine, Urine 133 20 - 275 mg/dL [facility] MICROALBUMIN, URINE 0.4 See Note: mg/dL [facility] Comment: Reference Range: Reference Range Not established MICROALBUMIN/CREAT RATIO, UR 3 <30 mg/g creat [facility] Comment: The ADA defines abnormalities in albumin excretion as follows: Albuminuria Category Result (mg/g creatinine) Normal to Mildly increased <30 Moderately increased 30-299 Severely increased > OR = 300 The ADA recommends that at least two of three specimens collected within a 3-6 month period be abnormal before considering a patient to be within a diagnostic category. Test Performed at: [facility] [address] [facility] [place] [address] Yossi Zuñiga MD Urine URINE SPECIMEN OBTAINED BY CLEAN CATCH PROCEDURE / Unknown 06/09/2023 11:51 AM CDT 06/09/2023 11:30 PM CDT Shauna Hicks MD URINE ORDERABLES Final Result [facility] [phone] [address] * (ABNORMAL) HEMOGLOBIN A1C (06/09/2023 11:51 AM CDT) HEMOGLOBIN A1C 9.3(H) <5.7 % of total Hgb [facility] Comment: For someone without known [...] children. ESTIMATED AVERAGE GLUCOSE (MG/DL) 220 mg/dL [facility] ESTIMATED AVERAGE GLUCOSE (MMOL/L) 12.2 mmol/L [facility] cormier Dann Comment: This test was performed on the Madyson víctor c503 platform. Effective 05/24/23, a change in test platforms from the Nielson Ski Tow Operator to the Madyson víctor c503 may have shifted HbA1c results compared to historical results. Based on laboratory validation testing conducted at [facility], the Madyson platform relative to the Nielson [...] platforms is not recommended. Test Performed at: [place] [address] [place] [place] [phone] Yossi Zuñiga Blood 06/09/2023 11:5 1 AM CDT 06/09/2023 11:51 PM CDT us Shauna Hicks MD CHEMISTRY ORDERABLES Final Re sult [facility] [phone] [place] [address] [address] [place] [address] * (ABNORMAL) LIPID PANEL (06/09/2023 11:51 AM CDT) CHOLESTEROL 202(H) <200 mg/dL [facility] HDL 45(L) > OR = 50 mg/dL [facility] TRIGLYCERIDE 130 <150 mg/dL [facility] LDL CALCULATED 132(H) mg/dL (calc) [facility] Comment: Reference range: <100 Desirable range <100 mg/dL for primary prevention; <70 mg/dL for patients with CHD or diabetic patients with > or = 2 CHD risk factors. LDL-C is now calculated using the Arben calculation, which is a validated novel method providing better accuracy than the Friedewald equation in the estimation of LDL-C. Daniel AYON et al. OMAR. 2013;310(19): 2003-8938 (http://education.Gripp[employer] Tech.LINAGORA/faq/HCZ055) CHOL/HDL RATIO 4.5 <5.0 (calc) [facility] TOTAL NON-HDL CHOL(LDL+VLDL) 157(H) <130 mg/dL (calc) [facility] Comment: For patients with diabetes plus 1 major ASCVD risk factor, treating to a non-HDL-C goal of <100 mg/dL (LDL-C of <70 mg/dL) is considered a therapeutic option. Test Performed at: [place] [address] [place] [address] Yossi Zuñiga Blood 06/09/2023 11:5 1 AM CDT 06/09/2023 11:51 PM CDT us Shauna Hicks MD CHEMISTRY ORDERABLES Final Re sult [facility] [phone] [place] [address] [place] [address] from Last 3 Months or Most Recently Relevant to Health Maintenance Insurance [address] [place] [id number] [place]ICAID [place] Advance Directives For more information, please contact: [phone] * Default Full Code - Needs Discussion (Latest Code Status on File) Date Activated Date Inactivated Comments 11/08/2022 9:50 AM 11/08/2022 12:01 PM Care Teams Outside Operator Relationship Specialty Start Date End Date Keira Herrera MD [address] [place] [address] [place] [phone] PCP - General Internal Medicine 10/14/23
--- OUTSIDE RECORDS SUMMARY | 2024-09-24 14:50 | XMS_ITS | Encounter Summary ---
Author Organization [facility] Address [address] [place] [address] Care Team Providers Care Liquid Chlorine Operator Name Role Phone Keira Herrera MD Primary Care Provider [phone] Encounter Details Date Type Department Care Team [...] documented as of this encounter Care Teams Liquid Chlorine Operator Relationship Specialty Start Date End Date Keira Herrera MD [address] [place] [address] [place] [address] PCP - General Internal Medicine 10/14/23 documented as of this encounter
--- OUTSIDE RECORDS SUMMARY | 2024-09-24 14:50 | XMS_ITS | Clinical Summary ---
Author Organization [facility] Address [address] [place] [address] Phone Care Team Providers Care Bun Icer Name Role Phone Dotty Charles APRN, GLOBAL CEO Primary Care Provider Allergies Active Allergy Reactions [...] Itching. 08/07/19 24 Active ergocalciferol (VITAMIN D) 55728 UNIT Capsule Take 1.25 mg by mouth [...] 08/12/2024 11:39 AM CDT Emergency [facility] Emergency [address] [place] [address] Zhao Joseph, Other chest pain [...] drink = 0.6 oz pur e alcohol) [facility] Utilities Answer Date Recorded In the [...] place to sleep or slept in a mcc (including now)? No 03/01/2023 Sexually Active Control [...] W/ ESTIMATED GLUCOSE STAT 03/01/2023 1:58 PM GROUTER HELPER from Last 3 Months or Most Recently Relevant to Health Maintenance Results * (ABNORMAL) TROPONIN I, HIGH SENSITIVITY (HSTRP) (08/12/2024 10:42 AM CDT) Only the most recent of3 resultswithin the time period is included. TROPONIN I, HIGH SENSITIVITY- GARCIA 39(H) <=14 ng/L 08/12/2024 11:26 AM CDT [facility] Comment: High-sensitivity troponin I results are reported in ng/L making the result appear to be 1,000 times higher than the contemporary troponin I value which is reported in ng/ml. Results from Garcia. Blood Venipuncture / Unknown 08/12/2024 10:42 AM CDT 08/12/2024 10:47 AM CDT us Zhao Joseph DO CHEMISTRY ORDERABLES Fi nal Result [facility] [address] [place] [address] * CT ANGIO CHEST ABDOMEN W/WO WITH [...] portions of the ureters. Bladder excluded from [id number]. GI: No dilated loops of small bowel of the visualized alimentary canal. No wall thickening of the visualized alimentary canal. Expected location of the appendix excluded from [id number]. PERITONEUM: No pneumoperitoneum or abdominopelvic free fluid of the visualized portions of the abdomen pelvis. RETROPERITONEUM: No mass or adenopathy of the visualized retroperitoneum. REPRODUCTIVE: Excluded from [id number]. MUSCULOSKELETAL: Spondylosis and degenerative disc disease of the visualized spine. OTHER: No other abnormality. THIS IS AN ELECTRONICALLY VERIFIED FINAL REPORT 08/12/2024 9:18 AM - Electronically signed by Ken Rolle M.D. JEMMA: JEMMA Report ID: [id number] Reading Location: [id number] Procedure Note Ken Rolle MD - 08/12/2024 [...] portions of the ureters. Bladder excluded from [id number]. GI: No dilated loops of small bowel of the visualized alimentary canal. No wall thickening of the visualized alimentary canal. Expected location of the appendix excluded from [id number]-nl-[id number]. PERITONEUM: No pneumoperitoneum or abdominopelvic free fluid of the visualized portions of the abdomen pelvis. RETROPERITONEUM: No mass or adenopathy of the visualized retroperitoneum. REPRODUCTIVE: Excluded from [id number]. MUSCULOSKELETAL: Spondylosis and degenerative disc disease of the visualized spine. OTHER: No other abnormality. THIS IS AN ELECTRONICALLY VERIFIED FINAL REPORT 08/12/2024 9:18 AM - Electronically signed by Ken Rolle M.D. JEMMA: JEMMA Report ID: [id number] Reading Location: [id number] IMPRESSION: Streak artifact from patient's arms alongside [...] - 12.00 10(3)/mcL 08/12/2024 7:57 AM CDT [facility] RBC 4.08 3.80 - 5.30 10(6)/mcL 08/12/2024 7:57 AM CDT [facility] HEMOGLOBIN (HGB) 12.0 12.0 - 15.8 g/dL 08/12/2024 7:57 AM CDT [facility] HEMATOCRIT (HCT) 34.7(L) 36.0 - 47.0 % 08/12/2024 7:57 AM CDT [facility] MCV 85.0 82.0 - 96.0 fL 08/12/2024 7:57 AM CDT [facility] MCH 29.4 26.0 - 34.0 pg 08/12/2024 7:57 AM CDT [facility] MCHC 34.6 31.0 - 36.0 g/dL 08/12/2024 7:57 AM CDT [facility] PLATELET COUNT 259 140 - 440 10(3)/mcL 08/12/2024 7:57 AM CDT [facility] RDW 12.9 11.8 - 15.5 % 08/12/2024 7:57 AM CDT [facility] MPV 8.4(L) 9.7 - 12.4 fL 08/12/2024 7:57 AM CDT [facility] NEUTROPHILS 62.6 47.0 - 73.0 % 08/12/2024 7:57 AM CDT [facility] LYMPHOCYTES 24.5 18.0 - 42.0 % 08/12/2024 7:57 AM CDT [facility] MONOCYTES 8.6 4.0 - 12.0 % 08/12/2024 7:57 AM CDT [facility] EOSINOPHILS 3.8 0.0 - 5.0 % 08/12/2024 7:57 AM CDT [facility] BASOPHILS 0.5 0.0 - 1.0 % 08/12/2024 7:57 AM CDT [facility] ABSOLUTE NEUTROPHILS 4.74 1.60 - 7.70 10(3)/[facility] 08/12/2024 7:57 AM CDT [facility] ABSOLUTE LYMPHOCYTES 1.86 1.30 - 3.20 10(3)/[facility] 08/12/2024 7:57 AM CDT [facility] ABSOLUTE MONOCYTES 0.65 0.20 - 1.00 10(3)/[facility] 08/12/2024 7:57 AM CDT [facility] ABSOLUTE EOSINOPHIL 0.29 0.00 - 0.40 10(3)/[facility] 08/12/2024 7:57 AM CDT [facility] ABSOLUTE BASOPHILS 0.04 0.00 - 0.10 10(3)/[facility] 08/12/2024 7:57 AM CDT [facility] NRBC PER 100 WBC 0 08/13/19 7:57 AM CDT [facility] Blood Venipuncture / Unknown 08/12/2024 7:21 AM CDT 08/12/2024 7:32 AM CDT us Zhao Joseph DO HEMATOLOGY ORDERABLES F inal Result [facility] [address] [place] [address] * (ABNORMAL) CMP (Comprehensive Metabolic Panel) (08/12/2024 7:21 AM CDT) SODIUM 139 136 - 145 mmol/L 08/12/2024 7:54 AM CDT [facility] POTASSIUM 3.2(L) 3.5 - 5.1 mmol/L 08/12/2024 7:54 AM CDT [facility] CHLORIDE 106 98 - 107 mmol/L 08/12/2024 7:54 AM CDT [facility] CO2, VENOUS 20(L) 22 - 30 mmol/L 08/12/2024 7:54 AM CDT [facility] ANION GAP 16.2 <18.0 mmol/L 08/12/2024 7:54 AM T [facility] GLUCOSE 208(H) 70 - 99 mg/dL 08/12/2024 7:54 AM T [facility] BUN 13 5 - 18 mg/dL 08/12/2024 7:54 AM [facility] CREATININE, BLOOD 0.59(L) 0.60 - 1.00 mg/dL 08/12/2024 7:54 AM [facility] BUN/CREATININE RATIO 22(H) 12 - 20 ratio 08/12/2024 7:54 AM [facility] TOTAL PROTEIN 7.0 6.0 - 8.0 g/dL 08/12/2024 7:54 AM [facility] ALBUMIN 4.0 3.5 - 5.0 g/dL 08/12/2024 7:54 AM [facility] A/G RATIO 1.3 1.0 - 2.2 08/12/2024 7:54 AM [facility] CALCIUM 8.9 8.7 - 10.5 mg/dL 08/12/2024 7:54 AM [facility] T BILI 0.5 0.2 - 1.2 mg/dL 08/12/2024 7:54 AM [facility] SGOT (AST) 15 <43 U/L 08/12/2024 7:54 AM [facility] SGPT (ALT) 11 <56 U/L 08/12/2024 7:54 AM [facility] ALKALINE PHOSPHATASE 52 40 - 150 U/L 08/12/2024 7:54 AM [facility] GFR, ESTIMATED >60 >=60 08/12/2024 7:54 AM [facility] Comment: Creatinine Clearance is the preferred criteria for selecting drug dose adjustments in renally impaired patients. The GFR is provided as additional pertinent clinical information. GFR is reported in mL/min/1.73 sq m. Calculation based on the Chronic Kidney Disease Epidemiology Collaboration (CKD- EPI) equation refit without adjustment for race. GFR, EST. >60 >=60 025 7:54 AM CDT [facility] GFR, EST. NONAFRICAN >60 >=60 08/12/2024 7:54 AM CDT [facility] Blood Venipuncture / Unknown 08/12/2024 7:21 AM CDT 08/12/2024 7:32 AM CDT us Zhao Vences Jake DO CHEMISTRY ORDERABLES Fi nal Result [facility] [address] [place] [address] * XR CHEST SINGLE VIEW PORTABLE (08/12/2024 [...] Ken Rolle M.D. JEMMA: JEMMA Report ID: [id number] Reading Location: [id number] Procedure Note Ken Rolle MD - 08/12/2024 [...] Ken Rolle M.D. JEMMA: JEMMA Report ID: [id number] Reading Location: [id number] IMPRESSION: No acute cardiopulmonary process. us Zhao Joseph DO IMG DIAGNOSTIC ORDERABL ES Final Result * EKG 12 LEAD (08/12/2024 6:35 AM CDT) Ventricular Rate 83 BPM EXTERNAL EKG Atrial Rate 83 BPM EXTERNAL EKG P-R Interval 166 ms EXTERNAL EKG QRS Duration 84 ms EXTERNAL EKG Q-T Duration 386 ms EXTERNAL EKG QTC CALCULATION 453 ms EXTERNAL EKG P [place] 58 degrees EXTERNAL EKG R [place] 14 degrees EXTERNAL EKG T [place] 49 degrees EXTERNAL EKG 08/12/2024 6:35 AM CDT Impressions EXTERNAL EKG - 08/14/2024 9:19 AM CDT Normal sinus rhythm Normal ECG When compared with ECG of 01-MAR-2023 13:46, No significant change was found Confirmed by Sebastien Peacock ([id number]) on 08/14/2024 9:18:58 AM Narrative Procedure Note Sebastien Peacock MD - 08/14/2024 IMPRESSION: Normal sinus rhythm Normal ECG When compared with ECG of 01-MAR-2023 13:46, No significant change was found Confirmed by Sebastien Peacock ([id number]) on 08/14/2024 9:18:58 AM us Zhaoskylar Vences Jake DO IMG ECG ORDERABLES Johnna l Result Performing Organization Address City/[facility] Co de Phone Number EXTERNAL EKG * EKG SCAN (08/12/2024 12:00 AM CDT) 08/12/2024 us Provider Scan IMG ECG ORDERABLES Final Result Performing Organization Address [facility] de Phone Number RESULTING AGENCY * (ABNORMAL) Hemoglobin A1C w/ Estimated Glucose (03/01/2023 1:58 PM GROUTER HELPER) HGB-A1C 7.4(H) 4.0 - 6.0 % 03/01/2023 4:10 PM GROUTER HELPER [facility] Est Average Glucose 165.7 mg/dL 03/01/2023 4:10 PM GROUTER HELPER [facility] Blood Venipuncture / Unknown 03/01/2023 1:58 PM GROUTER HELPER 03/01/2023 2:10 PM GROUTER HELPER Narrative [facility] - 03/01/2023 4:10 PM GROUTER HELPER HEMOGLOBIN A1C: DIABETIC PATIENTS: WELL-CONTROLLED: 6.2 - 7.0 INTERMEDIATE WELL-CONTROLLED: 7.0 - 9.0 POORLY-CONTROLLED: >9.0 us Mayuri Lacy MD CHEMISTRY ORDERABLES Final Re sult Performing Organization Address [facility] Co de Phone Number [facility] [address] [place] [address] from Last 3 Months or Most Recently Relevant to Health Maintenance Insurance [place] [address] Advance Directives * Full Code (Latest Code Status on File) Date Activated Date Inactivated Comments 03/02/2023 6:16 PM 03/02/2023 10:15 PM CPR-Full Treatment: FULL ARREST: Attempt Resuscitation/CPR wit intubation and mechanical ventilation. PRE-ARREST: Use entire range of life support measures to stabilize the patient. Care Teams Bun Icer Relationship Specialty Start Date End Date Dotty Charles, POCKET ASSEMBLER, GLOBAL CEO [address] [place] [address] PCP - General Advanced Practice Nurse 08/12/24
--- OUTSIDE RECORDS SUMMARY | 2024-09-24 14:50 | XMS_ITS | Referral Summary ---
Author Organization [facility] al Address [address] [place] [address] Care Team Providers Care Neuropsychology Medical Consultant Name Role Phone Alvin Franco MD Unavailable [phone] Miscellaneous, Not In File Unavailable Unava ilable Coco Bernal NP Unavailable [phone] Daryn Bui MD Unavailable [phone] Trevon Benson MD Unavailable [phone] Dotty Charles MAINTENANCE HELPER Primary Care Provider Encounters Date Type Department Care Team Description 08/24/2024 Telephone [facility] [address] [address] Khushi Serrano PA Dexcom G7 Sensors PA Request 08/08/2024 Telephone [facility] [address] [address] Khushi Serrano PA 07/17/2024 Telephone [facility] [address] [place] [address] Khushi Serrano PA Prior Auth (BD-Pen Guin) 06/29/2024 2:31 PM CDT - 06/29/2024 11:59 PM CDT Hospital Encounter [facility] Emergency, Room R Discharge Disposition: Discharge to home or self care 06/29/2024 2:55 PM CDT - 06/29/2024 4:54 PM CDT Emergency [facility] Emergency Department [address] [place] [address] Cherri Cleveland MD Discharge Disposition: Left Against [...] 03/21/2022 Assessment & Plan (05/03/2024 2:44 PM LODGING FACILITIES MANAGER): Chronic problem. On statin therapy, she misses [...] 12/14/2021 Assessment & Plan (05/03/2024 1:36 PM LODGING FACILITIES MANAGER): Chronic problem, Controlled on HCTZ, metoprolol. No [...] Nasal saline spray (Simply saline, Little Remedies, [place], [place]) 2 second sprays or 2 squeezes into [...] Nasal saline spray (Simply saline, Little Remedies, [place], [place]) 2 second sprays or 2 squeezes into [...] 05/02/2021 Assessment & Plan (05/02/2021 11:53 AM LODGING FACILITIES MANAGER): Patient reports to discontinuing her home medication. [...] flecainide Assessment & Plan (05/02/2021 6:23 AM LODGING FACILITIES MANAGER): Noted on Holter monitor. Cardiology has been consulted. Continue beta-mary grace. Syncope and collapse 02/20/2021 Assessment & Plan (02/20/2021 6:35 PM LODGING FACILITIES MANAGER): Patient with syncopal episode today. CT head negative. Concern related to possible cardiac issues. No neurological deficit present time. Will continue to monitor. Primary hypertension 02/20/2021 Assessment & Plan (05/02/2021 6:23 AM LODGING FACILITIES MANAGER): Continue metoprolol with hold parameters Assessment & Plan (02/20/2021 6:37 PM LODGING FACILITIES MANAGER): Blood pressure with some mild elevation on presentation. Metoprolol currently on hold for stress test in a.m.. IV hydralazine as needed. Will monitor. Type 2 diabetes mellitus wit h hyperglycemia, with long-term current use of insulin 02/09/2021 Assessment & Plan (05/03/2024 2:51 PM LODGING FACILITIES MANAGER): Chronic problem, not at goal. We discussed [...] neuropathy Assessment & Plan (05/02/2021 12:03 PM LODGING FACILITIES MANAGER): Sugars uncontrolled on presentation to 470. Patient prescribed glimepiride 2mg but has not been compliant. She was previously taking metformin but was concerned for medication side effects and discontinued. -Placed on Lantus 20 units every day meal time bolus lispro 7 units and sliding scale lispro. -Plan to D/C on metformin 500 mg bid and GLP1 Assessment & Plan (05/02/2021 6:22 AM LODGING FACILITIES MANAGER): Sugars uncontrolled on presentation. She is on Amaryl. She was given insulin. Sugars are improving. Monitor on sliding scale. Assessment & Plan (02/20/2021 6:36 PM LODGING FACILITIES MANAGER): Patient reports glucose levels were still not as well controlled as she would like at home. Has been taking her glimepiride. Will place on sliding scale insulin here but may need adjustment in medication depending on her levels. Consistent carbohydrate diet. Assessment & Plan (02/09/2021 6:22 AM LODGING FACILITIES MANAGER): Patient stop taking her p.o. pills over [...] consultation Assessment & Plan (02/20/2021 6:38 PM LODGING FACILITIES MANAGER): Healthy lifestyle encouraged. Personal history of transien t ischemic attack (TIA), and cerebral infarction without residual deficits 02/08/2021 Assessment & Plan (05/02/2021 6:23 AM LODGING FACILITIES MANAGER): Continue aspirin and statin Assessment & Plan (02/20/2021 6:38 PM LODGING FACILITIES MANAGER): Previous history. Patient will continue ASA and atorvastatin. Assessment & Plan (02/09/2021 6:32 AM LODGING FACILITIES MANAGER): Continue aspirin and Lipitor Supraventricular tachycardia 02/08/2021 Chest pain 02/08/2021 Assessment & Plan (02/20/2021 6:35 PM LODGING FACILITIES MANAGER): Patient presented with episode of chest pain along with syncope. Had chest pain approximately 2 weeks ago and ruled out for [place] but did not wish to stay for cardiac evaluation with plan to do as outpatient. Patient with more symptoms on this occasion. Has already been seen by Cardiology with plan for Lexiscan stress test tomorrow. Patient is agreeable to evaluation at this time. Troponin levels are negative. Does have history of possible [place] in the past but not confirmed. Assessment & Plan (02/09/2021 6:26 AM LODGING FACILITIES MANAGER): Patient was at work doing heavy lifting [...] 11/06/2020 Assessment & Plan (05/03/2024 2:48 PM LODGING FACILITIES MANAGER): Chronic problem, not at goal. Lately missing [...] levothyroxine Assessment & Plan (05/02/2021 12:03 PM LODGING FACILITIES MANAGER): Restart levothyroxine. TSH was over 323 months ago. Will check now. -levothyroxine 25 mg every day Assessment & Plan (05/02/2021 6:23 AM LODGING FACILITIES MANAGER): Continue levothyroxine. TSH was over 323 months ago. Will check now. Assessment & Plan (02/20/2021 6:37 PM LODGING FACILITIES MANAGER): TSH was elevated on 02/08/2021. Patient reports has faithfully been taking levothyroxine. Per patient request, will recheck current TSH. Adjust levothyroxine as needed. Assessment & Plan (02/09/2021 6:31 AM LODGING FACILITIES MANAGER): Patient stop taking her medications over a [...] 04/05/2017 Assessment & Plan (02/20/2021 6:38 PM LODGING FACILITIES MANAGER): No complaint at this time. Will monitor. [...] drink = 0.6 oz pur e alcohol) [facility] Utilities Answer Date Recorded In the past 12 months has [employer], gas, oil, or water [employer] threatened to shut off services in your [...] often do you attend chur ch or tenriism services? More than 4 times per year 10/13/2023 Do you belong to any clubs o r organizations such as christianity groups, unions, fraternal or athletic groups, or [...] place to sleep or slept in a assisted (including now)? No 12/22/2022 PHQ-9 Answer Date [...] any time in the past 12 m [facility], were you homeless or living in a assisted (including now)? No 10/13/2023 Personal Safety Answer [...] on file Legal Sex Female 8:03 AM LODGING FACILITIES MANAGER Gender Identity Not on file Sexual Orientation Straight 05/01/2021 9: 39 PM LODGING FACILITIES MANAGER Last Filed Vital Signs Vital Sign Reading [...] st Contact Info) Description 01/23/2025 11:00 AM LODGING FACILITIES MANAGER Hospital Encounter [facility] [address] [place] [address] Shannon Mccarty MD [address] [place] [address] 01/23/2025 11:00 AM LODGING FACILITIES MANAGER - 01/23/2025 11:30 AM LODGING FACILITIES MANAGER Surgery [facility] [address] [place] [address] Shannon Mccarty MD [address] [place] [address] COLONOSCOPY Scheduled Procedures Name Priority Associated Diagnoses Date/Ti me COLONOSCOPY Screening for colon cancer 01/23/2025 11:00 AM LODGING FACILITIES MANAGER Medical Devices Implanted Type Area Lease Administration Supervisor Device Identifier Shelf Expiration Date Model / Serial / Lot [employer] Angio-Seal Vip 6fr Closere Device [id number] - [id number] Implanted:Qty : 1 on 10/13/2023 by Yifan Kunz MD at [facility] Vascular Closure Device [employer] 06/20/2024 [id number] / / [id number] Loop Recorder N/A: Chest Wall Loop [...] CREATININE RATIO, URINE Routine 05/03/2024 1:57 PM LODGING FACILITIES MANAGER Type 2 diabetes mellitus with hyperglycemia, with long-term current use of insulin (HCC) POCT HEMOGLOBIN A1C Routine 05/03/2024 1 :07 PM LODGING FACILITIES MANAGER Type 2 diabetes mellitus with hyperglycemia, with long-term current use of insulin (HCC) POCT LIPID PANEL Routine 05/03/2024 1:07 AM LODGING FACILITIES MANAGER Type 2 diabetes mellitus with hyperglycemia, with [...] Lungs clear. Cardiovascular structures unremarkable. Procedure Note Ravni Medellin MD - 06/29/2024 EXAMINATION: XR CHEST [...] LAB BLOOD ORDERABLES Fi nal Result PR[facility]ASH [address] [facility] [place] [address] * eGFR (06/29/2024 3:15 PM CDT) eGFR [...] MD LAB BLOOD ORDERABLES Fi nal Result [facility] [address] Department [place] [address] * Differential, auto (06/29/2024 3:15 PM CDT) Neutrophil abs 4.12 1.50 - 6.50 K/cumm Imm gran abs 0.03 0.00 - 0.10 K/cumm [facility] Lymphocyte abs 1.30 0.80 - 3.30 K/cumm [facility] Monocyte abs 0.50 0.20 - 0.80 K/cumm [facility] Eosinophil abs 0.22 0.00 - 0.50 K/cumm [facility] Basophil abs 0.03 0.00 - 0.10 K/cumm [facility] Neutrophil pct 66.4 % [facility] Comment: Interpretive Data Percent cell count reference ranges are not reported, since discordance with absolute values may lead to misinterpretation of CBC data. Current Interpretive Data was last revised on 2017. Imm gran pct 0.5 % [facility] Comment: Interpretive Data Percent cell count reference ranges are not reported, since discordance with absolute values may lead to misinterpretation of CBC data. Current Interpretive Data was last revised on 2017. Lymphocyte pct 21.0 % [facility] Comment: Interpretive Data Percent cell count reference ranges are not reported, since discordance with absolute values may lead to misinterpretation of CBC data. Current Interpretive Data was last revised on 2017. Monocyte pct 8.1 % [facility] Comment: Interpretive Data Percent cell count reference ranges are not reported, since discordance with absolute values may lead to misinterpretation of CBC data. Current Interpretive Data was last revised on 2017. Eosinophil pct 3.5 % [facility] Comment: Interpretive Data Percent cell count reference [...] LAB BLOOD ORDERABLES Fi nal Result [facility]ASH [address] Department [place] [address] * Pro B-type natriuretic peptide [...] ORDERABLES Fi nal Result Performing Organization Address City/[facility]/ZIP Co de Phone Number PRAKASH LINO [address] [place] [address] * (ABNORMAL) CBC with auto [...] ORDERABLES Fi nal Result Performing Organization Address City/[facility]/ZIP Co de Phone Number PRAKASH LINO [address] [place] [address] * (ABNORMAL) Comprehensive metabolic panel [...] LAB BLOOD ORDERABLES Fi nal Result [facility] [address] Department [place] [address] * ECG 12 lead (06/29/2024 3:07 PM CDT) 06/29/2024 3:07 PM CDT Narrative [facility] - 06/30/2024 8:08 AM CDT Vent Rate: 109 bpm RR Interval: 550 msec CO Interval: 157 msec QRS Duration: 88 msec QT Interval: 336 msec QTC Interval: 400 msec P-R-T [place]: 46 - 18 - 55 degrees IMPRESSION: SINUS TACHYCARDIA Electronically Signed By: Rigoberto Stewart MD, [facility] Miller Yan MD ECG ORDERABLES Final R esult Performing Organization Address City/[facility]/ZIP Co de Phone Number [facility] * Albumin Creatinine Ratio, Urine (05/03/2024 1:57 PM LODGING FACILITIES MANAGER) Albumin Ur <12.0 mg/L Comment: Interpretive Data No reference range established. Current interpretive data was last revised 2018. Creatinine Ur 147.1 mg/dL [facility] Comment: Interpretive Data No reference range established. Current interpretive data was last revised 2018. Albumin Creatinine Ratio, Ur <8 1 - 29 mg/g [facility]ASH Urine 05/03/2024 1:57 PM LODGING FACILITIES MANAGER 05/03/2024 5:42 PM LODGING FACILITIES MANAGER Khushi SEARS LAB URINE ORDERABLES Fi nal Result Performing Organization Address [facility] Co de Phone Number [facility] [address] Department [place] [address] * (ABNORMAL) POCT hemoglobin A1c (05/03/2024 1:07 PM LODGING FACILITIES MANAGER) Hemoglobin A1C, POC 8.4 4.0 - 5.6 % Capillary blood 05/03/2024 1 :07 PM LODGING FACILITIES MANAGER Khushi SEARS POINT OF CARE TEST ORDE RABLES Final Result * (ABNORMAL) POCT lipid panel (05/03/2024 1:07 AM LODGING FACILITIES MANAGER) Cholesterol, POC 197 mg/dL HDL, POC 41 mg/dL Triglycerides, POC 167 mg/dL LDL Cholesterol POC 123 mg/dL Chol/HDL Ratio, POC 4.8 Non-HDL Cholesterol, POC 156 mg/dL Cholesterol Total, POC 197 mg/dL Capillary blood 05/03/2024 1 :07 AM LODGING FACILITIES MANAGER Khushi SEARS POINT OF CARE TEST ORDLeslee [...] Mccarty MD - 12/16/2021 2:26 PM CDT [facility] Patient Name: Josseline Main Procedure Date: 12/16/2021 2:26 PM Date of : 1975 Admit Type: Inpatient Age: 46 Gender: Female Attending MD: Shannon Mccarty M.D. Room: [facility] ENDOSCOPY ROOM 1 Note Status: Finalized [...] and retrieved.Clip (MR conditional) was placed. Clip workers compensation manager:[employer]. - Internal and external hemorrhoids. Recommendation: - [...] under direct vision. The Pediatric Colonoscope [id number]-H190L [id number] was introducedthrough the anus and advanced to [...] clip was successfully placed (MR conditional). Clip workers compensation manager: [employer]. There was no bleeding at the end ofthe procedure. Internal hemorrhoids were found during retroflexion. The hemorrhoids were medium-sized. Electronically signed by Shannon Mccarty M.D. Shannon Mccarty M.D. 12/16/2021 4:29:06 PM Number of Addenda: 0 Note Initiated On: 12/16/2021 2:26 PM Procedure Code(s): --- Professional --- 41683, Colonoscopy, flexible; with removal of tumor(s), polyp(s), or other lesion(s) by snare technique 71743, Colonoscopy, flexible; with directed submucosal injection(s),any substance 52450, 59, Colonoscopy, flexible; with biopsy, single or multiple Diagnosis Code(s): --- Professional --- K64.8, Other hemorrhoids D12.2, Benign neoplasm of ascending colon D12.4, Benign neoplasm of descending colon D12.5, Benign neoplasm of sigmoid colon K92.1, Melena (includes Hematochezia) R19.5, Other fecal abnormalities CPT copyright 2020 [employer]. All rights reserved. The codes documented in this report are preliminary and upon materials planning manager reviewmay be revised to meet current compliance requirements. Recognized by the [employer] for promoting quality in endoscopy us Shannon Mccarty MD ENDOSCOPY PROCEDURES Final Result from Last 3 Months or Most Recently Relevant to Health Maintenance Insurance [facility] HMO/PPO Address: [facility] [id number] [place] [id number] IDPA IDNV IDNV [place] WORKERS COMPENSATION GENERIC * Guarantor: OTHER Account Type Relation to Patient Date of Phone Billing Address Workers Comp Employer Advance Directives For more information, please contact: [phone] * Full Code (Latest Code Status on [...] Agents on File Name Relationship Healthcare Agent [facility] Care Agent Care Teams Neuropsychology Medical Consultant Relationship Specialty Start Date End Date Dotty Charles NP [address] [facility] [address] [place] [address] PCP - General Nurse Practitioner 04/21/24 [place] [address] [facility] [address] [place] [address] Consulting Physician Internal Medicine 02/09/21 Miscellaneous, Not In File 02/21/21 Coco Bernal NP [address] [place] [address] Nurse Practitioner Cardiovascular Disease 02/21/21 Daryn Bui MD [address] [place] [address] Consulting Physician Cardiology 05/21/21 Trevon Benson MD [address] [place] [address] Surgeon Orthopedic Surgery 11/05/21
--- OUTSIDE RECORDS SUMMARY | 2024-09-24 14:50 | XMS_ITS ---
Author Organization [facility] Address [address] [place] [address] Phone Care Team Providers Care Crewman Armoured Personnel Carrier M113 Name Role Phone Dotty Charles APRN, SHIRT SEWER Primary Care Provider OnCall Chronic Condition Monitoring Status:Enrolled (Active) Start date:04/05/2024 Enrollment date:04/05/2024 Related social drivers of health:Intimate Partner Violence, Social Connections, Alcohol Use, Tobacco Use, Depression, Stress Continued Care and Services Coordination
--- OUTSIDE RECORDS SUMMARY | 2024-09-24 14:50 | XMS_ITS | Clinical Summary ---
Author Organization [facility] [employer] [facility] [facility] [employer] Address [address] [place] [address] Care Team Providers Care Environmental Science Professor Name Role Phone Gio Asif MD Primary Care Provider [phone] Source Comments [facility] [employer] [facility] [employer],non-owned Affiliates and Associated Physician Practices is amultiple site organization consisting of ambulatory clinics and hospital sitesin [place], [place], [place] and [place]. This disclosure is being madepursuant to the Care Everywhere program and may not contain all information available regarding this patient. Last updated 17.[facility] [employer] [facility] [employer] Allergies Active Allergy Reactions Criticality Noted Date [...] Take by mouth once daily Active Biotin 25668 MCG TBDP Take by mouth once daily [...] this topic Medical Devices Implanted Type Area Lot Worker Device Identifier Shelf Expiration Date Model / Serial / Lot Graft Bone Grftn Dbm Aspt 5x2.5cm Post Implanted:Qty: 1 on 08/12/2018 by Celso Guerra MD at [facility] N/A: Spine Cervical [employer] 07/30/2019 [id number] / / [id number] [place] Pin Implanted:Qty: 2 on 08/12/2018 by Celso Guerra MD at [facility] N/A: Spine Cervical [employer] 665.614 / / 4.2 Variable Screws Implanted:Qty: 4 on 08/12/2018 by Celso Guerra MD at [facility] N/A: Spine Cervical [employer] 161.014 / / Xtend Plate Implanted:Qty: 1 on 08/12/2018 by Celso Guerra MD at [facility] N/A: Spine Cervical [employer] 161.230 / / Fortify 12mm Core 19-25mm Implanted:Qty: 1 on 08/12/2018 by Celso Guerar MD at [facility] N/A: Spine Cervical [employer] 151.051 / / Fortify 12mm Upper Endplate Implanted:Qty: 1 on 08/12/2018 by Celso Guerra MD at [facility] N/A: Spine Cervical [employer] 151.321 / / Fortify 12mm Lower Endplate Implanted:Qty: 1 on 08/12/2018 by Celso Guerra MD at [facility] N/A: Spine Cervical [employer] 151.371 / / Procedures Procedure Name Priority Date/Time Associated Diagnosis Comments BASIC METABOLIC PANEL (CALCIUM TOTAL) Routine 08/15/2018 4:17 AM CDT Pre-op evaluation from Last 3 Months or Most Recently Relevant to Health Maintenance Results * (ABNORMAL) BASIC METABOLIC PANEL (CALCIUM TOTAL) (08/15/2018 4:17 AM CDT) [facility] BUN 7 7 - 26 mg/dL 08/15/2018 4:51 AM CDT [facility] Creatinine 0.8 0.6 - 1.2 mg/dL 08/15/2018 4:51 AM [facility] Sodium 138 136 - 145 mmol/L 08/15/2018 4:51 AM [facility] Potassium 3.4(L) 3.5 - 4.5 mmol/L 08/15/2018 4:51 AM [facility] Chloride 101 98 - 107 mmol/L 08/15/2018 4:51 AM [facility] CO2 29 22 - 29 mmol/L 08/15/2018 4:51 AM [facility] Glucose 146(H) 70 - 115 mg/dL 08/15/2018 4:51 AM [facility] Calcium 8.5 8.4 - 10.2 mg/dL 08/15/2018 4:51 AM [facility] Anion Gap 11 8 - 18 08/15/2018 4:51 AM [facility] BUN/Creatinine Ratio 9 7 - 23 08/15/2018 4:51 AM [facility] Osmolality Calculated 287 270 - 300 mOsm/kg 08/15/2018 4:51 AM [facility] eGFR >60 >60 mL/min/1.7 3 m2 08/15/2018 4:51 AM [facility] Blood BLOOD SPECIMEN / Unknown Lab Venipuncture / Unknown 08/15/2018 4:17 AM CDT 08/15/2018 4:28 AM [facility] Marlo Corea MD LAB - CHEMISTRY ORDERABLES Final Result [facility] [address] [phone] from Last 3 Months or Most Recently Relevant to Health Maintenance Insurance [facility] ANTH MEDICAID - OUT OF STATE [facility] Advance Directives * Full Code (Latest Code Status on File) Date Activated Date Inactivated Comments 08/12/2018 8:00 PM 08/15/2018 4:03 PM Care Teams Environmental Science Professor Relationship Specialty Start Date End Date Gio Asif MD [address] [place] [address] PCP - General Internal Medicine 08/12/18
--- OUTSIDE RECORDS SUMMARY | 2024-09-24 14:50 | XMS_ITS | Clinical Summary ---
Author Organization [facility] Address [address] [place] [address] Care Team Providers Care Mechanical Maintenance Worker Name Role Phone Unavailable Primary Care Provider [...]
--- OUTSIDE RECORDS SUMMARY | 2024-09-24 14:50 | XMS_ITS | Encounter Summary ---
Author Organization [facility] Healthcare Address [address] [place] [address] Care Team Providers Care Residential Housekeeper Name Role Phone Gio Asif MD Primary Care Provider No, Physician Primary Care Provider Alvin Franco MD Primary Care Provider [phone] No, Physician Primary Care Provider [phone] Alvin Franco MD Unavailable [phone] Miscellaneous, Not In File Unavailable Unava ilable Coco Bernal LIFT SLAB OPERATOR Unavailable Silvino Lopez MD Primary Care Provider + Daryn Bui MD Unavailable Trevon Benson MD Unavailable [phone] Shauna Hicks MD Primary Care Provider Dotty Charles LIFT SLAB OPERATOR Primary Care Provider Encounter Details Date Type Department Care Team (Latest Contact Info) Description 09/09/2019 Ophth Exam Ophthalmology Priscila Yarbrough MD [address] [place] [address] Social History Tobacco Use Types Packs/Day Years [...] on file Legal Sex Female 8:03 AM DETECTIVE AND INTELLIGENCE ANALYST Gender Identity Not on file Sexual Orientation Straight 05/01/2021 9: 39 PM DETECTIVE AND INTELLIGENCE ANALYST documented as of this encounter Plan of Treatment Upcoming Encounters Date Type Department Care Team (Late st Contact Info) Description 01/23/2025 11:00 AM DETECTIVE AND INTELLIGENCE ANALYST Hospital Encounter [address] [address] Shannon Mccarty MD [address] [place] [address] DR JOHANSEN [address] [place] [id number] 01/23/2025 11:00 AM DETECTIVE AND INTELLIGENCE ANALYST - 01/23/2025 11:30 AM DETECTIVE AND INTELLIGENCE ANALYST Surgery [address] [address] Shannon Mccarty MD 4 [facility] DR JOHANSEN [address] [place] [id number] COLONOSCOPY Scheduled Procedures Name Priority Associated Diagnoses Date/Ti ks COLONOSCOPY Screening for colon cancer 01/23/2025 11:00 AM DETECTIVE AND INTELLIGENCE ANALYST documented as of this encounter Visit Diagnoses [...] COVID: Suspected 01/16/2024 01/16/2024 01/16/2024 5:20 PM DETECTIVE AND INTELLIGENCE ANALYST COVID: Suspected 04/21/2024 04/21/2024 04/21/2024 4:15 PM DETECTIVE AND INTELLIGENCE ANALYST documented as of this encounter Eye Exam [...] plaques Normal, no pl aques Care Teams Residential Housekeeper Relationship Specialty Start Date End Date Gio Asif MD [address] [place] [address] PCP - General 11/24/16 07/23/20 No, Physician PCP - General 07/24/20 12/10/20 [place] [id number] [address] [facility] [address] [place] [address] PCP - General 12/11/20 02/07/21 No, Physician PCP - General 02/08/21 03/11/21 Silvino Lopez MD [address] [place] [address] [address] [facility] [place] [address] PCP - General Family Medicine 03/12/21 12/19/22 Shauna Hicks MD [address] [place] [address] PCP - General Family Medicine 01/03/23 04/20/24 Dotty Charles, DONG [address] [place] [address] DR ANDREW Tao [facility] [address] [place] [address] PCP - General Nurse Practitioner 04/21/24 [place] [id number] [address] Consulting Physician Internal Medicine 02/09/21 Miscellaneous, Not In File 02/21/21 Coco Bernal NP [address] [place] [address] DR JOHANSEN [address] [place] [id number] Nurse Practitioner Cardiovascular Disease 02/21/21 Daryn Bui MD [address] [address] Consulting Physician Cardiology 05/21/21 Trevon Benson MD [address] [place] [address] Surgeon Orthopedic Surgery 11/05/21 documented as of this encounter
--- NOTE | 2024-09-24 14:56 | ED_ITS ---
HPI - Chest Pain General Chief Complaint: Chest Pain Stated Complaint: CHEST PAIN/SOB RECENT SHOULDER SURGERY Time Seen by Provider: 09/24/24 14:26 Source: patient Mode of arrival: ambulatory Limitations: no limitations History of Present Illness HPI narrative: 49 yo female presents with CP and shortness of breath. She is also concerned about pain and swelling and possible infection around incision site from recent right shoulder surgery performed by Dr Gil through [facility] (outpatient same day procedure) approximately 2 weeks ago. Not feeling well. Patient is to follow-up with her orthopedic surgeon on 10/16/2024. Denies any coughing but has had subjective fevers/chills. Surgery was for issue with bicep and rotator cuff. Taking [place] at home for pain, acetaminophen containing. Last dose last night. Had previously been on metoprolol for HTN, not taking lately. 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 Cardiac risk factors HTN: Yes HLD: No DM:Yes, on insulin as well as pills Obese: Yes Smoker: Vapes nicotine containing product Personal history NM/TIA/CVA: Hx TIA in 2019 and possible history of NM when she was 37yo though reports negative cardiac catheterization without blockages or stent placement (though can't recall when) Fam Hx NM in first degree relative <65yo: Yes, father <65 ( in 2019 as a result). Related Data Home Medications ?Medication ?Instructions ?Recorded ?Confirmed ?Last Taken ?Type pregabalin 150 mg capsule (Lyrica) 150 mg PO TID 05/11/19 03/28/24 03/28/24 History aspirin 325 mg tablet 325 mg PO DAILY 10/25/19 03/28/24 03/28/24 History atorvastatin 80 mg tablet 80 mg PO DAILY 10/25/19 03/28/24 03/27/24 History empagliflozin 10 mg tablet 10 mg PO DAILY 10/25/19 03/28/24 03/28/24 History (Jardiance) levothyroxine 125 mcg tablet 125 mcg PO BID 10/25/19 03/28/24 03/28/24 History metformin 500 mg tablet,extended 500 mg PO BID 10/25/19 03/28/24 Unknown History release 24 hr topiramate 50 mg tablet 50 mg PO BID 10/25/19 03/28/24 Unknown History trazodone 100 mg tablet 100 mg PO HS 10/25/19 03/28/24 03/27/24 History venlafaxine 75 mg tablet 75 mg PO TID 10/25/19 04/07/24 Unknown History fehinopqkl-bufurtcyeqtnt-elomvjwq 1 tablet PO PRN headache 03/28/24 03/28/24 Unknown History 50 mg-325 mg-40 mg tablet flecainide 100 mg tablet 100 mg PO Q12H 03/28/24 03/28/24 03/28/24 History levothyroxine 75 mcg tablet 75 mcg PO DAILY 03/28/24 03/28/24 03/28/24 History Allergies Allergy/AdvReac Type Severity Reaction Status Date / Time hydroxyzine Allergy Intermediate SWELLS Verified 09/24/24 13:12 buspirone AdvReac Intermediate Nausea and Verified 09/24/24 13:12 Vomiting PMFSH Past Medical History Medical History Insulin dependent diabetes mellitus HTN (hypertension) Brain TIA stated 2019 Hypothyroid Diabetes Fibromyalgia Anxiety and depression Migraines Surgical History Surgical History H/O shoulder surgery Right, September 2024, Dr Gil ([facility]), outpatient for bicep and rotator cuff issue Hx of cholecystectomy H/O cervical spine surgery Family History Family History Father , 2019 Acute myocardial infarction <65yo Mother , 2019 Heart failure Social History Social History Tobacco type: cigarettes and e-cigarettes/vaping Additional smoking assessment comments: former cigarettes; now vapes nicotine containing product Alcohol intake: current Alcohol use details: rarely Substance use: never Substance use type: does not use Living arrangements: with family Gender identity (if verbalized by the patient): Female Spiritual care concerns: No Exam 2 Narrative: GENERAL: Well-appearing, well-nourished, and in no acute distress. HEAD: Normocephalic, atraumatic. EYES: Non injected, non icteric ENT: Nares clear, no rhinorrhea or epistaxis. Gross auditory acuity intact. NECK: Supple. No meningismus. CHEST: Speaking in full sentences. No respiratory distress. HEART: Regular rate and rhythm. ABDOMEN: Obese but Soft, nondistended. EXTREMITIES: Large lower extremities but No bilateral lower extremity edema. Right anterior shoulder/axilla with well healing incision. Slight induration/swelling which is tender to palpation but otherwise without signficant erythema. No purulent drainage. Scattered ecchymotic lesions. SKIN: Warm, dry. NEURO: No focal deficits. Alert and oriented. Answering questions. Following commands. Normal speech without aphasia or dysarthria. PSYCH: Congruent mood and affect. Course Vital Signs Vital signs: Vital Signs Temperature 98.5 F 09/24/24 13:38 Pulse Rate 88 09/24/24 13:38 Respiratory Rate 18 09/24/24 13:38 Blood Pressure 134/86 09/24/24 13:38 Pulse Oximetry 98 09/24/24 13:38 Oxygen Delivery Room Air 09/24/24 13:38 Temperature 98.5 F 09/24/24 13:38 Pulse Rate 77 09/24/24 17:53 Respiratory Rate 16 09/24/24 17:53 Blood Pressure 151/106 H 09/24/24 17:53 Pulse Oximetry 100 09/24/24 17:53 Oxygen Delivery Room Air 09/24/24 14:48 MDM - Chest Pain MDM Narrative Medical decision making narrative: 49yo female presents with CP and shortness of breath as well as pain and swelling a incision site from recent shoulder surgery. In the emergency department they are afebrile with vital signs within normal limits. Can not apply PERC rule based on recent surgery. Will obtain Dimer although patient notably not hypoxic or tachycardic. HEART SCORE History 2 highly suspicious 1 moderately suspicious 0 slightly suspicious History score [address] depression/elevation not due to LBBB, LVH, or digoxin [address] depression but LBBB, LVH, nonspecific repolarization changes 0 normal ECG score 0 Age 2 >/= 65 1 45-64 0 <45 Age score 1 Risk factors (HTN, hypercholesterolemia, DM, obesity with BMI >30, current smoker or cessation </=3mo), positive fam hx with parent or sibling with CVD before age 65, atherosclerotic disease (prior NM, PCI/CABG, CVA/TIA, or peripheral arterial disease) 2 >/= 3 risk factors or history of atherosclerotic dz 1 - 1-2 risk factors 0 no known risk factors Risk factor score 2 Initial Troponin 2 >3 times normal limit 1 1-3 times normal limit 0 less than or equal to normal limit Troponin score 0 Total HEART Score 3. She has hyperglycemia without anion gap acidosis. Normal renal function. No leukocytosis. Hgb ok. Mildly elevated D dimer; will proceed with CT PE imaging; discussed with radiology supervisor to ensure the images would include the recent surgical area. She has a urinalysis concerning for infection based on bacteria, white blood cells and leukocyte esterase. Previous culture from August reviewed which was negative but will treat today. Preg test negative. Repeat troponin negative. Given her HEART score (risk factors), I do recommend she follow up outpatient and we discussed this and she verifies understanding. CT scan without evidence of PE. The fluid collections around her surgical site appear to be postoperative rather than infectious. There is questionable finding of ground-glass opacities. Although she has not been coughing, she does report subjective fevers and chills and for this reason out of an abundance of precaution we will treat as a pneumonia, especially as she recently underwent surgery. Will prescribe Levaquin given the abnormal UA as this will provide dual coverage. First dose given in the ED. At the time of discharge, patient was requesting a prescription of something for nausea for home use. Zofran prescribed. Differential Diagnosis Differential diagnosis: Likely pneumothorax, stable angina, unstable angina pectoris, atypical chest pain, st elevation myocardial infarction, chest pain and other (incision site infection; (post operative) pneumonia; heart failure; PE) Lab Data Attestation: I reviewed the patient's lab results. 09/24/24 16:10 09/24/24 13:38 Labs: Lab Results 09/24/24 09/24/24 09/24/24 Range/Units 13:38 15:54 16:10 WBC 6.2 (4.5-10.0) K/mm3 RBC 4.19 L (4.2-5.4) M/mm3 Hgb 12.1 (12.0-15.0) g/dL Hct 36.1 L (37.0-47.0) % MCV 86.2 (80-100) fl MCH 28.9 (26-34) pg MCHC 33.5 (32-36) g/dl RDW 13.6 (11.5-14.5) % Plt Count 277 (150-375) k/mm3 MPV 8.4 (7.4-10.4) fl Immature Gran % (Auto) 0.5 (0-0.5) % Neut % (Auto) 67.0 (45.5-73.1) % Lymph % (Auto) 20.4 (18.3-44.2) % Caroline % (Auto) 8.2 (2.6-8.5) % Eos % (Auto) 3.4 (0-4.4) % Baso % (Auto) 0.5 (0.2-1.2) % Lymph # (Auto) 1.27 (0.9-3.2) K/mm3 Caroline # (Auto) 0.5 (0.1-0.6) K/mm3 Eos # (Auto) 0.2 (0-0.3) K/mm3 Baso # (Auto) 0.0 (0.0-0.1) K/mm3 Abs Immat Gran (auto) 0.03 (0.00-0.031) K/mm3 Absolute Neuts (auto) 4.2 (1.3-6.7) K/mm3 Absolute Nucleated RBC 0.000 (0.0-0.012) K/mm3 Nucleated RBC % 0.0 (0.0-0.2) % PT 13.6 (11.1-14.7) Seconds INR 1.0 APTT 21.4 L (22.3-36.8) Seconds D-Dimer 0.84 H (<0.48) ug/mL Sodium 137 (137-145) mmol/L Potassium 3.8 (3.4-5.0) mmol/L Chloride 103 (98-107) mmol/L Carbon Dioxide 24 (22-30) mmol/L Anion Gap 10 (4-12) mmol/L BUN 8 (7-17) mg/dL Creatinine 0.57 L (0.7-1.0) mg/dL Estim Creat Clear Calc 154 ml/min Estimated GFR > 60 (59 - ) Glucose 217 H (65-110) mg/dL Calcium 9.2 (8.4-10.2) mg/dL Total Bilirubin 0.9 (0.2-1.3) mg/dL AST 25 (14-36) U/L ALT 19 (6-35) U/L Alkaline Phosphatase 59 (38-126) U/L Troponin I < 0.012 < 0.012 (0.000-0.034) ng/mL NT-Pro-B Natriuret Pep 58 68 (19.9-100) pg/mL Total Protein 7.6 (6.3-8.2) g/dL Albumin 4.1 (3.5-5.1) g/dL Lipase 140 (23-300) U/L Urine Color Yellow (Yellow) Urine Appearance Cloudy H (Clear) Urine pH 5.0 (5.0-9.0) Ur Specific [place] 1.016 (1.001-1.035) Urine Protein Negative (Negative) mg/dL Urine Glucose (UA) Negative (Negative) mg/dL Urine Ketones Negative (Negative) mg/dL Ur Blood (Man) Negative (Negative) Urine Nitrate Negative (Negative) Urine Bilirubin Negative (Negative) Urine Urobilinogen 0.2 (<2.0) mg/dL Leukocyte Esterase Rfl 3+ H (Negative) ANAID/UL Urine RBC 0-2 (0-2) /hpf Urine WBC 11-20 H (0-3) /hpf Ur Squamous Epith Cells Moderate (Few) /hpf Urine Bacteria 3+ H /hpf Urine Casts 0-2 POC Urine HCG, Qual (Negative) 09/24/24 Range/Units 16:24 WBC (4.5-10.0) K/mm3 RBC (4.2-5.4) M/mm3 Hgb (12.0-15.0) g/dL Hct (37.0-47.0) % MCV (80-100) fl MCH (26-34) pg MCHC (32-36) g/dl RDW (11.5-14.5) % Plt Count (150-375) k/mm3 MPV (7.4-10.4) fl Immature Gran % (Auto) (0-0.5) % Neut % (Auto) (45.5-73.1) % Lymph % (Auto) (18.3-44.2) % Caroline % (Auto) (2.6-8.5) % Eos % (Auto) (0-4.4) % Baso % (Auto) (0.2-1.2) % Lymph # (Auto) (0.9-3.2) K/mm3 Caroline # (Auto) (0.1-0.6) K/mm3 Eos # (Auto) (0-0.3) K/mm3 Baso # (Auto) (0.0-0.1) K/mm3 Abs Immat Gran (auto) (0.00-0.031) K/mm3 Absolute Neuts (auto) (1.3-6.7) K/mm3 Absolute Nucleated RBC (0.0-0.012) K/mm3 Nucleated RBC % (0.0-0.2) % PT (11.1-14.7) Seconds INR APTT (22.3-36.8) Seconds D-Dimer (<0.48) ug/mL Sodium (137-145) mmol/L Potassium (3.4-5.0) mmol/L Chloride (98-107) mmol/L Carbon Dioxide (22-30) mmol/L Anion Gap (4-12) mmol/L BUN (7-17) mg/dL Creatinine (0.7-1.0) mg/dL Estim Creat Clear Calc ml/min Estimated GFR (59 - ) Glucose (65-110) mg/dL Calcium (8.4-10.2) mg/dL Total Bilirubin (0.2-1.3) mg/dL AST (14-36) U/L ALT (6-35) U/L Alkaline Phosphatase (38-126) U/L Troponin I (0.000-0.034) ng/mL NT-Pro-B Natriuret Pep (19.9-100) pg/mL Total Protein (6.3-8.2) g/dL Albumin (3.5-5.1) g/dL Lipase (23-300) U/L Urine Color (Yellow) Urine Appearance (Clear) Urine pH (5.0-9.0) Ur Specific [place] (1.001-1.035) Urine Protein (Negative) mg/dL Urine Glucose (UA) (Negative) mg/dL Urine Ketones (Negative) mg/dL Ur Blood (Man) (Negative) Urine Nitrate (Negative) Urine Bilirubin (Negative) Urine Urobilinogen (<2.0) mg/dL Leukocyte Esterase Rfl (Negative) ANAID/UL Urine RBC (0-2) /hpf Urine WBC (0-3) /hpf Ur Squamous Epith Cells (Few) /hpf Urine Bacteria /hpf Urine Casts POC Urine HCG, Qual Negative (Negative) Imaging Data Radiologist's impression: Impressions Chest X-Ray 09/24/24 14:24 IMPRESSION: No acute cardiopulmonary process. Chest CTA 09/24/24 17:06 IMPRESSION: No CT evidence of acute pulmonary embolus. Patchy bilateral ground glass opacities may represent edema, atelectasis, or infection. Right glenohumeral joint and adjacent subscapularis and biceps fluid collections, in the absence of signs of infection these likely represent normal postoperative fluid collections. ECG Data EKG #1: Attestation: I personally reviewed and interpreted this ECG as follows: ECG completion date: 09/24/24 ECG completion time: 13:19 Prior ECG tracings: available for review (01/26/2024) Interpretation: Normal sinus rhythm at a rate of 92 beats per minute. There are premature complexes. VT interval 176. QRS 87. QT/QTC 350/400. Poor R-wave progression across the precordial leads. No T-wave inversions. EKG #2: Attestation: I personally reviewed and interpreted this ECG as follows: ECG completion date: 09/24/24 ECG completion time: 15:59 Interpretation: Normal sinus rhythm at a rate of 80 beats per minute. VT interval 164. QRS 90. QT/QTC 364/400. Good R-wave progression across the precordial leads although low amplitude particularly in the lateral aspect, suspect due to body habitus. No T-wave inversions. Discharge Plan Discharge Clinical Impression: Hyperglycemia due to diabetes mellitus, Chest pain, Shortness of breath, Urinary tract infection in female, Postoperative pain, acute, shoulder, Ground glass opacity present on imaging of lung Patient Disposition: Home Condition: Stable Instructions: Antibiotic Form, Chest Pain (DC), Urinary Tract Infection in Women (DC), Pneumonia (ED), Diabetic Hyperglycemia (ED), Shortness of Breath (ED) Additional Instructions: Keep your upcoming follow-up appointment with your orthopedic surgeon. You should also follow-up with your fence builder. Return to the emergency department with any new or worsening symptoms. You received your 1st dose of antibiotic in the emergency department with the rest of the course prescribed. Patient Language: Slovak Prescriptions: New levofloxacin 500 mg tablet 500 mg PO DAILY Qty: 4 0RF Rx Instructions: start 09/25 (received first dose in ED 09/24) ondansetron 4 mg tablet,disintegrating 4 mg PO Q8H PRN (Reason: nausea and vomiting) Qty: 7 0RF No Action atorvastatin 80 mg Tablet 80 mg PO DAILY aspirin 325 mg Tablet 325 mg PO DAILY levothyroxine 125 mcg Tablet 125 mcg PO BID metformin 500 mg Tablet Extended Release 24 Hr 500 mg PO BID Jardiance 10 mg Tablet 10 mg PO DAILY topiramate 50 mg Tablet 50 mg PO BID trazodone 100 mg Tablet 100 mg PO HS venlafaxine 75 mg Tablet 75 mg PO TID pregabalin [Lyrica] 150 mg Capsule 150 mg PO TID plnnvbhnhv-qkyvgkundmpwt-jgwc 50-325-40 mg tablet 1 tablet PO PRN levothyroxine 75 mcg tablet 75 mcg PO DAILY flecainide 100 mg tablet 100 mg PO Q12H peg 3350-electrolytes [Golytely] 236-22.74-6.74 -5.86 gram recon soln 240 ml PO .Q15MIN Qty: 4000 0RF Rx Instructions: FOLLOW INSTRUCTIONS FROM PROVIDER Follow-up/Referrals: Dotty Charles RN [Primary Care Provider] - Stand Alone Forms: Work/School Release IP Time of Disposition: 17:43
[2024-09-24 15:51] VITALS: BP 113/77; PULSE 81; RESP 17; O2SAT 96
--- NOTE | 2024-09-24 15:52 | ECG_ITS ---
Test Date: 2024-09-24 15:59:15 Measurements Intervals [place] Rate: 80 P: 44 NH: 164 QRS: 8 QRSD: 90 T: 40 QT: 364 QTc: 421 Interpretive Statements SINUS RHYTHM LOW QRS VOLTAGE IN PRECORDIAL LEADS [QRS DEFLECTION < 1.0 mV IN CHEST LEADS] POSSIBLE ANTERIOR MYOCARDIAL INFARCTION , OF INDETERMINATE AGE [30 ms Q WAVE IN V3/V4, OR R < 0.2 mV IN V4] Compared to ECG 09/24/2024 13:19:29 No significant changes Electronically Signed On 09-25-2024 10:48:10 CDT by Noble Hubbard M.D.
[2024-09-24] MEDS: ASPIRIN 81 MG CHEWABLE TABLET 324 MG PO (15:56)
[2024-09-24] MEDS: HYDROcodone/acetaminophen (*CRX) 5-325 MG TABLET 1 TAB PO (15:57)
[2024-09-24 16:05] LABS: Add Urine Microscopic? YES; Appearance Urine Cloudy (Clear); Glucose Urine UA Negative (Negative); Leukocyte Esterase Ur 3+ LEU/UL (Negative); Nitrate Urine Negative (Negative); Non Pathogenic Casts 0-2; Specific Grav Ur 1.016 (1.001-1.035)
[2024-09-24 16:12] LABS: NT Pro B Type Natriuretic Pept 58 pg/mL (19.9-100)
[2024-09-24 16:17] LABS: Hematocrit 36.1 % (37.0-47.0); Hemoglobin 12.1 g/dL (12.0-15.0); Immature Granulocyte Percent A 0.5 % (0-0.5); Lymphocytes Absolute Auto 1.27 K/mm3 (0.9-3.2); Mean Corpuscular HGB Conc 33.5 g/dl (32-36); Mean Corpuscular Hemoglobin 28.9 pg (26-34); Mean Corpuscular Volume 86.2 fl (80-100); Nucleated Red Blood Cells Absolute Auto 0.000 K/mm3 (0.0-0.012); Nucleated Red Blood Cells Perc 0.0 % (0.0-0.2); Platelet Count Result 277 k/mm3 (150-375); Red Blood Count 4.19 M/mm3 (4.2-5.4); White Blood Count 6.2 K/mm3 (4.5-10.0)
[2024-09-24 16:26] LABS: BEDSIDEPREGUCG Negative (Negative)
[2024-09-24 16:55] LABS: NT Pro B Type Natriuretic Pept 68 pg/mL (19.9-100); Troponin I < 0.012 ng/mL (0.000-0.034)
[2024-09-24 17:53] VITALS: BP 151/106; PULSE 77; RESP 16; O2SAT 100
== END 2024-09-24 18:12 | disposition home or self-care (01) ==
PROVIDERS: Emergency Medicine; Emergency Provider Student in an Organized Health Care Education/Training Program; PCP Nurse Practitioner Family
DX: E11.65 Type 2 diabetes mellitus with hyperglycemia (principal); N39.0 Urinary tract infection, site not specified; G89.18 Other acute postprocedural pain; M25.511 Pain in right shoulder; R06.02 Shortness of breath; R07.9 Chest pain, unspecified; R91.8 Other nonspecific abnormal finding of lung field; I10 Essential (primary) hypertension; E03.9 Hypothyroidism, unspecified; M79.7 Fibromyalgia; F41.9 Anxiety disorder, unspecified; F32.A Depression, unspecified; F17.290 Nicotine dependence, other tobacco product, uncomplicated; Z86.73 Personal history of transient ischemic attack (TIA), and cerebral infarction without residual deficits; Z90.49 Acquired absence of other specified parts of digestive tract; Z79.4 Long term (current) use of insulin; Z79.84 Long term (current) use of oral hypoglycemic drugs; Z79.82 Long term (current) use of aspirin; Z79.899 Other long term (current) drug therapy; I49.1 Atrial premature depolarization; R94.31 Abnormal electrocardiogram [ECG] [EKG]
CPT/HCPCS: 36415; 71046; 71275; 80053; 81001; 81025; 83690; 83880; 84484; 85025; 85380; 85610; 85730; 93005; 99284; A9270; Q9967

== ENCOUNTER 2024-10-12 17:03 | Emergency (ER) | payer MEDICAID, SELFPAY ==
--- NOTE | ~2024-10-12 | CT_ITS ---
CTA brain carotid Ordering provider: Krysten Powell MD History: 49-year-old woman who presents to the emergency department with chest pain and shortness of breath - although while waiting to be evaluated she developed left-sided ptosis and vertigo, now reso lved. Comparison: None. Technique: CT angiogram head and neck was performed following timed intravenous injection of contrast . Thin slice axial images and reformatted coronal images were obtained. Three dimensional reformatted images of the brain were also obtained using a Omni[employer] workstation. DLP: 1174 mGy-cm FINDINGS: HEAD: --ANTERIOR AND MIDDLE CEREBRAL ARTERIES AND BRANCHES: Normal caliber and contour. --INTERNAL CAROTID ARTERIES: Normal caliber and contour. --BASILAR ARTERY AND BRANCHES: Normal caliber and contour. No atheromatous disease. --POSTERIOR CEREBRAL ARTERIES: Normal caliber and contour --POSTERIOR COMMUNICATING ARTERIES: Not well visualized likely related to congenital absence or small size. --ANEURYSM: None visualized. --BRAIN: Please refer to report of CT head performed the same day. --BONES AND SUPERFICIAL SOFT TISSUES: Please refer to report of CT head performed the same day. --PARANASAL SINUSES AND MASTOIDS: Please refer to report of CT head done the same day. NECK: --RIGHT CERVICAL CAROTID SYSTEM: Normal caliber and contour. Percent stenosis per NASCET criteria is 0% No carotid dissection. --LEFT CERVICAL CAROTID SYSTEM: Normal caliber and contour. Percent stenosis per NASCET criteria is 0% No carotid dissection. --VERTEBRAL ARTERIES: Right vertebral artery dominant. Otherwise normal caliber and contour. --VISUALIZED AORTIC ARCH AND BRANCHING VESSELS: Normal caliber and contour. No significant atheromato us disease. --SOFT TISSUES: Unremarkable. --CERVICAL SPINE: Age advanced degenerative changes. Anterior fixation at the levels of C5 through C7 . IMPRESSION: 1. Normal CTA head and neck. Percent stenosis per NASCET criteria is 0% Reviewed, dictated and finalized at location A.
--- NOTE | ~2024-10-12 | XR_ITS ---
CHEST RADIOGRAPH, PA AND LATERAL CLINICAL HISTORY: cp, sob . COMPARISON: 09/24/2024 TECHNIQUE: PA and lateral views of the chest. FINDINGS A loop recorder projects to the left of midline. The remainder of the cardiomediastinal silhouette is otherwise unremarkable. The lungs are clear. IMPRESSION: No focal infiltrate or effusion. Reviewed, dictated and finalized at location A.
--- NOTE | ~2024-10-12 | CT_ITS ---
History: Headache PROCEDURE: CT head without contrast. COMPARISON: None TECHNIQUE: Axial imaging of the head performed from the skull base to the vertex without IV contrast. Sagittal a nd coronal reformations obtained. DLP: 605 mGy-cm FINDINGS: The ventricles are normal in size, shape and position. There is no mass, mass effect or midline shift. There is no abnormal extra-axial fluid collection or intracranial hemorrhage. Visualized paranasal sinuses are clear. The mastoid air cells are well aerated. No acute displaced fractures within the overlying cranium. Impression: No acute intracranial hemorrhage or suspicious mass effect. Reviewed, dictated and finalized at location A. Impression: No acute intracranial hemorrhage or suspicious mass effect.
--- NOTE | 2024-10-12 17:04 | ECG_ITS ---
Test Date: 2024-10-12 17:10:36 Measurements Intervals [place] Rate: 86 P: 53 WV: 167 QRS: -2 QRSD: 91 T: 52 QT: 346 QTc: 415 Interpretive Statements SINUS RHYTHM LOW QRS VOLTAGE IN PRECORDIAL LEADS PATTERN CONSISTENT WITH PULMONARY DISEASE MINIMAL Q WAVES- HIGH LATERAL LEADS BASELINE ARTIFACT- I, II, AVR BORDERLINE ECG Compared to ECG 09/24/2024 15:59:15 NO SIGNIFICANT CHANGE Electronically Signed On 10-12-2024 20:16:14 CDT by Iker Ramirez D.O.
--- OUTSIDE RECORDS SUMMARY | 2024-10-12 17:06 | XMS_ITS | Clinical Summary ---
Author Organization [facility] [employer] HOWE Address [address] [place] [address] Care Team Providers Care Dredge Captain Name Role Phone Keira Herrera MD Primary Care Provider [phone] Allergies Active Allergy Reactions Criticality Noted Date [...] 11/22/2023 Overview (11/22/2023): Noted on CT 11/21/23 [facility] ER visit Coronary atherosclerosis 03/01/2023 Bilateral leg [...] Encounters Date Type Department Care Team Description 10/11/2024 External Device Data STL ABSTRACTION Provider, Abstract 09/20/2024 External Device Data [facility] ABSTRACTION Provider, Abstract 09/20/2024 External Device Data [facility] ABSTRACTION Provider, Abstract 09/19/2024 External Device Data [facility] ABSTRACTION Provider, Abstract 08/15/2024 External Device Data [facility] ABSTRACTION Provider, Abstract 08/15/2024 External Device Data [facility] ABSTRACTION Provider, Abstract 08/08/2024 External Device Data [facility] ABSTRACTION Provider, Abstract 07/28/2024 External Device Data Initial Department [address] [place] [address] Dr [place]LANDO: [place] [address] Minesh Iglesias Md from Last 3 Months Family History Medical [...] coma, without long-term current use of insulin ([facility]/HCC) Leukocytosis, unspecified type Abnormal laboratory test [...] Creatinine, Urine 133 20 - 275 mg/dL [facility] MICROALBUMIN, URINE 0.4 See Note: mg/dL [facility] Comment: Reference Range: Reference Range Not established MICROALBUMIN/CREAT RATIO, UR 3 <30 mg/g creat [facility] Comment: The ADA defines abnormalities in albumin excretion as follows: Albuminuria Category Result (mg/g creatinine) Normal to Mildly increased <30 Moderately increased 30-299 Severely increased > OR = 300 The ADA recommends that at least two of three specimens collected within a 3-6 month period be abnormal before considering a patient to be within a diagnostic category. Test Performed at: [facility] [address] [facility] [place] [address] Yossi Zuñiga MD Urine URINE SPECIMEN OBTAINED BY CLEAN CATCH PROCEDURE / Unknown 06/09/2023 11:51 AM CDT 06/09/2023 11:30 PM CDT Shauna Hicks MD URINE ORDERABLES Final Result [facility] [phone] [facility] [place] [facility] [address] * (ABNORMAL) HEMOGLOBIN A1C (06/09/2023 11:51 AM CDT) HEMOGLOBIN A1C 9.3(H) <5.7 % of total Hgb ZE[facility] genia Quigley Comment: For someone without known [...] children. ESTIMATED AVERAGE GLUCOSE (MG/DL) 220 mg/dL [facility] ESTIMATED AVERAGE GLUCOSE (MMOL/L) 12.2 mmol/L [facility] cormier Dann Comment: This test was performed on the Madyson víctor c503 platform. Effective 05/24/23, a change in test platforms from the Nielson Sales Correspondent to the Madyson víctor c503 may have shifted HbA1c results compared to historical results. Based on laboratory validation testing conducted at [facility], the Madyson platform relative to [...] platforms is not recommended. Test Performed at: [place] [address] [address] [place] [id number] Yossi Zuñiga Blood 06/09/2023 11:5 1 AM CDT 06/09/2023 11:51 PM CDT us Shauna Hicks MD CHEMISTRY ORDERABLES Final Re sult [facility] [phone] [place] [address] [address] [place] [phone] * (ABNORMAL) LIPID PANEL (06/09/2023 11:51 AM CDT) CHOLESTEROL 202(H) <200 mg/dL [facility] HDL 45(L) > OR = 50 mg/dL [facility] TRIGLYCERIDE 130 <150 mg/dL [facility] LDL CALCULATED 132(H) mg/dL (calc) [facility] genia Quigley Comment: Reference range: <100 Desirable range <100 mg/dL for primary prevention; <70 mg/dL for patients with CHD or diabetic patients with > or = 2 CHD risk factors. LDL-C is now calculated using the Arben calculation, which is a validated novel method providing better accuracy than the Friedewald equation in the estimation of LDL-C. Daniel AYON et al. OMAR. 2013;310(19): 6445-9994 (http://education.Entangled Media.SocialExpress/faq/AZA372) CHOL/HDL RATIO 4.5 <5.0 (calc) [facility] TOTAL NON-HDL CHOL(LDL+VLDL) 157(H) <130 mg/dL (calc) [facility] Comment: For patients with diabetes plus 1 major ASCVD risk factor, treating to a non-HDL-C goal of <100 mg/dL (LDL-C of <70 mg/dL) is considered a therapeutic option. Test Performed at: [place] [address] [place] [address] Yossi Zuñiga Blood 06/09/2023 11:5 1 AM CDT 06/09/2023 11:51 PM CDT us Shauna Hicks MD CHEMISTRY ORDERABLES Final Re sult [facility] [phone] [place] [address] [place] [address] from Last 3 Months or Most Recently Relevant to Health Maintenance Insurance [id number] [place] [id number] [place]ICAID [place] Advance Directives For more information, please contact: [phone] * Default Full Code - Needs Discussion (Latest Code Status on File) Date Activated Date Inactivated Comments 11/08/2022 9:50 AM 11/08/2022 12:01 PM Care Teams Dredge Captain Relationship Specialty Start Date End Date Keira Herrera MD [address] [place] [address] [place] [phone] PCP - General Internal Medicine 10/14/23
--- OUTSIDE RECORDS SUMMARY | 2024-10-12 17:07 | XMS_ITS | Encounter Summary ---
Author Organization [employer] [facility] Address [address] [place] [address] Care Team Providers Care Correctional Case Records Supervisor Name Role Phone Keira Herrera MD Primary Care Provider [phone] Encounter Details Date Type Department Care Team (Late st Contact Info) Description 10/11/2024 External Device Data [facility] ABSTRACTION [...] documented as of this encounter Care Teams Correctional Case Records Supervisor Relationship Specialty Start Date End Date Keira Herrera MD [address] [place] [address] [place] [address] PCP - General Internal Medicine 10/14/23 documented as of this encounter
--- OUTSIDE RECORDS SUMMARY | 2024-10-12 17:07 | XMS_ITS | Clinical Summary ---
Author Organization [facility] Address [address] [place] [address] Care Team Providers Care Broker Name Role Phone Unavailable Primary Care Provider [...]
--- OUTSIDE RECORDS SUMMARY | 2024-10-12 17:07 | XMS_ITS | Encounter Summary ---
Author Organization [facility] Healthcare Address [address] [place] [address] Care Team Providers Care Imaging Nurse Name Role Phone Gio Asif MD Primary Care Provider No, Physician Primary Care Provider Alvin Franco MD Primary Care Provider No, Physician Primary Care Provider Alvin Franco MD Unavailable [phone] Miscellaneous, Not In File Unavailable Unava ilable Coco Bernal STORE GIFT WRAP ASSOCIATE Unavailable Silvino Lopez MD Primary Care Provider + Daryn Bui MD Unavailable [phone] Trevon Benson MD Unavailable [phone] Shauna Hicks MD Primary Care Provider Dotty Charles STORE GIFT WRAP ASSOCIATE Primary Care Provider Encounter Details Date Type Department Care Team (Latest Contact Info) Description 09/09/2019 Ophth Exam Ophthalmology Priscila Yarbrough MD [address] [place] [address] Social History Tobacco Use Types Packs/Day Years [...] on file Legal Sex Female 8:03 AM VEST BUSHELER Gender Identity Not on file Sexual Orientation Straight 05/01/2021 9: 39 PM VEST BUSHELER documented as of this encounter Plan of Treatment Upcoming Encounters Date Type Department Care Team (Late st Contact Info) Description 01/23/2025 11:00 AM VEST BUSHELER Hospital Encounter [address] [address] Shannon Mccarty MD [address] [place] [address] DR JOHANSEN [address] [place] [address] 01/23/2025 11:00 AM VEST BUSHELER - 01/23/2025 11:30 AM VEST BUSHELER Surgery [address] [address] Shannon Mccarty MD [address] [facility] [address] JOHANSEN [address] [place] [address] COLONOSCOPY Scheduled Procedures Name Priority Associated Diagnoses Date/Ti ok COLONOSCOPY Screening for colon cancer 01/23/2025 11:00 AM VEST BUSHELER documented as of this encounter Visit Diagnoses [...] COVID: Suspected 01/16/2024 01/16/2024 01/16/2024 5:20 PM VEST BUSHELER COVID: Suspected 04/21/2024 04/21/2024 04/21/2024 4:15 PM VEST BUSHELER documented as of this encounter Eye Exam [...] plaques Normal, no pl aques Care Teams Imaging Nurse Relationship Specialty Start Date End Date Gio Asif MD [address] [place] [address] PCP - General 11/24/16 07/23/20 No, Physician PCP - General 07/24/20 12/10/20 [place] [address] [facility] [address] [place] [address] PCP - General 12/11/20 02/07/21 No, Physician PCP - General 02/08/21 03/11/21 Silvino Lopez MD [address] [place] [address] [address] [facility] [place] [address] PCP - General Family Medicine 03/12/21 12/19/22 Shauna Hicks MD [address] [place] [address] PCP - General Family Medicine 01/03/23 04/20/24 Dotty Charles, DONG [address] [place] [address] [address] [facility] [address] [place] [address] PCP - General Nurse Practitioner 04/21/24 [place] [id number] [address] Consulting Physician Internal Medicine 02/09/21 Miscellaneous, Not In File 02/21/21 Coco Bernal NP [address] [place] [address] [address] JOHANSEN [address] [place] [address] Nurse Practitioner Cardiovascular Disease 02/21/21 Daryn Bui MD [address] [place] [address] Consulting Physician Cardiology 05/21/21 Trevon Benson MD [address] [place] [address] Surgeon Orthopedic Surgery 11/05/21 documented as of this encounter
--- OUTSIDE RECORDS SUMMARY | 2024-10-12 17:07 | XMS_ITS | Clinical Summary ---
Author Organization [facility] Address [address] [place] [address] Phone Care Team Providers Care Medical Investigator Name Role Phone Dotty Charles APRN, ESTATE ATTORNEY Primary Care Provider Allergies Active Allergy Reactions [...] Itching. 08/07/19 24 Active ergocalciferol (VITAMIN D) [address]12 UNIT Capsule Take 1.25 mg by mouth [...] Take 8 mg by mouth daily. 01/08/20 23 Active venlafaxine (EFFEXOR-XR) 75 MG CAPSULE SR [...] severe pain. 20 Tablet 08/13/19 25 Active Active Problems Problem Noted Date Diagnosed [...] 08/12/2024 11:39 AM CDT Emergency [facility] Emergency [address] [place] [address] Zhao Joseph, Other chest pain Discharge Disposition: [...] drink = 0.6 oz pur e alcohol) [facility] Utilities Answer Date Recorded In the past 12 months has e [employer], gas, oil, or water company threatened to [...] place to sleep or slept in a senior living (including now)? No 03/01/2023 Sexually Active Control [...] 12/11/2020, Additional history exists SARS-COV-2 Immunization ( season) 2023 Diabetes: Hemoglobin A1c 10/31/2024 025, [...] W/ ESTIMATED GLUCOSE STAT 03/01/2023 1:58 PM SWEET PICKLE MAKER from Last 3 Months or Most Recently Relevant to Health Maintenance Results * (ABNORMAL) TROPONIN I, HIGH SENSITIVITY (HSTRP) (08/12/2024 10:42 AM CDT) Only the most recent of3 resultswithin the time period is included. TROPONIN I, HIGH SENSITIVITY- GARCIA 39(H) <=14 ng/L 08/12/2024 11:26 AM CDT [facility] Comment: High-sensitivity troponin I results are reported in ng/L making the result appear to be 1,000 times higher than the contemporary troponin I value which is reported in ng/ml. Results from Garcia. Blood Venipuncture / Unknown 08/12/2024 10:42 AM CDT 08/12/2024 10:47 AM CDT us Zhaoskylar Vences Jake DO CHEMISTRY ORDERABLES Fi nal Result [facility] [address] [place] [address] * CT ANGIO CHEST ABDOMEN W/WO WITH [...] portions of the ureters. Bladder excluded from dgbhs-ta-jzbm. GI: No dilated loops of small bowel of the visualized alimentary canal. No wall thickening of the visualized alimentary canal. Expected location of the appendix excluded from cmdmf-bz-mjyx. PERITONEUM: No pneumoperitoneum or abdominopelvic free fluid of the visualized portions of the abdomen pelvis. RETROPERITONEUM: No mass or adenopathy of the visualized retroperitoneum. REPRODUCTIVE: Excluded from ozund-qb-xgyz. MUSCULOSKELETAL: Spondylosis and degenerative disc disease of the visualized spine. OTHER: No other abnormality. THIS IS AN ELECTRONICALLY VERIFIED FINAL REPORT 08/12/2024 9:18 AM - Electronically signed by Ken Rolle M.D. JEMMA: JEMMA Report ID: [id number] Reading Location: [id number] Procedure Note Ken Rolle MD - 08/12/2024 [...] portions of the ureters. Bladder excluded from [id number]-eg-[id number]. GI: No dilated loops of small bowel of the visualized alimentary canal. No wall thickening of the visualized alimentary canal. Expected location of the appendix excluded from khsvr-ws-ysoy. PERITONEUM: No pneumoperitoneum or abdominopelvic free fluid of the visualized portions of the abdomen pelvis. RETROPERITONEUM: No mass or adenopathy of the visualized retroperitoneum. REPRODUCTIVE: Excluded from tvczb-rl-[id number]. MUSCULOSKELETAL: Spondylosis and degenerative disc disease of the visualized spine. OTHER: No other abnormality. THIS IS AN ELECTRONICALLY VERIFIED FINAL REPORT 08/12/2024 9:18 AM - Electronically signed by Ken Rolle M.D. JEMMA: JEMMA Report ID: [id number] Reading Location: [place] [address] IMPRESSION: Streak artifact from patient's arms alongside [...] - 12.00 10(3)/mcL 08/12/2024 7:57 AM CDT [facility] RBC 4.08 3.80 - 5.30 10(6)/mcL 08/12/2024 7:57 AM CDT [facility] HEMOGLOBIN (HGB) 12.0 12.0 - 15.8 g/dL 08/12/2024 7:57 AM CDT [facility] HEMATOCRIT (HCT) 34.7(L) 36.0 - 47.0 % 08/12/2024 7:57 AM CDT [facility] MCV 85.0 82.0 - 96.0 fL 08/12/2024 7:57 AM CDT [facility] MCH 29.4 26.0 - 34.0 pg 08/12/2024 7:57 AM CDT [facility] MCHC 34.6 31.0 - 36.0 g/dL 08/12/2024 7:57 AM CDT [facility] PLATELET COUNT 259 140 - 440 10(3)/mcL 08/12/2024 7:57 AM CDT [facility] RDW 12.9 11.8 - 15.5 % 08/12/2024 7:57 AM CDT [facility] MPV 8.4(L) 9.7 - 12.4 fL 08/12/2024 7:57 AM CDT [facility] NEUTROPHILS 62.6 47.0 - 73.0 % 08/12/2024 7:57 AM CDT [facility] LYMPHOCYTES 24.5 18.0 - 42.0 % 08/12/2024 7:57 AM CDT [facility] MONOCYTES 8.6 4.0 - 12.0 % 08/12/2024 7:57 AM CDT [facility] EOSINOPHILS 3.8 0.0 - 5.0 % 08/12/2024 7:57 AM CDT [facility] BASOPHILS 0.5 0.0 - 1.0 % 08/12/2024 7:57 AM CDT [facility] ABSOLUTE NEUTROPHILS 4.74 1.60 - 7.70 10(3)/mcL 08/12/2024 7:57 AM CDT [facility] ABSOLUTE LYMPHOCYTES 1.86 1.30 - 3.20 10(3)/mcL 08/12/2024 7:57 AM CDT [facility] ABSOLUTE MONOCYTES 0.65 0.20 - 1.00 10(3)/mcL 08/12/2024 7:57 AM CDT [facility] ABSOLUTE EOSINOPHIL 0.29 0.00 - 0.40 10(3)/[facility] 08/12/2024 7:57 AM CDT [facility] ABSOLUTE BASOPHILS 0.04 0.00 - 0.10 10(3)/[facility] 08/12/2024 7:57 AM CDT [facility] NRBC PER 100 WBC 0 08/13/19 7:57 AM CDT [facility] Blood Venipuncture / Unknown 08/12/2024 7:21 AM CDT 08/12/2024 7:32 AM CDT us Zhao Joseph DO HEMATOLOGY ORDERABLES F inal Result [facility] [address] [place] [address] * (ABNORMAL) CMP (Comprehensive Metabolic Panel) (08/12/2024 7:21 AM CDT) SODIUM 139 136 - 145 mmol/L 08/12/2024 7:54 AM CDT [facility] POTASSIUM 3.2(L) 3.5 - 5.1 mmol/L 08/12/2024 7:54 AM CDT [facility] CHLORIDE 106 98 - 107 mmol/L 08/12/2024 7:54 AM CDT [facility] CO2, VENOUS 20(L) 22 - 30 mmol/L 08/12/2024 7:54 AM CDT [facility] ANION GAP 16.2 <18.0 mmol/L 08/12/2024 7:54 AM CDT [facility] GLUCOSE 208(H) 70 - 99 mg/dL 08/12/2024 7:54 AM CDT [facility] BUN 13 5 - 18 mg/dL 08/12/2024 7:54 AM [facility] CREATININE, BLOOD 0.59(L) 0.60 - 1.00 mg/dL 08/12/2024 7:54 AM [facility] BUN/CREATININE RATIO 22(H) 12 - 20 ratio 08/12/2024 7:54 AM T [facility] TOTAL PROTEIN 7.0 6.0 - 8.0 g/dL 08/12/2024 7:54 AM [facility] ALBUMIN 4.0 3.5 - 5.0 g/dL 08/12/2024 7:54 AM [facility] A/G RATIO 1.3 1.0 - 2.2 08/12/2024 7:54 AM [facility] CALCIUM 8.9 8.7 - 10.5 mg/dL 08/12/2024 7:54 AM [facility] T BILI 0.5 0.2 - 1.2 mg/dL 08/12/2024 7:54 AM [facility] SGOT (AST) 15 <43 U/L 08/12/2024 7:54 AM [facility] SGPT (ALT) 11 <56 U/L 08/12/2024 7:54 AM [facility] ALKALINE PHOSPHATASE 52 40 - 150 U/L 08/12/2024 7:54 AM [facility] GFR, ESTIMATED >60 >=60 08/12/2024 7:54 AM [facility] Comment: Creatinine Clearance is the preferred criteria for selecting drug dose adjustments in renally impaired patients. The GFR is provided as additional pertinent clinical information. GFR is reported in mL/min/1.73 sq m. Calculation based on the Chronic Kidney Disease Epidemiology Collaboration (CKD- EPI) equation refit without adjustment for race. GFR, EST. >60 >=60 025 7:54 AM [facility] GFR, EST. NONAFRICAN >60 >=60 08/12/2024 7:54 AM CDT [facility] Blood Venipuncture / Unknown 08/12/2024 7:21 AM CDT 08/12/2024 7:32 AM CDT us Zhao Joseph DO CHEMISTRY ORDERABLES Fi nal Result [facility] [address] [place] [address] * XR CHEST SINGLE VIEW PORTABLE (08/12/2024 [...] Ken Rolle M.D. JEMMA: JEMMA Report ID: [id number] Reading Location: [id number] Procedure Note Ken Rolle MD - 08/12/2024 [...] Ken Rolle M.D. JEMMA: JEMMA Report ID: [id number] Reading Location: [place] [address] IMPRESSION: No acute cardiopulmonary process. us Zhao Joseph DO IMG DIAGNOSTIC ORDERABL ES Final Result * EKG 12 LEAD (08/12/2024 6:35 AM CDT) Ventricular Rate 83 BPM EXTERNAL EKG Atrial Rate 83 BPM EXTERNAL EKG P-R Interval 166 ms EXTERNAL EKG QRS Duration 84 ms EXTERNAL EKG Q-T Duration 386 ms EXTERNAL EKG QTC CALCULATION 453 ms EXTERNAL EKG P Wells 58 degrees EXTERNAL EKG R Wells 14 degrees EXTERNAL EKG T Wells 49 degrees EXTERNAL EKG 08/12/2024 6:35 AM CDT Impressions EXTERNAL EKG - 08/14/2024 9:19 AM CDT Normal sinus rhythm Normal ECG When compared with ECG of 01-MAR-2023 13:46, No significant change was found Confirmed by Sebastien Peacock ([id number]) on 08/14/2024 9:18:58 AM Narrative Procedure Note Sebastien Peacock MD - 08/14/2024 IMPRESSION: Normal sinus rhythm Normal ECG When compared with ECG of 01-MAR-2023 13:46, No significant change was found Confirmed by Sebastien Peacock ([id number]) on 08/14/2024 9:18:58 AM us Zhao Joseph DO IMG ECG ORDERABLES Johnna l Result Performing Organization Address City/[facility]/ZIP Co de Phone Number EXTERNAL EKG * EKG SCAN (08/12/2024 12:00 AM CDT) 08/12/2024 us Provider Scan IMG ECG ORDERABLES Final Result Performing Organization Address [facility] Co de Phone Number RESULTING AGENCY * (ABNORMAL) Hemoglobin A1C w/ Estimated Glucose (03/01/2023 1:58 PM SWEET PICKLE MAKER) HGB-A1C 7.4(H) 4.0 - 6.0 % 03/01/2023 4:10 PM SWEET PICKLE MAKER [facility] Est Average Glucose 165.7 mg/dL 03/01/2023 4:10 PM SWEET PICKLE MAKER [facility] Blood Venipuncture / Unknown 03/01/2023 1:58 PM SWEET PICKLE MAKER 03/01/2023 2:10 PM SWEET PICKLE MAKER Narrative [facility] - 03/01/2023 4:10 PM SWEET PICKLE MAKER HEMOGLOBIN A1C: DIABETIC PATIENTS: WELL-CONTROLLED: 6.2 - 7.0 INTERMEDIATE WELL-CONTROLLED: 7.0 - 9.0 POORLY-CONTROLLED: >9.0 us Mayuri Lacy MD CHEMISTRY ORDERABLES Final Re sult Performing Organization Address City/[facility] Co de Phone Number [facility] [address] [place] [address] from Last 3 Months or Most Recently Relevant to Health Maintenance Insurance MEDICAID [place] Advance Directives * Full Code (Latest Code Status on File) Date Activated Date Inactivated Comments 03/02/2023 6:16 PM 03/02/2023 10:15 PM CPR-Full Treatment: FULL ARREST: Attempt Resuscitation/CPR wit intubation and mechanical ventilation. PRE-ARREST: Use entire range of life support measures to stabilize the patient. Care Teams Medical Investigator Relationship Specialty Start Date End Date Dotty Charles, HARDWARE TRAINER, ESTATE ATTORNEY [address] [place] [address] PCP - General Advanced Practice Nurse 08/12/24
--- OUTSIDE RECORDS SUMMARY | 2024-10-12 17:07 | XMS_ITS | Clinical Summary ---
Author Organization [facility] Address [address] [place] [address] Care Team Providers Care Ice Skater Name Role Phone Gio Asif MD Primary Care Provider [phone] Source Comments [facility],non-owned Affiliates and Associated Physician Practices is amultiple site organization consisting of ambulatory clinics and hospital sitesin [place], [place], [place] and [place]. This disclosure is being madepursuant to the Care Everywhere program and may not contain all information available regarding this patient. Last updated 17.[facility] Allergies Active Allergy Reactions Criticality Noted Date [...] Take by mouth once daily Active Biotin 25580 MCG TBDP Take by mouth once daily [...] this topic Medical Devices Implanted Type Area Wood Sawyer Device Identifier Shelf Expiration Date Model / Serial / Lot Graft Bone Grftn Dbm Aspt 5x2.5cm Post Implanted:Qty: 1 on 08/12/2018 by Celso Guerra MD at [facility] N/A: Spine Cervical [employer] 07/30/2019 [id number] / / [id number] Collins Pin Implanted:Qty: 2 on 08/12/2018 by Celso Guerra MD at [facility] N/A: Spine Cervical [employer] 665.614 / / 4.2 Variable Screws Implanted:Qty: 4 on 08/12/2018 by Celso Guerra MD at [facility] N/A: Spine Cervical [employer] 161.014 / / Xtend Plate Implanted:Qty: 1 on 08/12/2018 by Celso Guerra MD at [facility] N/A: Spine Cervical [employer] 161.230 / / Fortify 12mm Core 19-25mm Implanted:Qty: 1 on 08/12/2018 by Celso Guerra MD at [facility] N/A: Spine Cervical [employer] 151.051 / / Fortify 12mm Upper Endplate Implanted:Qty: 1 on 08/12/2018 by Celso Guerra MD at [facility] N/A: Spine Cervical [employer] 151.321 / / Fortify 12mm Lower Endplate Implanted:Qty: 1 on 08/12/2018 by Celso Guerra MD at [facility] N/A: Spine Cervical [employer] 151.371 / / Procedures Procedure Name Priority Date/Time Associated Diagnosis Comments BASIC METABOLIC PANEL (CALCIUM TOTAL) Routine 08/15/2018 4:17 AM CDT Pre-op evaluation from Last 3 Months or Most Recently Relevant to Health Maintenance Results * (ABNORMAL) BASIC METABOLIC PANEL (CALCIUM TOTAL) (08/15/2018 4:17 AM CDT) [facility] BUN 7 7 - 26 mg/dL 08/15/2018 4:51 AM CDT [facility] Creatinine 0.8 0.6 - 1.2 mg/dL 08/15/2018 4:51 AM [facility] Sodium 138 136 - 145 mmol/L 08/15/2018 4:51 AM [facility] Potassium 3.4(L) 3.5 - 4.5 mmol/L 08/15/2018 4:51 AM [facility] Chloride 101 98 - 107 mmol/L 08/15/2018 4:51 AM [facility] CO2 29 22 - 29 mmol/L 08/15/2018 4:51 AM [facility] Glucose 146(H) 70 - 115 mg/dL 08/15/2018 4:51 AM [facility] Calcium 8.5 8.4 - 10.2 mg/dL 08/15/2018 4:51 AM [facility] Anion Gap 11 8 - 18 08/15/2018 4:51 AM [facility] BUN/Creatinine Ratio 9 7 - 23 08/15/2018 4:51 AM [facility] Osmolality Calculated 287 270 - 300 mOsm/kg 08/15/2018 4:51 AM [facility] eGFR >60 >60 mL/min/1.7 3 m2 08/15/2018 4:51 AM [facility] Blood BLOOD SPECIMEN / Unknown Lab Venipuncture / Unknown 08/15/2018 4:17 AM CDT 08/15/2018 4:28 AM [facility] [place] Marlo Corea MD LAB - CHEMISTRY ORDERABLES Final Result [facility] [address] [phone] from Last 3 Months or Most Recently Relevant to Health Maintenance Insurance [facility] ANTH MEDICAID - OUT OF STATE [facility] Advance Directives * Full Code (Latest Code Status on File) Date Activated Date Inactivated Comments 08/12/2018 8:00 PM 08/15/2018 4:03 PM Care Teams Ice Skater Relationship Specialty Start Date End Date Gio Asif MD [address] [place] [address] PCP - General Internal Medicine 08/12/18
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
--- OUTSIDE RECORDS SUMMARY | 2024-10-12 17:07 | XMS_ITS | Clinical Summary ---
Author Organization [facility] Address [address] [place] [address] Care Team Providers Care Public Safety Officer Name Role Phone Alvin Franco MD Unavailable [phone] Miscellaneous, Not In File Unavailable Unava ilable Coco Bernal NP Unavailable [phone] Daryn Bui MD Unavailable [phone] Trevon Benson MD Unavailable [phone] Dotty Charles RUSH SEATER Primary Care Provider Allergies Active Allergy Reactions [...] mL 5 05/03/19 25 Active blood-glucose sensor (Edaixicom G7 Sensor) device Use for BG monitoring [...] 03/21/2022 Assessment & Plan (05/03/2024 2:44 PM COMPUTER GRAPHIC ARTIST): Chronic problem. On statin therapy, she misses [...] 12/14/2021 Assessment & Plan (05/03/2024 1:36 PM COMPUTER GRAPHIC ARTIST): Chronic problem, Controlled on HCTZ, metoprolol. No [...] Nasal saline spray (Simply saline, Little Remedies, [place]ajo, Goodwin) 2 second sprays or 2 squeezes into [...] Nasal saline spray (Simply saline, Little Remedies, Navajo, Goodwin) 2 second sprays or 2 squeezes into [...] 05/02/2021 Assessment & Plan (05/02/2021 11:53 AM COMPUTER GRAPHIC ARTIST): Patient reports to discontinuing her home medication. [...] flecainide Assessment & Plan (05/02/2021 6:23 AM COMPUTER GRAPHIC ARTIST): Noted on Holter monitor. Cardiology has been consulted. Continue beta-mary grace. Syncope and collapse 02/20/2021 Assessment & Plan (02/20/2021 6:35 PM COMPUTER GRAPHIC ARTIST): Patient with syncopal episode today. CT head negative. Concern related to possible cardiac issues. No neurological deficit present time. Will continue to monitor. Primary hypertension 02/20/2021 Assessment & Plan (05/02/2021 6:23 AM COMPUTER GRAPHIC ARTIST): Continue metoprolol with hold parameters Assessment & Plan (02/20/2021 6:37 PM COMPUTER GRAPHIC ARTIST): Blood pressure with some mild elevation on presentation. Metoprolol currently on hold for stress test in a.m.. IV hydralazine as needed. Will monitor. Type 2 diabetes mellitus wit h hyperglycemia, with long-term current use of insulin 02/09/2021 Assessment & Plan (05/03/2024 2:51 PM COMPUTER GRAPHIC ARTIST): Chronic problem, not at goal. We discussed [...] neuropathy Assessment & Plan (05/02/2021 12:03 PM COMPUTER GRAPHIC ARTIST): Sugars uncontrolled on presentation to 470. Patient prescribed glimepiride 2mg but has not been compliant. She was previously taking metformin but was concerned for medication side effects and discontinued. -Placed on Lantus 20 units every day meal time bolus lispro 7 units and sliding scale lispro. -Plan to D/C on metformin 500 mg bid and GLP1 Assessment & Plan (05/02/2021 6:22 AM COMPUTER GRAPHIC ARTIST): Sugars uncontrolled on presentation. She is on Amaryl. She was given insulin. Sugars are improving. Monitor on sliding scale. Assessment & Plan (02/20/2021 6:36 PM COMPUTER GRAPHIC ARTIST): Patient reports glucose levels were still not as well controlled as she would like at home. Has been taking her glimepiride. Will place on sliding scale insulin here but may need adjustment in medication depending on her levels. Consistent carbohydrate diet. Assessment & Plan (02/09/2021 6:22 AM COMPUTER GRAPHIC ARTIST): Patient stop taking her p.o. pills over [...] consultation Assessment & Plan (02/20/2021 6:38 PM COMPUTER GRAPHIC ARTIST): Healthy lifestyle encouraged. Personal history of transien t ischemic attack (TIA), and cerebral infarction without residual deficits 02/08/2021 Assessment & Plan (05/02/2021 6:23 AM COMPUTER GRAPHIC ARTIST): Continue aspirin and statin Assessment & Plan (02/20/2021 6:38 PM COMPUTER GRAPHIC ARTIST): Previous history. Patient will continue ASA and atorvastatin. Assessment & Plan (02/09/2021 6:32 AM COMPUTER GRAPHIC ARTIST): Continue aspirin and Lipitor Supraventricular tachycardia 02/08/2021 Chest pain 02/08/2021 Assessment & Plan (02/20/2021 6:35 PM COMPUTER GRAPHIC ARTIST): Patient presented with episode of chest pain along with syncope. Had chest pain approximately 2 weeks ago and ruled out for [place] but did not wish to stay for cardiac evaluation with plan to do as outpatient. Patient with more symptoms on this occasion. Has already been seen by Cardiology with plan for Lexiscan stress test tomorrow. Patient is agreeable to evaluation at this time. Troponin levels are negative. Does have history of possible [place] in the past but not confirmed. Assessment & Plan (02/09/2021 6:26 AM COMPUTER GRAPHIC ARTIST): Patient was at work doing heavy lifting when her chest pain occurred. Patient only had 2 troponins. Will check a troponin this morning. Chest pain has since resolved. Patient denies ever having any stents placed. She states it occurred at [facility] when she was 37 years old. EKG [...] 11/06/2020 Assessment & Plan (05/03/2024 2:48 PM COMPUTER GRAPHIC ARTIST): Chronic problem, not at goal. Lately missing [...] levothyroxine Assessment & Plan (05/02/2021 12:03 PM COMPUTER GRAPHIC ARTIST): Restart levothyroxine. TSH was over 323 months ago. Will check now. -levothyroxine 25 mg every day Assessment & Plan (05/02/2021 6:23 AM COMPUTER GRAPHIC ARTIST): Continue levothyroxine. TSH was over 323 months ago. Will check now. Assessment & Plan (02/20/2021 6:37 PM COMPUTER GRAPHIC ARTIST): TSH was elevated on 02/08/2021. Patient reports has faithfully been taking levothyroxine. Per patient request, will recheck current TSH. Adjust levothyroxine as needed. Assessment & Plan (02/09/2021 6:31 AM COMPUTER GRAPHIC ARTIST): Patient stop taking her medications over a [...] 04/05/2017 Assessment & Plan (02/20/2021 6:38 PM COMPUTER GRAPHIC ARTIST): No complaint at this time. Will monitor. Lumbar facet arthropathy 04/05/2017 Medically noncompliant Bloody stools Colon polyps Ventricular tachycardia Resolved Problems Problem Noted Date Diagnosed Date Resolved Date Type 2 diabetes mellitus wit hout complication, with long-term current use of insulin 06/21/2023 08/17/2024 Encounters Date Type Department Care Team Description 08/24/2024 Telephone [facility] [address], [place] [address] Khushi Serrano PA Dexcom G7 Sensors PA Request 08/08/2024 Telephone [facility] [address], [place] [address] Khushi Serrano PA 07/17/2024 Telephone [facility] [address], [place] [address] Khushi Serrano PA Prior Auth ([place]) from Last 3 Months Immunizations Immunization Administration [...] SVT (supraventricular tachycardia) Type 2 diabetes mellitus reports last A1C ~9.0 in ~08/2021, reports was [...] on machine. Atrial fibrillation (HCC) not ta king jyothi 2/2 nosebleeds, reports no known clotting/bleeding disorders. [...] 0.6 oz pur e alcohol) [facility] Utilities Answer Date Recorded In the past 12 months has [employer] electric, gas, oil, or water company threatened [...] often do you attend chur ch or buddhist services? More than 4 times per year 10/13/2023 Do you belong to any clubs o r organizations such as rastafari groups, unions, fraternal or athletic groups, or [...] any time in the past 12 m [facility], were you homeless or living in [...] on file Legal Sex Female 8:03 AM COMPUTER GRAPHIC ARTIST Gender Identity Not on file Sexual Orientation Straight 05/01/2021 9: 39 PM COMPUTER GRAPHIC ARTIST Obstetrics History Last Filed Vital Signs Vital [...] st Contact Info) Description 01/23/2025 11:00 AM COMPUTER GRAPHIC ARTIST Hospital Encounter [address] [address] Shannon Mccarty MD [address] [place] [address] 01/23/2025 11:00 AM COMPUTER GRAPHIC ARTIST - 01/23/2025 11:30 AM COMPUTER GRAPHIC ARTIST Surgery [address] [address] Shannon Mccarty MD [address] [place] [address] COLONOSCOPY Scheduled Procedures Name Priority Associated Diagnoses Date/Ti me COLONOSCOPY Screening for colon cancer 01/23/2025 11:00 AM COMPUTER GRAPHIC ARTIST Health Maintenance Due Date Last Done Comments [...] 11/02/2014, 03/08/2014 Medical Devices Implanted Type Area Fabrication And Layout Craftsman Device Identifier Shelf Expiration Date Model / Serial / Lot [employer] Ildefonso Angio-Seal Vip 6fr Closere Device [id number] - [id number] Implanted:Qty : 1 on 10/13/2023 by Yifan Kunz MD at [facility] Vascular Closure Device [employer] Ildefonso 06/20/2024 [id number] / / [id number] Loop Recorder N/A: Chest Wall Loop Recorder Left: Chest Procedures Procedure Name Priority Date/Time Associated Diagnosis Comments EGFR STAT 06/29/2024 3:15 PM CDT ALBUMIN CREATININE RATIO, URINE Routine 05/03/2024 1:57 PM COMPUTER GRAPHIC ARTIST Type 2 diabetes mellitus with hyperglycemia, with long-term current use of insulin (HCC) POCT HEMOGLOBIN A1C Routine 05/03/2024 1 :07 PM COMPUTER GRAPHIC ARTIST Type 2 diabetes mellitus with hyperglycemia, with long-term current use of insulin (HCC) POCT LIPID PANEL Routine 05/03/2024 1:07 AM COMPUTER GRAPHIC ARTIST Type 2 diabetes mellitus with hyperglycemia, with long-term current use of insulin (HCC) DIAGNOSTIC MAMMOGRAM BILATERAL W ARJUN Schedule Routine, Read Routine (OP Routine) 10/29/2022 10:59 AM CDT Breast nodule COLONOSCOPY 12/16/2021 2:26 PM CDT from Last 3 Months or Most Recently Relevant to Health Maintenance Results * eGFR (06/29/2024 3:15 PM CDT) eGFR [...] LAB BLOOD ORDERABLES Fi nal Result [facility] [address] Department [place] [address] * Albumin Creatinine Ratio, Urine (05/03/2024 1:57 PM COMPUTER GRAPHIC ARTIST) Albumin Ur <12.0 mg/L Comment: Interpretive Data No reference range established. Current interpretive data was last revised 2018. Creatinine Ur 147.1 mg/dL PR[facility]ASH Comment: Interpretive Data No reference range established. Current interpretive data was last revised 2018. Albumin Creatinine Ratio, Ur <8 1 - 29 mg/g [facility] LINO Urine 05/03/2024 1:57 PM COMPUTER GRAPHIC ARTIST 05/03/2024 5:42 PM COMPUTER GRAPHIC ARTIST Khushi SEARS LAB URINE ORDERABLES Fi nal Result [facility] [address] Department [place] [address] * (ABNORMAL) POCT hemoglobin A1c (05/03/2024 1:07 PM COMPUTER GRAPHIC ARTIST) Hemoglobin A1C, POC 8.4 4.0 - 5.6 % Capillary blood 05/03/2024 1 :07 PM COMPUTER GRAPHIC ARTIST Result [facility] Khushi SEARS POINT OF CARE TEST ORDE RABLES Final Result * (ABNORMAL) POCT lipid panel (05/03/2024 1:07 AM COMPUTER GRAPHIC ARTIST) Cholesterol, POC 197 mg/dL HDL, POC 41 mg/dL Triglycerides, POC 167 mg/dL LDL Cholesterol POC 123 mg/dL Chol/HDL Ratio, POC 4.8 Non-HDL Cholesterol, POC 156 mg/dL Cholesterol Total, POC 197 mg/dL Capillary blood 05/03/2024 1 :07 AM COMPUTER GRAPHIC ARTIST Khushi SEARS POINT OF CARE TEST ORDE RABLES Final Result * Diagnostic Mammogram Bilateral W [...] Mccarty MD - 12/16/2021 2:26 PM CDT [facility] Patient Name: Josseline Main Procedure Date: 12/16/2021 2:26 PM Date of : 1975 Admit Type: Inpatient Age: 46 Gender: Female Attending MD: Shannon Mccarty M.D. Room: [facility] ENDOSCOPY ROOM 1 Note Status: Finalized [...] and retrieved.Clip (MR conditional) was placed. Clip marketing and public relations manager:[employer]. - Internal and external hemorrhoids. Recommendation: - [...] under direct vision. The Pediatric Colonoscope [id number] was introducedthrough the anus and advanced to [...] clip was successfully placed (MR conditional). Clip marketing and public relations manager: [employer]. There was no bleeding at the end ofthe procedure. Internal hemorrhoids were found during retroflexion. The hemorrhoids were medium-sized. Electronically signed by Shannon Mccarty M.D. Shannon Mccarty M.D. 12/16/2021 4:29:06 PM Number of Addenda: 0 Note Initiated On: 12/16/2021 2:26 PM Procedure Code(s): --- Professional --- 35910, Colonoscopy, flexible; with removal of tumor(s), polyp(s), or other lesion(s) by snare technique 64784, Colonoscopy, flexible; with directed submucosal injection(s),any substance 11251, 59, Colonoscopy, flexible; with biopsy, single or multiple Diagnosis Code(s): --- Professional --- K64.8, Other hemorrhoids D12.2, Benign neoplasm of ascending colon D12.4, Benign neoplasm of descending colon D12.5, Benign neoplasm of sigmoid colon K92.1, Melena (includes Hematochezia) R19.5, Other fecal abnormalities CPT copyright 2020 [employer]. All rights reserved. The codes documented in this report are preliminary and upon sausage mixer reviewmay be revised to meet current compliance requirements. Recognized by the [employer] for promoting quality in endoscopy Shannon Mccarty MD ENDOSCOPY PROCEDURES Final Result from Last 3 Months or Most Recently Relevant to Health Maintenance Insurance IDPA [employer] [facility] [place] [address] WORKERS COMPENSATION GENERIC * Guarantor: OTHER Account Type Relation to Patient Date of Phone Billing Address Workers Comp Employer Advance Directives For more information, please contact: [phone] * Full Code (Latest Code Status on [...] Name Relationship Healthcare Agent Relationshi p Communication [facility] Care Agent Care Teams Public Safety Officer Relationship Specialty Start Date End Date Dotty Charles NP [address] [facility] [address] [facility] [address] [place] [address] PCP - General Nurse Practitioner 04/21/24 [place] [address] [address] Consulting Physician Internal Medicine 02/09/21 Miscellaneous, Not In File 02/21/21 Coco Bernal NP [address] [facility] [address] [place] [address] Nurse Practitioner Cardiovascular Disease 02/21/21 Daryn Bui MD [address] [place] [address] Consulting Physician Cardiology 05/21/21 Trevon Benson MD [address] [place] [address] Surgeon Orthopedic Surgery 11/05/21
[2024-10-12] MEDS: ASPIRIN 81 MG CHEWABLE TABLET 324 MG PO (17:11)
[2024-10-12 17:26] VITALS: BP 115/72; PULSE 87; RESP 16; TEMP 36.2; O2SAT 98
[2024-10-12 17:28] LABS: Hematocrit 35.2 % (37.0-47.0); Hemoglobin 12.2 g/dL (12.0-15.0); Immature Granulocyte Percent A 0.6 % (0-0.5); Lymphocytes Absolute Auto 1.21 K/mm3 (0.9-3.2); Mean Corpuscular HGB Conc 34.7 g/dl (32-36); Mean Corpuscular Hemoglobin 29.8 pg (26-34); Mean Corpuscular Volume 85.9 fl (80-100); Nucleated Red Blood Cells Absolute Auto 0.000 K/mm3 (0.0-0.012); Nucleated Red Blood Cells Perc 0.0 % (0.0-0.2); Platelet Count Result 276 k/mm3 (150-375); Red Blood Count 4.10 M/mm3 (4.2-5.4); White Blood Count 6.8 K/mm3 (4.5-10.0)
[2024-10-12 17:35] LABS: Alanine Aminotransferase 25 U/L (6-35); Albumin Level 4.3 g/dL (3.5-5.1); Alkaline Phosphatase 63 U/L (38-126); Anion Gap 13 mmol/L (4-12); Aspartate Amino Transferase 27 U/L (14-36); Bilirubin,Total 0.8 mg/dL (0.2-1.3); Blood Urea Nitrogen 6 mg/dL (7-17); Calcium 8.9 mg/dL (8.4-10.2); Carbon Dioxide 22 mmol/L (22-30); Chloride 100 mmol/L (98-107); Estimated Glomerular Filt Rate > 60; Glucose 330 mg/dL (65-110); Lipase 159 U/L (23-300); Potassium 3.4 mmol/L (3.4-5.0); Sodium 135 mmol/L (137-145); Total Protein 7.5 g/dL (6.3-8.2)
--- NOTE | 2024-10-12 17:38 | ED_ITS ---
HPI - Chest Pain General Chief Complaint: Chest Pain <Tashia Hubbard PA-C - Last Filed: 10/12/24 17:43> Stated Complaint: CP, sob <Tashia Hubbard PA-C - Last Filed: 10/12/24 17:43> Time Seen by Provider: 10/12/24 19:21 <Tashia Hubbard PA-C - Last Filed: 10/12/24 17:43> Focused HPI: 49-year-old female with history of migraines, fibromyalgia, TIA presents to the emergency department for multiple medical complaints. Patient states 45 minutes ago she began developing a diffuse headache with drooping of her left eyelid, nausea, chest pain, shortness of breath, neck stiffness. Patient states she feels like she cannot open her left eyelid. She notes she had right rotator cuff surgery on 09/12/2024. Denies cough, congestion. States her chest pain feels like indigestion. Patient reports chronic numbness to her lower extremities which is unchanged from baseline, otherwise denies new onset numbness or weakness to her extremities. GENERAL: Well-appearing, well-nourished, and in no acute distress. HEAD: Normocephalic, atraumatic. CHEST: Clear to auscultation. ?No respiratory distress. Lower extremity edema bilaterally HEART: Regular rate and rhythm.? NEURO: ?Alert and oriented x3. While at rest patient's left eyelid is drooping when compared to the right, however with coaching she is able to open her eyes fully and raise both eyebrows fully. Cranial nerves 2 through 12 are intact. Strength 5/5 in BUE and BLE. Sensation reportedly did medicine lower extremities which is chronic, sensation otherwise intact. Patient screened in triage and initial orders placed.? ?Additional care and disposition to be based upon?diagnostic testing and treatment. <Tashia Hubbard PA-C - Last Filed: 10/12/24 17:43> History of Present Illness HPI narrative: Agree with the above with the following additions/corrections: Patient reported the symptoms as described above. She has a history of a previous TIA but did not receive any tPA/TNK as far she knows when that occurred. She reports that while waiting her symptoms of chest pain, shortness of breath, and left eyelid drooping have resolved but in total they lasted probably estimated more than 60 minutes. She is still feeling dizzy and describes it as a rotational/spinning sensation. These were not preceded by body position changes as it occurred while she was seated in the car. She states it might of been set off by turning her head although cannot distinctly recall. She thinks that her symptoms might be due to an ear infection. She initially points to the right ear but then she states that she feels like her left ear has been a problem. She has been having ear pain/earache. Denies any tinnitus. She does have chronic hearing loss but denies any acute changes. Denies any current slurred speech but states that earlier something was off. Cardiac risk factors (obtained during last ED visit) HTN: Yes HLD: No DM:Yes, on insulin as well as pills Obese: Yes Smoker: Vapes nicotine containing product Personal history NM/TIA/CVA: Hx TIA in 2019 and possible history of NM when she was 37yo though reports negative cardiac catheterization without blockages or stent placement (though can't recall when) Fam Hx NM in first degree relative <65yo: Yes, father <65 ( in 2019 as a result). <Krysten Powell MD - Last Filed: 10/12/24 22:22> Related Data Home Medications: Home Medications ?Medication ?Instructions ?Recorded ?Confirmed ?Last Taken ?Type pregabalin 150 mg capsule (Lyrica) 150 mg PO TID 05/11/19 03/28/24 03/28/24 History aspirin 325 mg tablet 325 mg PO DAILY 10/25/19 03/28/24 03/28/24 History atorvastatin 80 mg tablet 80 mg PO DAILY 10/25/19 03/28/24 03/27/24 History empagliflozin 10 mg tablet 10 mg PO DAILY 10/25/19 03/28/24 03/28/24 History (Jardiance) levothyroxine 125 mcg tablet 125 mcg PO BID 10/25/19 03/28/24 03/28/24 History metformin 500 mg tablet,extended 500 mg PO BID 10/25/19 03/28/24 Unknown History release 24 hr topiramate 50 mg tablet 50 mg PO BID 10/25/19 03/28/24 Unknown History trazodone 100 mg tablet 100 mg PO HS 10/25/19 03/28/24 03/27/24 History venlafaxine 75 mg tablet 75 mg PO TID 10/25/19 04/07/24 Unknown History jhvdvqrtji-wvtitpmuboapn-ipsvhiqv 1 tablet PO PRN headache 03/28/24 03/28/24 Unknown History 50 mg-325 mg-40 mg tablet flecainide 100 mg tablet 100 mg PO Q12H 03/28/24 03/28/24 03/28/24 History levothyroxine 75 mcg tablet 75 mcg PO DAILY 03/28/24 03/28/24 03/28/24 History <Tashia Hubbard PA-C - Last Filed: 10/12/24 17:43> Allergies/Adverse Reactions: Allergies Allergy/AdvReac Type Severity Reaction Status Date / Time hydroxyzine Allergy Intermediate SWELLS Verified 10/12/24 17:03 buspirone AdvReac Intermediate Nausea and Verified 10/12/24 17:03 Vomiting <JOSIE Morse Last Filed: 10/12/24 17:43> [facility] Past Medical History Medical History: Medical History Insulin dependent diabetes mellitus HTN (hypertension) Brain TIA stated 2019 Hypothyroid Diabetes Fibromyalgia Anxiety and depression Migraines <Tashia Hubbard PA-C - Last Filed: 10/12/24 17:43> Surgical History Surgical History: Surgical History H/O shoulder surgery Right, September 2024, Dr Gil ([facility]), outpatient for bicep and rotator cuff issue Hx of cholecystectomy H/O cervical spine surgery <Tashia Hubbard PA-C - Last Filed: 10/12/24 17:43> Family History Family History: Family History Father , 2019 Acute myocardial infarction <65yo Mother , 2019 Heart failure <JOSIE Morse Last Filed: 10/12/24 17:43> Social History Social History: Social History Tobacco type: cigarettes and e-cigarettes/vaping Additional smoking assessment comments: former cigarettes; now vapes nicotine containing product Alcohol intake: current Alcohol use details: rarely Substance use: never Substance use type: does not use Living arrangements: with family Gender identity (if verbalized by the patient): Female Spiritual care concerns: No <Tashia Hubbard PA-C - Last Filed: 10/12/24 17:43> Exam 2 Narrative: GENERAL: Well-appearing, well-nourished, and in no acute distress. HEAD: Normocephalic, atraumatic. EYES: Non injected, non icteric. Horizontal and vertical extraocular movements intact without nystagmus. No loss of peripheral visual briceño. ENT: Nares clear, no rhinorrhea or epistaxis. Gross auditory acuity intact. Bilateral tympanic membranes appreciable without foreign body/effusion/bulging/erythema. NECK: Supple. No meningismus. CHEST: Speaking in full sentences. No respiratory distress. HEART: Regular rate and rhythm. ABDOMEN: Soft, nondistended. No rigidity or guarding. Not peritoneal EXTREMITIES: Normal range of motion. No lower extremity edema. SKIN: Warm, dry, no rash. NEURO: No focal deficits. Alert and oriented. Answering questions. Following commands. Normal speech without aphasia or dysarthria. Sensation intact throughout. No extinction. No ataxia on mcqlyi-rwja-rmezfd bilaterally. No motor drift x4. PSYCH: Normal mood and affect. <Krysten Powell MD - Last Filed: 10/12/24 22:22> Course Vital Signs Vital signs: Vital Signs Temperature 97.2 F L 10/12/24 17:26 Pulse Rate 87 10/12/24 17:26 Respiratory Rate 16 10/12/24 17:26 Blood Pressure 115/72 10/12/24 17:26 Pulse Oximetry 98 10/12/24 17:26 Oxygen Delivery Room Air 10/12/24 17:26 Temperature 97.7 F 10/12/24 19:14 Pulse Rate 89 10/12/24 19:14 Respiratory Rate 20 10/12/24 19:14 Blood Pressure 112/70 10/12/24 19:14 Pulse Oximetry 97 10/12/24 19:14 Oxygen Delivery Room Air 10/12/24 17:26 <Tashia Hubbard PA-C - Last Filed: 10/12/24 17:43> Vital Signs Temperature 97.2 F L 10/12/24 17:26 Pulse Rate 87 10/12/24 17:26 Respiratory Rate 16 10/12/24 17:26 Blood Pressure 115/72 10/12/24 17:26 Pulse Oximetry 98 10/12/24 17:26 Oxygen Delivery Room Air 10/12/24 17:26 Temperature 97.7 F 10/12/24 19:14 Pulse Rate 89 10/12/24 19:14 Respiratory Rate 20 10/12/24 19:14 Blood Pressure 112/70 10/12/24 19:14 Pulse Oximetry 97 10/12/24 19:14 Oxygen Delivery Room Air 10/12/24 17:26 <Krysten Powell MD - Last Filed: 10/12/24 22:22> MDM - Chest Pain MDM Narrative Medical decision making narrative: This is a 49 year old female who presents to the emergency department with concern for possible stroke. Patient stated her symptoms started approximately 45 minutes INSOLE TACK PULLER HAND though very unclear what time LKW was; approximately 4:20pm by stated timelien. The patient is protecting their airway which is patent. In the emergency department they are afebrile with vital signs within normal limits. An IV is established by nursing staff blood work sent to the lab for evaluation. An EKG was performed. NIHSS was evaluated per below. The patient was transported immediately to CT scan for evaluation of acute intracranial bleed. NIHSS Level Of consciousness:0 Month and age:0 Follows commands:0 Gaze palsy:0 Visual briceño:0 Facial palsy:0 Left arm motor drift:0 Right arm motor drift:0 Left leg motor drift:0 Right leg motor drift:0 Limb ataxia:0 Sensation:0 Aphasia:0 Dysarthria:0 Extinction:0 Total: 0 DIFFERENTIAL DIAGNOSES Considered Stroke (CVA / TIA) mimics including but not limited to: migraines, hypoglycemia, seizures/Sebastian's paralysis, sepsis/severe infections in patients with prior strokes (e.g. recrudescence), syncope, brain masses, transient global amnesia, panic attack/hyperventilation, and conversion disorders. Patient's symptoms and description of her dizziness with rotational spinning sound vertiginous DIFFERENTIAL DIAGNOSES VERTIGO Central causes: infection ( encephalitis, meningitis, cerebritis); vertebrobasilar arterial insufficiency, subclavian steal syndrome, cerebellar or brainstem hemorrhage or infarction, vertebrobasilar migraine, trauma ( temporal bone fracture, post concussive syndrome); tumor (brainstem or cerebellum); MS; temporal lobe epilepsy Peripheral causes: Foreign body, cerumen impaction, acute otitis media, labyrinthitis, benign paroxysmal positional vertigo, Meniere's disease, vestibular neuronitis, perilymphatic fistula, trauma, motion sickness, acoustic neuroma, ototoxic medications Meclizine deferred from being given as first line agent given she lists an allergy to hydroxyzine. For this reason, Valium ordered instead. CT noncontrast shows: No acute process Improving neuro exam more consistent with TIA (cerebral thrombus/embolus without infarct) ABCD2 Risk Score Age greater than or equal to 60: [Yes = 1, No = 0]: 0 Initial SBP greater than or equal to 140 or greater than or equal to DBP ?90 [Yes = 1, No = 0]: 0 Clinical features of TIA: [ Unilateral weakness +2, Speech impairment without weakness +1, other symptoms = 0]: 0 Duration of symptoms: [Less than 10 minutes = 0, 10-59 min = 1, greater than or equal to 60 min = 2 ]: 2 Hx of Diabetes [Yes = 1, No = 0]: 1 Total Score : 3 Per the validation study, 0-3 points low risk confers a 2-day stroke risk of 1.0% and a 7-day stroke risk of 1.2% and a 90-day stroke risk of 3.1%. HEART SCORE History 2 highly suspicious 1 moderately suspicious 0 slightly suspicious History score [address] depression/elevation not due to LBBB, LVH, or digoxin [address] depression but LBBB, LVH, nonspecific repolarization changes 0 normal ECG score 0 Age 2 >/= 65 1 45-64 0 <45 Age score 1 Risk factors (HTN, hypercholesterolemia, DM, obesity with BMI >30, current smoker or cessation </=3mo), positive fam hx with parent or sibling with CVD before age 65, atherosclerotic disease (prior NM, PCI/CABG, CVA/TIA, or peripheral arterial disease) 2 >/= 3 risk factors or history of atherosclerotic dz 1 - 1-2 risk factors 0 no known risk factors Risk factor score 2 Initial Troponin 2 >3 times normal limit 1 1-3 times normal limit 0 less than or equal to normal limit Troponin score 0 Total HEART Score 3 Repeat troponin within normal limits. Patient is reassessed at approximately 9:35 p.m.. Reports that she is still feeling dizzy. In particular this happens when she sits up although she has not been up and ambulating. She confirms her allergy to hydroxyzine. In regards to the abnormal urinalysis, she does state that she experiences urinary urgency and frequency but no dysuria or hematuria. Given this, will treat. Urine culture from August showed no growth. Because the squamous cells present on urine sample today, it did not reflex to the culture but I did order this and lab was called to process it. Will give ceftriaxone in addition to 1 L IV fluids. Promethazine ordered to suppress vestibular end-organ receptors and inhibit activation of vagal response. Patient has comorbidities that complexity management. Namely, history of TIA and possible NM as well as diabetes. She is stating a desire to leave at this time. Patient is already on aspirin. She should probably be switched to clopidogrel versus DAPT. Will defer to primary/neurology. Already on a statin. As I was preparing her discharge paperwork, patient demanded her IV be removed and she immediately left. She was unwilling to have a discussion or receive discharge paperwork which would otherwise advise that she follow-up with her primary care physician and give referrals to Neurology and Cardiology. Discharge paperwork was not printed as a result but it is prepared should patient return to the ED requesting this in the next few days. <Krysten Powell MD - Last Filed: 10/12/24 22:22> Differential Diagnosis Differential diagnosis: Likely pneumothorax, stable angina, unstable angina pectoris, atypical chest pain, st elevation myocardial infarction, costochondritis, chest pain, biliary colic and other (Aortic dissection; pneumonia; PE) <Krysten Powell MD - Last Filed: 10/12/24 22:22> Lab Data Attestation: I reviewed the patient's lab results. <Krysten Powell MD - Last Filed: 10/12/24 22:22> Lab results narrative: Cbc with some mild abnormalities on the differential and hematocrit but otherwise without marked anemia leukocytosis or thrombocytopenia. <Krysten Powell MD - Last Filed: 10/12/24 22:22> Result diagrams: 10/12/24 17:16 10/12/24 17:16 <Tashia Hubbard PA-C - Last Filed: 10/12/24 17:43> Labs: Lab Results 10/12/24 10/12/24 10/12/24 Range/Units 17:12 17:16 20:19 WBC 6.8 (4.5-10.0) K/mm3 RBC 4.10 L (4.2-5.4) M/mm3 Hgb 12.2 (12.0-15.0) g/dL Hct 35.2 L (37.0-47.0) % MCV 85.9 (80-100) fl MCH 29.8 (26-34) pg MCHC 34.7 (32-36) g/dl RDW 13.4 (11.5-14.5) % Plt Count 276 (150-375) k/mm3 MPV 8.6 (7.4-10.4) fl Immature Gran % (Auto) 0.6 H (0-0.5) % Neut % (Auto) 70.7 (45.5-73.1) % Lymph % (Auto) 17.9 L (18.3-44.2) % [place] % (Auto) 7.4 (2.6-8.5) % Eos % (Auto) 3.1 (0-4.4) % Baso % (Auto) 0.3 (0.2-1.2) % Lymph # (Auto) 1.21 (0.9-3.2) K/mm3 [place] # (Auto) 0.5 (0.1-0.6) K/mm3 Eos # (Auto) 0.2 (0-0.3) K/mm3 Baso # (Auto) 0.0 (0.0-0.1) K/mm3 Abs Immat Gran (auto) 0.04 H (0.00-0.031) K/mm3 Absolute Neuts (auto) 4.8 (1.3-6.7) K/mm3 Absolute Nucleated RBC 0.000 (0.0-0.012) K/mm3 Nucleated RBC % 0.0 (0.0-0.2) % PT 14.2 (11.1-14.7) Seconds INR 1.1 APTT 23.1 (22.3-36.8) Seconds D-Dimer 0.47 (<0.48) ug/mL Sodium 135 L (137-145) mmol/L Potassium 3.4 (3.4-5.0) mmol/L Chloride 100 (98-107) mmol/L Carbon Dioxide 22 (22-30) mmol/L Anion Gap 13 H (4-12) mmol/L BUN 6 L (7-17) mg/dL Creatinine 0.57 L (0.7-1.0) mg/dL Estim Creat Clear Calc Not Reportable Estimated GFR > 60 (59 - ) Glucose 330 H (65-110) mg/dL Calcium 8.9 (8.4-10.2) mg/dL Total Bilirubin 0.8 (0.2-1.3) mg/dL AST 27 (14-36) U/L ALT 25 (6-35) U/L Alkaline Phosphatase 63 (38-126) U/L Troponin I < 0.012 < 0.012 (0.000-0.034) ng/mL NT-Pro-B Natriuret Pep 60 (19.9-100) pg/mL Total Protein 7.5 (6.3-8.2) g/dL Albumin 4.3 (3.5-5.1) g/dL Lipase 159 (23-300) U/L Urine Color (Yellow) Urine Appearance (Clear) Urine pH (5.0-9.0) Ur Specific Powers (1.001-1.035) Urine Protein (Negative) mg/dL Urine Glucose (UA) (Negative) mg/dL Urine Ketones (Negative) mg/dL Ur Blood (Man) (Negative) Urine Nitrate (Negative) Urine Bilirubin (Negative) Urine Urobilinogen (<2.0) mg/dL Leukocyte Esterase Rfl (Negative) ANAID/UL Urine RBC (0-2) /hpf Urine WBC (0-3) /hpf Ur Squamous Epith Cells (Few) /hpf Urine Bacteria /hpf Urine Casts Urine Opiates Screen (Negative) Urine Methadone Screen (Negative) Ur Barbiturates Screen (Negative) Ur Phencyclidine Scrn (Negative) Ur Amphetamine Screen (Negative) U Benzodiazepines Scrn (Negative) Urine Cocaine Screen (Negative) U Cannabinoids Screen (Negative) Influenza A (RT-PCR) Negative (Negative) Influenza B (RT-PCR) Negative (Negative) RSV (RT-PCR) Negative (Negative) SARS-CoV-2 RNA (RT-PCR) Negative (Negative) 10/12/24 Range/Units 21:06 WBC (4.5-10.0) K/mm3 RBC (4.2-5.4) M/mm3 Hgb (12.0-15.0) g/dL Hct (37.0-47.0) % MCV (80-100) fl MCH (26-34) pg MCHC (32-36) g/dl RDW (11.5-14.5) % Plt Count (150-375) k/mm3 MPV (7.4-10.4) fl Immature Gran % (Auto) (0-0.5) % Neut % (Auto) (45.5-73.1) % Lymph % (Auto) (18.3-44.2) % [place] % (Auto) (2.6-8.5) % Eos % (Auto) (0-4.4) % Baso % (Auto) (0.2-1.2) % Lymph # (Auto) (0.9-3.2) K/mm3 [place] # (Auto) (0.1-0.6) K/mm3 Eos # (Auto) (0-0.3) K/mm3 Baso # (Auto) (0.0-0.1) K/mm3 Abs Immat Gran (auto) (0.00-0.031) K/mm3 Absolute Neuts (auto) (1.3-6.7) K/mm3 Absolute Nucleated RBC (0.0-0.012) K/mm3 Nucleated RBC % (0.0-0.2) % PT (11.1-14.7) Seconds INR APTT (22.3-36.8) Seconds D-Dimer (<0.48) ug/mL Sodium (137-145) mmol/L Potassium (3.4-5.0) mmol/L Chloride (98-107) mmol/L Carbon Dioxide (22-30) mmol/L Anion Gap (4-12) mmol/L BUN (7-17) mg/dL Creatinine (0.7-1.0) mg/dL Estim Creat Clear Calc Estimated GFR (59 - ) Glucose (65-110) mg/dL Calcium (8.4-10.2) mg/dL Total Bilirubin (0.2-1.3) mg/dL AST (14-36) U/L ALT (6-35) U/L Alkaline Phosphatase (38-126) U/L Troponin I (0.000-0.034) ng/mL NT-Pro-B Natriuret Pep (19.9-100) pg/mL Total Protein (6.3-8.2) g/dL Albumin (3.5-5.1) g/dL Lipase (23-300) U/L Urine Color Yellow (Yellow) Urine Appearance Clear (Clear) Urine pH 5.5 (5.0-9.0) Ur Specific Powers > 1.045 H (1.001-1.035) Urine Protein Trace (Negative) mg/dL Urine Glucose (UA) 3+ H (Negative) mg/dL Urine Ketones Trace H (Negative) mg/dL Ur Blood (Man) Negative (Negative) Urine Nitrate Negative (Negative) Urine Bilirubin Negative (Negative) Urine Urobilinogen 0.2 (<2.0) mg/dL Leukocyte Esterase Rfl 1+ H (Negative) ANAID/UL Urine RBC 0-2 (0-2) /hpf Urine WBC 21-50 H (0-3) /hpf Ur Squamous Epith Cells Moderate (Few) /hpf Urine Bacteria 3+ H /hpf Urine Casts 0-2 Urine Opiates Screen Negative (Negative) Urine Methadone Screen Negative (Negative) Ur Barbiturates Screen Negative (Negative) Ur Phencyclidine Scrn Negative (Negative) Ur Amphetamine Screen Negative (Negative) U Benzodiazepines Scrn Negative (Negative) Urine Cocaine Screen Negative (Negative) U Cannabinoids Screen Negative (Negative) Influenza A (RT-PCR) (Negative) Influenza B (RT-PCR) (Negative) RSV (RT-PCR) (Negative) SARS-CoV-2 RNA (RT-PCR) (Negative) <Tashia Hubbard PA-C - Last Filed: 10/12/24 17:43> Lab Results 10/12/24 10/12/24 10/12/24 Range/Units 17:12 17:16 20:19 WBC 6.8 (4.5-10.0) K/mm3 RBC 4.10 L (4.2-5.4) M/mm3 Hgb 12.2 (12.0-15.0) g/dL Hct 35.2 L (37.0-47.0) % MCV 85.9 (80-100) fl MCH 29.8 (26-34) pg MCHC 34.7 (32-36) g/dl RDW 13.4 (11.5-14.5) % Plt Count 276 (150-375) k/mm3 MPV 8.6 (7.4-10.4) fl Immature Gran % (Auto) 0.6 H (0-0.5) % Neut % (Auto) 70.7 (45.5-73.1) % Lymph % (Auto) 17.9 L (18.3-44.2) % [place] % (Auto) 7.4 (2.6-8.5) % Eos % (Auto) 3.1 (0-4.4) % Baso % (Auto) 0.3 (0.2-1.2) % Lymph # (Auto) 1.21 (0.9-3.2) K/mm3 [place] # (Auto) 0.5 (0.1-0.6) K/mm3 Eos # (Auto) 0.2 (0-0.3) K/mm3 Baso # (Auto) 0.0 (0.0-0.1) K/mm3 Abs Immat Gran (auto) 0.04 H (0.00-0.031) K/mm3 Absolute Neuts (auto) 4.8 (1.3-6.7) K/mm3 Absolute Nucleated RBC 0.000 (0.0-0.012) K/mm3 Nucleated RBC % 0.0 (0.0-0.2) % PT 14.2 (11.1-14.7) Seconds INR 1.1 APTT 23.1 (22.3-36.8) Seconds D-Dimer 0.47 (<0.48) ug/mL Sodium 135 L (137-145) mmol/L Potassium 3.4 (3.4-5.0) mmol/L Chloride 100 (98-107) mmol/L Carbon Dioxide 22 (22-30) mmol/L Anion Gap 13 H (4-12) mmol/L BUN 6 L (7-17) mg/dL Creatinine 0.57 L (0.7-1.0) mg/dL Estim Creat Clear Calc Not Reportable Estimated GFR > 60 (59 - ) Glucose 330 H (65-110) mg/dL Calcium 8.9 (8.4-10.2) mg/dL Total Bilirubin 0.8 (0.2-1.3) mg/dL AST 27 (14-36) U/L ALT 25 (6-35) U/L Alkaline Phosphatase 63 (38-126) U/L Troponin I < 0.012 < 0.012 (0.000-0.034) ng/mL NT-Pro-B Natriuret Pep 60 (19.9-100) pg/mL Total Protein 7.5 (6.3-8.2) g/dL Albumin 4.3 (3.5-5.1) g/dL Lipase 159 (23-300) U/L Urine Color (Yellow) Urine Appearance (Clear) Urine pH (5.0-9.0) Ur Specific Powers (1.001-1.035) Urine Protein (Negative) mg/dL Urine Glucose (UA) (Negative) mg/dL Urine Ketones (Negative) mg/dL Ur Blood (Man) (Negative) Urine Nitrate (Negative) Urine Bilirubin (Negative) Urine Urobilinogen (<2.0) mg/dL Leukocyte Esterase Rfl (Negative) ANAID/UL Urine RBC (0-2) /hpf Urine WBC (0-3) /hpf Ur Squamous Epith Cells (Few) /hpf Urine Bacteria /hpf Urine Casts Urine Opiates Screen (Negative) Urine Methadone Screen (Negative) Ur Barbiturates Screen (Negative) Ur Phencyclidine Scrn (Negative) Ur Amphetamine Screen (Negative) U Benzodiazepines Scrn (Negative) Urine Cocaine Screen (Negative) U Cannabinoids Screen (Negative) Influenza A (RT-PCR) Negative (Negative) Influenza B (RT-PCR) Negative (Negative) RSV (RT-PCR) Negative (Negative) SARS-CoV-2 RNA (RT-PCR) Negative (Negative) 10/12/24 Range/Units 21:06 WBC (4.5-10.0) K/mm3 RBC (4.2-5.4) M/mm3 Hgb (12.0-15.0) g/dL Hct (37.0-47.0) % MCV (80-100) fl MCH (26-34) pg MCHC (32-36) g/dl RDW (11.5-14.5) % Plt Count (150-375) k/mm3 MPV (7.4-10.4) fl Immature Gran % (Auto) (0-0.5) % Neut % (Auto) (45.5-73.1) % Lymph % (Auto) (18.3-44.2) % [place] % (Auto) (2.6-8.5) % Eos % (Auto) (0-4.4) % Baso % (Auto) (0.2-1.2) % Lymph # (Auto) (0.9-3.2) K/mm3 [place] # (Auto) (0.1-0.6) K/mm3 Eos # (Auto) (0-0.3) K/mm3 Baso # (Auto) (0.0-0.1) K/mm3 Abs Immat Gran (auto) (0.00-0.031) K/mm3 Absolute Neuts (auto) (1.3-6.7) K/mm3 Absolute Nucleated RBC (0.0-0.012) K/mm3 Nucleated RBC % (0.0-0.2) % PT (11.1-14.7) Seconds INR APTT (22.3-36.8) Seconds D-Dimer (<0.48) ug/mL Sodium (137-145) mmol/L Potassium (3.4-5.0) mmol/L Chloride (98-107) mmol/L Carbon Dioxide (22-30) mmol/L Anion Gap (4-12) mmol/L BUN (7-17) mg/dL Creatinine (0.7-1.0) mg/dL Estim Creat Clear Calc Estimated GFR (59 - ) Glucose (65-110) mg/dL Calcium (8.4-10.2) mg/dL Total Bilirubin (0.2-1.3) mg/dL AST (14-36) U/L ALT (6-35) U/L Alkaline Phosphatase (38-126) U/L Troponin I (0.000-0.034) ng/mL NT-Pro-B Natriuret Pep (19.9-100) pg/mL Total Protein (6.3-8.2) g/dL Albumin (3.5-5.1) g/dL Lipase (23-300) U/L Urine Color Yellow (Yellow) Urine Appearance Clear (Clear) Urine pH 5.5 (5.0-9.0) Ur Specific Powers > 1.045 H (1.001-1.035) Urine Protein Trace (Negative) mg/dL Urine Glucose (UA) 3+ H (Negative) mg/dL Urine Ketones Trace H (Negative) mg/dL Ur Blood (Man) Negative (Negative) Urine Nitrate Negative (Negative) Urine Bilirubin Negative (Negative) Urine Urobilinogen 0.2 (<2.0) mg/dL Leukocyte Esterase Rfl 1+ H (Negative) ANAID/UL Urine RBC 0-2 (0-2) /hpf Urine WBC 21-50 H (0-3) /hpf Ur Squamous Epith Cells Moderate (Few) /hpf Urine Bacteria 3+ H /hpf Urine Casts 0-2 Urine Opiates Screen Negative (Negative) Urine Methadone Screen Negative (Negative) Ur Barbiturates Screen Negative (Negative) Ur Phencyclidine Scrn Negative (Negative) Ur Amphetamine Screen Negative (Negative) U Benzodiazepines Scrn Negative (Negative) Urine Cocaine Screen Negative (Negative) U Cannabinoids Screen Negative (Negative) Influenza A (RT-PCR) (Negative) Influenza B (RT-PCR) (Negative) RSV (RT-PCR) (Negative) SARS-CoV-2 RNA (RT-PCR) (Negative) <Krysten Powell MD - Last Filed: 10/12/24 22:22> Imaging Data Radiologist's impression: Impressions Chest X-Ray 10/12/24 18:14 IMPRESSION: No focal infiltrate or effusion. Head CT 10/12/24 18:20 Impression: No acute intracranial hemorrhage or suspicious mass effect. Head/Neck CTA 10/12/24 20:49 IMPRESSION: 1. Normal CTA head and neck. Percent stenosis per NASCET criteria is 0% <Krysten Powell MD - Last Filed: 10/12/24 22:22> ECG Data EKG #1: Attestation: I personally reviewed and interpreted this ECG as follows: < Krysten Powell MD - Last Filed: 10/12/24 22:22> ECG completion date: 10/12/24 <Krysten Powell MD - Last Filed: 10/12/24 22:22> ECG completion time: 17:10 <Krysten Powell MD - Last Filed: 10/12/24 22:22> Interpretation: Normal sinus rhythm at a rate of 86 beats per minute. UT interval 167. QRS 91. QT/QTC 346/415. Slightly low QRS voltage though I suspect due to body habitus. No T-wave inversions. <Krysten Powell MD - Last Filed: 10/12/24 22:22> Discharge Plan Discharge Clinical Impression: Vertigo, UTI (urinary tract infection), Chest pain, Shortness of breath, Brain TIA <JOSIE Morse Last Filed: 10/12/24 17:43> Patient Disposition: Home <OJSIE Morse Last Filed: 10/12/24 17:43> Condition: Stable <JOSIE Morse Last Filed: 10/12/24 17:43> Instructions: Antibiotic Form, Transient Ischemic Attack (ED), Chest Pain (ED), Urinary Tract Infection in Women (DC), Vertigo (DC), Shortness of Breath (ED) <JOSIE Morse Last Filed: 10/12/24 17:43> Additional Instructions: The concern was that you might have had a mini stroke known as a TIA/transient ischemic attack. You are already on aspirin but you may need to be switched to clopidogrel or this medication added in. I defer to your primary care physician and Neurology. If you do not have a neurologist the name of 1 is listed below. No cause of your chest pain and shortness of breath was identified either but given your low but not negligible risk, recommend you also follow-up with a production operations manager in this referral is also below. You had evidence of urinary tract infection. You were receiving IV antibiotics but you left before the completion. The rest of the course of oral antibiotics is being prescribed. <Tashia Hubbard PA-C - Last Filed: 10/12/24 17:43> Patient Language: Norwegian <JOSIE Morse Last Filed: 10/12/24 17:43> Prescriptions: New cephalexin 500 mg tablet 500 mg PO Q8H 5 Days Qty: 15 0RF No Action atorvastatin 80 mg Tablet 80 mg PO DAILY aspirin 325 mg Tablet 325 mg PO DAILY levothyroxine 125 mcg Tablet 125 mcg PO BID metformin 500 mg Tablet Extended Release 24 Hr 500 mg PO BID Jardiance 10 mg Tablet 10 mg PO DAILY topiramate 50 mg Tablet 50 mg PO BID trazodone 100 mg Tablet 100 mg PO HS venlafaxine 75 mg Tablet 75 mg PO TID pregabalin [Lyrica] 150 mg Capsule 150 mg PO TID levofloxacin 500 mg tablet 500 mg PO DAILY Qty: 4 0RF Rx Instructions: start 09/25 (received first dose in ED 09/24) ondansetron 4 mg tablet,disintegrating 4 mg PO Q8H PRN (Reason: nausea and vomiting) Qty: 7 0RF tmjlzeifhd-ehslydeeuoszc-okyn 50-325-40 mg tablet 1 tablet PO PRN levothyroxine 75 mcg tablet 75 mcg PO DAILY flecainide 100 mg tablet 100 mg PO Q12H peg 3350-electrolytes [Golytely] 236-22.74-6.74 -5.86 gram recon soln 240 ml PO .Q15MIN Qty: 4000 0RF Rx Instructions: FOLLOW INSTRUCTIONS FROM PROVIDER <Tashia Hubbard PA-C - Last Filed: 10/12/24 17:43> Follow-up/Referrals: Dotty Charles RN [Primary Care Provider] - Jalen Del Valle MD [Physician] - Lucila Campbell MD [Physician] - <Tashia Hubbard PA-C - Last Filed: 10/12/24 17:43> Time of Disposition: 22:20 <Tashia Hubbard PA-C - Last Filed: 10/12/24 17:43> 22:20 <Krysten Powell MD - Last Filed: 10/12/24 22:22>
[2024-10-12 17:39] LABS: INR 1.1; Prothrombin Time 14.2 Seconds (11.1-14.7)
[2024-10-12 17:40] LABS: Partial Thromboplastin Time 23.1 Seconds (22.3-36.8)
[2024-10-12 17:47] LABS: Troponin I < 0.012 ng/mL (0.000-0.034)
[2024-10-12 18:49] LABS: NT Pro B Type Natriuretic Pept 60 pg/mL (19.9-100)
[2024-10-12 19:14] VITALS: BP 112/70; PULSE 89; RESP 20; TEMP 36.5; O2SAT 97
[2024-10-12] MEDS: FAMOTIDINE 20 MG/2 ML VIAL IV PUSH (20:11)
[2024-10-12] MEDS: diazePAM INJ (*CRX) 10 MG/2 ML SYRINGE 5 MG IV PUSH (20:16)
--- NOTE | 2024-10-12 20:16 | ECG_ITS ---
Test Date: 2024-10-12 20:14:16 Measurements Intervals [place] Rate: 76 P: 49 [place]: 166 QRS: 18 QRSD: 86 T: 34 QT: 363 QTc: 409 Interpretive Statements SINUS RHYTHM DELAYED PRECORDIAL R/S TRANSITION LOW QRS VOLTAGE IN PRECORDIAL LEADS BASELINE ARTIFACT- I, II, AVR, AVL, AVF, V1 BORDERLINE ECG Compared to ECG 10/12/2024 17:10:36 No significant changes Electronically Signed On 10-13-2024 10:52:43 CDT by Iker Ramirez D.O.
[2024-10-12 20:47] LABS: Troponin I < 0.012 ng/mL (0.000-0.034)
--- OUTSIDE RECORDS SUMMARY | 2024-10-12 20:56 | XMS_ITS | Encounter Summary ---
Author Organization [facility] Healthcare Address [address] [place] [address] Care Team Providers Care Etcher Machine Name Role Phone Gio Asif MD Primary Care Provider No, Physician Primary Care Provider Alvin Franco MD Primary Care Provider No, Physician Primary Care Provider Alvin Franco MD Unavailable [phone] Miscellaneous, Not In File Unavailable Unava ilable Coco Bernal 911 EMERGENCY SERVICES DISPATCHER Unavailable Silvino Lopez MD Primary Care Provider + Daryn Bui MD Unavailable Trevon Benson MD Unavailable [phone] Shauna Hicks MD Primary Care Provider Dotty Charles 911 EMERGENCY SERVICES DISPATCHER Primary Care Provider Encounter Details Date Type Department Care Team (Latest Contact Info) Description 09/09/2019 Ophth Exam Ophthalmology Priscila Yarbrough MD [address] [place] [address] Social History Tobacco Use Types Packs/Day Years [...] on file Legal Sex Female 8:03 AM CLOTH MEASURER Gender Identity Not on file Sexual Orientation Straight 05/01/2021 9: 39 PM CLOTH MEASURER documented as of this encounter Plan of Treatment Upcoming Encounters Date Type Department Care Team (Late st Contact Info) Description 01/23/2025 11:00 AM CLOTH MEASURER Hospital Encounter [address] [address] Shannon Mccarty MD [address] [place] [address] DR JOHANSEN [address] [place] [address] 01/23/2025 11:00 AM CLOTH MEASURER - 01/23/2025 11:30 AM CLOTH MEASURER Surgery [address] [address] Shannon Mccarty MD [address] [facility] [address] JOHANSEN [address] [place] [address] COLONOSCOPY Scheduled Procedures Name Priority Associated Diagnoses Date/Ti mt COLONOSCOPY Screening for colon cancer 01/23/2025 11:00 AM CLOTH MEASURER documented as of this encounter Visit Diagnoses [...] COVID: Suspected 01/16/2024 01/16/2024 01/16/2024 5:20 PM CLOTH MEASURER COVID: Suspected 04/21/2024 04/21/2024 04/21/2024 4:15 PM CLOTH MEASURER documented as of this encounter Eye Exam [...] plaques Normal, no pl aques Care Teams Etcher Machine Relationship Specialty Start Date End Date Gio Asif MD [address] [place] [address] PCP - General 11/24/16 07/23/20 No, Physician PCP - General 07/24/20 12/10/20 [place] [address] [address] [facility] [address] [place] [address] PCP - General 12/11/20 02/07/21 No, Physician PCP - General 02/08/21 03/11/21 Silvino Lopez MD [address] [place] [address] DR [address] [facility] [place] [address] PCP - General Family Medicine 03/12/21 12/19/22 Shauna Hicks MD [address] [place] [address] PCP - General Family Medicine 01/03/23 04/20/24 Dotty Charles, DONG [address] [place] [address] DR ANDREW Tao [facility] [address] [place] [address] PCP - General Nurse Practitioner 04/21/24 [place] [id number] [address] Consulting Physician Internal Medicine 02/09/21 Miscellaneous, Not In File 02/21/21 Coco Bernal NP [address] [place] [address] DR JOHANSEN [address] [place] [address] Nurse Practitioner Cardiovascular Disease 02/21/21 Daryn Bui MD [address] [place] [address] Consulting Physician Cardiology 05/21/21 Trevon Benson MD [address] [place] [address] Surgeon Orthopedic Surgery 11/05/21 documented as of this encounter
--- OUTSIDE RECORDS SUMMARY | 2024-10-12 20:56 | XMS_ITS | Clinical Summary ---
Author Organization [facility] [employer] Address [address] [place] [address] Care Team Providers Care Phosphorus Processing Supervisor Name Role Phone Gio Asif MD Primary Care Provider [phone] Source Comments [facility] [employer],non-owned Affiliates and Associated Physician Practices is amultiple site organization consisting of ambulatory clinics and hospital sitesin [place], [place], [place] and [place]. This disclosure is being madepursuant to the Care Everywhere program and may not contain all information available regarding this patient. Last updated 17.[facility] [employer] Allergies Active Allergy Reactions Criticality Noted Date [...] Take by mouth once daily Active Biotin 45500 MCG TBDP Take by mouth once daily [...] this topic Medical Devices Implanted Type Area Service Delivery Management Consultant Device Identifier Shelf Expiration Date Model / Serial / Lot Graft Bone Grftn Dbm Aspt 5x2.5cm Post Implanted:Qty: 1 on 08/12/2018 by Celso Guerra MD at [facility] N/A: Spine Cervical [employer] 07/30/2019 [id number] / / [id number] [place] Pin Implanted:Qty: 2 on 08/12/2018 by Celso Guerra MD at [facility] N/A: Spine Cervical [employer] 665.614 / / 4.2 Variable Screws Implanted:Qty: 4 on 08/12/2018 by Celso Guerra MD at [facility] N/A: Spine Cervical [employer] 161.014 / / Xtend Plate Implanted:Qty: 1 on 08/12/2018 by Celso Guerra MD at [facility] N/A: Spine Cervical [employer] 161.230 / / Fortify 12mm Core 19-25mm Implanted:Qty: 1 on 08/12/2018 by Celso Guerra MD at [facility] N/A: Spine Cervical [employer] 151.051 / / Fortify 12mm Upper Endplate Implanted:Qty: 1 on 08/12/2018 by Celso Guerra MD at [facility] N/A: Spine Cervical [employer] 151.321 / / Fortify 12mm Lower Endplate Implanted:Qty: 1 on 08/12/2018 by Celso Guerra MD at [facility] N/A: Spine Cervical [employer] 151.371 / / Procedures Procedure Name Priority Date/Time Associated Diagnosis Comments BASIC METABOLIC PANEL (CALCIUM TOTAL) Routine 08/15/2018 4:17 AM CDT Pre-op evaluation from Last 3 Months or Most Recently Relevant to Health Maintenance Results * (ABNORMAL) BASIC METABOLIC PANEL (CALCIUM TOTAL) (08/15/2018 4:17 AM CDT) [facility] BUN 7 7 - 26 mg/dL 08/15/2018 4:51 AM CDT [facility] Creatinine 0.8 0.6 - 1.2 mg/dL 08/15/2018 4:51 AM [facility] Sodium 138 136 - 145 mmol/L 08/15/2018 4:51 AM [facility] Potassium 3.4(L) 3.5 - 4.5 mmol/L 08/15/2018 4:51 AM [facility] Chloride 101 98 - 107 mmol/L 08/15/2018 4:51 AM [facility] CO2 29 22 - 29 mmol/L 08/15/2018 4:51 AM [facility] Glucose 146(H) 70 - 115 mg/dL 08/15/2018 4:51 AM [facility] Calcium 8.5 8.4 - 10.2 mg/dL 08/15/2018 4:51 AM [facility] Anion Gap 11 8 - 18 08/15/2018 4:51 AM [facility] BUN/Creatinine Ratio 9 7 - 23 08/15/2018 4:51 AM [facility] Osmolality Calculated 287 270 - 300 mOsm/kg 08/15/2018 4:51 AM [facility] eGFR >60 >60 mL/min/1.7 3 m2 08/15/2018 4:51 AM [facility] Blood BLOOD SPECIMEN / Unknown Lab Venipuncture / Unknown 08/15/2018 4:17 AM CDT 08/15/2018 4:28 AM [facility] Marlo Corea MD LAB - CHEMISTRY ORDERABLES Final Result [facility] [address] [phone] from Last 3 Months or Most Recently Relevant to Health Maintenance Insurance [facility] ANTH MEDICAID - OUT OF STATE [facility] Advance Directives * Full Code (Latest Code Status on File) Date Activated Date Inactivated Comments 08/12/2018 8:00 PM 08/15/2018 4:03 PM Care Teams Phosphorus Processing Supervisor Relationship Specialty Start Date End Date Gio Asif MD [address] [place] [address] PCP - General Internal Medicine 08/12/18
--- OUTSIDE RECORDS SUMMARY | 2024-10-12 20:56 | XMS_ITS | Clinical Summary ---
Author Organization [facility] Address [address] [place] [address] Care Team Providers Care Commercial Drone Software Developer Name Role Phone Unavailable Primary Care Provider [...]
--- OUTSIDE RECORDS SUMMARY | 2024-10-12 20:56 | XMS_ITS | Clinical Summary ---
Author Organization [facility] Address [address] [place] [address] Phone Care Team Providers Care Financial Analysis Manager Name Role Phone Dotty Charles APRN, CAD PROGRAMMER Primary Care Provider Allergies Active Allergy Reactions [...] Itching. 08/07/19 24 Active ergocalciferol (VITAMIN D) 62321 UNIT Capsule Take 1.25 mg by mouth [...] 08/12/2024 11:39 AM CDT Emergency [facility] Emergency [address] [place] [address] Zhao Joseph, Other chest pain Discharge Disposition: [...] drink = 0.6 oz pur e alcohol) [facility] Utilities Answer Date Recorded In the past 12 months has e [employer], gas, oil, or water company threatened to [...] place to sleep or slept in a long-term (including now)? No 03/01/2023 Sexually Active Control [...] W/ ESTIMATED GLUCOSE STAT 03/01/2023 1:58 PM HARNESS CLEANER from Last 3 Months or Most Recently Relevant to Health Maintenance Results * (ABNORMAL) TROPONIN I, HIGH SENSITIVITY (HSTRP) (08/12/2024 10:42 AM CDT) Only the most recent of3 resultswithin the time period is included. TROPONIN I, HIGH SENSITIVITY- GARCIA 39(H) <=14 ng/L 08/12/2024 11:26 AM CDT [facility] Comment: High-sensitivity troponin I results are reported in ng/L making the result appear to be 1,000 times higher than the contemporary troponin I value which is reported in ng/ml. Results from Garcia. Blood Venipuncture / Unknown 08/12/2024 10:42 AM CDT 08/12/2024 10:47 AM CDT us Zhaoskylar Vences Jake DO CHEMISTRY ORDERABLES Fi nal Result [facility] [address] [place] [address] * CT ANGIO CHEST ABDOMEN W/WO WITH [...] portions of the ureters. Bladder excluded from [id number]. GI: No dilated loops of small bowel of the visualized alimentary canal. No wall thickening of the visualized alimentary canal. Expected location of the appendix excluded from [id number]. PERITONEUM: No pneumoperitoneum or abdominopelvic free fluid of the visualized portions of the abdomen pelvis. RETROPERITONEUM: No mass or adenopathy of the visualized retroperitoneum. REPRODUCTIVE: Excluded from [id number]-ta-[id number]. MUSCULOSKELETAL: Spondylosis and degenerative disc disease of the visualized spine. OTHER: No other abnormality. THIS IS AN ELECTRONICALLY VERIFIED FINAL REPORT 08/12/2024 9:18 AM - Electronically signed by Ken Rolle M.D. JEMMA: JEMMA Report ID: [id number] Reading Location: [id number] Procedure Note Ken Rolle MD - 08/12/2024 [...] portions of the ureters. Bladder excluded from [id number]. GI: No dilated loops of small bowel of the visualized alimentary canal. No wall thickening of the visualized alimentary canal. Expected location of the appendix excluded from [id number]-vv-[id number]. PERITONEUM: No pneumoperitoneum or abdominopelvic free fluid of the visualized portions of the abdomen pelvis. RETROPERITONEUM: No mass or adenopathy of the visualized retroperitoneum. REPRODUCTIVE: Excluded from [id number]. MUSCULOSKELETAL: Spondylosis and degenerative disc disease of the visualized spine. OTHER: No other abnormality. THIS IS AN ELECTRONICALLY VERIFIED FINAL REPORT 08/12/2024 9:18 AM - Electronically signed by Ken Rolle M.D. JEMMA: JEMMA Report ID: [id number] Reading Location: [place] [address] IMPRESSION: Streak artifact from patient's arms alongside [...] 12.00 10(3)/mcL 08/12/2024 7:57 AM CDT [facility] RBC 4.08 3.80 - 5.30 10(6)/mcL 08/12/2024 7:57 AM CDT [facility] HEMOGLOBIN (HGB) 12.0 12.0 - 15.8 g/dL 08/12/2024 7:57 AM CDT [facility] HEMATOCRIT (HCT) 34.7(L) 36.0 - 47.0 % 08/12/2024 7:57 AM CDT [facility] MCV 85.0 82.0 - 96.0 fL 08/12/2024 7:57 AM CDT [facility] MCH 29.4 26.0 - 34.0 pg 08/12/2024 7:57 AM CDT [facility] MCHC 34.6 31.0 - 36.0 g/dL 08/12/2024 7:57 AM CDT [facility] PLATELET COUNT 259 140 - 440 10(3)/mcL 08/12/2024 7:57 AM CDT [facility] RDW 12.9 11.8 - 15.5 % 08/12/2024 7:57 AM CDT [facility] MPV 8.4(L) 9.7 - 12.4 fL 08/12/2024 7:57 AM CDT [facility] NEUTROPHILS 62.6 47.0 - 73.0 % 08/12/2024 7:57 AM CDT [facility] LYMPHOCYTES 24.5 18.0 - 42.0 % 08/12/2024 7:57 AM CDT [facility] MONOCYTES 8.6 4.0 - 12.0 % 08/12/2024 7:57 AM CDT [facility] EOSINOPHILS 3.8 0.0 - 5.0 % 08/12/2024 7:57 AM CDT [facility] BASOPHILS 0.5 0.0 - 1.0 % 08/12/2024 7:57 AM CDT [facility] ABSOLUTE NEUTROPHILS 4.74 1.60 - 7.70 10(3)/mcL 08/12/2024 7:57 AM CDT [facility] ABSOLUTE LYMPHOCYTES 1.86 1.30 - 3.20 10(3)/mcL 08/12/2024 7:57 AM CDT [facility] ABSOLUTE MONOCYTES 0.65 0.20 - 1.00 10(3)/mcL 08/12/2024 7:57 AM CDT [facility] ABSOLUTE EOSINOPHIL 0.29 0.00 - 0.40 10(3)/[facility] 08/12/2024 7:57 AM CDT [facility] ABSOLUTE BASOPHILS 0.04 0.00 - 0.10 10(3)/[facility] 08/12/2024 7:57 AM CDT [facility] NRBC PER 100 WBC 0 08/13/19 7:57 AM CDT [facility] Blood Venipuncture / Unknown 08/12/2024 7:21 AM CDT 08/12/2024 7:32 AM CDT us Zhao Joseph DO HEMATOLOGY ORDERABLES F inal Result [facility] [address] [place] [address] * (ABNORMAL) CMP (Comprehensive Metabolic Panel) (08/12/2024 7:21 AM CDT) SODIUM 139 136 - 145 mmol/L 08/12/2024 7:54 AM CDT [facility] POTASSIUM 3.2(L) 3.5 - 5.1 mmol/L 08/12/2024 7:54 AM CDT [facility] CHLORIDE 106 98 - 107 mmol/L 08/12/2024 7:54 AM CDT [facility] CO2, VENOUS 20(L) 22 - 30 mmol/L 08/12/2024 7:54 AM CDT [facility] ANION GAP 16.2 <18.0 mmol/L 08/12/2024 7:54 AM CDT [facility] GLUCOSE 208(H) 70 - 99 mg/dL 08/12/2024 7:54 AM CDT [facility] BUN 13 5 - 18 mg/dL 08/12/2024 7:54 AM [facility] CREATININE, BLOOD 0.59(L) 0.60 - 1.00 mg/dL 08/12/2024 7:54 AM [facility] BUN/CREATININE RATIO 22(H) 12 - 20 ratio 08/12/2024 7:54 AM T [facility] TOTAL PROTEIN 7.0 6.0 - 8.0 g/dL 08/12/2024 7:54 AM [facility] ALBUMIN 4.0 3.5 - 5.0 g/dL 08/12/2024 7:54 AM [facility] A/G RATIO 1.3 1.0 - 2.2 08/12/2024 7:54 AM [facility] CALCIUM 8.9 8.7 - 10.5 mg/dL 08/12/2024 7:54 AM [facility] T BILI 0.5 0.2 - 1.2 mg/dL 08/12/2024 7:54 AM [facility] SGOT (AST) 15 <43 U/L 08/12/2024 7:54 AM [facility] SGPT (ALT) 11 <56 U/L 08/12/2024 7:54 AM [facility] ALKALINE PHOSPHATASE 52 40 - 150 U/L 08/12/2024 7:54 AM [facility] GFR, ESTIMATED >60 >=60 08/12/2024 7:54 AM [facility] Comment: Creatinine Clearance is the preferred criteria for selecting drug dose adjustments in renally impaired patients. The GFR is provided as additional pertinent clinical information. GFR is reported in mL/min/1.73 sq m. Calculation based on the Chronic Kidney Disease Epidemiology Collaboration (CKD- EPI) equation refit without adjustment for race. GFR, EST. >60 >=60 025 7:54 AM [facility] GFR, EST. NONAFRICAN >60 >=60 08/12/2024 7:54 AM CDT [facility] Blood Venipuncture / Unknown 08/12/2024 7:21 AM CDT 08/12/2024 7:32 AM CDT us Zhao Joseph DO CHEMISTRY ORDERABLES Fi nal Result [facility] [address] [place] [address] * XR CHEST SINGLE VIEW PORTABLE (08/12/2024 [...] Ken Rolle M.D. JEMMA: JEMMA Report ID: [id number] Reading Location: [id number] Procedure Note Ken Rolle MD - 08/12/2024 [...] Ken Rolle M.D. JEMMA: JEMMA Report ID: [id number] Reading Location: [place] [address] IMPRESSION: No acute cardiopulmonary process. us Zhao Joseph DO IMG DIAGNOSTIC ORDERABL ES Final Result * EKG 12 LEAD (08/12/2024 6:35 AM CDT) Ventricular Rate 83 BPM EXTERNAL EKG Atrial Rate 83 BPM EXTERNAL EKG P-R Interval 166 ms EXTERNAL EKG QRS Duration 84 ms EXTERNAL EKG Q-T Duration 386 ms EXTERNAL EKG QTC CALCULATION 453 ms EXTERNAL EKG P [place] 58 degrees EXTERNAL EKG R [place] 14 degrees EXTERNAL EKG T [place] 49 degrees EXTERNAL EKG 08/12/2024 6:35 AM CDT Impressions EXTERNAL EKG - 08/14/2024 9:19 AM CDT Normal sinus rhythm Normal ECG When compared with ECG of 01-MAR-2023 13:46, No significant change was found Confirmed by Sebastien Peacock ([id number]) on 08/14/2024 9:18:58 AM Narrative Procedure Note Sebastien Peacock MD - 08/14/2024 IMPRESSION: Normal sinus rhythm Normal ECG When compared with ECG of 01-MAR-2023 13:46, No significant change was found Confirmed by Sebastein Peacock ([id number]) on 08/14/2024 9:18:58 AM us Zhao Joseph DO IMG ECG ORDERABLES Johnna l Result Performing Organization Address City/[facility]/ZIP Co de Phone Number EXTERNAL EKG * EKG SCAN (08/12/2024 12:00 AM CDT) 08/12/2024 us Provider Scan IMG ECG ORDERABLES Final Result Performing Organization Address [facility] Co de Phone Number RESULTING AGENCY * (ABNORMAL) Hemoglobin A1C w/ Estimated Glucose (03/01/2023 1:58 PM HARNESS CLEANER) HGB-A1C 7.4(H) 4.0 - 6.0 % 03/01/2023 4:10 PM HARNESS CLEANER [facility] Est Average Glucose 165.7 mg/dL 03/01/2023 4:10 PM HARNESS CLEANER [facility] Blood Venipuncture / Unknown 03/01/2023 1:58 PM HARNESS CLEANER 03/01/2023 2:10 PM HARNESS CLEANER Narrative [facility] - 03/01/2023 4:10 PM HARNESS CLEANER HEMOGLOBIN A1C: DIABETIC PATIENTS: WELL-CONTROLLED: 6.2 - 7.0 INTERMEDIATE WELL-CONTROLLED: 7.0 - 9.0 POORLY-CONTROLLED: >9.0 us Mayuri Lacy MD CHEMISTRY ORDERABLES Final Re sult Performing Organization Address City/[facility] Co de Phone Number [facility] [address] [place] [address] from Last 3 Months or Most Recently Relevant to Health Maintenance Insurance MEDICAID [place] Advance Directives * Full Code (Latest Code Status on File) Date Activated Date Inactivated Comments 03/02/2023 6:16 PM 03/02/2023 10:15 PM CPR-Full Treatment: FULL ARREST: Attempt Resuscitation/CPR wit intubation and mechanical ventilation. PRE-ARREST: Use entire range of life support measures to stabilize the patient. Care Teams Financial Analysis Manager Relationship Specialty Start Date End Date Dotty Charles, CORE CLEANER, CAD PROGRAMMER [address] [place] [address] PCP - General Advanced Practice Nurse 08/12/24
--- OUTSIDE RECORDS SUMMARY | 2024-10-12 20:56 | XMS_ITS | Clinical Summary ---
Author Organization [facility] Address [address] [place] [address] Care Team Providers Care Cook Short Order Name Role Phone Alvin Franco MD Unavailable [phone] Miscellaneous, Not In File Unavailable Unava ilable Coco Bernal NP Unavailable [phone] Daryn Bui MD Unavailable [phone] Trevon Benson MD Unavailable [phone] Dotty Charles CAMPUS SUPERVISOR Primary Care Provider Allergies Active Allergy Reactions [...] mL 5 05/03/19 25 Active blood-glucose sensor ([employer] G7 Sensor) device Use for BG monitoring [...] 03/21/2022 Assessment & Plan (05/03/2024 2:44 PM SCRAP HANDLER): Chronic problem. On statin therapy, she misses [...] 12/14/2021 Assessment & Plan (05/03/2024 1:36 PM SCRAP HANDLER): Chronic problem, Controlled on HCTZ, metoprolol. No [...] Nasal saline spray (Simply saline, Little Remedies, [place], [place]) 2 second sprays or 2 squeezes into [...] Nasal saline spray (Simply saline, Little Remedies, [place], [place]) 2 second sprays or 2 squeezes into [...] 05/02/2021 Assessment & Plan (05/02/2021 11:53 AM SCRAP HANDLER): Patient reports to discontinuing her home medication. [...] flecainide Assessment & Plan (05/02/2021 6:23 AM SCRAP HANDLER): Noted on Holter monitor. Cardiology has been consulted. Continue beta-mary grace. Syncope and collapse 02/20/2021 Assessment & Plan (02/20/2021 6:35 PM SCRAP HANDLER): Patient with syncopal episode today. CT head negative. Concern related to possible cardiac issues. No neurological deficit present time. Will continue to monitor. Primary hypertension 02/20/2021 Assessment & Plan (05/02/2021 6:23 AM SCRAP HANDLER): Continue metoprolol with hold parameters Assessment & Plan (02/20/2021 6:37 PM SCRAP HANDLER): Blood pressure with some mild elevation on presentation. Metoprolol currently on hold for stress test in a.m.. IV hydralazine as needed. Will monitor. Type 2 diabetes mellitus wit h hyperglycemia, with long-term current use of insulin 02/09/2021 Assessment & Plan (05/03/2024 2:51 PM SCRAP HANDLER): Chronic problem, not at goal. We discussed [...] neuropathy Assessment & Plan (05/02/2021 12:03 PM SCRAP HANDLER): Sugars uncontrolled on presentation to 470. Patient prescribed glimepiride 2mg but has not been compliant. She was previously taking metformin but was concerned for medication side effects and discontinued. -Placed on Lantus 20 units every day meal time bolus lispro 7 units and sliding scale lispro. -Plan to D/C on metformin 500 mg bid and GLP1 Assessment & Plan (05/02/2021 6:22 AM SCRAP HANDLER): Sugars uncontrolled on presentation. She is on Amaryl. She was given insulin. Sugars are improving. Monitor on sliding scale. Assessment & Plan (02/20/2021 6:36 PM SCRAP HANDLER): Patient reports glucose levels were still not as well controlled as she would like at home. Has been taking her glimepiride. Will place on sliding scale insulin here but may need adjustment in medication depending on her levels. Consistent carbohydrate diet. Assessment & Plan (02/09/2021 6:22 AM SCRAP HANDLER): Patient stop taking her p.o. pills over [...] consultation Assessment & Plan (02/20/2021 6:38 PM SCRAP HANDLER): Healthy lifestyle encouraged. Personal history of transien t ischemic attack (TIA), and cerebral infarction without residual deficits 02/08/2021 Assessment & Plan (05/02/2021 6:23 AM SCRAP HANDLER): Continue aspirin and statin Assessment & Plan (02/20/2021 6:38 PM SCRAP HANDLER): Previous history. Patient will continue ASA and atorvastatin. Assessment & Plan (02/09/2021 6:32 AM SCRAP HANDLER): Continue aspirin and Lipitor Supraventricular tachycardia 02/08/2021 Chest pain 02/08/2021 Assessment & Plan (02/20/2021 6:35 PM SCRAP HANDLER): Patient presented with episode of chest pain along with syncope. Had chest pain approximately 2 weeks ago and ruled out for MT but did not wish to stay for cardiac evaluation with plan to do as outpatient. Patient with more symptoms on this occasion. Has already been seen by Cardiology with plan for Lexiscan stress test tomorrow. Patient is agreeable to evaluation at this time. Troponin levels are negative. Does have history of possible MT in the past but not confirmed. Assessment & Plan (02/09/2021 6:26 AM SCRAP HANDLER): Patient was at work doing heavy lifting when her chest pain occurred. Patient only had 2 troponins. Will check a troponin this morning. Chest pain has since resolved. Patient denies ever having any stents placed. She states it occurred at [facility] when she was 37 years old. EKG [...] 11/06/2020 Assessment & Plan (05/03/2024 2:48 PM SCRAP HANDLER): Chronic problem, not at goal. Lately missing [...] levothyroxine Assessment & Plan (05/02/2021 12:03 PM SCRAP HANDLER): Restart levothyroxine. TSH was over 323 months ago. Will check now. -levothyroxine 25 mg every day Assessment & Plan (05/02/2021 6:23 AM SCRAP HANDLER): Continue levothyroxine. TSH was over 323 months ago. Will check now. Assessment & Plan (02/20/2021 6:37 PM SCRAP HANDLER): TSH was elevated on 02/08/2021. Patient reports has faithfully been taking levothyroxine. Per patient request, will recheck current TSH. Adjust levothyroxine as needed. Assessment & Plan (02/09/2021 6:31 AM SCRAP HANDLER): Patient stop taking her medications over a [...] 04/05/2017 Assessment & Plan (02/20/2021 6:38 PM SCRAP HANDLER): No complaint at this time. Will monitor. Lumbar facet arthropathy 04/05/2017 Medically noncompliant Bloody stools Colon polyps Ventricular tachycardia Resolved Problems Problem Noted Date Diagnosed Date Resolved Date Type 2 diabetes mellitus wit hout complication, with long-term current use of insulin 06/21/2023 08/17/2024 Encounters Date Type Department Care Team Description 08/24/2024 Telephone [facility] [address], [place] [address] Khushi Serrano PA Dexcom G7 Sensors PA Request 08/08/2024 Telephone [facility] [address], [place] [address] Khushi Serrano PA 07/17/2024 Telephone [facility] [address], [place] [address] Khushi Serrano PA Prior Auth (BD-Pen [place]) from Last 3 Months Immunizations Immunization Administration [...] drink = 0.6 oz pur e alcohol) [facility] Utilities Answer Date Recorded In the past 12 months has amaysim electric, gas, oil, or water company threatened [...] often do you attend chur ch or sikhism services? More than 4 times per year 10/13/2023 Do you belong to any clubs o r organizations such as mandaen groups, unions, fraternal or athletic groups, or [...] in a skilled nursing (including now)? No 12/22/2022 PHQ-9 Answer Date [...] any time in the past 12 m [facility], were you homeless or living in a skilled nursing (including now)? No 10/13/2023 Personal Safety Answer [...] on file Legal Sex Female 8:03 AM SCRAP HANDLER Gender Identity Not on file Sexual Orientation Straight 05/01/2021 9: 39 PM SCRAP HANDLER Obstetrics History Last Filed Vital Signs Vital [...] st Contact Info) Description 01/23/2025 11:00 AM SCRAP HANDLER Hospital Encounter [address] [address] Shannon Mccarty MD [address] [facility] [place] [address] 01/23/2025 11:00 AM SCRAP HANDLER - 01/23/2025 11:30 AM SCRAP HANDLER Surgery [address] [address] Shannon Mccarty MD [address] [facility] [place] [address] COLONOSCOPY Scheduled Procedures Name Priority Associated Diagnoses Date/Ti me COLONOSCOPY Screening for colon cancer 01/23/2025 11:00 AM SCRAP HANDLER Health Maintenance Due Date Last Done Comments [...] 11/02/2014, 03/08/2014 Medical Devices Implanted Type Area Helmet Hat Brim Cutter Device Identifier Shelf Expiration Date Model / Serial / Lot [employer] Ildefonso Angio-Seal Vip 6fr Closere Device [id number] - [id number] Implanted:Qty : 1 on 10/13/2023 by Yifan Kunz MD at [facility] Vascular Closure Device [employer] Ildefonso 06/20/2024 [id number] / / [id number] Loop Recorder N/A: Chest Wall Loop Recorder Left: Chest Procedures Procedure Name Priority Date/Time Associated Diagnosis Comments EGFR STAT 06/29/2024 3:15 PM CDT ALBUMIN CREATININE RATIO, URINE Routine 05/03/2024 1:57 PM SCRAP HANDLER Type 2 diabetes mellitus with hyperglycemia, with long-term current use of insulin (HCC) POCT HEMOGLOBIN A1C Routine 05/03/2024 1 :07 PM SCRAP HANDLER Type 2 diabetes mellitus with hyperglycemia, with long-term current use of insulin (HCC) POCT LIPID PANEL Routine 05/03/2024 1:07 AM SCRAP HANDLER Type 2 diabetes mellitus with hyperglycemia, with [...] LAB BLOOD ORDERABLES Fi nal Result [facility] [address] Department [place] [address] * Albumin Creatinine Ratio, Urine (05/03/2024 1:57 PM SCRAP HANDLER) Albumin Ur <12.0 mg/L Comment: Interpretive Data No reference range established. Current interpretive data was last revised 2018. Creatinine Ur 147.1 mg/dL [facility] Comment: Interpretive Data No reference range established. Current interpretive data was last revised 2018. Albumin Creatinine Ratio, Ur <8 1 - 29 mg/g [facility] LINO Urine 05/03/2024 1:57 PM SCRAP HANDLER 05/03/2024 5:42 PM SCRAP HANDLER Khushi SEARS LAB URINE ORDERABLES Fi nal Result [facility] [address] Department [place] [address] * (ABNORMAL) POCT hemoglobin A1c (05/03/2024 1:07 PM SCRAP HANDLER) Hemoglobin A1C, POC 8.4 4.0 - 5.6 % Capillary blood 05/03/2024 1 :07 PM SCRAP HANDLER Result [facility] Khushi SEARS POINT OF CARE TEST ORDE RABLES Final Result * (ABNORMAL) POCT lipid panel (05/03/2024 1:07 AM SCRAP HANDLER) Cholesterol, POC 197 mg/dL HDL, POC 41 mg/dL Triglycerides, POC 167 mg/dL LDL Cholesterol POC 123 mg/dL Chol/HDL Ratio, POC 4.8 Non-HDL Cholesterol, POC 156 mg/dL Cholesterol Total, POC 197 mg/dL Capillary blood 05/03/2024 1 :07 AM SCRAP HANDLER Khushi SEARS POINT OF CARE TEST ORDE [...] Mccarty MD - 12/16/2021 2:26 PM CDT [facility] Patient Name: Josseline Main Procedure Date: 12/16/2021 2:26 PM Date of : 1975 Admit Type: Inpatient Age: 46 Gender: Female Attending MD: Shannon Mccarty M.D. Room: [facility] ENDOSCOPY ROOM 1 Note Status: Finalized Patient [...] and retrieved.Clip (MR conditional) was placed. Clip car pincher:Mompery. - Internal and external hemorrhoids. Recommendation: - [...] under direct vision. The Pediatric Colonoscope [id number]-[id number] was introducedthrough the anus and advanced to [...] clip was successfully placed (MR conditional). Clip car pincher: Mompery. There was no bleeding at the end ofthe procedure. Internal hemorrhoids were found during retroflexion. The hemorrhoids were medium-sized. Electronically signed by Shannon Mccarty M.D. Shannon Mccarty M.D. 12/16/2021 4:29:06 PM Number of Addenda: 0 Note Initiated On: 12/16/2021 2:26 PM Procedure Code(s): --- Professional --- 38359, Colonoscopy, flexible; with removal of tumor(s), polyp(s), or other lesion(s) by snare technique 26944, Colonoscopy, flexible; with directed submucosal injection(s),any substance 13082, 59, Colonoscopy, flexible; with biopsy, single or multiple Diagnosis Code(s): --- Professional --- K64.8, Other hemorrhoids D12.2, Benign neoplasm of ascending colon D12.4, Benign neoplasm of descending colon D12.5, Benign neoplasm of sigmoid colon K92.1, Melena (includes Hematochezia) R19.5, Other fecal abnormalities CPT copyright 2020 [place] [employer]. All rights reserved. The codes documented in this report are preliminary and upon grinding room inspector reviewmay be revised to meet current compliance requirements. Recognized by the [place] [employer] for promoting quality in endoscopy Shannon Mccarty MD ENDOSCOPY PROCEDURES Final Result from Last 3 Months or Most Recently Relevant to Health Maintenance Insurance IDPA [employer] [facility] [place] [address] WORKERS COMPENSATION GENERIC * Guarantor: OTHER Account Type Relation to Patient Date of Phone Billing Address Workers Comp Employer Advance Directives For more information, please contact: [phone] * Full Code (Latest Code Status on [...] Name Relationship Healthcare Agent Relationshi p Communication [facility] Care Agent Care Teams Cook Short Order Relationship Specialty Start Date End Date Dotty Charles NP [address] [facility] [address] [facility] [address] [place] [address] PCP - General Nurse Practitioner 04/21/24 [place] [address] [address] Consulting Physician Internal Medicine 02/09/21 Miscellaneous, Not In File 02/21/21 Coco Bernal NP [address] [facility] [address] [place] [address] Nurse Practitioner Cardiovascular Disease 02/21/21 Daryn Bui MD [address] [facility] [address] Consulting Physician Cardiology 05/21/21 Trevon Benson MD [address] [facility] [address] Surgeon Orthopedic Surgery 11/05/21
--- OUTSIDE RECORDS SUMMARY | 2024-10-12 20:56 | XMS_ITS | Encounter Summary ---
Author Organization [facility] Address [address] [place] [address] Care Team Providers Care Electric Container Tester Name Role Phone Keira Herrera MD Primary Care Provider [phone] Encounter Details Date Type Department Care Team [...] documented as of this encounter Care Teams Electric Container Tester Relationship Specialty Start Date End Date Keira Herrera MD [address] [place] [address] [place] [address] PCP - General Internal Medicine 10/14/23 documented as of this encounter
--- OUTSIDE RECORDS SUMMARY | 2024-10-12 20:56 | XMS_ITS | Clinical Summary ---
Author Organization [facility] Address [address] [place] [address] Care Team Providers Care Automatic Door Mechanic Name Role Phone Keira Herrera MD Primary Care Provider [phone] Allergies Active Allergy Reactions Criticality Noted Date [...] 11/22/2023 Overview (11/22/2023): Noted on CT 11/21/23 [facility] ER visit Coronary atherosclerosis 03/01/2023 [...] Abstract 07/28/2024 External Device Data Initial Department [address] [place] [address] Dr [place]: [place] [address] Minesh Iglesias Md from Last 3 Months [...] coma, without long-term current use of insulin ([facility]/HCC) Leukocytosis, unspecified type Abnormal laboratory test LIPID [...] Creatinine, Urine 133 20 - 275 mg/dL [facility] MICROALBUMIN, URINE 0.4 See Note: mg/dL [facility] Comment: Reference Range: Reference Range Not established MICROALBUMIN/CREAT RATIO, UR 3 <30 mg/g creat [facility] Comment: The ADA defines abnormalities in albumin excretion as follows: Albuminuria Category Result (mg/g creatinine) Normal to Mildly increased <30 Moderately increased 30-299 Severely increased > OR = 300 The ADA recommends that at least two of three specimens collected within a 3-6 month period be abnormal before considering a patient to be within a diagnostic category. Test Performed at: [facility] [address] [facility] [place] [address] Yossi Zuñiga MD Urine URINE SPECIMEN OBTAINED BY CLEAN CATCH PROCEDURE / Unknown 06/09/2023 11:51 AM CDT 06/09/2023 11:30 PM CDT Shauna Hicks MD URINE ORDERABLES Final Result [facility] [phone] [facility] [address] [address] * (ABNORMAL) HEMOGLOBIN A1C (06/09/2023 11:51 AM CDT) HEMOGLOBIN A1C 9.3(H) <5.7 % of total Hgb [facility]ia [place] Comment: For someone without known [...] children. ESTIMATED AVERAGE GLUCOSE (MG/DL) 220 mg/dL [facility] ESTIMATED AVERAGE GLUCOSE (MMOL/L) 12.2 mmol/L [facility] cormier Dann Comment: This test was performed on the Madyson víctor c503 platform. Effective 05/24/23, a change in test platforms from the Nielson Ecologist Technician to the Madyson víctor c503 may have shifted HbA1c results compared to historical results. Based on laboratory validation testing conducted at [facility], the Madyson platform relative to the Nielson [...] platforms is not recommended. Test Performed at: [place] [address] [address] [address] Yossi Zuñiga Blood 06/09/2023 11:5 1 AM CDT 06/09/2023 11:51 PM CDT us Shauna Hicks MD CHEMISTRY ORDERABLES Final Re sult [facility] [phone] [place] [address] [address] [place] [address] * (ABNORMAL) LIPID PANEL (06/09/2023 11:51 AM CDT) CHOLESTEROL 202(H) <200 mg/dL [facility] [place] HDL 45(L) > OR = 50 mg/dL [facility] TRIGLYCERIDE 130 <150 mg/dL [facility] LDL CALCULATED 132(H) mg/dL (calc) [facility] genia [place] Comment: Reference range: <100 Desirable range <100 mg/dL for primary prevention; <70 mg/dL for patients with CHD or diabetic patients with > or = 2 CHD risk factors. LDL-C is now calculated using the Arben calculation, which is a validated novel method providing better accuracy than the Friedewald equation in the estimation of LDL-C. Daniel AYON et al. OMAR. 2013;310(19): 6030-6394 (http://education.Shakr Media.VIPorbit Software/faq/NUU479) CHOL/HDL RATIO 4.5 <5.0 (calc) [facility] TOTAL NON-HDL CHOL(LDL+VLDL) 157(H) <130 mg/dL (calc) [facility] [place] Comment: For patients with diabetes plus 1 major ASCVD risk factor, treating to a non-HDL-C goal of <100 mg/dL (LDL-C of <70 mg/dL) is considered a therapeutic option. Test Performed at: [place] [address] [place] [address] Yossi Zuñiga Blood 06/09/2023 11:5 1 AM CDT 06/09/2023 11:51 PM CDT us Shauna Hicks MD CHEMISTRY ORDERABLES Final Re sult [facility] [phone] [place] [address] [place] [address] from Last 3 Months or Most Recently Relevant to Health Maintenance Insurance [address] [place] [id number] [place] Advance Directives For more information, please contact: [phone] * Default Full Code - Needs Discussion (Latest Code Status on File) Date Activated Date Inactivated Comments 11/08/2022 9:50 AM 11/08/2022 12:01 PM Care Teams Automatic Door Mechanic Relationship Specialty Start Date End Date Keira Herrera MD [address] [place] [address] [place] [id number] PCP - General Internal Medicine 10/14/23
--- OUTSIDE RECORDS SUMMARY | 2024-10-12 20:56 | XMS_ITS ---
Author Organization [facility] Address [address] [place] [address] Phone Care Team Providers Care Search Engine Marketing Specialist Name Role Phone Dotty Charles APRN, SCRUB WOMAN Primary Care Provider OnCall Chronic Condition Monitoring Status:Enrolled (Active) Start date:04/05/2024 Enrollment date:04/05/2024 Related social drivers of health:Intimate Partner Violence, Social Connections, Alcohol Use, Tobacco Use, Depression, Stress Continued Care and Services Coordination
[2024-10-12 21:00] LABS: Influenza A QL RT-PCR Negative (Negative); Influenza B QL RT-PCR Negative (Negative); RSV RNA, RT-PCR Negative (Negative); SARS-CoV-2 RNA PCR Negative (Negative)
[2024-10-12 21:19] LABS: Add Urine Microscopic? YES; Appearance Urine Clear (Clear); Glucose Urine UA 3+ mg/dL (Negative); Leukocyte Esterase Ur 1+ LEU/UL (Negative); Nitrate Urine Negative (Negative); Non Pathogenic Casts 0-2; Specific Grav Ur > 1.045 (1.001-1.035)
[2024-10-12 21:30] LABS: Cannabinoid Screen Urine Negative (Negative)
[2024-10-12] MEDS: cefTRIAXone 1 GM in SODIUM CHLORIDE 0.9% IV 50 ML 100 ML IVPB (21:58)
[2024-10-12] MEDS: SODIUM CHLORIDE 0.9% IV 1,000 ML 999 ML IV CONT (21:59)
[2024-10-12] MEDS: PROMETHAZINE HCL 25 MG/ML AMPUL 12.5 MG IV PUSH (21:59)
== END 2024-10-12 22:43 | disposition home or self-care (01) ==
PROVIDERS: Emergency Medicine; Physician Assistant; Emergency Provider Student in an Organized Health Care Education/Training Program; PCP Nurse Practitioner Family
DX: G45.9 Transient cerebral ischemic attack, unspecified (principal); N39.0 Urinary tract infection, site not specified; R06.02 Shortness of breath; R07.9 Chest pain, unspecified; R42 Dizziness and giddiness; Z20.822 Contact with and (suspected) exposure to COVID-19; I10 Essential (primary) hypertension; E11.9 Type 2 diabetes mellitus without complications; M79.7 Fibromyalgia; F41.9 Anxiety disorder, unspecified; F32.A Depression, unspecified; F17.290 Nicotine dependence, other tobacco product, uncomplicated; Z90.49 Acquired absence of other specified parts of digestive tract; Z79.82 Long term (current) use of aspirin; Z79.899 Other long term (current) drug therapy; Z79.84 Long term (current) use of oral hypoglycemic drugs; R94.31 Abnormal electrocardiogram [ECG] [EKG]
CPT/HCPCS: 36415; 70450; 70496; 70498; 71046; 80053; 80307; 81001; 83690; 83880; 84484; 85025; 85380; 85610; 85730; 87086; 87637; 93005; 96365; 96375; 99284; A9270; J0696; J2550; J3360; J7030; Q9967